=== PATIENT | female | born 1955 | race Caucasian/White ===

== ENCOUNTER 2017-03-12 11:54 | Outpatient (CLI) | payer BC ==
[2017-03-12 13:43] LABS: BASOPHILS # (AUTO) 0.1 10^3/uL (0.0-0.1); BASOPHILS % (AUTO) 1.1 %; EOSINOPHILS # (AUTO) 0.2 10^3/uL (0.0-0.7); EOSINOPHILS % (AUTO) 1.7 %; HCT - HEMATOCRIT 36.3 % (37.0-47.0); HGB - HEMOGLOBIN 12.2 g/dL (12.0-16.0); LYMPHOCYTES # (AUTO) 2.4 10^3/uL (1.5-3.5); LYMPHOCYTES % (AUTO) 26.7 %; MEAN CORPUSCULAR HEMOGLOBIN 31.6 pg (27.0-31.0); MEAN CORPUSCULAR HGB CONC 33.6 g/dL (32.0-36.0); MEAN CORPUSCULAR VOLUME 94.2 fL (81.0-99.0); MEAN PLATELET VOLUME 6.9 fL (7.9-10.8); MONOCYTES # (AUTO) 0.6 10^3/uL (0.0-1.0); MONOCYTES % (AUTO) 6.2 %; NEUTROPHILS # (AUTO) 5.9 10^3/uL (1.5-6.6); NEUTROPHILS % (AUTO) 64.3 %; RED BLOOD COUNT 3.85 10^6/uL (4.20-5.40); RED CELL DISTRIBUTION WIDTH 14.6 % (12.0-15.0); UNCORRECTED WHITE BLOOD COUNT 9.1 x10^3/uL; WHITE BLOOD COUNT 9.1 x10^3/uL (4.8-10.8)
[2017-03-12 14:01] LABS: ALBUMIN/GLOBULIN RATIO 1.7 (1.0-2.2); BILIRUBIN,TOTAL 0.3 mg/dL (0.2-1.0); BUN - BLOOD UREA NITROGEN 12 mg/dL (6-20); CALCIUM 9.4 mg/dL (8.5-10.3); CARBON DIOXIDE - CO2 29 mmol/L (21-32); CHLORIDE 102 mmol/L (101-111); CHOL/HDL RATIO 3.4 (<4.4); CHOLESTEROL 275 mg/dL; CREATININE 1.1 mg/dL (0.4-1.0); GFR - MDRD 50 (>89); GLUCOSE 96 mg/dL (70-100); HDL CHOLESTEROL 82 mg/dL; POTASSIUM 3.9 mmol/L (3.5-5.0); SODIUM 138 mmol/L (135-145); TOTAL PROTEIN 6.3 g/dL (6.7-8.2); TRIGLYCERIDES 127 mg/dL; VLDL CHOLESTEROL 25 mg/dL
== END 2017-03-12 11:55 | disposition home or self-care (01) ==
LOC: LAB.R 11:54
PROVIDERS: ATTEND Physician Assistant Medical
DX: Z79.899 Other long term (current) drug therapy (principal); E78.2 Mixed hyperlipidemia
CPT/HCPCS: 80053; 80061; 84443; 85025

== ENCOUNTER 2017-05-18 14:04 | Emergency (ER) | payer BC, OTHER ==
--- NOTE | 2017-05-18 15:09 | XRAY Preliminary Report ---
Exam: XR Ankle 3 View LT IMPRESSION: Mild soft tissue swelling. [facility] SITE ID: [id number]
--- NOTE | 2017-05-18 15:12 | XRAY Report ---
EXAM: LEFT ANKLE RADIOGRAPHY EXAM DATE: 05/18/2017 02:58 PM. CLINICAL HISTORY: Trauma, pain. COMPARISON: 10/06/2014. TECHNIQUE: 3 views. FINDINGS: Bones: Normal. No fractures or bone lesions. Joints: Normal. No effusion. No subluxations. The ankle mortise is normally aligned. Soft Tissues: Possible mild soft tissue swelling over malleoli. IMPRESSION: Mild soft tissue swelling. [facility] Referring Provider Line: [phone] SITE ID: [id number]
--- NOTE | 2017-05-18 15:39 | ED Physician Documentation ---
PD HPI LOWER EXT INJURY - Stated complaint Stated Complaint: L ANKLE INJ - Chief complaint Chief Complaint: Ext Problem - History obtained from History obtained from: Patient - History of Present Illness PD HPI LOW EXT INJURY LOCATION: Left, Ankle Type of injury: Twist Where injury occurred: Home Timing - onset: How many days ago (3) Worsened by: Other (Weightbearing.) Associated symptoms: Swelling. No: Weakness, Numbness - Additional information Additional information: The patient is a 62-year-old female who presents with left ankle pain. She caught her foot and twisted her ankle when a chair she was sitting on collapsed 3 days ago. She has been able to ambulate since that time, but with persistent pain in her left ankle with weightbearing. She denies any other injuries. Review of Systems Constitutional: denies: Fever Nose: denies: Congestion Skin: denies: Rash Musculoskeletal: reports: Joint pain (left ankle). denies: Back pain Neurologic: denies: Head injury PD PAST MEDICAL HISTORY - Past Medical History Past Medical History: Yes Cardiovascular: Hypertension, High cholesterol Psych: Depression, Anxiety - Past Surgical History Past Surgical History: Yes General: Cholecystectomy, Colonoscopy /OFFICE ADMINISTRATION: Hysterectomy - Present Medications Home Medications: Ambulatory Orders Medication Instructions Recorded Confirmed Lamotrigine [Lamictal] 100 mg PO DAILY 05/14/13 05/18/17 Alprazolam [Xanax] 1 mg PO TID 05/18/17 05/18/17 Gabapentin 100 mg PO BID 05/18/17 05/18/17 Losartan [Cozaar] 50 mg PO DAILY 05/18/17 05/18/17 - Allergies Allergies/Adverse Reactions: Allergies Allergy/AdvReac Type Severity Reaction Status Date / Time Sulfa (Sulfonamide Allergy Severe Edema Verified 05/18/17 14:21 Antibiotics) naproxen Allergy unknown Verified 05/18/17 14:21 Penicillins Allergy UNKNOWN Verified 05/18/17 14:21 - Social History Does the pt smoke?: No Smoking Status: Never smoker Does the pt drink ETOH?: No Does the pt have substance abuse?: No - Immunizations Immunizations are current?: No Immunizations: TDAP >10years/unknown - POLST Patient has POLST: No PD ED PE NORMAL - Vitals Vital signs reviewed: Yes (normal) - General General: Alert and oriented X 3, Other (obese) - HEENT HEENT: Atraumatic - Neck Neck: No bony TTP - Cardiac Cardiac: RRR - Respiratory Respiratory: No respiratory distress - Back Back: No spinal TTP - Derm Derm: No rash - Extremities Extremities: No calf tenderness / cord, Other (There is soft tissue swelling and tenderness to palpation at the lateral aspect of the left ankle, including the posterior aspect of the lateral malleolus. There is no tenderness to palpation at the medial malleolus, the fifth metatarsal base, or the proximal fibula. Distal neurovascular is intact.) - Neuro Neuro: Alert and oriented X 3, No motor deficit, No sensory deficit Results - Vitals Vitals: Oxygen O2 Source Room air - Rads (name of study) left ankle Radiology: Prelim report reviewed, EMP read contemporaneously, See rad report ( Mild soft tissue swelling.) PD MEDICAL DECISION MAKING - ED course Complexity details: reviewed results, re-evaluated patient, considered differential, d/w patient ED course: The patient's presentation is consistent with a left ankle sprain. There is no evidence of fracture or dislocation on imaging study. Treatment in the emergency department included application of an ankle air splint. I discussed with her and her female information scientist the expected course of illness, symptomatic treatment and outpatient follow-up, as well as potentially worrisome signs or symptoms that should prompt reevaluation in the emergency department. Departure - Departure Disposition: 01 Home, Self Care Clinical Impression: Left ankle sprain Qualifiers: Encounter type: initial encounter Involved ligament of ankle: unspecified ligament Qualified Code(s): S93.402A - Sprain of unspecified ligament of left ankle, initial encounter Condition: Stable Instructions: ED Sprain Ankle W X Ray Follow-Up: Allyson Tatum PA-C [Primary Care Provider] - Comments: Keep your left leg elevated as much of the time as possible. Apply ice pack intermittently for the next 3 days. Use the air splint if it provides comfort. You can use Tylenol or ibuprofen if needed for pain. Follow up with your primary physician within 2 weeks. Call to schedule an appointment. Return to the emergency department if you develop increasing pain or swelling, or otherwise worsening symptoms. Discharge Date/Time: 05/18/17 15:59
[2017-05-18 16:00] VITALS: BP 122/89
== END 2017-05-18 15:59 | disposition home or self-care (01) ==
LOC: ED 14:04
DX: S93.402A Sprain of unspecified ligament of left ankle, initial encounter (principal); W23.0XXA Caught, crushed, jammed, or pinched between moving objects, initial encounter; X50.9XXA Other and unspecified overexertion or strenuous movements or postures, initial encounter; I10 Essential (primary) hypertension; E78.00 Pure hypercholesterolemia, unspecified
CPT/HCPCS: 99283

== ENCOUNTER 2018-03-08 10:36 | Outpatient (CLI) | payer OTHER ==
--- NOTE | 2018-03-08 12:01 | XRAY Report ---
Procedure Date: 03/08/2018 Accession Number: [id number] / [id number] Procedure: XRS - Knee 3 View BILAT CPT Code: FULL RESULT: EXAM: Knee 3 View BILAT DATE: 03/08/2018 11:49 AM CLINICAL HISTORY: R L KNEE PAIN COMPARISON: 04/01/2015. TECHNIQUE: 3 views each. FINDINGS: RIGHT KNEE: Bones: Stable mild degenerative changes compared to 2015. Joints: Progression of joint space loss compared to 2015 greater in the lateral femoral tibial compartment. Interval development of a small knee joint effusion. Soft Tissues: Normal. No soft tissue swelling. LEFT KNEE: Evaluation of the left knee is limited by suboptimal AP view, rotated. Bones: Progression of advanced degenerative changes with evidence of prior trauma including likely osteochondral defect in the tibial eminence. Subchondral lucency has developed in the central tibial plateau region in the interval. Joints: While not diagnostic, the frontal view is suggestive of loose bodies within the femoral acetabular joint space. A small joint effusion has developed in the interim. Soft Tissues: Normal. No soft tissue swelling. IMPRESSION: Progression of severe posttraumatic left knee osteoarthrosis with likely osteochondral defect and question of loose bodies within the left joint, seen on one view only. Mild degenerative changes of the right knee. [facility]
== END 2018-03-08 10:37 | disposition home or self-care (01) ==
LOC: DI.S 10:36
PROVIDERS: ATTEND Naturopath
DX: M17.32 Unilateral post-traumatic osteoarthritis, left knee (principal); M17.11 Unilateral primary osteoarthritis, right knee

== ENCOUNTER 2018-04-23 13:04 | Outpatient (CLI) | payer OTHER | END 2018-04-23 13:05 | disposition home or self-care (01) | LOC: LAB.F 13:04 | PROVIDERS: ATTEND Naturopath | DX: Z53.9 Procedure and treatment not carried out, unspecified reason (principal) | CPT/HCPCS: 36415; 80053; 81001; 82088; 83090; 84244; 85025; 86141; 87086 ==

== ENCOUNTER 2018-04-24 10:22 | Outpatient (CLI) | payer MEDICARE, OTHER ==
[2018-04-24 20:36] LABS: BASOPHILS # (AUTO) 0.1 10^3/uL (0.0-0.1); BASOPHILS % (AUTO) 0.8 %; EOSINOPHILS # (AUTO) 0.2 10^3/uL (0.0-0.7); EOSINOPHILS % (AUTO) 2.4 %; LYMPHOCYTES # (AUTO) 1.8 10^3/uL (1.5-3.5); LYMPHOCYTES % (AUTO) 25.2 %; MEAN CORPUSCULAR HGB CONC 32.6 g/dL (32.0-36.0); MEAN CORPUSCULAR VOLUME 89.1 fL (81.0-99.0); MEAN PLATELET VOLUME 7.3 fL (7.9-10.8); MONOCYTES # (AUTO) 0.6 10^3/uL (0.0-1.0); MONOCYTES % (AUTO) 8.4 %; NEUTROPHILS # (AUTO) 4.4 10^3/uL (1.5-6.6); NEUTROPHILS % (AUTO) 63.2 %; PLT - PLATELET COUNT 369 10^3/uL (130-450); RED BLOOD COUNT 4.13 10^6/uL (4.20-5.40); RED CELL DISTRIBUTION WIDTH 18.2 % (12.0-15.0)
[2018-04-24 20:51] LABS: ALBUMIN 3.9 g/dL (3.2-5.5); ALBUMIN/GLOBULIN RATIO 1.7 (1.0-2.2); BILIRUBIN,TOTAL 0.6 mg/dL (0.2-1.0); CALCIUM 9.2 mg/dL (8.5-10.3); CREATININE 1.1 mg/dL (0.4-1.0); CRP HIGH SENSITIVITY 2.6 mg/L; TOTAL PROTEIN 6.2 g/dL (6.7-8.2)
[2018-04-24 21:20] LABS: T4 (THYROXINE) 10.93 ug/dL (6.09-12.23); THYROID STIMULATING HORMONE 1.85 uIU/mL (0.34-5.60)
[2018-04-24 21:27] LABS: TOTAL T3 1.49 ng/mL (0.87-1.78)
[2018-04-24 21:29] LABS: FERRITIN 11.9 ng/mL (11.0-306.8)
[2018-04-24 21:32] LABS: FOLATE 15.81 ng/mL (5.90 - >24.8)
[2018-04-26 09:13] LABS: HOMOCYSTEINE 10.4 umol/L (<10.4)
[2018-04-30 16:02] LABS: T3 REVERSE 30 ng/dL (8-25)
== END 2018-04-24 10:23 | disposition home or self-care (01) ==
LOC: LAB.F 10:22
PROVIDERS: ATTEND Naturopath
DX: R39.12 Poor urinary stream (principal); R27.0 Ataxia, unspecified; R41.82 Altered mental status, unspecified; F33.2 Major depressive disorder, recurrent severe without psychotic features
CPT/HCPCS: 36415; 80053; 81001; 82088; 82306; 82607; 82728; 82746; 83090; 83835; 84244; 84436; 84439; 84443; 84480; 84481; 84482; 85025; 86141; 87086

== ENCOUNTER 2018-05-07 17:31 | Emergency (ER) | payer MEDICARE, OTHER ==
--- NOTE | 2018-05-07 18:29 | ED Physician Documentation ---
PD HPI GI BLEED - Stated complaint Stated Complaint: ABNORMAL LABS/RUST COLOR DISCHARGE FROM MOUTH - Chief complaint Chief Complaint: Abd Pain - History obtained from History obtained from: Patient - History of Present Illness Timing - onset: How many months ago (several months of upper abd fullness and nausea in mornings, with then vomiting of rust colored material. Feels okay through the day then, and can eat regularly. No weight loss. Has had this persist and seem by PCP (Care Coordination Manager) with labs done 04/24. Returned visit today with still symptoms. Was not Rx any meds for stomach. Referred to ER from office.) Timing - details: Gradual onset, Still present Associated symptoms: Hematemesis (vomiting each morning of rust colored material, presumed some blood to it. No bright red nor coffee ground appearance.). No: Coffee ground emesis, Black/tarry stool, Diarrhea Contributing factors: No: Sick contact, Aspirin use, NSAID use Worsened by: No: Eating Similar symptoms before: Has not had sx before Recently seen: Clinic Review of Systems Constitutional: denies: Fever, Chills Cardiac: denies: Chest pain / pressure Respiratory: denies: Dyspnea GI: reports: Abdominal Pain (epigastric area, mostly in mornings.) Endocrine: denies: Weight loss, Easy bruising / bleeding, Swollen lymph nodes PD PAST MEDICAL HISTORY - Past Medical History Cardiovascular: Hypertension, High cholesterol Psych: Depression, Anxiety Musculoskeletal: Fibromyalgia - Past Surgical History Past Surgical History: Yes General: Cholecystectomy, 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 05/07/18 Ondansetron HCl [Zofran] 4 mg PO Q6H PRN #20 tablet 05/07/18 Sucralfate 1 gm PO QID #40 tablet 05/07/18 - Allergies Allergies/Adverse Reactions: Allergies Allergy/AdvReac Type Severity Reaction Status Date / Time Sulfa (Sulfonamide Allergy Severe Edema Verified 05/07/18 17:41 Antibiotics) naproxen Allergy unknown Verified 05/07/18 17:41 Penicillins Allergy UNKNOWN Verified 05/07/18 17:41 - Social History Does the pt smoke?: No Smoking Status: Never smoker Does the pt drink ETOH?: No Does the pt have substance abuse?: No - Immunizations Immunizations are current?: No Immunizations: TDAP >10years/unknown - POLST Patient has POLST: No PD ED PE NORMAL - Vitals Vital signs reviewed: Yes - General General: Alert and oriented X 3, No acute distress, Well developed/nourished - HEENT HEENT: Pharynx benign - Neck Neck: Supple, no meningeal sign, No adenopathy - Cardiac Cardiac: RRR, No murmur - Respiratory Respiratory: Clear bilaterally - Abdomen Abdomen: Normal bowel sounds, Soft, Non distended, No organomegaly, Other (mild tender epigastric area without guarding. ) - Female Female : Deferred - Rectal Rectal: Other (brown stool with just speckle guiac positive. ) - Derm Derm: Normal color, Warm and dry - Extremities Extremities: No tenderness to palpate, Normal ROM s pain, No edema, No calf tenderness / cord - Neuro Neuro: Alert and oriented X 3, No motor deficit, Normal speech Results - Vitals Vitals: Vital Signs - 24 hr 05/07/18 05/07/18 17:38 21:04 Temperature 36.8 C Heart Rate 87 81 Respiratory 18 16 Rate Blood Pressure 152/96 H 172/92 H O2 Saturation 97 99 Oxygen O2 Source Room air - Labs Labs: Laboratory Tests 05/07/18 05/07/18 19:15 19:15 WBC 9.7 RBC 3.66 L Hgb 11.2 L Hct 33.0 L MCV 90.1 MCH 30.6 MCHC 34.0 RDW 19.2 H Plt Count 318 MPV 7.0 L Neut # (Auto) 5.7 Lymph # (Auto) 2.8 [place] # (Auto) 0.8 Eos # (Auto) 0.2 Baso # (Auto) 0.1 Absolute Nucleated RBC 0.00 Nucleated RBC % 0.0 Sodium 138 Potassium 3.5 Chloride 101 Carbon Dioxide 28 Anion Gap 9.0 BUN 12 Creatinine 1.1 H Estimated GFR (MDRD) 50 L Glucose 104 H Calcium 8.7 Total Bilirubin 0.5 AST 16 ALT 13 Alkaline Phosphatase 83 Total Protein 5.5 L Albumin 3.5 Globulin 2.0 L Albumin/Globulin Ratio 1.8 Lipase 24 PD MEDICAL DECISION MAKING - ED course Complexity details: reviewed old records (she came with labs from 04/24 showing Hbg 12.2. Other labs okay. Had not had any labs today. ), reviewed results (blood count slightly low but only mildly down from 04/24 Hgb 12.2. So slow bleeding/stable at this time. Is not currently treated for ulcer/etc. PCP ordered stool study for h.pylori and patient has collection kit for home already. Will treat for ulcer. I don't think CT/etc would be useful. EGD would make sense given these symptoms for months. ) - Sepsis Event Vital Signs: Vital Signs - 24 hr 05/07/18 05/07/18 17:38 21:04 Temperature 36.8 C Heart Rate 87 81 Respiratory 18 16 Rate Blood Pressure 152/96 H 172/92 H O2 Saturation 97 99 Oxygen O2 Source Room air Departure - Departure Disposition: Home, Self Care Clinical Impression: Hematemesis Qualifiers: Nausea presence: without nausea Qualified Code(s): K92.0 - Hematemesis Gastritis Qualifiers: Gastritis type: unspecified gastritis Chronicity: acute Gastritis bleeding: with bleeding Qualified Code(s): K29.01 - Acute gastritis with bleeding Condition: Stable Record reviewed to determine appropriate education?: Yes Instructions: ED PUD Vs Gastritis Follow-Up: Maria Ines Marques ND [Primary Care Provider] - Rogelio Ba MD [Provider Admit Priv/Credential] - Prescriptions: Omeprazole 20 mg PO DAILY #30 capsule. Ondansetron HCl [Zofran] 4 mg PO Q6H PRN #20 tablet PRN Reason: Nausea / Vomiting Sucralfate 1 gm PO QID #40 tablet Comments: Frequent fluids. It sounds like you have either gastritis or ulcer of the stomach. The most accurate test for this would be an upper GI dye test or even better is a gastroscopy which is a camera on the tube. This is done by surgeon or GI specialist. Call Dr. Ba's office, surgery, to arrange follow-up and evaluate for gastroscopy. Call them tomorrow for an appointment presumably later this week. Meanwhile we will treat you for likely ulcer with omeprazole daily and sucralfate 3-4 times a day (particularly at night before bed). Ondansetron if needed for nausea. Follow-up with the stool test requested by your primary care which would evaluate for the presence of an infection and urine test did not or stomach lining that may be precipitating this as well. Return if obvious blood in the stool or worsening symptoms. Recheck with your primary care in about a week, call for an appointment. Discharge Date/Time: 05/07/18 21:04
[2018-05-07] MEDS ORDERED: MAG HYDROX/AL HYDROX/SIMETH 30 ML UDC PO STA (18:59)
[2018-05-07] MEDS ORDERED: FAMOTIDINE 20 MG TABLET PO STA (18:59)
[2018-05-07 19:23] LABS: BASOPHILS # (AUTO) 0.1 10^3/uL (0.0-0.1); BASOPHILS % (AUTO) 0.9 %; EOSINOPHILS # (AUTO) 0.2 10^3/uL (0.0-0.7); EOSINOPHILS % (AUTO) 2.3 %; HGB - HEMOGLOBIN 11.2 g/dL (12.0-16.0); LYMPHOCYTES # (AUTO) 2.8 10^3/uL (1.5-3.5); LYMPHOCYTES % (AUTO) 29.1 %; MEAN CORPUSCULAR HEMOGLOBIN 30.6 pg (27.0-31.0); MEAN CORPUSCULAR VOLUME 90.1 fL (81.0-99.0); MONOCYTES # (AUTO) 0.8 10^3/uL (0.0-1.0); MONOCYTES % (AUTO) 8.7 %; NEUTROPHILS # (AUTO) 5.7 10^3/uL (1.5-6.6); PLT - PLATELET COUNT 318 10^3/uL (130-450); RED BLOOD COUNT 3.66 10^6/uL (4.20-5.40); RED CELL DISTRIBUTION WIDTH 19.2 % (12.0-15.0); WHITE BLOOD COUNT 9.7 x10^3/uL (4.8-10.8)
[2018-05-07 19:39] LABS: ALBUMIN 3.5 g/dL (3.2-5.5); ALBUMIN/GLOBULIN RATIO 1.8 (1.0-2.2); BILIRUBIN,TOTAL 0.5 mg/dL (0.2-1.0); CALCIUM 8.7 mg/dL (8.5-10.3); CREATININE 1.1 mg/dL (0.4-1.0); TOTAL PROTEIN 5.5 g/dL (6.7-8.2)
[2018-05-07 21:05] VITALS: BP 172/92
== END 2018-05-07 21:04 | disposition home or self-care (01) ==
LOC: ED 17:31
DX: K29.01 Acute gastritis with bleeding (principal); I10 Essential (primary) hypertension
CPT/HCPCS: 36415; 80053; 83690; 85025; 99283; 99284; A9270; 87338

== ENCOUNTER 2018-07-02 15:18 | Outpatient (CLI) | payer MEDICARE, OTHER ==
[2018-07-02 17:54] LABS: BILIRUBIN,URINE NEGATIVE (NEGATIVE); GLUCOSE, URINE (UA) NEGATIVE (NEGATIVE); KETONES,URINE (UA) NEGATIVE (NEGATIVE); LEUKOCYTE ESTERASE, URINE SMALL (NEGATIVE); NITRITE,URINE NEGATIVE (NEGATIVE); OCCULT BLOOD,URINE NEGATIVE (NEGATIVE); PH,URINE 6.5 PH (5.0-7.5); PROTEIN,URINE NEGATIVE (NEGATIVE); UROBILINOGEN,URINE 0.2 (NORMAL) E.U./dL (NORMAL)
[2018-07-02 17:57] LABS: BASOPHILS # (AUTO) 0.1 10^3/uL (0.0-0.1); BASOPHILS % (AUTO) 0.8 %; EOSINOPHILS # (AUTO) 0.3 10^3/uL (0.0-0.7); EOSINOPHILS % (AUTO) 3.5 %; HGB - HEMOGLOBIN 11.7 g/dL (12.0-16.0); LYMPHOCYTES # (AUTO) 3.3 10^3/uL (1.5-3.5); LYMPHOCYTES % (AUTO) 38.5 %; MEAN CORPUSCULAR HGB CONC 32.3 g/dL (32.0-36.0); MEAN PLATELET VOLUME 7.1 fL (7.9-10.8); MONOCYTES # (AUTO) 0.7 10^3/uL (0.0-1.0); MONOCYTES % (AUTO) 8.6 %; NEUTROPHILS # (AUTO) 4.2 10^3/uL (1.5-6.6); NEUTROPHILS % (AUTO) 48.6 %; PLT - PLATELET COUNT 380 10^3/uL (130-450); RED BLOOD COUNT 3.89 10^6/uL (4.20-5.40); WHITE BLOOD COUNT 8.6 x10^3/uL (4.8-10.8)
[2018-07-02 17:58] LABS: CLARITY,URINE CLEAR (CLEAR)
[2018-07-02 18:05] LABS: ALBUMIN 3.9 g/dL (3.2-5.5); ALBUMIN/GLOBULIN RATIO 1.8 (1.0-2.2); BILIRUBIN,TOTAL 0.5 mg/dL (0.2-1.0); CALCIUM 8.9 mg/dL (8.5-10.3); TOTAL PROTEIN 6.1 g/dL (6.7-8.2)
[2018-07-02 18:14] LABS: BACTERIA,URINE None Seen /HPF (None Seen); RBC,URINE None Seen /HPF (0-5); SQUAMOUS EPITHELIAL CELL,UR MANY Squamous (<= Few)
== END 2018-07-02 15:19 | disposition home or self-care (01) ==
LOC: LAB.R 15:18
PROVIDERS: ATTEND Physician Assistant Medical
DX: R10.84 Generalized abdominal pain (principal); K92.0 Hematemesis; N18.9 Chronic kidney disease, unspecified
CPT/HCPCS: 80053; 81001; 81003; 85025; 87086

== ENCOUNTER 2018-09-02 10:31 | Outpatient (CLI) | payer MEDICARE, OTHER ==
[2018-09-02] MEDS ORDERED: IOVERSOL 320 100 ML VIAL IVP ONE ×2 (10:42→13:04)
[2018-09-02] MEDS ORDERED: IOVERSOL 320 50 ML VIAL ONE (10:42)
[2018-09-02 11:15] LABS: CREATININE 1.1 mg/dL (0.4-1.0)
[2018-09-02] MEDS ORDERED: IOVERSOL 320 50 ML VIAL PO ONE (13:07)
--- NOTE | 2018-09-02 13:21 | CT Report ---
Reason: ABDOMINAL PAIN,GENERALIZED,HEMATEMESIS,RENAL INSUF Procedure Date: 09/02/2018 Accession Number: [id number] / [id number] Procedure: CT - Abdomen/Pelvis W/ CPT Code: FULL RESULT: EXAM: CT ABDOMEN AND PELVIS EXAM DATE: 09/02/2018 11:47 AM. CLINICAL HISTORY: Abdominal pain,generalized,hematemesis,renal insufficiency. COMPARISONS: None. TECHNIQUE: Routine helical CT imaging was performed through the abdomen and pelvis. IV contrast: OPTI 320 90mL. Enteric contrast: Yes. Reconstructions: Coronal and sagittal. In accordance with CT protocol optimization, one or more of the following dose reduction techniques were utilized for this exam: automated exposure control, adjustment of mA and/or KV based on patient size, or use of iterative reconstructive technique. FINDINGS: Lung Bases: Small amount of scarring versus subsegmental atelectasis at the left lung base. Incompletely imaged hiatal hernia versus prior gastric pull-through procedure. There is an abnormal-appearing soft tissue mass along the gastric mesentery, which is herniated into the thorax. There is a likely gastroesophageal lymph node, up to 1.0 cm in short axis with no definite fatty hilum detected. Liver: Normal. No masses. Gallbladder/Bile Ducts: Status post cholecystectomy. Spleen: Normal. Pancreas: Normal. Adrenal Glands: Normal. Kidneys: Right renal cyst, simple. No suspicious masses or hydronephrosis. Peritoneal Cavity/Bowel: Normal. No free fluid, free air or adenopathy. No masses or acute inflammatory process. The appendix is well visualized and normal. Pelvic Organs: Status post hysterectomy. Vasculature: No aneurysms or other significant abnormality. Bones: No significant abnormality. Other: None. IMPRESSION: Likely at least moderate hiatal hernia with abnormal-appearing perigastric lymph node. This should be correlated to the patient's history for possible prior gastric pull-through procedure. [facility] The above findings suspected hiatal hernia with prominent lymph node were discussed with Allyson Tatum by Dr. Gal Yusuf at 13:20 hrs on 09/02/18.
== END 2018-09-02 10:32 | disposition home or self-care (01) ==
LOC: DI 10:31
PROVIDERS: ATTEND Physician Assistant Medical
DX: R10.84 Generalized abdominal pain (principal); K92.0 Hematemesis; N18.9 Chronic kidney disease, unspecified; K52.9 Noninfective gastroenteritis and colitis, unspecified; R41.82 Altered mental status, unspecified; R25.1 Tremor, unspecified; Z79.899 Other long term (current) drug therapy
CPT/HCPCS: 36415; 70450; 74177; 82565; Q9967

== ENCOUNTER 2018-09-02 12:48 | Outpatient (CLI) | payer MEDICARE, OTHER ==
--- NOTE | 2018-09-02 15:07 | CT Report ---
Reason: ALTERED MENTAL STATUS,UNSPECIFIED,TREMOR Procedure Date: 09/02/2018 Accession Number: [id number] / [id number] Procedure: CT - Head W/O CPT Code: FULL RESULT: EXAM: CT HEAD EXAM DATE: 09/02/2018 10:34 AM. CLINICAL HISTORY: ALTERED MENTAL STATUS,UNSPECIFIED,TREMOR. COMPARISON: Brain MRI 09/18/2013. TECHNIQUE: Multiaxial CT images were obtained from the foramen magnum to the vertex. Reformats: Sagittal and coronal. IV contrast: None. In accordance with CT protocol optimization, one or more of the following dose reduction techniques were utilized for this exam: automated exposure control, adjustment of mA and/or KV based on patient size, or use of iterative reconstructive technique. FINDINGS: Parenchyma: No intraparenchymal hemorrhage. No evidence of mass, midline shift, or CT findings of infarction. Merlos-white differentiation is distinct. Subtle areas of low attenuation in deep white matter of both cerebral hemispheres. No associated positive mass-effect. Mild chronic small vessel ischemic change could have this appearance. Minimal white matter signal abnormality was present on prior MRI. Extraaxial Spaces: Sulcal prominence over the cerebral convexities greatest bilaterally in the frontal lobes. Mild volume loss is seen in the anterior and medial temporal lobes as well. This appears slightly increased compared to prior MRI. No subdural or epidural collections identified. Ventricles: Normal in size and position. Sinuses and Orbits: Imaged paranasal sinuses, orbits, and mastoids show no significant abnormality. Bones: No evidence of fracture or calvarial defect. Other: None. IMPRESSION: 1. Mild sulcal prominence and interval mild increase in parenchymal volume loss in frontal and temporal lobes. No hydrocephalus. 2. Subtle low attenuation in deep white matter bilaterally without associated positive mass-effect or loss of merlos-white differentiation. Mild chronic small vessel ischemic change could have this appearance. 3. Exam otherwise as above. [facility]
== END 2018-09-02 12:49 | disposition home or self-care (01) ==
LOC: DI 12:48
PROVIDERS: ATTEND Naturopath
DX: R41.82 Altered mental status, unspecified (principal); R25.1 Tremor, unspecified
CPT/HCPCS: 70450

== ENCOUNTER 2018-09-19 10:26 | Day surgery (SDC) | payer MEDICARE, OTHER ==
[2018-09-19] MEDS ORDERED: PROPOFOL 200 MG/20 ML VIAL IVP ONE (10:27)
[2018-09-19] MEDS ORDERED: LACTATED RINGERS 1,000 ML IV ONE ×2 (11:05→13:50)
[2018-09-19] MEDS ORDERED: LIDO GARGLE 30 ML BOTTLE TOP ONE (12:54)
[2018-09-19 14:15] VITALS: BP 147/92
== END 2018-09-19 10:27 | disposition home or self-care (01) ==
LOC: SDS 10:26
PROVIDERS: ATTEND Internal Medicine Gastroenterology
PROC: 0DB58ZX Excision of Esophagus, Via Natural or Artificial Opening Endoscopic, Diagnostic (ICD-10-PCS; 2018-09-19)
PROC: 0DBG8ZX Excision of Left Large Intestine, Via Natural or Artificial Opening Endoscopic, Diagnostic (ICD-10-PCS; 2018-09-19)
PROC: 0DBF8ZX Excision of Right Large Intestine, Via Natural or Artificial Opening Endoscopic, Diagnostic (ICD-10-PCS; 2018-09-19)
PROC: 0DB98ZX Excision of Duodenum, Via Natural or Artificial Opening Endoscopic, Diagnostic (ICD-10-PCS; principal; 2018-09-19 12:00)
PROC: 0DB78ZX Excision of Stomach, Pylorus, Via Natural or Artificial Opening Endoscopic, Diagnostic (ICD-10-PCS; 2018-09-19 12:00)
DX: K22.70 Barrett's esophagus without dysplasia (principal); K44.9 Diaphragmatic hernia without obstruction or gangrene; K29.50 Unspecified chronic gastritis without bleeding; K52.9 Noninfective gastroenteritis and colitis, unspecified; I10 Essential (primary) hypertension; F32.9 Major depressive disorder, single episode, unspecified; F41.9 Anxiety disorder, unspecified; E66.9 Obesity, unspecified; Z68.35 Body mass index [BMI] 35.0-35.9, adult; M79.7 Fibromyalgia; M17.0 Bilateral primary osteoarthritis of knee
CPT/HCPCS: 43239; 45380; 87081; 93005; A9270; J7120

== ENCOUNTER 2019-02-27 15:00 | Outpatient (CLI) | payer MEDICARE, OTHER | END 2019-02-27 15:01 | disposition EMS.NT | LOC: EMS 15:00 | PROVIDERS: ATTEND Surgery | DX: M25.561 Pain in right knee (principal); M25.562 Pain in left knee; W01.0XXA Fall on same level from slipping, tripping and stumbling without subsequent striking against object, initial encounter; Y93.01 Activity, walking, marching and hiking; Y92.008 Other place in unspecified non-institutional (private) residence as the place of occurrence of the external cause ==

== ENCOUNTER 2019-03-02 | Inpatient (IN) | payer MEDICARE, OTHER | END 2019-03-04 19:05 | disposition home health service (06) | DRG 918 | PROVIDERS: ADMIT Internal Medicine | DX: T43.591A Poisoning by other antipsychotics and neuroleptics, accidental (unintentional), initial encounter (principal); N39.0 Urinary tract infection, site not specified; R51 Headache; N17.9 Acute kidney failure, unspecified; I45.81 Long QT syndrome; R79.1 Abnormal coagulation profile; B95.1 Streptococcus, group B, as the cause of diseases classified elsewhere; R29.6 Repeated falls; R26.89 Other abnormalities of gait and mobility; R11.2 Nausea with vomiting, unspecified; R42 Dizziness and giddiness; E86.0 Dehydration; F60.3 Borderline personality disorder; G25.2 Other specified forms of tremor; I10 Essential (primary) hypertension; F32.9 Major depressive disorder, single episode, unspecified; K21.9 Gastro-esophageal reflux disease without esophagitis; F41.9 Anxiety disorder, unspecified; M79.7 Fibromyalgia; Z66 Do not resuscitate; Z79.01 Long term (current) use of anticoagulants; Z79.899 Other long term (current) drug therapy; Z91.81 History of falling; Z88.0 Allergy status to penicillin; Z88.2 Allergy status to sulfonamides | CPT/HCPCS: 36415; 70450; 71045; 80048; 80053; 80178; 81001; 82306; 83690; 84443; 85025; 85610; 85730; 87077; 87086; 93005; 93306; 96360; 97110; 97116; 97161; 97166; 99284; 99285; A9270; 80306; 80307; 80320; 80329; 81003; 84484 ==

== ENCOUNTER 2020-08-20 08:00 | Outpatient (CLI) | payer MEDICARE, OTHER ==
--- OUTSIDE RECORDS SUMMARY | 2020-08-25 01:58 | EXTERNAL MEDICAL SUMMARY RPT | Continuity of Care Document ---
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 Katus Unavailable Unavailable Roof Unavailable Unavailable Demmler Unavailable Unavailable Problems date description facility 2016-08-21 14:20 ENCNTR SCREEN MAMMOGRAM FOR [facility] MALIGNANT NEOPLASM OF BREAST 2018-02-28 11:40 PAIN IN RIGHT KNEE [facility] Medic [facility] 2018-02-28 11:40 PAIN IN LEFT KNEE [facility] 2020-07-15 00:00:00 TSH WITH REFLEX TO FT4 [facility] 2020-07-15 00:00:00 Hep C AB with Reflex [facility] Pr [facility] 2020-07-15 00:00:00 Long-term (current) drug use [facility] 2020-07-15 00:00:00 Routine general medical [facility] Primary [facility] examination at a [facility] facility 2020-07-15 00:00:00 Other screening mammogram [facility] 2020-07-15 00:00:00 [facility] 00:00:00 [facility]15 00:00:00 MM SCR DIGITAL MAMMO BILAT [facility] 2020-07-15 00:00:00 DEXA BONE DENSITY COMPLETE [facility] 2020-07-15 00:00:00 COMPREHENSIVE METABOLIC PANEL [facility] 2020-07-15 00:00:00 LIPIDS SCREEN [facility] 2020-07-15 00:00:00 [place] [facility] 2020-07-15 00:00:00 CBC W/Diff[facility]Plt [facility] 2020-07-15 00:00:00 [facility] 2020-07-15 00:00:00 Encounter for general adult [facility] medical examination without [facility] abnormal findings 2020-07-15 00:00:00 [facility] for malignant neoplasm [facility] of breast 2020-07-15 00:00:00 [facility] other disorder [facility] 2020-07-15 00:00:00 Other [facility] 2020-07-15 00:00:00 Depression [facility] 2020-07-15 00:00:00 Alcohol consumption [facility] 2020-07-15 00:00:00 [facility] 2020-07-15 00:00:00 [facility] 2020-07-15 00:00:00 Adult health examination [facility] Primary Care [facility] 2020-07-15 00:00:00 [facility]id [facility] 00:00:00 Little interest or pleasure [facility] doing things? [facility] 2020-07-15 00:00:00 Feeling down, depressed, or [facility] hopeless? [facility] 2020-07-15 00:00:00 Patient Health Questionnaire 2 [facility] item (PHQ2) total score 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 2020-08-20 00:00:00 Other signs and symptoms [facility] involving cognition [facility] 2020-08-20 00:00:00 Urinalysis with Microscopic [facility] Exam, Culture in Indicated [facility] 2020-08-20 00:00:00 [facility] back pain 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 2020-08-20 00:00:00 Other symptoms and signs [facility] involving cognitive functions [place] [facility] and awareness 2020-08-20 00:00:00 Chills (without fever) 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 2020-08-20 00:00:[facility]:00 Tobacco use and exposure [facility] 2020-08-20 00:00:[facility]:00:00 [facility]oker [facility] 2020-08-20 00:00:00 [facility]:00:00 [facility] 2020[facility]20 00:00:00 [facility] 00:00:00 Tobacco smoking status NHIS [facility] 2020-08-20 00:00:00 Total score? 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, UNSPECIFIED 2020-08-20 08:00 HEMATURIA, UNSPECIFIED [facility] edical Center Allergies date description facility NO KNOWN ENVIRONMENTAL ALLERGIES [facility] NO KNOWN ALLERGIES [facility] Penicillins [facility] Sulfa (Sulfonamide Antibiotics) [facility] naproxen [facility] SULFA (SULFONAMIDE ANTIBIOTICS) [facility] Penicillins [facility] Sulfa (Sulfonamide Antibiotics) [facility] naproxen [facility] BEE VENOM [facility] DOXAZOSIN [facility] VENLAFAXINE [facility] Medications date description facility 2020-07-15 00:00:00 [facility] 2020-07-15 00:00:00 null [facility] 2020-07-15 00:00:00 [facility] 2020-07-15 00:00:00 [facility] 2020-07-15 00:00:00 DESVENLAFAXINE SUCCINATE [facility] [id number] [facility] 2020-07-15 00:00:00 LITHIUM CARBONATE CAPS [facility] 2020-07-15 00:00:00 null [facility] 00:00:00 LITHIUM CARBONATE CAPS [facility] 2020-07-15 00:00:00 DESVENLAFAXINE SUCCINATE [facility] [id number] Procedures date description facility 2020-07-15 00:00:00 First Vx - Ix admin for [facility] Medicare patients [place] [facility] date description facility 2020-07-15 00:00:00 Prevnar 13 [facility] Suspension [place] [facility] date description facility 2020-07-15 00:00:00 ANNUAL WELLNESS VISIT, [facility] SUBSEQUENT [place] [facility] date description facility 2020-07-15 00:00:[facility] [place] [facility] date description facility 2020-08-20 00:00:00 POC URINALYSIS DIP [facility] date description facility 2020-08-20 00:00:00 [facility] [place] [facility] Results Social History date description facility 2020-08-20 00:00:00 [facility]oker [facility] [place] [facility] Social History date description facility 2020-08-20 00:00:00 [facility] [place] [facility] date description facility [id number]
== END 2020-08-20 23:59 | disposition home or self-care (01) ==
LOC: LAB.R 08:00
PROVIDERS: ATTEND Physician Assistant
DX: M54.5 Low back pain (principal); R82.998 Other abnormal findings in urine
CPT/HCPCS: 87086

== ENCOUNTER 2020-08-23 10:06 | Emergency (ER) | payer MEDICARE, OTHER ==
[2020-08-23 10:43] LABS: BILIRUBIN,URINE NEGATIVE (NEGATIVE); GLUCOSE, URINE (UA) NEGATIVE (NEGATIVE); KETONES,URINE (UA) NEGATIVE (NEGATIVE); LEUKOCYTE ESTERASE, URINE LARGE (NEGATIVE); NITRITE,URINE NEGATIVE (NEGATIVE); OCCULT BLOOD,URINE SMALL (NEGATIVE); PROTEIN,URINE TRACE mg/dL (NEGATIVE); UROBILINOGEN,URINE 0.2 (NORMAL) E.U./dL (NORMAL)
[2020-08-23 10:47] LABS: CLARITY,URINE SL. CLOUDY (CLEAR)
[2020-08-23 10:51] LABS: BACTERIA,URINE Few /HPF (None Seen); RBC,URINE 0-5 /HPF (0-5); SQUAMOUS EPITHELIAL CELL,UR FEW Squamous (<= Few)
--- NOTE | 2020-08-23 11:29 | ED Physician Documentation ---
PD HPI NVD - Stated complaint Stated Complaint: MEMORY LOSS/HEAD PX - Chief complaint Chief Complaint: Neuro - History obtained from History obtained from: Patient - History of Present Illness Timing - onset: How many days ago (4) Timing - duration: Days (4) Timing - details: Gradual onset, Still present Associated symptoms: Abdominal pain, Near syncope / syncope, Loss of appetite, Other (vomiting) Contributing factors: Other (hx of schizophrenia and prior lithium toxicity) Improved by: Vomiting Similar symptoms before: Has not had sx before Recently seen: Clinic - Additonal information Additional information: 65-year-old female reports that she has developed some nausea and vomiting and abdominal pain and went to see the doctor last week and they thought that maybe she should come to the hospital for evaluation of stroke. The patient stated that she did not think she needed to do that when she left the doctor's office and today she has persistence of a headache has persistence of some vomiting and nausea and is come to the emergency department for evaluation. She denies any focal motor weakness or clumsiness she denies any recent falls she does have a headache and she is complaining of some blurring of her vision. She is no longer taking any warfarin she is still taking lithium. Review of Systems Constitutional: denies: Chills Eyes: reports: Decreased vision Ears: denies: Ear pain Nose: denies: Rhinorrhea / runny nose, Congestion Throat: denies: Sore throat Cardiac: denies: Chest pain / pressure, Palpitations Respiratory: denies: Dyspnea, Cough GI: reports: Abdominal Pain, Nausea, Vomiting : reports: Frequency. denies: Dysuria Skin: denies: Rash Musculoskeletal: denies: Neck pain, Back pain, Extremity pain Neurologic: reports: Altered mental status, Headache. 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 - Present Medications Home Medications: Ambulatory Orders Medication Instructions Recorded Confirmed Losartan [Cozaar] 50 mg PO DAILY 05/18/17 03/03/19 Duloxetine HCl 120 mg PO DAILY 03/02/19 03/03/19 Gabapentin 600 mg PO QPM 03/02/19 03/03/19 Omeprazole 40 cap PO BID 03/02/19 03/03/19 lamoTRIgine [LaMICtal] 100 tab PO DAILY 03/02/19 03/03/19 lamoTRIgine [LaMICtal] 150 mg PO QPM 03/02/19 03/03/19 ALPRAZolam [Alprazolam] 1 mg PO TID PRN 03/03/19 03/03/19 Nitrofurantoin [Macrobid] 100 mg PO BID #10 capsule 03/04/19 Cefdinir 300 mg PO BID #14 capsule 08/23/20 Ondansetron Odt [Zofran] 4 mg TL Q6H PRN #10 tablet 08/23/20 - Allergies Allergies/Adverse Reactions: Allergies Allergy/AdvReac Type Severity Reaction Status Date / Time Sulfa (Sulfonamide Allergy Severe Edema Verified 08/23/20 10:20 Antibiotics) naproxen Allergy unknown Verified 08/23/20 10:20 Penicillins Allergy UNKNOWN Verified 08/23/20 10:20 - Social History Does the pt smoke?: No Smoking Status: Never smoker Does the pt drink ETOH?: No Does the pt have substance abuse?: Yes Substance Use and Type: Marijuana - Immunizations Immunizations are current?: No Immunizations: TDAP >10years/unknown - POLST Patient has POLST: No POLST Status: DNR PD ED PE NORMAL - Vitals Vital signs reviewed: Yes (normal) - General General: Alert and oriented X 3, No acute distress, Well developed/nourished - HEENT HEENT: Atraumatic, PERRL, EOMI, Ears normal - Neck Neck: Supple, no meningeal sign, No bony TTP - Cardiac Cardiac: RRR, No murmur - Respiratory Respiratory: No respiratory distress, Clear bilaterally - Abdomen Abdomen: Normal bowel sounds, Soft, Non tender, Non distended, No organomegaly - Back Back: No CVA TTP, No spinal TTP - Derm Derm: Normal color, Warm and dry, No rash - Extremities Extremities: No deformity, Other (chronic stasis dermatitis and doughy edema) - Psych Psych: Normal mood, Normal affect Results - Vitals Vitals: Vital Signs - 24 hr 08/23/20 08/23/20 10:09 12:28 Temperature 36.8 C Heart Rate 92 79 Respiratory 16 18 Rate Blood Pressure 128/74 113/75 O2 Saturation 100 100 Oxygen O2 Source Room air - Labs Labs: Laboratory Tests 08/23/20 08/23/20 08/23/20 10:35 12:02 12:02 WBC 8.3 RBC 3.88 L Hgb 11.3 L Hct 35.6 L MCV 91.8 MCH 29.1 MCHC 31.7 L RDW 15.2 H Plt Count 334 MPV 8.5 Neut # (Auto) 4.4 Lymph # (Auto) 2.8 Keith # (Auto) 0.7 Eos # (Auto) 0.2 Baso # (Auto) 0.1 Absolute Nucleated RBC 0.00 Nucleated RBC % 0.0 PT INR Sodium 140 Potassium 3.7 Chloride 105 Carbon Dioxide 25 Anion Gap 10.0 BUN 14 Creatinine 1.3 H Estimated GFR (MDRD) 41 L Glucose 95 Calcium 9.0 Total Bilirubin 0.6 AST 20 ALT 18 Alkaline Phosphatase 92 Total Protein 6.0 L Albumin 3.9 Globulin 2.1 Albumin/Globulin Ratio 1.9 Lipase 26 Urine Color YELLOW Urine Clarity SL. CLOUDY Urine pH 6.0 Ur Specific [place] 1.010 Urine Protein TRACE Urine Glucose (UA) NEGATIVE Urine Ketones NEGATIVE Urine Occult Blood SMALL H Urine Nitrite NEGATIVE Urine Bilirubin NEGATIVE Urine Urobilinogen 0.2 (NORMAL) Ur Leukocyte Esterase LARGE H Urine RBC 0-5 Urine WBC >25 H Ur Squamous Epith Cells FEW Squamous Urine Bacteria Few Ur Microscopic Review INDICATED Urine Culture Comments INDICATED [place] 08/23/20 08/23/20 12:02 12:02 WBC RBC Hgb Hct MCV MCH MCHC RDW Plt Count MPV Neut # (Auto) Lymph # (Auto) Keith # (Auto) Eos # (Auto) Baso # (Auto) Absolute Nucleated RBC Nucleated RBC % PT 12.7 H INR 1.1 Sodium Potassium Chloride Carbon Dioxide Anion Gap BUN Creatinine Estimated GFR (MDRD) Glucose Calcium Total Bilirubin AST ALT Alkaline Phosphatase Total Protein Albumin Globulin Albumin/Globulin Ratio Lipase Urine Color Urine Clarity Urine pH Ur Specific [place] Urine Protein Urine Glucose (UA) Urine Ketones Urine Occult Blood Urine Nitrite Urine Bilirubin Urine Urobilinogen Ur Leukocyte Esterase Urine RBC Urine WBC Ur Squamous Epith Cells Urine Bacteria Ur Microscopic Review Urine Culture Comments [place] 0.30 - Rads (name of study) CT head Radiology: Prelim report reviewed (Impression: No source of headache is identified. No trauma or intracranial hemorrhage is seen, no mass or hydrocephalus is present.), EMP read indepedently, See rad report PD MEDICAL DECISION MAKING - ED course Complexity details: reviewed results, re-evaluated patient, considered differential, d/w patient ED course: 65-year-old female with nausea and vomiting has urinary tract infection on evaluation of the urine she does not have elevated white blood cell count she does not have flank pain she does have vomiting and dehydration. She is hydrated she is administered Rocephin intravenously and we will place her on some cefdinir outpatient as she is allergic to both penicillins and sulfa. Departure - Departure Disposition: 01 Home, Self Care Clinical Impression: Urinary tract infection Qualifiers: Urinary tract infection type: acute cystitis Hematuria presence: without hematuria Qualified Code(s): N30.00 - Acute cystitis without hematuria Instructions: ED UTI Cystitis Female Follow-Up: Nara Corbin ARNP [Primary Care Provider] - Prescriptions: Cefdinir 300 mg PO BID #14 capsule Ondansetron Odt [Zofran] 4 mg TL Q6H PRN #10 tablet PRN Reason: Nausea / Vomiting
[2020-08-23] MEDS ORDERED: SODIUM CHLORIDE 0.9% 1,000 ML IV STA (11:31)
[2020-08-23] MEDS ORDERED: KETOROLAC 30 MG/ML VIAL IVP STA (11:31)
[2020-08-23] MEDS ORDERED: ONDANSETRON 4 MG/2 ML VIAL IVP STA (11:31)
[2020-08-23] MEDS ORDERED: cefTRIAXone 1 GM in SODIUM CHLORIDE 0.9% MINIBAG 100 ML IV STA (11:36)
[2020-08-23 12:13] LABS: BASOPHILS # (AUTO) 0.1 10^3/uL (0.0-0.1); BASOPHILS % (AUTO) 0.6 %; EOSINOPHILS # (AUTO) 0.2 10^3/uL (0.0-0.7); EOSINOPHILS % (AUTO) 2.5 %; HGB - HEMOGLOBIN 11.3 g/dL (12.0-16.0); LYMPHOCYTES # (AUTO) 2.8 10^3/uL (1.5-3.5); LYMPHOCYTES % (AUTO) 34.2 %; MEAN CORPUSCULAR HEMOGLOBIN 29.1 pg (27.0-31.0); MEAN CORPUSCULAR HGB CONC 31.7 g/dL (32.0-36.0); MEAN CORPUSCULAR VOLUME 91.8 fL (81.0-99.0); MEAN PLATELET VOLUME 8.5 fL (7.9-10.8); MONOCYTES # (AUTO) 0.7 10^3/uL (0.0-1.0); NEUTROPHILS # (AUTO) 4.4 10^3/uL (1.5-6.6); NEUTROPHILS % (AUTO) 53.3 %; PLT - PLATELET COUNT 334 10^3/uL (130-450); RED BLOOD COUNT 3.88 10^6/uL (4.20-5.40); RED CELL DISTRIBUTION WIDTH 15.2 % (12.0-15.0); WHITE BLOOD COUNT 8.3 x10^3/uL (4.8-10.8)
[2020-08-23 12:19] LABS: INR 1.1 (0.8-1.2); PT - PROTHROMBIN TIME 12.7 secs (9.9-12.6)
[2020-08-23 12:22] LABS: ALBUMIN 3.9 g/dL (3.2-5.5); ALBUMIN/GLOBULIN RATIO 1.9 (1.0-2.2); BILIRUBIN,TOTAL 0.6 mg/dL (0.2-1.0); CREATININE 1.3 mg/dL (0.4-1.0)
--- NOTE | 2020-08-23 12:31 | CT Report ---
PROCEDURE: HEAD WO INDICATIONS: headache TECHNIQUE: Noncontrast 4.5 mm thick angled axial sections acquired from the foramen magnum to the vertex. For r adiation dose reduction, the following was used: automated exposure control, adjustment of mA and/or kV according to patient size. COMPARISON: None. FINDINGS: Image quality: Excellent. CSF spaces: Basal cisterns are patent. No extra-axial fluid collections. Ventricles are normal in size and shape. Brain: No midline shift. No intracranial masses or hemorrhage. Merlos-white matter interface is norm al. Skull and face: Calvarium and visualized facial bones are intact, without suspicious lesions. Sinuses: Visualized sinuses and mastoids are clear. Unilateral left lens implant. IMPRESSION: No source of headache is identified. No trauma or intracranial hemorrhage seen, no mass or hydrocephalus present. Reviewed by: Paramjit Cobb MD on 08/23/2020 12:30 PM [facility] Approved by: Paramjit Cobb MD on 08/23/2020 12:30 PM [facility] Station ID: [id number]
[2020-08-23] MEDS ORDERED: HYDROmorphone 1 MG/ML CARPUJECT IVP STA (12:39)
[2020-08-23 13:16] VITALS: BP 115/81
== END 2020-08-23 13:14 | disposition home or self-care (01) ==
LOC: ED 10:06
DX: N30.00 Acute cystitis without hematuria (principal); I10 Essential (primary) hypertension; E86.0 Dehydration
CPT/HCPCS: 36415; 70450; 80053; 80178; 81001; 83690; 85025; 85610; 87077; 87086; 87181; 96365; 96375; 99284; J1170; 81003

== ENCOUNTER 2020-09-03 09:27 | Emergency (ER) | payer MEDICARE, OTHER ==
--- NOTE | 2020-09-03 09:53 | ED Physician Documentation ---
PD HPI ABD PAIN - Stated complaint Stated Complaint: HALLUCINATIONS, MEMORY PROBLEM - Chief complaint Chief Complaint: Abd Pain - History obtained from History obtained from: Patient - History of Present Illness Timing - onset: How many weeks ago (1 week of feeling lightheaded and confused. Seen in ER 10 days ago and Dx with UTI, with normal labs and head CT. Rx with abx and UTI symptoms improved. But having feeling of forgetfulness, confused about events at times, and thought she saw a red-eyed monster under her bed and exhusband at door.) Timing - duration: Days Timing - details: Gradual onset, Intermittant Quality: Cramping Location: Other (flank area/ kidneys) Radiation: Left flank Improved by: Laying still Worsened by: Moving Associated symptoms: No: Fever, Nausea, Vomiting, Diarrhea, Dysuria Similar symptoms before: Diagnosis (kidney infection) Recently seen: Emergency Dept (10 days ago) Review of Systems Constitutional: denies: Fever, Chills Nose: denies: Rhinorrhea / runny nose, Congestion Throat: denies: Sore throat Respiratory: denies: Cough GI: denies: Nausea, Vomiting, Diarrhea : denies: Dysuria (not after taking abx.) Skin: denies: Rash, Lesions Musculoskeletal: reports: Back pain Neurologic: reports: Confused, Other (couple visual hallucinations last night, but no auditory.). denies: Focal weakness, Numbness, Headache Endocrine: reports: Weight loss (she states noticable weight loss (Pants fitting very loose) over the past month. 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 - Present Medications Home Medications: Ambulatory Orders Medication Instructions Recorded Confirmed Losartan [Cozaar] 50 mg PO DAILY 05/18/17 09/03/20 Duloxetine HCl 120 mg PO DAILY 03/02/19 09/03/20 Gabapentin 600 mg PO QPM 03/02/19 09/03/20 Omeprazole 40 cap PO BID 03/02/19 09/03/20 lamoTRIgine [LaMICtal] 100 tab PO DAILY 03/02/19 09/03/20 lamoTRIgine [LaMICtal] 150 mg PO QPM 03/02/19 09/03/20 ALPRAZolam [Alprazolam] 1 mg PO TID PRN 03/03/19 09/03/20 Ondansetron Odt [Zofran] 4 mg TL Q6H PRN #10 tablet 08/23/20 09/03/20 - Allergies Allergies/Adverse Reactions: Allergies Allergy/AdvReac Type Severity Reaction Status Date / Time Sulfa (Sulfonamide Allergy Severe Edema Verified 09/03/20 09:34 Antibiotics) naproxen Allergy unknown Verified 09/03/20 09:34 Penicillins Allergy UNKNOWN Verified 09/03/20 09:34 - Social History Does the pt smoke?: No Smoking Status: Never smoker Does the pt drink ETOH?: No Does the pt have substance abuse?: Yes - Immunizations Immunizations are current?: No Immunizations: TDAP >10years/unknown - POLST Patient has POLST: No POLST Status: DNR PD ED PE NORMAL - Vitals Vital signs reviewed: Yes - General General: Alert and oriented X 3, No acute distress, Well developed/nourished - HEENT HEENT: Pharynx benign - Neck Neck: Supple, no meningeal sign, No adenopathy - Cardiac Cardiac: RRR, No murmur - Respiratory Respiratory: Clear bilaterally - Abdomen Abdomen: Soft, Non tender - Back Back: No CVA TTP - Derm Derm: Normal color, Warm and dry - Extremities Extremities: No edema, No calf tenderness / cord - Neuro Neuro: Alert and oriented X 3, dynamo tender 2-12 intact, No motor deficit, No sensory deficit, Normal speech Eye Opening: Spontaneous Motor: Obeys Commands Verbal: Oriented GCS Score: 15 - Psych Psych: Normal mood, Normal affect Results - Vitals Vitals: Vital Signs - 24 hr 09/03/20 09/03/20 09/03/20 09:34 12:20 12:40 Temperature 36.7 C 36.5 C Heart Rate 84 73 61 Respiratory 22 18 18 Rate Blood Pressure 136/63 H 129/75 123/76 O2 Saturation 100 100 Oxygen O2 Source Room air - Labs Labs: Laboratory Tests 09/03/20 09/03/20 09/03/20 09:38 09:38 09:38 WBC RBC Hgb Hct MCV MCH MCHC RDW Plt Count MPV Neut # (Auto) Lymph # (Auto) [place] # (Auto) Eos # (Auto) Baso # (Auto) Absolute Nucleated RBC Nucleated RBC % Sodium Potassium Chloride Carbon Dioxide Anion Gap BUN Creatinine Estimated GFR (MDRD) Glucose Estimat Average Glucose 114 H Hemoglobin A1c % 5.6 Calcium Total Bilirubin AST ALT Alkaline Phosphatase C-Reactive Protein < 1.0 Total Protein Albumin Globulin Albumin/Globulin Ratio Lipase Vitamin B12 675 TSH 5.05 Urine Color Urine Clarity Urine pH Ur Specific [place] Urine Protein Urine Glucose (UA) Urine Ketones Urine Occult Blood Urine Nitrite Urine Bilirubin Urine Urobilinogen Ur Leukocyte Esterase Ur Microscopic Review Urine Culture Comments 09/03/20 09/03/20 09/03/20 09:50 09:55 09:55 WBC 7.3 RBC 4.07 L Hgb 12.0 Hct 37.6 MCV 92.4 MCH 29.5 MCHC 31.9 L RDW 15.3 H Plt Count 350 MPV 8.5 Neut # (Auto) 3.8 Lymph # (Auto) 2.5 [place] # (Auto) 0.6 Eos # (Auto) 0.3 Baso # (Auto) 0.1 Absolute Nucleated RBC 0.00 Nucleated RBC % 0.0 Sodium 136 Potassium 3.9 Chloride 101 Carbon Dioxide 26 Anion Gap 9.0 BUN 17 Creatinine 1.3 H Estimated GFR (MDRD) 41 L Glucose 104 H Estimat Average Glucose Hemoglobin A1c % Calcium 9.3 Total Bilirubin 0.4 AST 17 ALT 13 Alkaline Phosphatase 94 C-Reactive Protein Total Protein 6.5 L Albumin 4.2 Globulin 2.3 Albumin/Globulin Ratio 1.8 Lipase 29 Vitamin B12 TSH Urine Color YELLOW Urine Clarity CLEAR Urine pH 6.0 Ur Specific [place] 1.010 Urine Protein NEGATIVE Urine Glucose (UA) NEGATIVE Urine Ketones NEGATIVE Urine Occult Blood NEGATIVE Urine Nitrite NEGATIVE Urine Bilirubin NEGATIVE Urine Urobilinogen 0.2 (NORMAL) Ur Leukocyte Esterase NEGATIVE Ur Microscopic Review NOT INDICATED Urine Culture Comments NOT INDICATED PD MEDICAL DECISION MAKING - ED course Complexity details: considered differential (having flank/back pain and weight loss. Can get CT to ensure no abscess/tumor. Recent UTI. Had confusion and some visual hallucinations last day or so. More likely to think med related. No history of psychosis per se but does have depression. ), d/w patient ED course: COnsider possible med side effect even though doses are same, in lieu of her losing considerable weight recently, the same doses having same effect. Of her medications, the lamotrigine would seem most likely to cause confusion type symptoms (as per adverse effects on Epocrates), so can lower the dose some. Departure - Departure Disposition: 01 Home, Self Care Clinical Impression: Cognitive impairment, Visual hallucination Condition: Stable Record reviewed to determine appropriate education?: Yes Follow-Up: Nara Corbin ARNP [Primary Care Provider] - Comments: Your urine test is clear. Your blood test did not show any obvious metabolic disorder. The CT of your abdomen did not show any obvious cause for your back pain. You had had a CT of the head recently that was normal. At this point I am presuming your cognitive problems with forgetfulness and mild confusion as well as some of the visual disturbances may relate to your medications. Even though your doses have not changed, they may be having a higher affect since you had the recent weight loss. At this point I would suggest decreasing your lamotrigine to 100 mg twice daily. Currently its listed as 100 mg in the morning and 150 at night according to our med list. This would be just as small decrease in the dose for now. Otherwise normal hydration without trying to over hydrate. Follow-up with your primary care and your psychiatric provider as scheduled. If not improving with decreasing the medication, your providers might consider other imaging of the head such as MRI. Return if worsening symptoms or other problems develop. Discharge Date/Time: 09/03/20 12:49
[2020-09-03 09:58] LABS: BILIRUBIN,URINE NEGATIVE (NEGATIVE); GLUCOSE, URINE (UA) NEGATIVE (NEGATIVE); KETONES,URINE (UA) NEGATIVE (NEGATIVE); LEUKOCYTE ESTERASE, URINE NEGATIVE (NEGATIVE); NITRITE,URINE NEGATIVE (NEGATIVE); OCCULT BLOOD,URINE NEGATIVE (NEGATIVE); PROTEIN,URINE NEGATIVE (NEGATIVE); UROBILINOGEN,URINE 0.2 (NORMAL) E.U./dL (NORMAL)
[2020-09-03 10:00] LABS: CLARITY,URINE CLEAR (CLEAR)
[2020-09-03 10:04] LABS: BASOPHILS # (AUTO) 0.1 10^3/uL (0.0-0.1); BASOPHILS % (AUTO) 1.2 %; EOSINOPHILS # (AUTO) 0.3 10^3/uL (0.0-0.7); EOSINOPHILS % (AUTO) 3.6 %; LYMPHOCYTES # (AUTO) 2.5 10^3/uL (1.5-3.5); LYMPHOCYTES % (AUTO) 33.7 %; MEAN CORPUSCULAR HEMOGLOBIN 29.5 pg (27.0-31.0); MEAN CORPUSCULAR HGB CONC 31.9 g/dL (32.0-36.0); MEAN CORPUSCULAR VOLUME 92.4 fL (81.0-99.0); MEAN PLATELET VOLUME 8.5 fL (7.9-10.8); MONOCYTES # (AUTO) 0.6 10^3/uL (0.0-1.0); MONOCYTES % (AUTO) 8.8 %; NEUTROPHILS # (AUTO) 3.8 10^3/uL (1.5-6.6); NEUTROPHILS % (AUTO) 52.4 %; PLT - PLATELET COUNT 350 10^3/uL (130-450); RED BLOOD COUNT 4.07 10^6/uL (4.20-5.40); RED CELL DISTRIBUTION WIDTH 15.3 % (12.0-15.0); WHITE BLOOD COUNT 7.3 x10^3/uL (4.8-10.8)
[2020-09-03 10:19] LABS: ALBUMIN 4.2 g/dL (3.2-5.5); ALBUMIN/GLOBULIN RATIO 1.8 (1.0-2.2); BILIRUBIN,TOTAL 0.4 mg/dL (0.2-1.0); CALCIUM 9.3 mg/dL (8.5-10.3); CREATININE 1.3 mg/dL (0.4-1.0); TOTAL PROTEIN 6.5 g/dL (6.7-8.2)
[2020-09-03] MEDS ORDERED: SODIUM CHLORIDE 0.9% 1,000 ML IV STA (10:22)
[2020-09-03] MEDS ORDERED: IOVERSOL 320 100 ML VIAL IVP ONE ×2 (10:35→13:31)
[2020-09-03 11:12] LABS: THYROID STIMULATING HORMONE 5.05 uIU/mL (0.34-5.60)
--- NOTE | 2020-09-03 11:36 | CT Report ---
PROCEDURE: Abdomen/Pelvis W INDICATIONS: low back/abd pain; recent weight loss CONTRAST: IV CONTRAST: Optiray 320 ml: 100 PO CONTRAST: *NO PO CONTRAST TECHNIQUE: After the administration of intravenous contrast, 5 mm thick sections acquired from the diaphragms to the symphysis. 5 mm thick coronal and sagittal reformats were acquired. For radiation dose reducti on, the following was used: automated exposure control, adjustment of mA and/or kV according to robi ent size. COMPARISON: CT abdomen and pelvis 09/02/2018. FINDINGS: Image quality: Excellent. ABDOMEN: Lung bases: Mild bibasilar atelectasis. No pleural effusion. Heart size is normal. Moderate size hiat al hernia. Small perigastric node within the hernia sac measuring 0.8 cm, (3/), previously 1.3 cm. Solid organs: Liver and spleen are normal in size. No focal lesion. Gallbladder is surgically absent . No significant biliary ductal dilatation. Pancreas appears atrophic. No peripancreatic fluid colle ction. No adrenal nodules. Kidneys demonstrate normal size and enhancement, without hydronephrosis. Simple cyst at the superior pole of the right kidney measuring 4.3 cm. Peritoneum and bowel: Stomach is not distended. No small bowel obstruction. Prominent stool in the re ctum. The appendix is probably visualized and normal in caliber. No free fluid or air. Nodes and vessels: No retroperitoneal or mesenteric adenopathy by size criteria. Aorta and inferior vena cava are normal in size. Miscellaneous: No ventral hernias. PELVIS: Genitourinary: Bladder is unremarkable. Uterus is absent. Miscellaneous: No inguinal hernias or adenopathy. Bones: No suspicious bony lesions. Mild anterolisthesis of L3 on L4 and L4 on L5, unchanged. No domi tebral body compression fractures. IMPRESSION: 1. No acute inflammatory process is seen. No free fluid. 2. Small perigastric lymph node is decreased in size compared to 2019. 3. Moderate hiatal hernia. Reviewed by: Alfonso Westfall MD on 09/03/2020 11:34 AM [facility] [place] Approved by: Alfonso Westfall MD on 09/03/2020 11:34 AM PST Station ID: [id number]
[2020-09-03 11:58] LABS: HEMOGLOBIN A1c% 5.6 % (4.27-6.07)
[2020-09-03 12:41] VITALS: BP 123/76
== END 2020-09-03 12:49 | disposition home or self-care (01) ==
LOC: ED 09:27
DX: R44.1 Visual hallucinations (principal); R41.89 Other symptoms and signs involving cognitive functions and awareness; I10 Essential (primary) hypertension; R73.9 Hyperglycemia, unspecified
CPT/HCPCS: 36415; 74177; 80053; 81003; 82607; 83036; 83690; 84443; 85025; 86140; 96360; 96361; 99284; Q9967; 81001; 87086

== ENCOUNTER 2021-05-10 09:46 | Outpatient (CLI) | payer MEDICARE, OTHER ==
--- NOTE | 2021-05-10 15:45 | CT Report ---
PROCEDURE: LOWER EXTREMITY WO - RT INDICATIONS: BILATERAL KNEE PAIN, LOWER EXTREMITY EDEMA,CLAUDIC TECHNIQUE: Noncontrast 1 mm axial sections acquired of the right knee, with coronal and sagittal reformats. COMPARISON: None. FINDINGS: Image quality: Excellent. Bones: Moderate to severe tricompartmental osteoarthritis in right knee is seen with joint space rosalind rowing, extensive subchondral sclerosis, subchondral cyst formations, and prominent marginal osteophy te formation most prominent in lateral femoral tibial compartment. No acute fracture or dislocation. No significant patellar subluxation. No suspicious intraosseous lesion. Soft tissues: There is moderate joint effusion, 2 peripherally calcified structure seen in lateral a spect of the right knee joint dependent portion which may represent tiny loose bodies measures 3 and 4 mm in size. No abnormal soft tissue calcifications. No full-thickness rupture of the quadriceps ten don or patellar tendon. Cruciate ligaments are not well seen on this study. IMPRESSION: 1. Moderate to severe tricompartmental osteoarthritis in right knee most prominent in lateral femoral tibial compartment as above. No fracture or dislocation. No suspicious bony lesion. 2. Moderate joint effusion with suggestion of tiny loose bodies as above. No abnormal soft tissue diego cifications. No gross full-thickness quadriceps tendon or patellar tendon rupture. Reviewed by: Destin Moore MD on 05/10/2021 3:44 PM PDT Approved by: Destin Moore MD on 05/10/2021 3:44 PM PDT Station ID: [id number]
--- NOTE | 2021-05-10 15:53 | CT Report ---
PROCEDURE: LOWER EXTREMITY WO - LT INDICATIONS: BILATERAL KNEE PAIN, LOWER EXTREMITY EDEMA,CLAUDIC TECHNIQUE: Noncontrast 3 mm axial sections acquired of the left knee, with coronal and sagittal reformats. COMPARISON: None. FINDINGS: Image quality: Excellent. Bones: Moderate to severe tricompartmental osteoarthritis is seen with significant joint space narro wing, extensive subchondral sclerosis and cyst formation, and prominent marginal osteophyte formation most severe in lateral femoral tibial compartment. No acute fracture or dislocation. No significant patellar subluxation. No suspicious bony lesion. Soft tissues: There is moderate to large joint effusion, no gross calcified intra-articular loose bryan dy is identified. No abnormal soft tissue calcifications. There is suggestion of a popliteal cyst sarthak sures 2.8 x 2.8 x 4.5 cm in size. Distal quadriceps tendon and patellar tendon are grossly intact. Cr uciate ligaments are poorly visualized on this study. IMPRESSION: 1. Moderate to severe tricompartmental osteoarthritis most prominent in lateral femoral tibial compar tment as above. No fracture or dislocation. No suspicious intraosseous lesion. 2. Moderate to large joint effusion, no definite intra-articular loose body. Popliteal cyst as above. Reviewed by: Destin Moore MD on 05/10/2021 3:52 PM PDT Approved by: Destin Moore MD on 05/10/2021 3:52 PM PDT Station ID: [id number]
--- NOTE | 2021-05-10 16:25 | Ultrasound Report ---
PROCEDURE: Duplex Ext Veins Bilateral INDICATIONS: Bilateral lower extremity edema. TECHNIQUE: Real-time imaging, as well as color and pulse Doppler interrogation, were performed of the deep veins of both legs from the inguinal ligament to the popliteal fossa. COMPARISON: None FINDINGS: The deep veins are normally compressible, and free of intraluminal thrombus. Color and pu lse Doppler demonstrate normal phasic intravascular flow. There is normal augmentation response to d istal compression maneuver. 5.9 x 1.2 x 2.5 cm right popliteal cyst. Left knee joint effusion noted. IMPRESSION: No evidence of deep vein thrombosis involving either the right or left lower extremities. Reviewed by: Trish Hartmann MD, PhD on 05/10/2021 4:24 PM PDT Approved by: Trish Hartmann MD, PhD on 05/10/2021 4:24 PM PDT Station ID: [id number]
--- NOTE | 2021-05-10 17:16 | Ultrasound Report ---
PROCEDURE: Duplex Lwr Ext Arterial Bilat INDICATIONS: BILATERAL KNEE PAIN, LOWER EXTREMITY EDEMA,CLAUDIC TECHNIQUE: Color and pulse Doppler interrogation was performed of both lower extremity arterial systems, with im age documentation. COMPARISON: None FINDINGS: Right lower extremity: Common femoral artery: 149.5 cm/sec, with triphasic flow. Deep femoral artery: 107.4 cm/sec, with triphasic flow. Proximal superficial femoral artery: 85.4 cm/sec, with triphasic flow. Mid superficial femoral artery: 75.7 cm/sec, with triphasic flow. Distal superficial femoral artery: 93.5 cm/sec, with triphasic flow. Popliteal artery: 73.9 cm/sec, with triphasic flow. Posterior tibial artery: 70.6 cm/sec, with triphasic flow. Anterior tibial artery/dorsalis pedis: 61.5/63.1 cm/sec, with triphasic flow. [place]los-scale imaging description: Patent vessels with no significant stenosis. Left lower extremity: Common femoral artery: 183.4 cm/sec, with triphasic flow. Deep femoral artery: 93.3 cm/sec, with triphasic flow. Proximal superficial femoral artery: 88.3 cm/sec, with triphasic flow. Mid superficial femoral artery: 95.4 cm/sec, with triphasic flow. Distal superficial femoral artery: 91.5 cm/sec, with triphasic flow. Popliteal artery: 78.3 cm/sec, with triphasic flow. Posterior tibial artery: 68.6 cm/sec, with triphasic flow. Anterior tibial artery/dorsalis pedis: 72.5/57 cm/sec, with triphasic flow. [place]los-scale imaging description: Widely patent vessels with no significant stenosis IMPRESSION: 1. No evidence of significant inflow disease. 2. No hemodynamically significant stenosis from the common femorals through the popliteals bilaterall y. At least two-vessel runoff. Reviewed by: Ger Bustos MD on 05/10/2021 5:15 PM PDT Approved by: Ger Bustos MD on 05/10/2021 5:15 PM PDT Station ID: [id number]
== END 2021-05-10 09:47 | disposition home or self-care (01) ==
LOC: DI 09:46
PROVIDERS: ATTEND Nurse Practitioner Family
DX: M17.0 Bilateral primary osteoarthritis of knee (principal); I73.9 Peripheral vascular disease, unspecified
CPT/HCPCS: 93925; 93970

== ENCOUNTER 2021-05-26 19:08 | Outpatient (CLI) | payer MEDICARE, OTHER | END 2021-05-26 19:09 | disposition EMS.NT | LOC: EMS 19:08 | DX: Z03.89 Encounter for observation for other suspected diseases and conditions ruled out (principal) ==

== ENCOUNTER 2022-05-13 11:21 | Outpatient (CLI) | payer MEDICARE, OTHER | END 2022-05-13 11:22 | disposition home or self-care (01) | LOC: RT 11:21 | PROVIDERS: ATTEND Nurse Practitioner Family | DX: R00.0 Tachycardia, unspecified (principal) | CPT/HCPCS: 93005 ==

== ENCOUNTER 2023-05-09 14:57 | Inpatient (IN) | payer MEDICARE, OTHER ==
--- NOTE | 2023-05-09 15:10 | ED Physician Documentation ---
PD HPI FOCAL NEURO - Stated complaint Stated Complaint: WEAKNESS - Chief complaint Chief Complaint: General - History obtained from History obtained from: Patient, EMS - Additional information Additional information: 68 yof with aflutter on xarelto, bipolar on lithium, snaxiety depression by ems with 2 wk hx unsteady worsening. starting 2wk ago had to start using cane. Progressive dysequilibrium and weakness. Now can only go a few feet. Fall x4 without injury. Very weak with any exertion. Mild headaches EMS thought poss R faciAl droop, acuity unknown. 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: Hysterectomy - Present Medications Home Medications: Ambulatory Orders Medication Instructions Recorded Confirmed Losartan [Cozaar] 50 mg PO DAILY 05/18/17 05/09/23 lamoTRIgine [LaMICtal] 100 tab PO DAILY 03/02/19 05/09/23 lamoTRIgine [LaMICtal] 150 mg PO QPM 03/02/19 05/09/23 ALPRAZolam [Alprazolam] 1 mg PO TID PRN 03/03/19 05/09/23 [place] [[place] Carbonate] 150 mg PO DAILY 05/09/23 05/09/23 - Allergies Allergies/Adverse Reactions: Allergies Allergy/AdvReac Type Severity Reaction Status Date / Time Sulfa (Sulfonamide Allergy Severe Edema Verified 05/09/23 15:03 Antibiotics) naproxen Allergy unknown Verified 05/09/23 15:03 Penicillins Allergy UNKNOWN Verified 05/09/23 15:03 - Social History Does the pt smoke?: No Smoking Status: Never smoker Does the pt drink ETOH?: No Does the pt have substance abuse?: Yes - Immunizations Immunizations are current?: No Immunizations: TDAP >10years/unknown - POLST Patient has POLST: No POLST Status: DNR PD ED PE NORMAL - Vitals Vital signs reviewed: Yes - General General: Alert and oriented X 3, No acute distress - HEENT HEENT: Other (mild nystagmus both direction, both eyes.) - Neck Neck: Supple, no meningeal sign, No bony TTP - Cardiac Cardiac: RRR, No murmur - Respiratory Respiratory: No respiratory distress, Clear bilaterally - Abdomen Abdomen: Non tender - Back Back: No CVA TTP, No spinal TTP - Derm Derm: Normal color, Warm and dry - Neuro Neuro: Alert and oriented X 3, Other (has shakiness with finger-nose testing bilateral. Very weak both legs, symmetric.) Eye Opening: Spontaneous Motor: Obeys Commands Verbal: Oriented GCS Score: 15 NIHSS - Time Time: 15:10 - Level of Consciousness Level of consciousness: (0) Alert, Keenly responsive LOC Questions: (0) Answers both Q's correct LOC Commands: (0) Performs both correctly - Gaze Best Gaze: (0) Normal - Visual Visual: (0) No loss - Facial Palsy Facial Palsy: (0) Normal, symmetrical movement - Motor Arms (both separate) Motor Arm (right): (0) No drift Motor Arm (left): (0) No drift - Motor Legs (both separate) Motor Leg (right): (2) Some effort against gravity Motor Leg (left): (2) Some effort against gravity - Limb Ataxia Limb Ataxia: (2) Present in 2 limbs - Sensory Sensory: (0) Normal - Best Language Best Language: (0) No aphasia - Dysarthria Dysarthria: (0) Normal - Extinction and Inattention (formally neg Extinction and inattention: (0) No abnormality - Total Score/Results Total Score/Result: 6 Results - Vitals Vitals: Vital Signs - 24 hr 05/09/23 05/09/23 05/09/23 15:03 15:21 16:27 Temperature 36.6 C 36 C L Heart Rate 73 82 76 Respiratory 16 12 12 Rate Blood Pressure 103/67 110/66 136/103 H O2 Saturation 99 100 100 Oxygen O2 Source Room air - EKG (time done) 1531 EKG releavant findings:: EKG personally interpreted by author of this note. Relevant findings are: Rate: Rate (enter#) (77) Rhythm: NSR, LAE Intervals: Normal [place], Other (ivcd) Ischemia: Normal ST segments - Labs Labs: Laboratory Tests 05/09/23 05/09/23 05/09/23 15:15 15:15 15:15 WBC 13.8 H RBC 4.13 L Hgb 13.5 Hct 40.4 MCV 97.8 MCH 32.7 H MCHC 33.4 RDW 12.0 Plt Count 332 MPV 8.3 Neut # (Auto) 9.7 H Lymph # (Auto) 2.7 [place] # (Auto) 1.2 H Eos # (Auto) 0.0 Baso # (Auto) 0.1 Absolute Nucleated RBC 0.00 Nucleated RBC % 0.0 Sodium 136 Potassium 3.4 L Chloride 97 L Carbon Dioxide 35 H Anion Gap 4.0 L BUN 24 H Creatinine 2.0 H Estimated GFR (MDRD) 25 L Glucose 132 H Calcium 15.3 H* Total Bilirubin 0.5 AST 30 ALT 14 Alkaline Phosphatase 74 Total Protein 5.9 L Albumin 4.2 Globulin 1.7 L Albumin/Globulin Ratio 2.5 H Total Intact PTH Last Dose Date UNKNOWN Last Dose Time UNKNOWN [place] 0.31 05/09/23 15:15 WBC RBC Hgb Hct MCV MCH MCHC RDW Plt Count MPV Neut # (Auto) Lymph # (Auto) [place] # (Auto) Eos # (Auto) Baso # (Auto) Absolute Nucleated RBC Nucleated RBC % Sodium Potassium Chloride Carbon Dioxide Anion Gap BUN Creatinine Estimated GFR (MDRD) Glucose Calcium Total Bilirubin AST ALT Alkaline Phosphatase Total Protein Albumin Globulin Albumin/Globulin Ratio Total Intact PTH 15 Last Dose Date Last Dose Time [place] - Rads (name of study) CT of the head is unremarkable Relevant Findings:: Final report received, EMP independent interpretation of test PD Medical Decision Making - ED course ED course: 68-year-old woman presents with vague symptoms of weakness. Potentially strokelike symptoms but time course and symmetric nature of exam findings here argue against that. Work-up demonstrates modest leukocytosis on CBC, CMP showing acute renal failure with contraction alkalosis and profound hypercalcemia. PTH is normal. [place] level not severely elevated. She was hydrated with crystalloid. Given the height of her hypercalcemia she will need to be admitted. A brief online search that shows that there are numerous case reports of people developing hypercalcemia after long-term lithium use. We do not have injectable calcitonin in the hospital and it looks like zoledronic acid would be contraindicated with her current renal function. Spoke with our hospitalist, Dr. Desai for admission at 4:56 PM. Departure - Departure Disposition: 66 [facility] DC/Xfer Clinical Impression: Dizziness, Hypercalcemia Condition: Serious
[2023-05-09 15:20] LABS: BASOPHILS # (AUTO) 0.1 10^3/uL (0.0-0.1); BASOPHILS % (AUTO) 0.4 %; EOSINOPHILS % (AUTO) 0.3 %; HCT - HEMATOCRIT 40.4 % (37.0-47.0); HGB - HEMOGLOBIN 13.5 g/dL (12.0-16.0); LYMPHOCYTES # (AUTO) 2.7 10^3/uL (1.5-3.5); LYMPHOCYTES % (AUTO) 19.4 %; MEAN CORPUSCULAR HEMOGLOBIN 32.7 pg (27.0-31.0); MEAN CORPUSCULAR HGB CONC 33.4 g/dL (32.0-36.0); MEAN CORPUSCULAR VOLUME 97.8 fL (81.0-99.0); MEAN PLATELET VOLUME 8.3 fL (7.9-10.8); MONOCYTES # (AUTO) 1.2 10^3/uL (0.0-1.0); MONOCYTES % (AUTO) 8.5 %; NEUTROPHILS # (AUTO) 9.7 10^3/uL (1.5-6.6); NEUTROPHILS % (AUTO) 70.7 %; PLT - PLATELET COUNT 332 10^3/uL (130-450); RED BLOOD COUNT 4.13 10^6/uL (4.20-5.40); WHITE BLOOD COUNT 13.8 x10^3/uL (4.8-10.8)
[2023-05-09 15:34] LABS: ALBUMIN 4.2 g/dL (3.2-5.5)
[2023-05-09] MEDS ORDERED: SODIUM CHLORIDE 0.9% 1,000 ML IV STA ×2 (15:52→15:58)
[2023-05-09 15:53] LABS: ALBUMIN/GLOBULIN RATIO 2.5 (1.0-2.2); BILIRUBIN,TOTAL 0.5 mg/dL (0.2-1.0); CALCIUM 15.3 mg/dL (8.5-10.3); POTASSIUM 3.4 mmol/L (3.5-4.5); TOTAL PROTEIN 5.9 g/dL (6.4-8.9)
[2023-05-09 15:59] LABS: LITHIUM 0.31 mmol/L
[2023-05-09] MEDS ORDERED: LORazepam 2 MG/ML VIAL IVP STA (16:50)
--- NOTE | 2023-05-09 16:53 | CT Report ---
PROCEDURE: HEAD WO INDICATIONS: weakness, poss facial droop TECHNIQUE: Noncontrast 4.5 mm thick angled axial sections acquired from the foramen magnum to the vertex. For r adiation dose reduction, the following was used: automated exposure control, adjustment of mA and/or kV according to patient size. COMPARISON: None. FINDINGS: Image quality: Excellent. CSF spaces: Basal cisterns are patent. No extra-axial fluid collections. Ventricles are normal in size and shape. Brain: No midline shift. No intracranial masses or hemorrhage. [place]-white matter interface is norm al. Skull and face: Calvarium and visualized facial bones are intact, without suspicious lesions. Sinuses: Visualized sinuses and mastoids are clear. IMPRESSION: No acute intracranial pathology. Reviewed by: Favian Tavarez on 05/09/2023 4:51 PM PDT Approved by: Favian Tavarez on 05/09/2023 4:51 PM PDT Station ID: [id number]
[2023-05-09] MEDS ORDERED: ONDANSETRON ODT 4 MG TABLET TL PRN (17:16)
[2023-05-09] MEDS ORDERED: oxyCODONE 5 MG TABLET PO PRN (17:16)
--- NOTE | 2023-05-09 17:24 | HISTORY & PHYSICAL EXAMINATION ---
Chief Complaint - Chief Complaint Chief Complaint: Tremor for 2 weeks, fall at home History of Present Illness - Admitted From Admitted From:: ED - History Obtained From Records Reviewed: Yes History obtained from: Patient - History of Present Illness HPI Comment/Other: Patient is a 68 years old female with history of paroxysmal atrial fibrillation on Xarelto, hypertension, hyperlipidemia, febrile myalgia, bipolar on long-term of lamotrigine and lithium treatment Was brought in by EMS due to fall at home, unable to walk. Patient reports she started to have tremor, shaking and anxiety about 2 weeks ago. She did not seek medical treatment. And started using a cane. And a few days ago she had a fall after a short episode of loss of consciousness, she reports she recovered quickly. However today she had a fall in her bathroom with loss of Consciousness. Also with hitting of her head. She called EMS, per EMS report right facial droop is suspected. In the ER, patient vitals were within normal limits, labs significant with WBC 13.8, calcium 15. PTH normal limits, lithium therapeutic range. Patient was given IV fluid, given Ativan which did not help with the tremor. Patient is admitted under hospitalist service for further management. 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: reports: Hysterectomy - Family & Social History Family History: Father: [place] - Substance History Use: Uses substance without health or social issues: NONE - POLST Patient has POLST: No POLST Status: DNR Meds/Allgy - Home Medications Home Medications: Ambulatory Orders Medication Instructions Recorded Confirmed Losartan [Cozaar] 50 mg PO DAILY 05/18/17 05/09/23 lamoTRIgine [LaMICtal] 100 tab PO DAILY 03/02/19 05/09/23 lamoTRIgine [LaMICtal] 150 mg PO QPM 03/02/19 05/09/23 ALPRAZolam [Alprazolam] 1 mg PO TID PRN 03/03/19 05/09/23 [place] [[place] Carbonate] 150 mg PO DAILY 05/09/23 05/09/23 - Allergies Allergies/Adverse Reactions: Allergies Allergy/AdvReac Type Severity Reaction Status Date / Time Sulfa (Sulfonamide Allergy Severe Edema Verified 05/09/23 15:03 Antibiotics) naproxen Allergy unknown Verified 05/09/23 15:03 Penicillins Allergy UNKNOWN Verified 05/09/23 15:03 Review of Systems - Constitutional Constitutional: reports: Fatigue, Weakness. denies: Weight gain, Weight loss - Eyes Eyes: denies: Pain, Irritation, Blurred vision, Vision loss, Dipolpia - Ears, Nose & Throat Ears, Nose & Throat: denies: Hearing loss, Tinnitus, Vertigo, Sore throat - Cardiovascular Cariovascular: reports: Syncope. denies: Palpitations, Chest pain - Respiratory Respiratory: denies: Cough, Wheezing, Snoring - Gastrointestinal Gastrointestinal: denies: Constipation, Diarrhea, Black stools, Bloody stools - Genitourinary Genitourinary: denies: Dysuria, Frequency, Urgency - Musculoskeletal Musculoskeletal: denies: Stiffness - Integumentary Integumentary: denies: Rash - Neurological Neurological: reports: General weakness, Dizziness, Other (Tremor shaking) - Psychiatric Psychiatric: reports: Anxiety. denies: Suicidal - Endocrine Endocrine: denies: Intolerance to cold, Intolerance to heat - Hematologic/Lymphatic Hematologic/Lymphatic: denies: Anemia, Bruising, Petechiae Prior Level of Functionality: Independent ADLs Exam - Vital Signs Reviewed Vital Signs: Yes Vital Signs: Vital Signs x48h Temp Pulse Resp BP Pulse Ox 05/09/23 16:27 36 C L 76 12 136/103 H 100 05/09/23 15:21 82 12 110/66 100 05/09/23 15:03 36.6 C 73 16 103/67 99 - Physical Exam General Appearance: positive: Mild distress (Due to discomfort and shaking), Anxious Eyes Bilateral: positive: Normal inspection ENT: positive: ENT inspection nml Neck: positive: Nml inspection. negative: Stiff neck Respiratory: positive: Chest non-tender, No respiratory distress. negative: Wheezes, Rales Cardiovascular: positive: Regular rate & rhythm. negative: No murmur, No gallop, Tachycardia Peripheral Pulses: positive: 2+ Abdomen: positive: Non-tender. negative: Guarding, Rebound Skin: positive: Color nml. negative: Diaphoresis, Pallor, Skin rash Extremities: positive: Calf tenderness, Other (Chronic leg edema, venous stasis, varicose veins on both lower extremities) Neurologic/Psychiatric: positive: Weakness. negative: Sensory loss, Facial droop, Slurred/abnml speech Conclusion/Plan - Problem List (1) Extrapyramidal and movement disorder Conclusion/Plan: generalized tremor, shaking, unable to walk, recurrent falls at home On long-term lamotrigine and lithium use, Likely side effect of both antipsychiatric medication, [place] level within therapeutic dose Lamotrigine level is pending Hold both at current time, telemetry psych consult tomorrow Give Benadryl for symptom release (2) Hypercalcemia Conclusion/Plan: Severe, calcium 15 , EKG has sinus rhythm, no QT prolongation, no ST Short neck presentation Telemetry monitoring Continue with IV fluid Following BMP (3) Acute kidney injury Conclusion/Plan: Creatinine 2.0, with baseline of 1.2, likely prerenal from dehydration Continue IV fluid Follow-up with renal function, if not improved, will check ultrasound renal, and further urine test for GENESIS work-ups - Lab Results Lab results reviewed: Yes Fish Bones: 05/09/23 15:15 05/09/23 15:15 - Diagnostic Imaging Results Diagnostic Imaging Results: positive: Critical result (Calcium 15 GENESIS noted with creatinine 2.0 with baseline of 1.2) Diagnostic Imaging Results Comments: CT head negative for acute intracranial pathology - EKG Results EKG Interpreted Independently: Yes
[2023-05-09] MEDS: diphenhydrAMINE INJ 50 MG/ML VIAL IVP SCH (19:46)
[2023-05-09] MEDS: SODIUM CHLORIDE 0.9% 1,000 ML IV SCH (20:50)
[2023-05-10] MEDS: SODIUM CHLORIDE FLUSH 0.9% 10 ML SYRINGE IVP SCH ×3 (02:00→16:46)
[2023-05-10] MEDS: diphenhydrAMINE INJ 50 MG/ML VIAL IVP SCH ×4 (02:25→20:56)
[2023-05-10 05:29] LABS: BASOPHILS # (AUTO) 0.1 10^3/uL (0.0-0.1); BASOPHILS % (AUTO) 0.5 %; EOSINOPHILS # (AUTO) 0.2 10^3/uL (0.0-0.7); EOSINOPHILS % (AUTO) 1.8 %; HCT - HEMATOCRIT 34.5 % (37.0-47.0); HGB - HEMOGLOBIN 11.2 g/dL (12.0-16.0); LYMPHOCYTES # (AUTO) 3.5 10^3/uL (1.5-3.5); LYMPHOCYTES % (AUTO) 31.6 %; MEAN CORPUSCULAR HEMOGLOBIN 32.2 pg (27.0-31.0); MEAN CORPUSCULAR HGB CONC 32.5 g/dL (32.0-36.0); MEAN CORPUSCULAR VOLUME 99.1 fL (81.0-99.0); MEAN PLATELET VOLUME 8.5 fL (7.9-10.8); MONOCYTES # (AUTO) 1.1 10^3/uL (0.0-1.0); MONOCYTES % (AUTO) 9.8 %; NEUTROPHILS # (AUTO) 6.1 10^3/uL (1.5-6.6); NEUTROPHILS % (AUTO) 55.6 %; PLT - PLATELET COUNT 269 10^3/uL (130-450); RED BLOOD COUNT 3.48 10^6/uL (4.20-5.40); RED CELL DISTRIBUTION WIDTH 12.2 % (12.0-15.0)
[2023-05-10 05:47] LABS: CALCIUM 12.2 mg/dL (8.5-10.3); CREATININE 1.8 mg/dL (0.6-1.3); POTASSIUM 3.1 mmol/L (3.5-4.5)
[2023-05-10] MEDS ORDERED: POTASSIUM CHLORIDE 20 MEQ TABLET PO ONE (06:16)
[2023-05-10] MEDS: SODIUM CHLORIDE 0.9% 1,000 ML IV SCH ×2 (06:28→19:26)
[2023-05-10] MEDS: POTASSIUM CHLOR 10 MEQ/100 ML 10 MEQ/100 ML BAG IV SCH ×3 (08:04→14:03)
--- NOTE | 2023-05-10 11:55 | PHARMACY PROGRESS NOTE ---
- Best Possible Medication History Admit Date and Time: 05/09/23 1716 Processed by: Pharmacy Medication History completed: Yes Patient Interview: Completed Secondary Source(s): Prescription bottles, Pharmacy records, Insurance records As the person ultimately responsible for medication therapy, providers are able to order a medication from an existing home medication list in [facility] via the "Reconcile Routine" prior to Confirmation of that medication by support manager. Such practice is discouraged except when the physician, in their clinical judgment, deems that a medical need exists for a medication without regard to previous use.
--- NOTE | 2023-05-10 13:36 | PROVIDER PROGRESS NOTE ---
Assessment/Plan - Problem List (1) Extrapyramidal and movement disorder Assessment/Plan: Improving Patient reports was started on some supplemental's which contains grapefruit contents, it was 3 weeks ago. Her tremor symptoms started about 2 weeks ago, likely P4 50 enzyme has been disturbed by the grapefruit supplement. It appears that patient response to Benadryl treatment Continue holding lithium and lamotrigine at this point I attempted to contact with patient [facility] psychiatry provider Alyssa Emerson, was not able to reach Telepsych consult regarding antipsychotic medication adjustment Lamotrigine level is pending (2) Hypercalcemia Assessment/Plan: Improving, Calcium level improved 12 Continue IV fluid, recheck potassium tomorrow in the morning anticipate it will go down to grace Per nutrition recommendation, check vitamin D level With patient reports that she has been on calcium and vitamin D supplement, which may be the reason causing hypercalcemia at the first point (3) Acute kidney injury Assessment/Plan: Improving Creatinine 1.8 Continue IV fluid, continue monitoring renal function - Current Meds Current Meds: Current Medications Generic Name Dose Route Start Last Admin Trade Name Freq PRN Reason Stop Dose Admin Diphenhydramine HCl 25 mg 05/09/23 20:00 05/10/23 08:05 Diphenhydramine Inj 50 Mg/Ml Vial IVP 05/11/23 19:59 25 mg Q6H MANDY Administration Sodium Chloride 1,000 mls @ 100 mls/hr 05/09/23 18:00 05/10/23 06:28 Normal Saline 0.9% IV 100 mls/hr .Q10H MANDY Administration Sodium Chloride 10 ml 05/10/23 01:00 05/10/23 08:05 Sodium Chloride Flush 0.9% 10 Ml Syringe IVP Not Given 0100,0900,1700 MANDY Active Medications Generic Name Dose Route Start Last Admin Trade Name Freq PRN Reason Stop Dose Admin Acetaminophen 650 mg 05/09/23 17:16 Acetaminophen 325 Mg Tablet PO Q4HR PRN Pain 1 to 4, or Fever Diphenhydramine HCl 25 mg 05/09/23 20:00 05/10/23 08:05 Diphenhydramine Inj 50 Mg/Ml Vial IVP 05/11/23 19:59 25 mg Q6H MANDY Administration Sodium Chloride 1,000 mls @ 100 mls/hr 05/09/23 18:00 05/10/23 08:03 Normal Saline 0.9% IV 0 mls/hr .Q10H MANDY Infusion Ondansetron HCl 4 mg 05/09/23 17:16 Ondansetron Odt 4 Mg Tablet TL Q6HR PRN Nausea / Vomiting Ondansetron HCl 4 mg 05/09/23 17:16 Ondansetron 4 Mg/2 Ml Vial IVP Q6HR PRN Nausea / Vomiting Oxycodone HCl 5 mg 05/09/23 17:16 Oxycodone 5 Mg Tablet PO Q4HR PRN Pain 5 to 7 Sodium Chloride 10 ml 05/09/23 17:16 Sodium Chloride Flush 0.9% 10 Ml Syringe IVP PRN PRN NEEDED PER PROVIDER ORDERS Sodium Chloride 10 ml 05/10/23 01:00 05/10/23 08:05 Sodium Chloride Flush 0.9% 10 Ml Syringe IVP Not Given 0100,0900,1700 MANDY Losartan [Cozaar] 50 mg PO DAILY 05/18/17 lamoTRIgine [LaMICtal] 100 mg PO DAILY 03/02/19 lamoTRIgine [LaMICtal] 150 mg PO QPM 03/02/19 ALPRAZolam [Alprazolam] 1 mg PO TID PRN 03/03/19 [place] [[place] Carbonate] 150 mg PO DAILY 05/09/23 Losartan [Cozaar] 50 mg PO DAILY 05/10/23 Metoprolol Succinate [Toprol Xl] 100 mg PO QPM 05/10/23 Mirtazapine [Remeron] 7.5 mg PO QPM 05/10/23 Rivaroxaban [Xarelto] 20 mg PO QDDINNER 05/10/23 Rosuvastatin Calcium [Crestor] 10 mg PO QPM 05/10/23 hydrOXYzine HCL [Hydroxyzine HCl] 25 - 50 mg PO QPM 05/10/23 risperiDONE [Risperdal] 0.75 mg PO QPM 05/10/23 - Lab Result Fish Bone Diagrams: 05/10/23 05:10 05/10/23 05:10 - EKG Results EKG Interpreted Independently: Yes EKG Comparison: Unchanged from prior EKG - Diagnostic Imaging Results Diagnostic Imaging Results: See rad report - Other Other Results/Comments: Potassium 3.1 Received IV potassium chloride 10 mEq every hour for 4 doses - Additional Planning Condition/Complexity: Improved My Orders: My Active Orders 05/09/23 15:15 LAMOTRIGINE (LAMICTAL) [REFLAB] Routine 05/09/23 Dinner Regular Diet [DIET] 05/09/23 17:16 Activity Orders [RC] Q2HR IO [RC] IOSHIFT Incentive Spirometry - RT [RC] TID Initiate Bowel Care Protocol [RC] .protocol Initiate Line Care Protocol [RC] QSHIFT Initiate Personal Care Protoco [RC] .protocol Oxygen Therapy [RC] .PRN Telemetry (24 Hour) [RC] Q4HR Vital Signs [RC] Q4HR Acetaminophen [Tylenol] 650 mg PO Q4HR PRN Ondansetron Inj [Zofran Inj] 4 mg IVP Q6HR PRN Ondansetron Odt [Zofran Odt] 4 mg TL Q6HR PRN Sodium Chloride Flush 0.9% [Normal Saline Flush 0.9%] 10 ml IVP PRN PRN oxyCODONE [Roxicodone] 5 mg PO Q4HR PRN Code Status [OTHERS] Routine Condition of Patient [OTHERS] Routine DVT Prophylaxis [OTHERS] Routine 05/09/23 17:19 SCDs [RC] QSHIFT 05/09/23 18:00 Sodium Chloride 0.9% [Normal Saline 0.9%] 1,000 ml IV 100 mls/hr 05/09/23 20:00 diphenhydrAMINE INJ [Benadryl Inj] 25 mg IVP Q6H 05/10/23 01:00 Sodium Chloride Flush 0.9% [Normal Saline Flush 0.9%] 10 ml IVP 0100,0900,1700 05/10/23 05:00 VITAMIN D 25-HYDROXY [REFLAB] Routine 05/11/23 05:00 BMP - BASIC METABOLIC PANEL [CHEM] DAILYLAB CBC [CBC - COMP BLD CT W/AUTO DIFF] [HEME] DAILYLAB 05/12/23 05:00 BMP - BASIC METABOLIC PANEL [CHEM] DAILYLAB CBC [CBC - COMP BLD CT W/AUTO DIFF] [HEME] DAILYLAB 05/13/23 05:00 BMP - BASIC METABOLIC PANEL [CHEM] DAILYLAB CBC [CBC - COMP BLD CT W/AUTO DIFF] [HEME] DAILYLAB 05/14/23 05:00 BMP - BASIC METABOLIC PANEL [CHEM] DAILYLAB CBC [CBC - COMP BLD CT W/AUTO DIFF] [HEME] DAILYLAB Consult/Specialty: Psychiatry Plan Discussed with:: Patient (For medication management) Time Spent: 31-60 minutes Subjective - Subjective Patient Reports: Feeling Better, Other (She feels her anxiety and tremor has been improved with 1 dose of Benadryl) Objective Vital Signs: Vital Signs - 24 hr 05/09/23 05/09/23 05/09/23 15:03 15:21 16:27 Temperature 36.6 C 36 C L Heart Rate 73 82 76 Heart Rate [ Brachial] Heart Rate [ Monitoring electrodes] Respiratory 16 12 12 Rate Blood Pressure 103/67 110/66 136/103 H Blood Pressure [Right Brachial artery] O2 Saturation 99 100 100 05/09/23 05/09/23 05/09/23 18:41 20:44 23:44 Temperature 36.3 C L 36.3 C L 36.3 C L Heart Rate Heart Rate [ 80 75 Brachial] Heart Rate [ 93 Monitoring electrodes] Respiratory 18 16 16 Rate Blood Pressure Blood Pressure 118/59 L 115/62 121/65 [Right Brachial artery] O2 Saturation 99 100 100 05/10/23 05/10/23 05/10/23 04:48 07:38 12:35 Temperature 36.5 C 36.7 C 36.8 C Heart Rate Heart Rate [ 72 71 82 Brachial] Heart Rate [ Monitoring electrodes] Respiratory 18 18 16 Rate Blood Pressure Blood Pressure 116/62 113/87 H 116/62 [Right Brachial artery] O2 Saturation 100 100 99 Oxygen O2 Source Room air I&O (Last 24 Hrs): Intake and Output Totals x24h 05/08/23 05/09/23 05/10/23 23:59 23:59 23:59 Intake Total 1999 1503.333 Output Total 200 Balance 1999 1303.333 General: Alert, Oriented x3, Mild distress HEENT: Atraumatic, EOMI Neck: Supple, No JVD Neuro: Non Focal, Other (Generalized tremor) Cardiovascular: Regular rate, No murmurs Respiratory: Chest non-tender Abdomen: Normal bowel sounds Extremities: No clubbing, No cyanosis - Results Results: Laboratory Results WBC 11.0 x10^3/uL (4.8-10.8) H 05/10/23 05:10 RBC 3.48 10^6/uL (4.20-5.40) L 05/10/23 05:10 Hgb 11.2 g/dL (12.0-16.0) L 05/10/23 05:10 Hct 34.5 % (37.0-47.0) L 05/10/23 05:10 MCV 99.1 fL (81.0-99.0) H 05/10/23 05:10 MCH 32.2 pg (27.0-31.0) H 05/10/23 05:10 MCHC 32.5 g/dL (32.0-36.0) 05/10/23 05:10 RDW 12.2 % (12.0-15.0) 05/10/23 05:10 Plt Count 269 10^3/uL (130-450) 05/10/23 05:10 MPV 8.5 fL (7.9-10.8) 05/10/23 05:10 Neut # (Auto) 6.1 10^3/uL (1.5-6.6) 05/10/23 05:10 Lymph # (Auto) 3.5 10^3/uL (1.5-3.5) 05/10/23 05:10 [place] # (Auto) 1.1 10^3/uL (0.0-1.0) H 05/10/23 05:10 Eos # (Auto) 0.2 10^3/uL (0.0-0.7) 05/10/23 05:10 Baso # (Auto) 0.1 10^3/uL (0.0-0.1) 05/10/23 05:10 Absolute Nucleated RBC 0.00 x10^3/uL 05/10/23 05:10 Nucleated RBC % 0.0 /100WBC 05/10/23 05:10 Sodium 138 mmol/L (135-145) 05/10/23 05:10 Potassium 3.1 mmol/L (3.5-4.5) L 05/10/23 05:10 Chloride 104 mmol/L (101-111) 05/10/23 05:10 Carbon Dioxide 30 mmol/L (21-32) 05/10/23 05:10 Anion Gap 4.0 (6-13) L 05/10/23 05:10 BUN 24 mg/dL (6-20) H 05/10/23 05:10 Creatinine 1.8 mg/dL (0.6-1.3) H 05/10/23 05:10 Estimated GFR (MDRD) 28 (>89) L 05/10/23 05:10 Glucose 99 mg/dL (74-104) 05/10/23 05:10 Calcium 12.2 mg/dL (8.5-10.3) H* 05/10/23 05:10 Total Bilirubin 0.5 mg/dL (0.2-1.0) 05/09/23 15:15 AST 30 IU/L (10-42) 05/09/23 15:15 ALT 14 IU/L (10-60) 05/09/23 15:15 Alkaline Phosphatase 74 IU/L (42-121) 05/09/23 15:15 Total Protein 5.9 g/dL (6.4-8.9) L 05/09/23 15:15 Albumin 4.2 g/dL (3.2-5.5) 05/09/23 15:15 Globulin 1.7 g/dL (2.1-4.2) L 05/09/23 15:15 Albumin/Globulin Ratio 2.5 (1.0-2.2) H 05/09/23 15:15 Total Intact PTH 15 pg/mL (12-88) 05/09/23 15:15 Last Dose Date UNKNOWN 05/09/23 15:15 Last Dose Time UNKNOWN 05/09/23 15:15 [place] 0.31 mmol/L 05/09/23 15:15 - Procedures Procedures: Procedures CATARAC PHACOEMULS/ASPIR (05/14/13) EXCISION OF DUODENUM, ENDO, DIAGN (09/19/18) EXCISION OF ESOPHAGUS, ENDO, DIAGN (09/19/18) EXCISION OF LEFT LARGE INTESTINE, ENDO, DIAGN (09/19/18) EXCISION OF RIGHT LARGE INTESTINE, ENDO, DIAGN (09/19/18) EXCISION OF STOMACH, PYLORUS, ENDO, DIAGN (09/19/18) INSERT LENS AT CATAR EXT (05/14/13) ABX Reporting Has patient been on IV antibiotics over the past 48 hours?: No Current Medications - Current Medications Current Medications: Active Medications Generic Name Dose Route Start Last Admin Trade Name Freq PRN Reason Stop Dose Admin Acetaminophen 650 mg 05/09/23 17:16 Acetaminophen 325 Mg Tablet PO Q4HR PRN Pain 1 to 4, or Fever Diphenhydramine HCl 25 mg 05/09/23 20:00 05/10/23 08:05 Diphenhydramine Inj 50 Mg/Ml Vial IVP 05/11/23 19:59 25 mg Q6H MANDY Administration Sodium Chloride 1,000 mls @ 100 mls/hr 05/09/23 18:00 05/10/23 08:03 Normal Saline 0.9% IV 0 mls/hr .Q10H MANDY Infusion Ondansetron HCl 4 mg 05/09/23 17:16 Ondansetron Odt 4 Mg Tablet TL Q6HR PRN Nausea / Vomiting Ondansetron HCl 4 mg 05/09/23 17:16 Ondansetron 4 Mg/2 Ml Vial IVP Q6HR PRN Nausea / Vomiting Oxycodone HCl 5 mg 05/09/23 17:16 Oxycodone 5 Mg Tablet PO Q4HR PRN Pain 5 to 7 Sodium Chloride 10 ml 05/09/23 17:16 Sodium Chloride Flush 0.9% 10 Ml Syringe IVP PRN PRN NEEDED PER PROVIDER ORDERS Sodium Chloride 10 ml 05/10/23 01:00 05/10/23 08:05 Sodium Chloride Flush 0.9% 10 Ml Syringe IVP Not Given 0100,0900,1700 [facility] Losartan [Cozaar] 50 mg PO DAILY 05/18/17 lamoTRIgine [LaMICtal] 100 mg PO DAILY 03/02/19 lamoTRIgine [LaMICtal] 150 mg PO QPM 03/02/19 ALPRAZolam [Alprazolam] 1 mg PO TID PRN 03/03/19 [place] [[place] Carbonate] 150 mg PO DAILY 05/09/23 Losartan [Cozaar] 50 mg PO DAILY 05/10/23 Metoprolol Succinate [Toprol Xl] 100 mg PO QPM 05/10/23 Mirtazapine [Remeron] 7.5 mg PO QPM 05/10/23 Rivaroxaban [Xarelto] 20 mg PO QDDINNER 05/10/23 Rosuvastatin Calcium [Crestor] 10 mg PO QPM 05/10/23 hydrOXYzine HCL [Hydroxyzine HCl] 25 - 50 mg PO QPM 05/10/23 risperiDONE [Risperdal] 0.75 mg PO QPM 05/10/23
[2023-05-10] MEDS ORDERED: POTASSIUM CHLOR 10 MEQ/100 ML 10 MEQ/100 ML BAG IV ONE (15:00)
[2023-05-10] MEDS: ALPRAZolam 0.25 MG TABLET PO PRN (15:01)
--- NOTE | 2023-05-10 19:51 | TELEPSYCH PHYS NOTE ---
[facility] Telepsych Consult Consult Date: 05/10/23 Name of Referring Provider:: Laura Yannick Reason for Consult: Provider wants to know about re-starting her Risperdal and her Lamictal - Assessment Chief Complaint: Patient states, "I can't talk about this tonight. It is not hallucinations. - Medication & Allergies Home Medications: Ambulatory Orders Medication Instructions Recorded Confirmed Losartan [Cozaar] 50 mg PO DAILY 05/18/17 05/09/23 lamoTRIgine [LaMICtal] 100 mg PO DAILY 03/02/19 05/10/23 lamoTRIgine [LaMICtal] 150 mg PO QPM 03/02/19 05/09/23 ALPRAZolam [Alprazolam] 1 mg PO TID PRN 03/03/19 05/09/23 [place] [[place] Carbonate] 150 mg PO DAILY 05/09/23 05/09/23 Losartan [Cozaar] 50 mg PO DAILY 05/10/23 05/10/23 Metoprolol Succinate [Toprol Xl] 100 mg PO QPM 05/10/23 05/10/23 Mirtazapine [Remeron] 7.5 mg PO QPM 05/10/23 05/10/23 Rivaroxaban [Xarelto] 20 mg PO QDDINNER 05/10/23 05/10/23 Rosuvastatin Calcium [Crestor] 10 mg PO QPM 05/10/23 05/10/23 hydrOXYzine HCL [Hydroxyzine HCl] 25 - 50 mg PO QPM 05/10/23 05/10/23 risperiDONE [Risperdal] 0.75 mg PO QPM 05/10/23 05/10/23 Allergies/Adverse Reactions: Allergies Allergy/AdvReac Type Severity Reaction Status Date / Time Sulfa (Sulfonamide Allergy Severe Edema Verified 05/09/23 15:03 Antibiotics) naproxen Allergy unknown Verified 05/09/23 15:03 Penicillins Allergy UNKNOWN Verified 05/09/23 15:03 - Drug & Alcohol History Use: Uses substance without health or social issues: NONE - Medical History Psychiatric: reports: Depression, Anxiety Neurological: reports: None, Head injury (Had a fall, report head injury) Eyes, Ears, Nose, Throat: reports: None Cardiovascular: reports: Hypertension, High cholesterol Respiratory: reports: None Gastrointestinal: reports: GERD Urinary: reports: None CENTER MAKER HAND: reports: None Musculoskeletal: reports: Fibromyalgia Skin: reports: None - Surgical History General: reports: Cholecystectomy, Colonoscopy /CENTER MAKER HAND: reports: Hysterectomy - Family & Social History Family History: Father: [place]
--- NOTE | 2023-05-10 20:12 | PROVIDER PROGRESS NOTE ---
Progress Note Patient started to have audio hallucination, reports that her neighbors can hear what ever she is talking about. per psych consult, Zyprexa 2.5 mg is started, with a low dose and better profile of EPS side effect. Patient local psychiatrist cannot be reached, house mover helper will try to find a way to communicate with patient local psychiatrist
[2023-05-10] MEDS: APIXABAN 5 MG TABLET PO SCH (20:56)
[2023-05-10] MEDS: METOPROLOL TARTRATE 25 MG TABLET PO SCH (21:05)
[2023-05-10] MEDS: ACETAMINOPHEN 325 MG TABLET PO PRN (21:10)
[2023-05-10] MEDS: OLANZapine ODT 5 MG TABLET TL SCH (21:11)
[2023-05-11] MEDS: diphenhydrAMINE INJ 50 MG/ML VIAL IVP SCH ×3 (02:12→14:37)
[2023-05-11] MEDS: SODIUM CHLORIDE FLUSH 0.9% 10 ML SYRINGE IVP SCH ×3 (02:12→16:58)
[2023-05-11 05:32] LABS: BASOPHILS # (AUTO) 0.1 10^3/uL (0.0-0.1); BASOPHILS % (AUTO) 0.6 %; EOSINOPHILS # (AUTO) 0.1 10^3/uL (0.0-0.7); EOSINOPHILS % (AUTO) 0.8 %; HCT - HEMATOCRIT 33.5 % (37.0-47.0); HGB - HEMOGLOBIN 11.2 g/dL (12.0-16.0); LYMPHOCYTES # (AUTO) 2.6 10^3/uL (1.5-3.5); LYMPHOCYTES % (AUTO) 26.5 %; MEAN CORPUSCULAR HEMOGLOBIN 32.7 pg (27.0-31.0); MEAN CORPUSCULAR HGB CONC 33.4 g/dL (32.0-36.0); MEAN CORPUSCULAR VOLUME 97.7 fL (81.0-99.0); MEAN PLATELET VOLUME 8.6 fL (7.9-10.8); MONOCYTES # (AUTO) 0.9 10^3/uL (0.0-1.0); MONOCYTES % (AUTO) 9.4 %; NEUTROPHILS # (AUTO) 5.9 10^3/uL (1.5-6.6); NEUTROPHILS % (AUTO) 61.1 %; PLT - PLATELET COUNT 281 10^3/uL (130-450); RED BLOOD COUNT 3.43 10^6/uL (4.20-5.40); RED CELL DISTRIBUTION WIDTH 12.2 % (12.0-15.0); WHITE BLOOD COUNT 9.7 x10^3/uL (4.8-10.8)
[2023-05-11] MEDS: SODIUM CHLORIDE 0.9% 1,000 ML IV SCH ×3 (05:41→15:43)
[2023-05-11 05:42] LABS: CALCIUM 10.8 mg/dL (8.5-10.3); CREATININE 1.7 mg/dL (0.6-1.3); POTASSIUM 3.5 mmol/L (3.5-4.5)
[2023-05-11] MEDS: POTASSIUM CHLOR 10 MEQ/100 ML 10 MEQ/100 ML BAG IV SCH (07:14)
[2023-05-11] MEDS: ACETAMINOPHEN 325 MG TABLET PO PRN (08:32)
[2023-05-11] MEDS: LITHIUM 150 MG CAPSULE PO SCH (08:32)
[2023-05-11] MEDS: OLANZapine ODT 5 MG TABLET TL SCH (08:33)
[2023-05-11] MEDS: APIXABAN 5 MG TABLET PO SCH ×2 (08:34→21:50)
[2023-05-11] MEDS: METOPROLOL TARTRATE 25 MG TABLET PO SCH ×2 (08:35→21:50)
--- NOTE | 2023-05-11 09:10 | PROVIDER PROGRESS NOTE ---
Assessment/Plan - Problem List (1) Akinetic mutism Assessment/Plan: acutely, absence of speech, emotional lability,since 05/10/2023 night unknown etiology or maybe part of her Bipolar, schizophrenia? --if not improved in 24 hours, will do MRI of brain to rule out anatomic problem (2) Extrapyramidal and movement disorder Assessment/Plan: Improved, no visible tremor at rest. Has some tremor when she has intentional movement (3) Hypercalcemia Assessment/Plan: Improving, calcium 10.2 today (4) Acute kidney injury Assessment/Plan: Improving, creatinine 1.7 today, continue give IV and fluid (5) Bipolar 1 disorder Assessment/Plan: hx of Bipolar treated with lamotrigine, Risperdal, lithium Per patient's outpatient therapist Ms Jay Palmer ([phone], patient recently lost her dog 3 months ago. He has some concerns if patient is suicidal, intentional taking extra psy meds. Try to reach patient outpatient psychiatry provider [phone], unsuccessful - Current Meds Current Meds: Current Medications Generic Name Dose Route Start Last Admin Trade Name Freq PRN Reason Stop Dose Admin Acetaminophen 650 mg 05/09/23 17:16 05/11/23 08:32 Acetaminophen 325 Mg Tablet PO 650 mg Q4HR PRN Administration Pain 1 to 4, or Fever Alprazolam 0.5 mg 05/10/23 14:45 05/10/23 15:01 Alprazolam 0.25 Mg Tablet PO 0.5 mg BID PRN Administration Anxiety Apixaban 5 mg 05/10/23 21:00 05/11/23 08:34 Apixaban 5 Mg Tablet PO 5 mg BID MANDY Administration Diphenhydramine HCl 25 mg 05/09/23 20:00 05/11/23 08:41 Diphenhydramine Inj 50 Mg/Ml Vial IVP 05/11/23 19:59 25 mg Q6H MANDY Administration Sodium Chloride 1,000 mls @ 100 mls/hr 05/09/23 18:00 05/11/23 05:41 Normal Saline 0.9% IV 100 mls/hr .Q10H MANDY Administration [place] Carbonate 150 mg 05/11/23 09:00 05/11/23 08:32 [place] 150 Mg Capsule PO 150 mg DAILY MANDY Administration Metoprolol Tartrate 25 mg 05/10/23 21:00 05/11/23 08:35 Metoprolol Tartrate 25 Mg Tablet PO 25 mg BID MANDY Administration Olanzapine 2.5 mg 05/10/23 20:08 05/11/23 08:33 Olanzapine Odt 5 Mg Tablet TL 2.5 mg DAILY MANDY Administration Sodium Chloride 10 ml 05/10/23 01:00 05/11/23 08:42 Sodium Chloride Flush 0.9% 10 Ml Syringe IVP 10 ml 0100,0900,1700 MANDY Administration - Lab Result Fish Bone Diagrams: 05/11/23 05:14 05/11/23 05:14 - Additional Planning My Orders: My Active Orders 05/10/23 14:45 ALPRAZolam [Xanax] 0.5 mg PO BID PRN 05/10/23 20:08 OLANZapine ODT [ZyPREXA ODT] 2.5 mg TL DAILY 05/10/23 21:00 Apixaban [Eliquis] 5 mg PO BID Metoprolol Tartrate [Lopressor] 25 mg PO BID 05/11/23 09:00 [place] [[place] Carbonate] 150 mg PO DAILY 05/12/23 05:00 BMP - BASIC METABOLIC PANEL [CHEM] DAILYLAB CBC [CBC - COMP BLD CT W/AUTO DIFF] [HEME] DAILYLAB 05/13/23 05:00 BMP - BASIC METABOLIC PANEL [CHEM] DAILYLAB CBC [CBC - COMP BLD CT W/AUTO DIFF] [HEME] DAILYLAB 05/14/23 05:00 BMP - BASIC METABOLIC PANEL [CHEM] DAILYLAB CBC [CBC - COMP BLD CT W/AUTO DIFF] [HEME] DAILYLAB Subjective - Subjective Patient Reports: Other (alert, aphasia) Nursing Reports: Other (significant change of mental status) Objective Vital Signs: Vital Signs - 24 hr 05/10/23 05/10/23 05/10/23 12:35 16:20 21:01 Temperature 36.8 C 37.1 C 37.1 C Heart Rate [ 82 88 85 Brachial] Heart Rate [ Monitoring electrodes] Respiratory 16 16 18 Rate Blood Pressure Blood Pressure 116/62 120/68 120/65 [Right Brachial artery] O2 Saturation 99 99 100 05/10/23 05/11/23 05/11/23 21:05 00:12 08:15 Temperature 36.8 C 37.2 C Heart Rate [ 78 92 Brachial] Heart Rate [ Monitoring electrodes] Respiratory 18 18 Rate Blood Pressure 120/65 Blood Pressure 129/73 140/86 H [Right Brachial artery] O2 Saturation 100 05/11/23 05/11/23 08:35 08:42 Temperature Heart Rate [ Brachial] Heart Rate [ 86 Monitoring electrodes] Respiratory Rate Blood Pressure 124/88 H Blood Pressure 124/88 H [Right Brachial artery] O2 Saturation Oxygen O2 Source Room air I&O (Last 24 Hrs): Intake and Output Totals x24h 05/09/23 05/10/23 05/11/23 23:59 23:59 23:59 Intake Total 1999 2648.333 1000 Output Total 350 300 Balance 1999 2298.333 700 General: Alert, No acute distress, Other (aphasia) HEENT: Atraumatic, PERRLA, EOMI Neck: Supple, No JVD Neuro: Alert Cardiovascular: Regular rate Respiratory: No respiratory distress - Results Results: Laboratory Results WBC 9.7 x10^3/uL (4.8-10.8) 05/11/23 05:14 RBC 3.43 10^6/uL (4.20-5.40) L 05/11/23 05:14 Hgb 11.2 g/dL (12.0-16.0) L 05/11/23 05:14 Hct 33.5 % (37.0-47.0) L 05/11/23 05:14 MCV 97.7 fL (81.0-99.0) 05/11/23 05:14 MCH 32.7 pg (27.0-31.0) H 05/11/23 05:14 MCHC 33.4 g/dL (32.0-36.0) 05/11/23 05:14 RDW 12.2 % (12.0-15.0) 05/11/23 05:14 Plt Count 281 10^3/uL (130-450) 05/11/23 05:14 MPV 8.6 fL (7.9-10.8) 05/11/23 05:14 Neut # (Auto) 5.9 10^3/uL (1.5-6.6) 05/11/23 05:14 Lymph # (Auto) 2.6 10^3/uL (1.5-3.5) 05/11/23 05:14 [place] # (Auto) 0.9 10^3/uL (0.0-1.0) 05/11/23 05:14 Eos # (Auto) 0.1 10^3/uL (0.0-0.7) 05/11/23 05:14 Baso # (Auto) 0.1 10^3/uL (0.0-0.1) 05/11/23 05:14 Absolute Nucleated RBC 0.00 x10^3/uL 05/11/23 05:14 Nucleated RBC % 0.0 /100WBC 05/11/23 05:14 Sodium 139 mmol/L (135-145) 05/11/23 05:14 Potassium 3.5 mmol/L (3.5-4.5) 05/11/23 05:14 Chloride 109 mmol/L (101-111) 05/11/23 05:14 Carbon Dioxide 25 mmol/L (21-32) 05/11/23 05:14 Anion Gap 5.0 (6-13) L 05/11/23 05:14 BUN 24 mg/dL (6-20) H 05/11/23 05:14 Creatinine 1.7 mg/dL (0.6-1.3) H 05/11/23 05:14 Estimated GFR (MDRD) 30 (>89) L 05/11/23 05:14 Glucose 120 mg/dL (74-104) H 05/11/23 05:14 Calcium 10.8 mg/dL (8.5-10.3) H 05/11/23 05:14 Total Bilirubin 0.5 mg/dL (0.2-1.0) 05/09/23 15:15 AST 30 IU/L (10-42) 05/09/23 15:15 ALT 14 IU/L (10-60) 05/09/23 15:15 Alkaline Phosphatase 74 IU/L (42-121) 05/09/23 15:15 Total Protein 5.9 g/dL (6.4-8.9) L 05/09/23 15:15 Albumin 4.2 g/dL (3.2-5.5) 05/09/23 15:15 Globulin 1.7 g/dL (2.1-4.2) L 05/09/23 15:15 Albumin/Globulin Ratio 2.5 (1.0-2.2) H 05/09/23 15:15 Total Intact PTH 15 pg/mL (12-88) 05/09/23 15:15 Last Dose Date UNKNOWN 05/09/23 15:15 Last Dose Time UNKNOWN 05/09/23 15:15 [place] 0.31 mmol/L 05/09/23 15:15 - Procedures Procedures: Procedures CATARAC PHACOEMULS/ASPIR (05/14/13) EXCISION OF DUODENUM, ENDO, DIAGN (09/19/18) EXCISION OF ESOPHAGUS, ENDO, DIAGN (09/19/18) EXCISION OF LEFT LARGE INTESTINE, ENDO, DIAGN (09/19/18) EXCISION OF RIGHT LARGE INTESTINE, ENDO, DIAGN (09/19/18) EXCISION OF STOMACH, PYLORUS, ENDO, DIAGN (09/19/18) INSERT LENS AT CATAR EXT (05/14/13) ABX Reporting Has patient been on IV antibiotics over the past 48 hours?: No Current Medications - Current Medications Current Medications: Active Medications Acetaminophen (Acetaminophen 325 Mg Tablet) 650 mg PO Q4HR PRN PRN Reason: Pain 1 to 4, or Fever Last Admin: 05/11/23 08:32 Dose: 650 mg Alprazolam (Alprazolam 0.25 Mg Tablet) 0.5 mg PO BID PRN PRN Reason: Anxiety Last Admin: 05/10/23 15:01 Dose: 0.5 mg Apixaban (Apixaban 5 Mg Tablet) 5 mg PO BID [facility] Last Admin: 05/11/23 08:34 Dose: 5 mg Sodium Chloride (Normal Saline 0.9%) 1,000 mls @ 100 mls/hr IV .Q10H MANDY Last Infusion: 05/11/23 20:48 Dose: 100 mls/hr [place] Carbonate ([place] 150 Mg Capsule) 150 mg PO DAILY MANDY Last Admin: 05/11/23 08:32 Dose: 150 mg Metoprolol Tartrate (Metoprolol Tartrate 25 Mg Tablet) 25 mg PO BID MANDY Last Admin: 05/11/23 08:35 Dose: 25 mg Mirtazapine (Mirtazapine 15 Mg Tablet) 15 mg PO QPM MANDY Olanzapine (Olanzapine Odt 5 Mg Tablet) 2.5 mg TL DAILY [facility] Last Admin: 05/11/23 08:33 Dose: 2.5 mg Ondansetron HCl (Ondansetron Odt 4 Mg Tablet) 4 mg TL Q6HR PRN PRN Reason: Nausea / Vomiting Ondansetron HCl (Ondansetron 4 Mg/2 Ml Vial) 4 mg IVP Q6HR PRN PRN Reason: Nausea / Vomiting Oxycodone HCl (Oxycodone 5 Mg Tablet) 5 mg PO Q4HR PRN PRN Reason: Pain 5 to 7 Sodium Chloride (Sodium Chloride Flush 0.9% 10 Ml Syringe) 10 ml IVP PRN PRN PRN Reason: NEEDED PER PROVIDER ORDERS Sodium Chloride (Sodium Chloride Flush 0.9% 10 Ml Syringe) 10 ml IVP 0100,0900,1700 MANDY Last Admin: 05/11/23 16:58 Dose: Not Given Losartan [Cozaar] 50 mg PO DAILY 05/18/17 lamoTRIgine [LaMICtal] 100 mg PO DAILY 03/02/19 lamoTRIgine [LaMICtal] 150 mg PO QPM 03/02/19 ALPRAZolam [Alprazolam] 1 mg PO TID PRN 03/03/19 [place] [[place] Carbonate] 150 mg PO DAILY 05/09/23 Losartan [Cozaar] 50 mg PO DAILY 05/10/23 Metoprolol Succinate [Toprol Xl] 100 mg PO QPM 05/10/23 Mirtazapine [Remeron] 7.5 mg PO QPM 05/10/23 Rivaroxaban [Xarelto] 20 mg PO QDDINNER 05/10/23 Rosuvastatin Calcium [Crestor] 10 mg PO QPM 05/10/23 hydrOXYzine HCL [Hydroxyzine HCl] 25 - 50 mg PO QPM 05/10/23 risperiDONE [Risperdal] 0.75 mg PO QPM 05/10/23
[2023-05-11] MEDS: MIRTAZAPINE 15 MG TABLET PO SCH (21:50)
[2023-05-12] MEDS: SODIUM CHLORIDE 0.9% 1,000 ML IV SCH ×3 (02:52→18:58)
[2023-05-12] MEDS: SODIUM CHLORIDE FLUSH 0.9% 10 ML SYRINGE IVP SCH ×3 (02:53→16:14)
[2023-05-12 07:30] LABS: BASOPHILS # (AUTO) 0.1 10^3/uL (0.0-0.1); BASOPHILS % (AUTO) 0.4 %; EOSINOPHILS # (AUTO) 0.1 10^3/uL (0.0-0.7); EOSINOPHILS % (AUTO) 0.8 %; HCT - HEMATOCRIT 32.8 % (37.0-47.0); LYMPHOCYTES # (AUTO) 2.4 10^3/uL (1.5-3.5); LYMPHOCYTES % (AUTO) 17.1 %; MEAN CORPUSCULAR HEMOGLOBIN 32.4 pg (27.0-31.0); MEAN CORPUSCULAR HGB CONC 33.5 g/dL (32.0-36.0); MEAN CORPUSCULAR VOLUME 96.8 fL (81.0-99.0); MEAN PLATELET VOLUME 8.7 fL (7.9-10.8); MONOCYTES # (AUTO) 1.3 10^3/uL (0.0-1.0); MONOCYTES % (AUTO) 9.1 %; NEUTROPHILS # (AUTO) 10.1 10^3/uL (1.5-6.6); NEUTROPHILS % (AUTO) 70.8 %; PLT - PLATELET COUNT 280 10^3/uL (130-450); RED BLOOD COUNT 3.39 10^6/uL (4.20-5.40); RED CELL DISTRIBUTION WIDTH 12.6 % (12.0-15.0); WHITE BLOOD COUNT 14.2 x10^3/uL (4.8-10.8)
[2023-05-12 07:41] LABS: CALCIUM 9.4 mg/dL (8.5-10.3); CREATININE 1.4 mg/dL (0.6-1.3); POTASSIUM 3.1 mmol/L (3.5-4.5)
--- NOTE | 2023-05-12 08:29 | PROVIDER PROGRESS NOTE ---
Assessment/Plan - Problem List (1) Akinetic mutism Assessment/Plan: Improved, viral did not open her mouth to take her medication last night per RN report, today in the morning, she started to talk. However, poor insight, she says she has been "in the hospital for 14 days", she wants to "catch up her sle ep" Ordered MRI brain, to rule out any intracranial pathology. Even though the CT hed at admission was negative, however with acute change of mental status, it warranted MRI scan. Patient declined "not today" Had long conversation with patient therapist Jay Palmer, also patient's brother Malik Laguerre ([phone]) regarding the care plan -Telepsy consult to see if a inpatient psy unit placment is proper and feasible (2) Extrapyramidal and movement disorder Assessment/Plan: Improved, no visible tremor unless patient started to have certain movement. Await for lamotrigine level which has been a signout at time of admission. Hope to receive the report in the short. Time. (3) Hypercalcemia Assessment/Plan: Resolved. Calcium 9.4 today Monitoring tomorrow (5) Bipolar 1 disorder Assessment/Plan: Telepsych consult for today, patient has been resumed with her lithium and started on 2.5 mg olanzapine (6) Hypokalemia Assessment/Plan: May related to poor oral intake Potassium 3.1. Give replenishment and monitoring tomorrow - Current Meds Current Meds: Current Medications Generic Name Dose Route Start Last Admin Trade Name Freq PRN Reason Stop Dose Admin Acetaminophen 650 mg 05/09/23 17:16 05/11/23 08:32 Acetaminophen 325 Mg Tablet PO 650 mg Q4HR PRN Administration Pain 1 to 4, or Fever Alprazolam 0.5 mg 05/10/23 14:45 05/10/23 15:01 Alprazolam 0.25 Mg Tablet PO 0.5 mg BID PRN Administration Anxiety Apixaban 5 mg 05/10/23 21:00 05/11/23 21:50 Apixaban 5 Mg Tablet PO Not Given BID MANDY Sodium Chloride 1,000 mls @ 100 mls/hr 05/09/23 18:00 05/12/23 02:52 Normal Saline 0.9% IV 100 mls/hr .Q10H MANDY Administration [place] Carbonate 150 mg 05/11/23 09:00 05/11/23 08:32 [place] 150 Mg Capsule PO 150 mg DAILY MANDY Administration Metoprolol Tartrate 25 mg 05/10/23 21:00 05/11/23 21:50 Metoprolol Tartrate 25 Mg Tablet PO Not Given BID MANDY Mirtazapine 15 mg 05/11/23 21:00 05/11/23 21:50 Mirtazapine 15 Mg Tablet PO Not Given QPM MANDY Olanzapine 2.5 mg 05/10/23 20:08 05/11/23 08:33 Olanzapine Odt 5 Mg Tablet TL 2.5 mg DAILY MANDY Administration Sodium Chloride 10 ml 05/10/23 01:00 05/12/23 02:53 Sodium Chloride Flush 0.9% 10 Ml Syringe IVP 10 ml 0100,0900,1700 MANDY Administration - Lab Result Fish Bone Diagrams: 05/12/23 07:09 05/12/23 07:09 - Additional Planning My Orders: My Active Orders 05/11/23 09:00 [place] [[place] Carbonate] 150 mg PO DAILY 05/11/23 21:00 Mirtazapine [Remeron] 15 mg PO QPM 05/12/23 08:27 BRAIN WO [MRI] Routine 05/12/23 08:29 RN MRI Screening [RC] .ONCE 05/12/23 09:00 Potassium Chloride/Water 10 mEq/100 mL q1h (Enter # of bags) Potassium Chlor 10 Meq/100 ml [Potassium Chloride] 10 meq in 100 ml IV Q1H 05/13/23 05:00 BMP - BASIC METABOLIC PANEL [CHEM] DAILYLAB CBC [CBC - COMP BLD CT W/AUTO DIFF] [HEME] DAILYLAB 05/14/23 05:00 BMP - BASIC METABOLIC PANEL [CHEM] DAILYLAB CBC [CBC - COMP BLD CT W/AUTO DIFF] [HEME] DAILYLAB Subjective - Subjective Patient Reports: Feeling Better (Patient feels she was eating at [place] for the past 2 weeks. Patient is not coherent) Objective Vital Signs: Vital Signs - 24 hr 05/11/23 05/11/23 05/11/23 08:35 08:42 16:48 Temperature 36.2 C L Heart Rate [ 87 Brachial] Heart Rate [ 86 Monitoring electrodes] Respiratory 18 Rate Blood Pressure 124/88 H Blood Pressure [Left Brachial artery] Blood Pressure 124/88 H 133/93 H [Right Brachial artery] O2 Saturation 96 09/29/23 09/29/23 09/30/23 21:50 21:57 06:50 Temperature 37.1 C Heart Rate [ Brachial] Heart Rate [ 81 Monitoring electrodes] Respiratory 19 Rate Blood Pressure 150/95 H Blood Pressure 119/94 H 119/62 [Left Brachial artery] Blood Pressure [Right Brachial artery] O2 Saturation 100 05/12/23 08:11 Temperature 37.1 C Heart Rate [ Brachial] Heart Rate [ 79 Monitoring electrodes] Respiratory 18 Rate Blood Pressure Blood Pressure 117/75 [Left Brachial artery] Blood Pressure [Right Brachial artery] O2 Saturation 100 Oxygen O2 Source Room air I&O (Last 24 Hrs): Intake and Output Totals x24h 05/10/23 05/11/23 05/12/23 23:59 23:59 23:59 Intake Total 2648.333 2495.000 505 Output Total 350 1000 825 Balance 2298.333 1495.000 -320 General: Alert, No acute distress, Other (Disorientated) HEENT: Atraumatic, PERRLA Neck: Supple, No JVD Neuro: Alert, Disoriented, Non Focal Cardiovascular: Regular rate Respiratory: No respiratory distress Abdomen: Soft, No tenderness Extremities: No cyanosis, No edema Skin: No rashes - Results Results: Laboratory Results WBC 14.2 x10^3/uL (4.8-10.8) H 05/12/23 07:09 RBC 3.39 10^6/uL (4.20-5.40) L 05/12/23 07:09 Hgb 11.0 g/dL (12.0-16.0) L 05/12/23 07:09 Hct 32.8 % (37.0-47.0) L 05/12/23 07:09 MCV 96.8 fL (81.0-99.0) 05/12/23 07:09 MCH 32.4 pg (27.0-31.0) H 05/12/23 07:09 MCHC 33.5 g/dL (32.0-36.0) 05/12/23 07:09 RDW 12.6 % (12.0-15.0) 05/12/23 07:09 Plt Count 280 10^3/uL (130-450) 05/12/23 07:09 MPV 8.7 fL (7.9-10.8) 05/12/23 07:09 Neut # (Auto) 10.1 10^3/uL (1.5-6.6) H 05/12/23 07:09 Lymph # (Auto) 2.4 10^3/uL (1.5-3.5) 05/12/23 07:09 [place] # (Auto) 1.3 10^3/uL (0.0-1.0) H 05/12/23 07:09 Eos # (Auto) 0.1 10^3/uL (0.0-0.7) 05/12/23 07:09 Baso # (Auto) 0.1 10^3/uL (0.0-0.1) 05/12/23 07:09 Absolute Nucleated RBC 0.00 x10^3/uL 05/12/23 07:09 Nucleated RBC % 0.0 /100WBC 05/12/23 07:09 Sodium 141 mmol/L (135-145) 05/12/23 07:09 Potassium 3.1 mmol/L (3.5-4.5) L 05/12/23 07:09 Chloride 112 mmol/L (101-111) H 05/12/23 07:09 Carbon Dioxide 22 mmol/L (21-32) 05/12/23 07:09 Anion Gap 7.0 (6-13) 05/12/23 07:09 BUN 18 mg/dL (6-20) 05/12/23 07:09 Creatinine 1.4 mg/dL (0.6-1.3) H 05/12/23 07:09 Estimated GFR (MDRD) 37 (>89) L 05/12/23 07:09 Glucose 85 mg/dL (74-104) 05/12/23 07:09 Calcium 9.4 mg/dL (8.5-10.3) 05/12/23 07:09 Total Bilirubin 0.5 mg/dL (0.2-1.0) 05/09/23 15:15 AST 30 IU/L (10-42) 05/09/23 15:15 ALT 14 IU/L (10-60) 05/09/23 15:15 Alkaline Phosphatase 74 IU/L (42-121) 05/09/23 15:15 Total Protein 5.9 g/dL (6.4-8.9) L 05/09/23 15:15 Albumin 4.2 g/dL (3.2-5.5) 05/09/23 15:15 Globulin 1.7 g/dL (2.1-4.2) L 05/09/23 15:15 Albumin/Globulin Ratio 2.5 (1.0-2.2) H 05/09/23 15:15 Total Intact PTH 15 pg/mL (12-88) 05/09/23 15:15 Last Dose Date UNKNOWN 05/09/23 15:15 Last Dose Time UNKNOWN 05/09/23 15:15 [place] 0.31 mmol/L 05/09/23 15:15 - Procedures Procedures: Procedures CATARAC PHACOEMULS/ASPIR (05/14/13) EXCISION OF DUODENUM, ENDO, DIAGN (09/19/18) EXCISION OF ESOPHAGUS, ENDO, DIAGN (09/19/18) EXCISION OF LEFT LARGE INTESTINE, ENDO, DIAGN (09/19/18) EXCISION OF RIGHT LARGE INTESTINE, ENDO, DIAGN (09/19/18) EXCISION OF STOMACH, PYLORUS, ENDO, DIAGN (09/19/18) INSERT LENS AT CATAR EXT (05/14/13) Current Medications - Current Medications Current Medications: Active Medications Acetaminophen (Acetaminophen 325 Mg Tablet) 650 mg PO Q4HR PRN PRN Reason: Pain 1 to 4, or Fever Last Admin: 05/11/23 08:32 Dose: 650 mg Alprazolam (Alprazolam 0.25 Mg Tablet) 0.5 mg PO BID PRN PRN Reason: Anxiety Last Admin: 05/10/23 15:01 Dose: 0.5 mg Apixaban (Apixaban 5 Mg Tablet) 5 mg PO BID [facility] Last Admin: 05/12/23 09:21 Dose: 5 mg Sodium Chloride (Normal Saline 0.9%) 1,000 mls @ 100 mls/hr IV .Q10H [facility] Last Admin: 05/12/23 02:52 Dose: 100 mls/hr [place] Carbonate ([place] 150 Mg Capsule) 150 mg PO DAILY [facility] Last Admin: 05/12/23 09:21 Dose: 150 mg Metoprolol Tartrate (Metoprolol Tartrate 25 Mg Tablet) 25 mg PO BID [facility] Last Admin: 05/12/23 09:21 Dose: 25 mg Mirtazapine (Mirtazapine 15 Mg Tablet) 15 mg PO QPM [facility] Last Admin: 05/11/23 21:50 Dose: Not Given Multi-Ingredient Ointment (Zinc Oxide 20% Oint 30 Gm Tube) 1 applic TOP PRN PRN PRN Reason: Skin Care Olanzapine (Olanzapine Odt 5 Mg Tablet) 2.5 mg TL DAILY [facility] Last Admin: 05/12/23 09:22 Dose: 2.5 mg Ondansetron HCl (Ondansetron Odt 4 Mg Tablet) 4 mg TL Q6HR PRN PRN Reason: Nausea / Vomiting Ondansetron HCl (Ondansetron 4 Mg/2 Ml Vial) 4 mg IVP Q6HR PRN PRN Reason: Nausea / Vomiting Oxycodone HCl (Oxycodone 5 Mg Tablet) 5 mg PO Q4HR PRN PRN Reason: Pain 5 to 7 Sodium Chloride (Sodium Chloride Flush 0.9% 10 Ml Syringe) 10 ml IVP PRN PRN PRN Reason: NEEDED PER PROVIDER ORDERS Sodium Chloride (Sodium Chloride Flush 0.9% 10 Ml Syringe) 10 ml IVP 0100,0900,1700 [facility] Last Admin: 05/12/23 09:22 Dose: 10 ml Losartan [Cozaar] 50 mg PO DAILY 05/18/17 lamoTRIgine [LaMICtal] 100 mg PO DAILY 03/02/19 lamoTRIgine [LaMICtal] 150 mg PO QPM 03/02/19 ALPRAZolam [Alprazolam] 1 mg PO TID PRN 03/03/19 [place] [[place] Carbonate] 150 mg PO DAILY 05/09/23 Losartan [Cozaar] 50 mg PO DAILY 05/10/23 Metoprolol Succinate [Toprol Xl] 100 mg PO QPM 05/10/23 Mirtazapine [Remeron] 7.5 mg PO QPM 05/10/23 Rivaroxaban [Xarelto] 20 mg PO QDDINNER 05/10/23 Rosuvastatin Calcium [Crestor] 10 mg PO QPM 05/10/23 hydrOXYzine HCL [Hydroxyzine HCl] 25 - 50 mg PO QPM 05/10/23 risperiDONE [Risperdal] 0.75 mg PO QPM 05/10/23
[2023-05-12] MEDS: APIXABAN 5 MG TABLET PO SCH ×2 (09:21→20:36)
[2023-05-12] MEDS: METOPROLOL TARTRATE 25 MG TABLET PO SCH ×2 (09:21→20:36)
[2023-05-12] MEDS: LITHIUM 150 MG CAPSULE PO SCH (09:21)
[2023-05-12] MEDS: OLANZapine ODT 5 MG TABLET TL SCH (09:22)
[2023-05-12] MEDS: POTASSIUM CHLOR 10 MEQ/100 ML 10 MEQ/100 ML BAG IV SCH ×4 (09:28→15:07)
[2023-05-12] MEDS: ZINC OXIDE 20% OINT 30 GM TUBE TOP PRN (14:04)
[2023-05-12] MEDS: ALPRAZolam 0.25 MG TABLET PO PRN ×2 (14:10→23:33)
[2023-05-12] MEDS: ACETAMINOPHEN 325 MG TABLET PO PRN (16:04)
[2023-05-12] MEDS: MIRTAZAPINE 15 MG TABLET PO SCH (20:36)
[2023-05-13] MEDS: SODIUM CHLORIDE 0.9% 1,000 ML IV SCH ×3 (05:50→21:35)
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
[2023-05-13] MEDS: LITHIUM 150 MG CAPSULE PO SCH (08:55)
[2023-05-13] MEDS: METOPROLOL TARTRATE 25 MG TABLET PO SCH ×2 (08:56→21:33)
[2023-05-13] MEDS: SODIUM CHLORIDE FLUSH 0.9% 10 ML SYRINGE IVP SCH ×3 (08:57→15:41)
[2023-05-13] MEDS: APIXABAN 5 MG TABLET PO SCH ×2 (08:57→21:34)
[2023-05-13] MEDS: OLANZapine ODT 5 MG TABLET TL SCH (08:57)
[2023-05-13 11:06] LABS: BASOPHILS # (AUTO) 0.1 10^3/uL (0.0-0.1); BASOPHILS % (AUTO) 0.6 %; EOSINOPHILS # (AUTO) 0.2 10^3/uL (0.0-0.7); EOSINOPHILS % (AUTO) 1.2 %; HCT - HEMATOCRIT 33.7 % (37.0-47.0); HGB - HEMOGLOBIN 11.3 g/dL (12.0-16.0); LYMPHOCYTES # (AUTO) 2.5 10^3/uL (1.5-3.5); LYMPHOCYTES % (AUTO) 19.5 %; MEAN CORPUSCULAR HGB CONC 33.5 g/dL (32.0-36.0); MEAN CORPUSCULAR VOLUME 98.5 fL (81.0-99.0); MEAN PLATELET VOLUME 8.7 fL (7.9-10.8); MONOCYTES % (AUTO) 8.1 %; NEUTROPHILS # (AUTO) 8.8 10^3/uL (1.5-6.6); NEUTROPHILS % (AUTO) 69.3 %; PLT - PLATELET COUNT 287 10^3/uL (130-450); RED BLOOD COUNT 3.42 10^6/uL (4.20-5.40); WHITE BLOOD COUNT 12.7 x10^3/uL (4.8-10.8)
[2023-05-13 11:18] LABS: CALCIUM 8.9 mg/dL (8.5-10.3); CREATININE 1.4 mg/dL (0.6-1.3); POTASSIUM 3.3 mmol/L (3.5-4.5)
[2023-05-13] MEDS: ZINC OXIDE 20% OINT 30 GM TUBE TOP PRN (11:41)
[2023-05-13] MEDS: POTASSIUM CHLOR 10 MEQ/100 ML 10 MEQ/100 ML BAG IV SCH ×4 (12:20→15:41)
[2023-05-13] MEDS ORDERED: OLANZapine ODT 5 MG TABLET TL SCH (21:00)
[2023-05-13] MEDS: MIRTAZAPINE 15 MG TABLET PO SCH (21:34)
[2023-05-14] MEDS: SODIUM CHLORIDE FLUSH 0.9% 10 ML SYRINGE IVP SCH ×3 (05:31→16:29)
[2023-05-14 05:35] LABS: BASOPHILS # (AUTO) 0.1 10^3/uL (0.0-0.1); BASOPHILS % (AUTO) 0.7 %; EOSINOPHILS # (AUTO) 0.2 10^3/uL (0.0-0.7); EOSINOPHILS % (AUTO) 1.6 %; HCT - HEMATOCRIT 34.6 % (37.0-47.0); HGB - HEMOGLOBIN 11.2 g/dL (12.0-16.0); LYMPHOCYTES % (AUTO) 29.6 %; MEAN CORPUSCULAR HEMOGLOBIN 32.9 pg (27.0-31.0); MEAN CORPUSCULAR HGB CONC 32.4 g/dL (32.0-36.0); MEAN CORPUSCULAR VOLUME 101.8 fL (81.0-99.0); MEAN PLATELET VOLUME 8.8 fL (7.9-10.8); MONOCYTES # (AUTO) 1.1 10^3/uL (0.0-1.0); MONOCYTES % (AUTO) 8.1 %; NEUTROPHILS # (AUTO) 7.9 10^3/uL (1.5-6.6); PLT - PLATELET COUNT 277 10^3/uL (130-450); RED CELL DISTRIBUTION WIDTH 13.3 % (12.0-15.0); WHITE BLOOD COUNT 13.5 x10^3/uL (4.8-10.8)
[2023-05-14 05:50] LABS: CALCIUM 8.4 mg/dL (8.5-10.3); CREATININE 1.3 mg/dL (0.6-1.3); POTASSIUM 3.4 mmol/L (3.5-4.5)
[2023-05-14] MEDS: SODIUM CHLORIDE 0.9% 1,000 ML IV SCH ×2 (06:45→16:45)
[2023-05-14] MEDS: LITHIUM 150 MG CAPSULE PO SCH (07:59)
[2023-05-14] MEDS: APIXABAN 5 MG TABLET PO SCH ×2 (08:00→21:04)
[2023-05-14] MEDS: METOPROLOL TARTRATE 25 MG TABLET PO SCH ×2 (08:00→21:04)
[2023-05-14] MEDS: OLANZapine ODT 5 MG TABLET TL SCH (08:00)
--- NOTE | 2023-05-14 08:18 | PROVIDER PROGRESS NOTE ---
Assessment/Plan - Problem List (1) Akinetic mutism Assessment/Plan: improved. however, still paranoid, with audio hallucination (2) Extrapyramidal and movement disorder Assessment/Plan: visible tremor -Benadryl prn -watch for side effect, for example urinary retention (3) Hypercalcemia Assessment/Plan: resolved Ca 8.4 today (4) Acute kidney injury Assessment/Plan: improving Cr 1.3 today Encourage oral intake, monitoring renal function (5) Bipolar 1 disorder Assessment/Plan: appears worsening has psychosis feature, audio hallucination, paranoid thinking, "I need to be arround with [employer] [place], you know, we all need privacy" -continue lithium -increase olanzapin dose to 5mg qd -telepsy consult (6) Hypokalemia Assessment/Plan: resolved (7) Urinary tract infection Qualifiers: Urinary tract infection type: acute cystitis Hematuria presence: without hematuria Qualified Code(s): N30.00 - Acute cystitis without hematuria Assessment/Plan: patient had episode of urinary retention on 05/12 night, had straight cath oncee Leukocytosis UA has LE pos, nitrate pos. -give nitrofurnatoin - Current Meds Current Meds: Current Medications Generic Name Dose Route Start Last Admin Trade Name Freq PRN Reason Stop Dose Admin Acetaminophen 650 mg 05/09/23 17:16 05/12/23 16:04 Acetaminophen 325 Mg Tablet PO 650 mg Q4HR PRN Administration Pain 1 to 4, or Fever Alprazolam 0.5 mg 05/10/23 14:45 05/12/23 23:33 Alprazolam 0.25 Mg Tablet PO 0.5 mg BID PRN Administration Anxiety Apixaban 5 mg 05/10/23 21:00 05/14/23 08:00 Apixaban 5 Mg Tablet PO 5 mg BID MANDY Administration Sodium Chloride 1,000 mls @ 100 mls/hr 05/09/23 18:00 05/14/23 06:45 Normal Saline 0.9% IV 100 mls/hr .Q10H MANDY Administration Paul Carbonate 150 mg 05/11/23 09:00 05/14/23 07:59 Paul 150 Mg Capsule PO 150 mg DAILY MANDY Administration Metoprolol Tartrate 25 mg 05/10/23 21:00 05/14/23 08:00 Metoprolol Tartrate 25 Mg Tablet PO 25 mg BID MANDY Administration Mirtazapine 15 mg 05/11/23 21:00 05/13/23 21:34 Mirtazapine 15 Mg Tablet PO 15 mg QPM MANDY Administration Multi-Ingredient Ointment 1 applic 05/12/23 10:56 05/13/23 11:41 Zinc Oxide 20% Oint 30 Gm Tube TOP 1 applic PRN PRN Administration Skin Care Olanzapine 5 mg 05/14/23 09:00 05/14/23 08:00 Olanzapine Odt 5 Mg Tablet TL 5 mg DAILY MANDY Administration Sodium Chloride 10 ml 05/10/23 01:00 05/14/23 07:59 Sodium Chloride Flush 0.9% 10 Ml Syringe IVP 10 ml 0100,0900,1700 MANDY Administration - Lab Result Fish Bone Diagrams: 05/14/23 05:21 05/14/23 05:21 - Additional Planning My Orders: My Active Orders 05/13/23 08:06 Inpatient - Telepsych Set-up [RC] ONCE 05/14/23 UA w/ MICROSCOPIC, CULT IF [URIN] Routine 05/14/23 07:00 BRAIN WO [MRI] Routine 05/14/23 09:00 OLANZapine ODT [ZyPREXA ODT] 5 mg TL DAILY Subjective - Subjective Patient Reports: Other (very scary looking, states she needs to be in secure pl lm.) Nursing Reports: Other (refuse MRI, has episode of restless) Objective Vital Signs: Vital Signs - 24 hr 05/13/23 05/13/23 05/13/23 08:56 15:54 21:31 Temperature 36.9 C 36.9 C Heart Rate [ Monitoring electrodes] Heart Rate [ 73 78 Radial] Respiratory 18 17 Rate Blood Pressure 117/77 Blood Pressure 127/70 [Left Brachial artery] Blood Pressure 108/65 [Right Brachial artery] O2 Saturation 100 100 05/13/23 05/14/23 05/14/23 21:33 06:20 07:26 Temperature 36.5 C 36.8 C Heart Rate [ 76 Monitoring electrodes] Heart Rate [ 75 Radial] Respiratory 17 19 Rate Blood Pressure 108/65 Blood Pressure 122/76 [Left Brachial artery] Blood Pressure 128/88 H [Right Brachial artery] O2 Saturation 99 98 05/14/23 08:00 Temperature Heart Rate [ Monitoring electrodes] Heart Rate [ Radial] Respiratory Rate Blood Pressure 129/98 H Blood Pressure [Left Brachial artery] Blood Pressure [Right Brachial artery] O2 Saturation Oxygen O2 Source Room air I&O (Last 24 Hrs): Intake and Output Totals x24h 05/12/23 05/13/23 05/14/23 23:59 23:59 23:59 Intake Total 2755.000 3236.667 916.667 Output Total 9411 825 3846 Balance 6831.308 0044.667 -483.333 General: Alert, Other (paranoid thinking) HEENT: Atraumatic Neck: No JVD Neuro: Alert, Non Focal, Other (tremor, shacking) Respiratory: No respiratory distress Abdomen: Soft Extremities: No edema - Results Results: Laboratory Results WBC 13.5 x10^3/uL (4.8-10.8) H 05/14/23 05:21 RBC 3.40 10^6/uL (4.20-5.40) L 05/14/23 05:21 Hgb 11.2 g/dL (12.0-16.0) L 05/14/23 05:21 Hct 34.6 % (37.0-47.0) L 05/14/23 05:21 MCV 101.8 fL (81.0-99.0) H 05/14/23 05:21 MCH 32.9 pg (27.0-31.0) H 05/14/23 05:21 MCHC 32.4 g/dL (32.0-36.0) 05/14/23 05:21 RDW 13.3 % (12.0-15.0) 05/14/23 05:21 Plt Count 277 10^3/uL (130-450) 05/14/23 05:21 MPV 8.8 fL (7.9-10.8) 05/14/23 05:21 Neut # (Auto) 7.9 10^3/uL (1.5-6.6) H 05/14/23 05:21 Lymph # (Auto) 4.0 10^3/uL (1.5-3.5) H 05/14/23 05:21 [place] # (Auto) 1.1 10^3/uL (0.0-1.0) H 05/14/23 05:21 Eos # (Auto) 0.2 10^3/uL (0.0-0.7) 05/14/23 05:21 Baso # (Auto) 0.1 10^3/uL (0.0-0.1) 05/14/23 05:21 Absolute Nucleated RBC 0.00 x10^3/uL 05/14/23 05:21 Nucleated RBC % 0.0 /100WBC 05/14/23 05:21 Sodium 143 mmol/L (135-145) 05/14/23 05:21 Potassium 3.4 mmol/L (3.5-4.5) L 05/14/23 05:21 Chloride 115 mmol/L (101-111) H 05/14/23 05:21 Carbon Dioxide 16 mmol/L (21-32) L 05/14/23 05:21 Anion Gap 12.0 (6-13) 05/14/23 05:21 BUN 13 mg/dL (6-20) 05/14/23 05:21 Creatinine 1.3 mg/dL (0.6-1.3) 05/14/23 05:21 Estimated GFR (MDRD) 40 (>89) L 05/14/23 05:21 Glucose 72 mg/dL (74-104) L 05/14/23 05:21 Calcium 8.4 mg/dL (8.5-10.3) L 05/14/23 05:21 Total Bilirubin 0.5 mg/dL (0.2-1.0) 05/09/23 15:15 AST 30 IU/L (10-42) 05/09/23 15:15 ALT 14 IU/L (10-60) 05/09/23 15:15 Alkaline Phosphatase 74 IU/L (42-121) 05/09/23 15:15 Total Protein 5.9 g/dL (6.4-8.9) L 05/09/23 15:15 Albumin 4.2 g/dL (3.2-5.5) 05/09/23 15:15 Globulin 1.7 g/dL (2.1-4.2) L 05/09/23 15:15 Albumin/Globulin Ratio 2.5 (1.0-2.2) H 05/09/23 15:15 Vitamin D 25-Hydroxy 24.3 ng/mL (30.0-100.0) L 05/09/23 15:15 Total Intact PTH 15 pg/mL (12-88) 05/09/23 15:15 Last Dose Date UNKNOWN 05/09/23 15:15 Last Dose Time UNKNOWN 05/09/23 15:15 Paul 0.31 mmol/L 05/09/23 15:15 - Procedures Procedures: Procedures CATARAC PHACOEMULS/ASPIR (05/14/13) EXCISION OF DUODENUM, ENDO, DIAGN (09/19/18) EXCISION OF ESOPHAGUS, ENDO, DIAGN (09/19/18) EXCISION OF LEFT LARGE INTESTINE, ENDO, DIAGN (09/19/18) EXCISION OF RIGHT LARGE INTESTINE, ENDO, DIAGN (09/19/18) EXCISION OF STOMACH, PYLORUS, ENDO, DIAGN (09/19/18) INSERT LENS AT CATAR EXT (05/14/13) Sepsis Event Note (H) - Evaluation Current Stage of Sepsis: Ruled out ABX Reporting Has patient been on IV antibiotics over the past 48 hours?: No Current Medications - Current Medications Current Medications: Active Medications Generic Name Dose Route Start Last Admin Trade Name Freq PRN Reason Stop Dose Admin Acetaminophen 650 mg 05/09/23 17:16 05/14/23 21:06 Acetaminophen 325 Mg Tablet PO 650 mg Q4HR PRN Administration Pain 1 to 4, or Fever Alprazolam 0.5 mg 05/10/23 14:45 05/12/23 23:33 Alprazolam 0.25 Mg Tablet PO 0.5 mg BID PRN Administration Anxiety Apixaban 5 mg 05/10/23 21:00 05/14/23 21:04 Apixaban 5 Mg Tablet PO 5 mg BID MANDY Administration Diphenhydramine HCl 25 mg 05/14/23 21:20 Diphenhydramine 25 Mg Capsule PO Q4HR PRN tremor, anxiety Sodium Chloride 1,000 mls @ 100 mls/hr 05/09/23 18:00 05/14/23 16:45 Normal Saline 0.9% IV 100 mls/hr .Q10H MANDY Administration Paul Carbonate 150 mg 05/11/23 09:00 05/14/23 07:59 Paul 150 Mg Capsule PO 150 mg DAILY MANDY Administration Metoprolol Tartrate 25 mg 05/10/23 21:00 05/14/23 21:04 Metoprolol Tartrate 25 Mg Tablet PO 25 mg BID MANDY Administration Mirtazapine 15 mg 05/11/23 21:00 05/14/23 21:04 Mirtazapine 15 Mg Tablet PO 15 mg QPM MANDY Administration Multi-Ingredient Ointment 1 applic 05/12/23 10:56 05/14/23 21:09 Zinc Oxide 20% Oint 30 Gm Tube TOP 1 applic PRN PRN Administration Skin Care Nitrofurantoin 100 mg 05/14/23 22:00 Nitrofurantoin Macro 100 Mg Capsule PO BID MANDY Olanzapine 5 mg 05/14/23 09:00 05/14/23 08:00 Olanzapine Odt 5 Mg Tablet TL 5 mg DAILY MANDY Administration Ondansetron HCl 4 mg 05/09/23 17:16 Ondansetron Odt 4 Mg Tablet TL Q6HR PRN Nausea / Vomiting Ondansetron HCl 4 mg 05/09/23 17:16 Ondansetron 4 Mg/2 Ml Vial IVP Q6HR PRN Nausea / Vomiting Oxycodone HCl 5 mg 05/09/23 17:16 Oxycodone 5 Mg Tablet PO Q4HR PRN Pain 5 to 7 Sodium Chloride 10 ml 05/09/23 17:16 Sodium Chloride Flush 0.9% 10 Ml Syringe IVP PRN PRN NEEDED PER PROVIDER ORDERS Sodium Chloride 10 ml 05/10/23 01:00 05/14/23 16:29 Sodium Chloride Flush 0.9% 10 Ml Syringe IVP Not Given 0100,0900,1700 [facility] lamoTRIgine [LaMICtal] 100 mg PO DAILY 03/02/19 lamoTRIgine [LaMICtal] 150 mg PO QPM 03/02/19 ALPRAZolam [Alprazolam] 1 mg PO TID PRN 03/03/19 Paul [Paul Carbonate] 150 mg PO DAILY 05/09/23 Losartan [Cozaar] 50 mg PO DAILY 05/10/23 Metoprolol Succinate [Toprol Xl] 100 mg PO QPM 05/10/23 Mirtazapine [Remeron] 7.5 mg PO QPM 05/10/23 Rivaroxaban [Xarelto] 20 mg PO QDDINNER 05/10/23 Rosuvastatin Calcium [Crestor] 10 mg PO QPM 05/10/23 hydrOXYzine HCL [Hydroxyzine HCl] 25 - 50 mg PO QPM 05/10/23 risperiDONE [Risperdal] 0.75 mg PO QPM 05/10/23
[2023-05-14 13:21] LABS: BILIRUBIN,URINE NEGATIVE (NEGATIVE); GLUCOSE, URINE (UA) NEGATIVE (NEGATIVE); KETONES,URINE (UA) 40 mg/dL (NEGATIVE); LEUKOCYTE ESTERASE, URINE LARGE (NEGATIVE); NITRITE,URINE POSITIVE (NEGATIVE); OCCULT BLOOD,URINE SMALL (NEGATIVE); PROTEIN,URINE NEGATIVE (NEGATIVE); UROBILINOGEN,URINE 0.2 (NORMAL) E.U./dL (NORMAL)
[2023-05-14 13:24] LABS: CLARITY,URINE CLOUDY (CLEAR)
[2023-05-14 13:37] LABS: BACTERIA,URINE Moderate /HPF (None Seen); RBC,URINE 0-5 /HPF (0-5); SQUAMOUS EPITHELIAL CELL,UR RARE Squamous (<= Few); WBC,URINE >25 /HPF (0-5)
[2023-05-14] MEDS: MIRTAZAPINE 15 MG TABLET PO SCH (21:04)
[2023-05-14] MEDS: ACETAMINOPHEN 325 MG TABLET PO PRN (21:06)
[2023-05-14] MEDS: ZINC OXIDE 20% OINT 30 GM TUBE TOP PRN (21:09)
[2023-05-15] MEDS: NITROFURANTOIN MACRO 100 MG CAPSULE PO SCH ×3 (00:34→10:04)
[2023-05-15] MEDS: diphenhydrAMINE 25 MG CAPSULE PO PRN ×2 (00:34→21:30)
[2023-05-15] MEDS: SODIUM CHLORIDE FLUSH 0.9% 10 ML SYRINGE IVP SCH ×3 (00:35→16:11)
[2023-05-15] MEDS: SODIUM CHLORIDE 0.9% 1,000 ML IV SCH ×2 (03:35→15:25)
--- NOTE | 2023-05-15 08:08 | TELEPSYCH PHYS NOTE ---
[facility] Telepsych Consult Consult Date: 05/15/23 Name of Referring Provider:: Konrad Reason for Consult: Bipolar Disorder, psychosis - Suicide Risk Sreening (ASQ Tool) In the past few weeks, have you felt that you or your family would be better off if you were ?: No In the past week, have you been having thoughts about killing yourself?: No Have you ever tried to kill yourself?: Yes - Assessment Language: French Coremaker Bench Required: No Cultural, Roman Catholic or Spiritual Preferences: no Notes: "it is like you take a roll and you throw it and it takes off , like a ball...." Chief Complaint: "Is it proper what you believe....an explorer for what is happening, for my History of Present Illness: Patient is a 68 year old female who is currently admitted to the med floor at [facility]. Patient with a history of depression, anxiety, Bipolar Disorder, was reportedly living independently with home health coming in to assist with ADLs. Patient brought to the ED for evaluation of progressive weakness, falls, altered mental status. Upon admission patient was hypoverbal, paranoid. Her Canyon was held as it was suspected to be contributing to her presentation, but no drug screen was done, no Canyon level done, no UA done. Patient's Lihium resumed on Sunday and started on Zyprexa 5 mg. Today patient is seen for telepsych. She is hypervebal with pressured speech, flight of ideas, disorganized thought process. She is unable to provide a logical and clear history. Patient states "you are the fluid of life...the millions of Jews, you are one single woman who is hanging in and I am sharing blood- billions, trillions, there is no limit, thank you so much....there is not list to and I think that is sad and I am not trying to beat the drummer...I will feel this thump...thump thump thump that is what you hear, that is literally how I live and I love you people because I am alive....What I am saying is the truth of love and what our humans are...." She denies SI or HI. She does mention that she tried to end her life many times in the past. She does admit to AH. Unable to gather any further reliable information from the patient. Patient apparently with new onset tremor. She refused MRI this weekend, but CT was normal. Suicide Ideation - Homicide Ideation - Self Harm: "I have tried 25 times in the past to end my life because I can't do it again..."Patient denies any suicidal thoughts "last week I prayed to - not with using something, but praying for it to end....I will do this every day once a day...." Psychiatric History - Treatment History: unknown- previous diagnoses of Anxiety, Bipolar, Depression; sees a therapist regularly who came to see patient in the hospital last night per nursing staff Community Resources Accessed: unknown Family Psych History/ History of suicide: unknown Nutritional Status: No nutritional concerns - Medication & Allergies Home Medications: Ambulatory Orders Medication Instructions Recorded Confirmed lamoTRIgine [LaMICtal] 100 mg PO DAILY 03/02/19 05/10/23 lamoTRIgine [LaMICtal] 150 mg PO QPM 03/02/19 05/09/23 ALPRAZolam [Alprazolam] 1 mg PO TID PRN 03/03/19 05/09/23 Canyon [Canyon Carbonate] 150 mg PO DAILY 05/09/23 05/09/23 Losartan [Cozaar] 50 mg PO DAILY 05/10/23 05/10/23 Metoprolol Succinate [Toprol Xl] 100 mg PO QPM 05/10/23 05/10/23 Mirtazapine [Remeron] 7.5 mg PO QPM 05/10/23 05/10/23 Rivaroxaban [Xarelto] 20 mg PO QDDINNER 05/10/23 05/10/23 Rosuvastatin Calcium [Crestor] 10 mg PO QPM 05/10/23 05/10/23 hydrOXYzine HCL [Hydroxyzine HCl] 25 - 50 mg PO QPM 05/10/23 05/10/23 risperiDONE [Risperdal] 0.75 mg PO QPM 05/10/23 05/10/23 Allergies/Adverse Reactions: Allergies Allergy/AdvReac Type Severity Reaction Status Date / Time Sulfa (Sulfonamide Allergy Severe Edema Verified 05/09/23 15:03 Antibiotics) naproxen Allergy unknown Verified 05/09/23 15:03 Penicillins Allergy UNKNOWN Verified 05/09/23 15:03 - Drug & Alcohol History Does patient have Drug/ETOH history or addictive behavior?: No Use: Uses substance without health or social issues: NONE - Trauma Does the patient have a history of trauma, abuse, neglect or explotation?: No - Personal Information Does the patient have a history or present tendencies for violence?: None Environment & Living Situation - Social, Peer-Group (Note): At home Marital Status - Family Circumstances: unknown Stressors - Financial Concerns: unknown Occupation: retired Collateral - Interdisciplinary Input: none available - Medical History Psychiatric: reports: Depression, Anxiety Neurological: reports: None, Head injury (Had a fall, report head injury) Eyes, Ears, Nose, Throat: reports: None Cardiovascular: reports: Hypertension, High cholesterol Respiratory: reports: None Gastrointestinal: reports: GERD Urinary: reports: None DIE MAINTENANCE TECHNICIAN: reports: None Musculoskeletal: reports: Fibromyalgia Skin: reports: None - Surgical History General: reports: Cholecystectomy, Colonoscopy /DIE MAINTENANCE TECHNICIAN: reports: Hysterectomy - Family & Social History Family History: Father: [place] - Mental Status Exam Appearance and Attire: disheveled, in hospital gown, hair disheveled sticking up Attitude and Behavior: agitated, animated Speech: pressured, hard to interrupt, elevated volume Affect and Mood: "very very tired and my throat is sore...." elevated Association and Thought Process: loose, flight of ideas, disorganized Perception: "I will hear these chimes, these tinkles..." +AH grandiosity, paranoia Sensorium, memory and orientation: awake, oriented to person but not to place, situation, date Intellectual - Cognitive functioning: unable to assess- patient not able to participate appropriately Insight and Judgement: impaired Emotional and Behavioral Functioning: impaired Ability to Self-Care: impaired - Personal Goals Short-term Goals: unknown Long-term Goals: unknown - Risk/Protective Factors Risk Factors: Inadequate social supports, Social Isolation Protective Factors / Internal: N/A Protective Factors / External: N/A - Plan Impression/Risk Assessment: Patient is a 68 year old female who presented ot the ED with progressive weakness, frequent falls. Canyon was held for patient as it was thought to possibly be the culprit of AMS, but UA was not done, now shows possible UTI. At this time patient is grandiose, psychotic, hyperverbal, has pressured speech. She denies SI or HI currently. Would suggest getting a Canyon level as it appears none was ever ordered just to see where Canyon is. At 150 mg daily it is unlikely to be the culprit. Also would suggest getting a neuro consult given preogressive symptoms and some report of a facial droop. Patient was on Risperdal previously. DC Zyprexa. Start Risperdal 1 mg PO qhs. (She was previously taking 0.75). Can also give Risperdal 0.25 mg PO BID prn agitation. Also please confirm her previous Benzo dose to ensure she is getting similar and this is not part of any withdrawal symptom. Patient does not appear medically stable for psych hospitalization at this time. Once she is deemed to be medically stable would advise psych admission to stabilize meds- pt now appears acutely manic. Treatment - Therapy Recommendations: med admission until medically stable; once medically clear inpatient psych ad mission; Pharmacological Recommendations: DC Zyprexa Continue Canyon Risperdal 1 mg PO qhs and 0.25 mg PO BID prn agitation or psychosis - Time Spent & Provider Location Telepsych consultation conducted via videoconferencing: Yes List names and roles of persons who participated in consult: Preston Chow MD, Patient, Nursing staff Telepsych Provider Location: [place], [place] Time Spent (Minutes): 60
[2023-05-15] MEDS: ALPRAZolam 0.25 MG TABLET PO PRN ×2 (09:11→16:11)
[2023-05-15] MEDS: LITHIUM 150 MG CAPSULE PO SCH ×2 (09:11→10:03)
[2023-05-15] MEDS: METOPROLOL TARTRATE 25 MG TABLET PO SCH ×3 (09:11→21:30)
[2023-05-15] MEDS: OLANZapine ODT 5 MG TABLET TL SCH ×2 (09:12→10:04)
[2023-05-15] MEDS: APIXABAN 5 MG TABLET PO SCH ×3 (09:12→21:30)
[2023-05-15] MEDS: ZINC OXIDE 20% OINT 30 GM TUBE TOP PRN (09:12)
[2023-05-15] MEDS ORDERED: METOPROLOL 5 MG/5 ML VIAL IVP PRN (10:17)
[2023-05-15] MEDS: cefTRIAXone 1 GM in SODIUM CHLORIDE 0.9% MINIBAG 100 ML IV SCH (10:39)
--- NOTE | 2023-05-15 13:44 | PROVIDER PROGRESS NOTE ---
Assessment/Plan - Problem List (1) Urinary tract infection Qualifiers: Urinary tract infection type: acute cystitis Hematuria presence: without hematuria Qualified Code(s): N30.00 - Acute cystitis without hematuria Assessment/Plan: Patient had episode of urinary retention on 05/12 night, needed straight cath once She has ongoing Leukocytosis (labs all reviewed). UA has LE pos, nitrate pos. and is growing a GNR This UTI is very likely adding to her confusion Plan: Pt was started on po nitrofurnatoin. Today she spit out all her meds and also taking no po diet We will change to empiric IV ceftriaxone 1 g daily, await urine culture results to tailor antibx We will follow CBC with differential daily (2) [place] Assessment/Plan: Yesterday a telepsych eval was attempted but the tools were not working. Today she had an official telepsych eval and it is documented as a psych consult. The psychiatrist believes she has alberta. Plan: Will try to adjust meds by stopping Zyprexa and adding meds as recommended, however she cannot swallow, will try liquid formulation of Risperdal We will need updated recommendations as to what medications to give that can be IV. (3) Extrapyramidal and movement disorder Assessment/Plan: She has a visible resting tremor Plan: Cont Benadryl prn Cont to watch for side effect, for example urinary retention (4) Bipolar 1 disorder Assessment/Plan: This appears to be worsening. She has psychosis feature, audio hallucination, paranoid thinking Plan: Will treat as per Tele-psychiatrist recommendations, however she will not take po meds, she spits them out We will request from the Psychiatrist, different appropriate meds to be recommended that can be given IV Once medically stabilized, the psychiatrist agrees that the patient needs inpatient psych treatment at a different facility (5) Acute kidney injury Assessment/Plan: Improving, Cr 1.3 yesterday. No labs were ordered to be done this a.m. Plan: Encourage oral intake, monitoring renal function, avoiding nephrotoxins We will follow BMP daily (6) Paroxysmal Afib Assessment/Plan: As per Hx. The patient is supposed to be on a DOAC. She has not taken her pills Plan: Continue to promote oral intake The alternative would be to use therapeutic Lovenox as her stroke prophylaxis (7) Hypokalemia Assessment/Plan: Resolved (8) Hypercalcemia Assessment/Plan: Resolved Ca 8.4 now Plan; She has a low vitamin D level so plan was originally to start oral vitamin D but today she is spitting out her pills, may start that tomorrow (9) Akinetic mutism Assessment/Plan: Resolved - Current Meds Current Meds: Current Medications Generic Name Dose Route Start Last Admin Trade Name Louieq PRN Reason Stop Dose Admin Acetaminophen 650 mg 05/09/23 17:16 05/14/23 21:06 Acetaminophen 325 Mg Tablet PO 650 mg Q4HR PRN Administration Pain 1 to 4, or Fever Alprazolam 0.5 mg 05/10/23 14:45 05/12/23 23:33 Alprazolam 0.25 Mg Tablet PO 0.5 mg BID PRN Administration Anxiety Apixaban 5 mg 05/10/23 21:00 05/15/23 10:03 Apixaban 5 Mg Tablet PO Not Given BID MANDY Diphenhydramine HCl 25 mg 05/14/23 21:20 05/15/23 00:34 Diphenhydramine 25 Mg Capsule PO 25 mg Q4HR PRN Administration tremor, anxiety Sodium Chloride 1,000 mls @ 100 mls/hr 05/09/23 18:00 05/15/23 03:35 Normal Saline 0.9% IV 100 mls/hr .Q10H MANDY Administration Ceftriaxone Sodium 1 gm/ 100 mls @ 200 mls/hr 05/15/23 11:00 05/15/23 12:03 Sodium Chloride IV Infused DAILY MANDY Infusion [place] Carbonate 150 mg 05/11/23 09:00 05/15/23 10:03 [place] 150 Mg Capsule PO Not Given DAILY MANDY Metoprolol Tartrate 25 mg 05/10/23 21:00 05/15/23 10:04 Metoprolol Tartrate 25 Mg Tablet PO Not Given BID MANDY Mirtazapine 15 mg 05/11/23 21:00 05/14/23 21:04 Mirtazapine 15 Mg Tablet PO 15 mg QPM MANDY Administration Multi-Ingredient Ointment 1 applic 05/12/23 10:56 05/15/23 09:12 Zinc Oxide 20% Oint 30 Gm Tube TOP 1 applic PRN PRN Administration Skin Care Olanzapine 5 mg 05/14/23 09:00 05/15/23 10:04 Olanzapine Odt 5 Mg Tablet TL Not Given DAILY MANDY Sodium Chloride 10 ml 05/10/23 01:00 05/15/23 09:12 Sodium Chloride Flush 0.9% 10 Ml Syringe IVP 10 ml 0100,0900,1700 [facility] Administration - Lab Result Fish Bone Diagrams: 05/18/23 04:26 05/18/23 04:26 - Additional Planning My Orders: My Active Orders 05/15/23 10:15 Acetaminophen 1,000 mg/100 ml [Acetaminophen] 1,000 mg in 100 ml IV Q6HR 05/15/23 10:17 Metoprolol Inj [Lopressor Inj] 2.5 mg IVP Q6H PRN 05/15/23 11:00 cefTRIAXone [Rocephin] 1 gm Sodium Chloride 0.9% Minibag [Normal Saline 0.9% Minibag] 100 ml IV DAILY Subjective - Subjective Nursing Reports: Other (Tremors, hyperloquacious) Objective Vital Signs: Vital Signs - 24 hr 05/14/23 05/14/23 05/14/23 18:28 21:04 22:00 Temperature 37 C 34.6 C L Heart Rate [ 99 Brachial] Heart Rate [ 81 Monitoring electrodes] Respiratory 20 20 Rate Blood Pressure 146/84 H Blood Pressure 146/84 H 140/81 H [Left Brachial artery] O2 Saturation 98 93 05/15/23 05/15/23 00:32 07:54 Temperature 37.1 C 37.5 C Heart Rate [ 71 81 Brachial] Heart Rate [ Monitoring electrodes] Respiratory 22 20 Rate Blood Pressure Blood Pressure 126/96 H 150/98 H [Left Brachial artery] O2 Saturation 96 100 Oxygen O2 Source Room air I&O (Last 24 Hrs): Intake and Output Totals x24h 05/13/23 05/14/23 05/15/23 23:59 23:59 23:59 Intake Total 3236.667 2616.667 1340 Output Total 350 2000 200 Balance 2886.667 022.543 5599 General: Alert, No acute distress, Other (disoriented) HEENT: Other (disheveled) Neck: Supple Neuro: Alert, Non Focal Cardiovascular: Regular rate Respiratory: No respiratory distress Abdomen: Soft Extremities: No clubbing, No edema - Results Results: Laboratory Results WBC 13.5 x10^3/uL (4.8-10.8) H 05/14/23 05:21 RBC 3.40 10^6/uL (4.20-5.40) L 05/14/23 05:21 Hgb 11.2 g/dL (12.0-16.0) L 05/14/23 05:21 Hct 34.6 % (37.0-47.0) L 05/14/23 05:21 MCV 101.8 fL (81.0-99.0) H 05/14/23 05:21 MCH 32.9 pg (27.0-31.0) H 05/14/23 05:21 MCHC 32.4 g/dL (32.0-36.0) 05/14/23 05:21 RDW 13.3 % (12.0-15.0) 05/14/23 05:21 Plt Count 277 10^3/uL (130-450) 05/14/23 05:21 MPV 8.8 fL (7.9-10.8) 05/14/23 05:21 Neut # (Auto) 7.9 10^3/uL (1.5-6.6) H 05/14/23 05:21 Lymph # (Auto) 4.0 10^3/uL (1.5-3.5) H 05/14/23 05:21 [place] # (Auto) 1.1 10^3/uL (0.0-1.0) H 05/14/23 05:21 Eos # (Auto) 0.2 10^3/uL (0.0-0.7) 05/14/23 05:21 Baso # (Auto) 0.1 10^3/uL (0.0-0.1) 05/14/23 05:21 Absolute Nucleated RBC 0.00 x10^3/uL 05/14/23 05:21 Nucleated RBC % 0.0 /100WBC 05/14/23 05:21 Sodium 143 mmol/L (135-145) 05/14/23 05:21 Potassium 3.4 mmol/L (3.5-4.5) L 05/14/23 05:21 Chloride 115 mmol/L (101-111) H 05/14/23 05:21 Carbon Dioxide 16 mmol/L (21-32) L 05/14/23 05:21 Anion Gap 12.0 (6-13) 05/14/23 05:21 BUN 13 mg/dL (6-20) 05/14/23 05:21 Creatinine 1.3 mg/dL (0.6-1.3) 05/14/23 05:21 Estimated GFR (MDRD) 40 (>89) L 05/14/23 05:21 Glucose 72 mg/dL (74-104) L 05/14/23 05:21 Calcium 8.4 mg/dL (8.5-10.3) L 05/14/23 05:21 Total Bilirubin 0.5 mg/dL (0.2-1.0) 05/09/23 15:15 AST 30 IU/L (10-42) 05/09/23 15:15 ALT 14 IU/L (10-60) 05/09/23 15:15 Alkaline Phosphatase 74 IU/L (42-121) 05/09/23 15:15 Total Protein 5.9 g/dL (6.4-8.9) L 05/09/23 15:15 Albumin 4.2 g/dL (3.2-5.5) 05/09/23 15:15 Globulin 1.7 g/dL (2.1-4.2) L 05/09/23 15:15 Albumin/Globulin Ratio 2.5 (1.0-2.2) H 05/09/23 15:15 Vitamin D 25-Hydroxy 24.3 ng/mL (30.0-100.0) L 05/09/23 15:15 Total Intact PTH 15 pg/mL (12-88) 05/09/23 15:15 Urine Color YELLOW 05/14/23 12:31 Urine Clarity CLOUDY (CLEAR) 05/14/23 12:31 Urine pH 6.0 PH (5.0-7.5) 05/14/23 12:31 Ur Specific [place] 1.015 (1.002-1.030) 05/14/23 12:31 Urine Protein NEGATIVE mg/dL (NEGATIVE) 05/14/23 12:31 Urine Glucose (UA) NEGATIVE mg/dL (NEGATIVE) 05/14/23 12:31 Urine Ketones 40 mg/dL (NEGATIVE) H 05/14/23 12:31 Urine Occult Blood SMALL (NEGATIVE) H 05/14/23 12:31 Urine Nitrite POSITIVE (NEGATIVE) H 05/14/23 12:31 Urine Bilirubin NEGATIVE (NEGATIVE) 05/14/23 12:31 Urine Urobilinogen 0.2 (NORMAL) E.U./dL (NORMAL) 05/14/23 12:31 Ur Leukocyte Esterase LARGE (NEGATIVE) H 05/14/23 12:31 Urine RBC 0-5 /HPF (0-5) 05/14/23 12:31 Urine WBC >25 /HPF (0-5) H 05/14/23 12:31 Ur Epithelial Cells RARE Transitional /HPF (<= Few) RARE Renal Tubular /HPF (<= Few) 05/14/23 12:31 Ur Epithelial Cells RARE Transitional /HPF (<= Few) RARE Renal Tubular /HPF (<= Few) 05/14/23 12:31 Ur Squamous Epith Cells RARE Squamous (<= Few) 05/14/23 12:31 Urine Bacteria Moderate /HPF (None Seen) H 05/14/23 12:31 Urine Culture Comments INDICATED 05/14/23 12:31 Last Dose Date UNKNOWN 05/09/23 15:15 Last Dose Time UNKNOWN 05/09/23 15:15 Lamotrigine 7.3 ug/mL (2.0-20.0) 05/09/23 15:15 [place] 0.31 mmol/L 05/09/23 15:15 - Procedures Procedures: Procedures CATARAC PHACOEMULS/ASPIR (05/14/13) EXCISION OF DUODENUM, ENDO, DIAGN (09/19/18) EXCISION OF ESOPHAGUS, ENDO, DIAGN (09/19/18) EXCISION OF LEFT LARGE INTESTINE, ENDO, DIAGN (09/19/18) EXCISION OF RIGHT LARGE INTESTINE, ENDO, DIAGN (09/19/18) EXCISION OF STOMACH, PYLORUS, ENDO, DIAGN (09/19/18) INSERT LENS AT CATAR EXT (05/14/13) Sepsis Event Note (H) - Evaluation Current Stage of Sepsis: Ruled out
[2023-05-15] MEDS ORDERED: risperiDONE 1 MG/ML SOLUTION PO PRN (14:09)
[2023-05-15] MEDS: MIRTAZAPINE 15 MG TABLET PO SCH (21:30)
[2023-05-16] MEDS: SODIUM CHLORIDE FLUSH 0.9% 10 ML SYRINGE IVP SCH ×3 (01:10→22:07)
[2023-05-16] MEDS: SODIUM CHLORIDE 0.9% 1,000 ML IV SCH ×3 (01:10→17:24)
[2023-05-16 06:49] LABS: BASOPHILS # (AUTO) 0.1 10^3/uL (0.0-0.1); BASOPHILS % (AUTO) 0.7 %; EOSINOPHILS # (AUTO) 0.2 10^3/uL (0.0-0.7); EOSINOPHILS % (AUTO) 1.9 %; HCT - HEMATOCRIT 30.3 % (37.0-47.0); HGB - HEMOGLOBIN 9.9 g/dL (12.0-16.0); LYMPHOCYTES # (AUTO) 2.3 10^3/uL (1.5-3.5); LYMPHOCYTES % (AUTO) 23.5 %; MEAN CORPUSCULAR HEMOGLOBIN 32.5 pg (27.0-31.0); MEAN CORPUSCULAR HGB CONC 32.7 g/dL (32.0-36.0); MEAN CORPUSCULAR VOLUME 99.3 fL (81.0-99.0); MEAN PLATELET VOLUME 8.8 fL (7.9-10.8); MONOCYTES # (AUTO) 0.9 10^3/uL (0.0-1.0); MONOCYTES % (AUTO) 9.5 %; NEUTROPHILS # (AUTO) 6.2 10^3/uL (1.5-6.6); NEUTROPHILS % (AUTO) 62.9 %; PLT - PLATELET COUNT 271 10^3/uL (130-450); RED BLOOD COUNT 3.05 10^6/uL (4.20-5.40); RED CELL DISTRIBUTION WIDTH 13.9 % (12.0-15.0); WHITE BLOOD COUNT 9.8 x10^3/uL (4.8-10.8)
[2023-05-16 07:05] LABS: CALCIUM 7.5 mg/dL (8.5-10.3); CREATININE 1.2 mg/dL (0.6-1.3)
[2023-05-16] MEDS: cefTRIAXone 1 GM in SODIUM CHLORIDE 0.9% MINIBAG 100 ML IV SCH (09:04)
[2023-05-16] MEDS: METOPROLOL TARTRATE 25 MG TABLET PO SCH ×2 (09:05→22:16)
[2023-05-16] MEDS: APIXABAN 5 MG TABLET PO SCH ×2 (09:06→22:16)
[2023-05-16] MEDS: LITHIUM 150 MG CAPSULE PO SCH (09:06)
[2023-05-16] MEDS: ZINC OXIDE 20% OINT 30 GM TUBE TOP PRN (09:10)
[2023-05-16] MEDS: risperiDONE 1 MG/ML SOLUTION PO SCH (09:10)
[2023-05-16] MEDS: POTASSIUM CHLOR 10 MEQ/100 ML 10 MEQ/100 ML BAG IV SCH ×4 (10:12→14:46)
[2023-05-16] MEDS: ACETAMINOPHEN 1,000 MG/100 ML 1,000 MG/100 ML BAG IV PRN (12:49)
--- NOTE | 2023-05-16 18:11 | PROVIDER PROGRESS NOTE ---
Assessment/Plan - Problem List (1) Fever Assessment/Plan: She spiked a fever to 38.3 C this afternoon and with this was obtunded. Since the urine is growing a gram-negative eloise I am concerned she may have Ps eudomonas. Plan: Repeat blood cultures during the fever spike Give antipyretics I will stop the ceftriaxone and start empiric cefepime Await urine culture identification and sensitivities to further tailor her antibiotics (2) Urinary tract infection Qualifiers: Urinary tract infection type: acute cystitis Hematuria presence: without hematuria Qualified Code(s): N30.00 - Acute cystitis without hematuria Assessment/Plan: Patient had episode of urinary retention on 05/12 night, needed straight cath once She has ongoing Leukocytosis (labs all reviewed). UA has LE pos, nitrate pos. and is growing a GNR This UTI is very likely adding to her confusion Plan: Pt was started on po nitrofurnatointhen she started to spit out all her meds and also taking no po diet, so I changed her to empiric IV ceftriaxone 1 g daily, Await urine culture results to tailor antibx We will follow CBC with differential daily (3) Extrapyramidal and movement disorder Assessment/Plan: She has a visible resting tremor. According to a visiting friend, the remor is new. The patient is excessively somnolent today and was too manic yesterday to discuss whether she realizes the tremor is old or new Plan: Cont Benadryl prn Cont to watch for side effect, for example urinary retention (4) Bipolar 1 disorder Assessment/Plan: This appears to be worsening. She has psychosis feature, audio hallucination, paranoid thinking Plan: Will treat as per Tele-psychiatrist recommendations, however she will not take po meds, she spits them out. We may need to request from the Psychiatrist, different appropriate meds to be recommended that can be given IV Once medically stabilized, the psychiatrist agrees that the patient needs inpatient psych treatment at a different facility (5) Acute kidney injury Assessment/Plan: Improving, Cr 1.2 today (all labs were reviewed) Plan: Encourage oral intake, monitoring renal function, avoiding nephrotoxins We will follow BMP daily (6) Paroxysmal A-fib Assessment/Plan: Patient is to be on a DOAC. She has been spitting out her meds intermittently Plan: Will encourage compliance with oral meds, discussed with her nurse Nick macdonald be to start Lovenox therapeutic BID (7) Hypokalemia Assessment/Plan: Low at 3.0 today Plan: Replace w/ iv K Deandre Follow BMP daily (8) Hypercalcemia Assessment/Plan: Resolved Ca 7.5 now Plan: She has a low vitamin D level so plan was originally to start oral vitamin D but today she is spitting out her pills,will resume when taking orals (9) Akinetic mutism Assessment/Plan: Resolved (10) Nadir Assessment/Plan: Resolved, she is now lethargic Telepsych eval done and the psychiatrist believes she had nadir. I adjusted meds as was recommended, stopping Zyprexa and ordering liquid Risperdal because she was spitting out oral tablets Plan: Continue liquid Risperdal The psychiatrist recommended a follow-up phone call to them when she is medically cleared. There is indication for her to be transferred to an inpatient psych location, as per the psychiatry consult - Current Meds Current Meds: Current Medications Generic Name Dose Route Start Last Admin Trade Name Danita PRN Reason Stop Dose Admin Acetaminophen 650 mg 05/09/23 17:16 05/14/23 21:06 Acetaminophen 325 Mg Tablet PO 650 mg Q4HR PRN Administration Pain 1 to 4, or Fever Alprazolam 0.5 mg 05/10/23 14:45 05/15/23 16:11 Alprazolam 0.25 Mg Tablet PO 0.5 mg BID PRN Administration Anxiety Apixaban 5 mg 05/10/23 21:00 05/16/23 09:06 Apixaban 5 Mg Tablet PO 5 mg BID MANDY Administration Diphenhydramine HCl 25 mg 05/14/23 21:20 05/15/23 21:30 Diphenhydramine 25 Mg Capsule PO 25 mg Q4HR PRN Administration tremor, anxiety Acetaminophen 1,000 mg in 100 mls @ 400 mls/hr 05/15/23 10:15 05/16/23 13:05 Acetaminophen IV Infused Q6HR PRN Infusion Mild Pain or Fever>38C(100.4F) Ceftriaxone Sodium 1 gm/ 100 mls @ 200 mls/hr 05/15/23 11:00 05/16/23 10:12 Sodium Chloride IV Infused DAILY MANDY Infusion Sodium Chloride 1,000 mls @ 50 mls/hr 05/16/23 16:48 05/16/23 17:24 Normal Saline 0.9% IV 50 mls/hr .Q20H MANDY Administration [place] Carbonate 150 mg 05/11/23 09:00 05/16/23 09:06 [place] 150 Mg Capsule PO 150 mg DAILY MANDY Administration Metoprolol Tartrate 25 mg 05/10/23 21:00 05/16/23 09:05 Metoprolol Tartrate 25 Mg Tablet PO 25 mg BID MANDY Administration Mirtazapine 15 mg 05/11/23 21:00 05/15/23 21:30 Mirtazapine 15 Mg Tablet PO 15 mg QPM MANDY Administration Multi-Ingredient Ointment 1 applic 05/12/23 10:56 05/16/23 09:10 Zinc Oxide 20% Oint 30 Gm Tube TOP 1 applic PRN PRN Administration Skin Care Risperidone 1 mg 05/16/23 09:00 05/16/23 09:10 Risperidone 1 Mg/Ml Solution PO 1 mg DAILY MANDY Administration Sodium Chloride 10 ml 05/10/23 01:00 05/16/23 09:06 Sodium Chloride Flush 0.9% 10 Ml Syringe IVP 10 ml 0100,0900,1700 MANDY Administration - Lab Result Fish Bone Diagrams: 05/18/23 04:26 05/18/23 04:26 - Additional Planning My Orders: My Active Orders 05/16/23 09:00 risperiDONE [RisperDAL] 1 mg PO DAILY 05/16/23 16:48 Sodium Chloride 0.9% [Normal Saline 0.9%] 1,000 ml IV 50 mls/hr 05/16/23 16:57 CULTURE, BLOOD #1 [RM] Stat 05/16/23 17:01 CULTURE, BLOOD #2 [RM] Stat Subjective - Subjective Patient Reports: Other (Lethargic, follows with eyes when hears voice, moves all extrem) Nursing Reports: Other (Has been spitting out po meds, is only taking sips of liquids) Objective Vital Signs: Vital Signs - 24 hr 05/15/23 05/16/23 05/16/23 21:30 06:07 09:05 Temperature 37.3 C Heart Rate [ 69 64 Brachial] Respiratory 20 Rate Blood Pressure 125/75 Blood Pressure [Left Brachial artery] Blood Pressure 128/94 H 125/74 [Left Radial artery] O2 Saturation 96 05/16/23 05/16/23 12:22 16:11 Temperature 38.3 C H 37.0 C Heart Rate [ 69 71 Brachial] Respiratory 18 24 Rate Blood Pressure Blood Pressure 108/78 133/82 H [Left Brachial artery] Blood Pressure [Left Radial artery] O2 Saturation 99 96 Oxygen O2 Source Room air I&O (Last 24 Hrs): Intake and Output Totals x24h 05/14/23 05/15/23 05/16/23 23:59 23:59 23:59 Intake Total 2616.667 2790 2816 Output Total 1999 400 800 Balance 255.981 1932 2015 General: Other (Lethargic, has a resting tremor of R hand constantly and body jerks occaisioanlly) HEENT: Mucous membr. moist/pink Neck: Supple Neuro: Other (Lethargic, has a resting tremor of R hand constantly and body jerks occaisioanlly, able to swallow, moves all extrem spontaneously) Cardiovascular: No murmurs Respiratory: No respiratory distress, Breath sounds nml Abdomen: Soft, Other (Obese) Extremities: No clubbing, Other (3+ edema to thighs and 3+ edema of hands up to above elbows) - Results Results: Laboratory Results WBC 9.8 x10^3/uL (4.8-10.8) 05/16/23 06:31 RBC 3.05 10^6/uL (4.20-5.40) L 05/16/23 06:31 Hgb 9.9 g/dL (12.0-16.0) L 05/16/23 06:31 Hct 30.3 % (37.0-47.0) L 05/16/23 06:31 MCV 99.3 fL (81.0-99.0) H 05/16/23 06:31 MCH 32.5 pg (27.0-31.0) H 05/16/23 06:31 MCHC 32.7 g/dL (32.0-36.0) 05/16/23 06:31 RDW 13.9 % (12.0-15.0) 05/16/23 06:31 Plt Count 271 10^3/uL (130-450) 05/16/23 06:31 MPV 8.8 fL (7.9-10.8) 05/16/23 06:31 Neut # (Auto) 6.2 10^3/uL (1.5-6.6) 05/16/23 06:31 Lymph # (Auto) 2.3 10^3/uL (1.5-3.5) 05/16/23 06:31 [place] # (Auto) 0.9 10^3/uL (0.0-1.0) 05/16/23 06:31 Eos # (Auto) 0.2 10^3/uL (0.0-0.7) 05/16/23 06:31 Baso # (Auto) 0.1 10^3/uL (0.0-0.1) 05/16/23 06:31 Absolute Nucleated RBC 0.00 x10^3/uL 05/16/23 06:31 Nucleated RBC % 0.0 /100WBC 05/16/23 06:31 Sodium 144 mmol/L (135-145) 05/16/23 06:31 Potassium 3.0 mmol/L (3.5-4.5) L 05/16/23 06:31 Chloride 116 mmol/L (101-111) H 05/16/23 06:31 Carbon Dioxide 18 mmol/L (21-32) L 05/16/23 06:31 Anion Gap 10.0 (6-13) 05/16/23 06:31 BUN 9 mg/dL (6-20) 05/16/23 06:31 Creatinine 1.2 mg/dL (0.6-1.3) 05/16/23 06:31 Estimated GFR (MDRD) 44 (>89) L 05/16/23 06:31 Glucose 82 mg/dL (74-104) 05/16/23 06:31 Calcium 7.5 mg/dL (8.5-10.3) L 05/16/23 06:31 Total Bilirubin 0.5 mg/dL (0.2-1.0) 05/09/23 15:15 AST 30 IU/L (10-42) 05/09/23 15:15 ALT 14 IU/L (10-60) 05/09/23 15:15 Alkaline Phosphatase 74 IU/L (42-121) 05/09/23 15:15 Total Protein 5.9 g/dL (6.4-8.9) L 05/09/23 15:15 Albumin 4.2 g/dL (3.2-5.5) 05/09/23 15:15 Globulin 1.7 g/dL (2.1-4.2) L 05/09/23 15:15 Albumin/Globulin Ratio 2.5 (1.0-2.2) H 05/09/23 15:15 Vitamin D 25-Hydroxy 24.3 ng/mL (30.0-100.0) L 05/09/23 15:15 Total Intact PTH 15 pg/mL (12-88) 05/09/23 15:15 Urine Color YELLOW 05/14/23 12:31 Urine Clarity CLOUDY (CLEAR) 05/14/23 12:31 Urine pH 6.0 PH (5.0-7.5) 05/14/23 12:31 Ur Specific [place] 1.015 (1.002-1.030) 05/14/23 12:31 Urine Protein NEGATIVE mg/dL (NEGATIVE) 05/14/23 12:31 Urine Glucose (UA) NEGATIVE mg/dL (NEGATIVE) 05/14/23 12:31 Urine Ketones 40 mg/dL (NEGATIVE) H 05/14/23 12:31 Urine Occult Blood SMALL (NEGATIVE) H 05/14/23 12:31 Urine Nitrite POSITIVE (NEGATIVE) H 05/14/23 12:31 Urine Bilirubin NEGATIVE (NEGATIVE) 05/14/23 12:31 Urine Urobilinogen 0.2 (NORMAL) E.U./dL (NORMAL) 05/14/23 12:31 Ur Leukocyte Esterase LARGE (NEGATIVE) H 05/14/23 12:31 Urine RBC 0-5 /HPF (0-5) 05/14/23 12:31 Urine WBC >25 /HPF (0-5) H 05/14/23 12:31 Ur Epithelial Cells RARE Transitional /HPF (<= Few) RARE Renal Tubular /HPF (<= Few) 05/14/23 12:31 Ur Epithelial Cells RARE Transitional /HPF (<= Few) RARE Renal Tubular /HPF (<= Few) 05/14/23 12:31 Ur Squamous Epith Cells RARE Squamous (<= Few) 05/14/23 12:31 Urine Bacteria Moderate /HPF (None Seen) H 05/14/23 12:31 Urine Culture Comments INDICATED 05/14/23 12:31 Last Dose Date UNKNOWN 05/09/23 15:15 Last Dose Time UNKNOWN 05/09/23 15:15 Lamotrigine 7.3 ug/mL (2.0-20.0) 05/09/23 15:15 [place] 0.31 mmol/L 05/09/23 15:15 - Procedures Procedures: Procedures CATARAC PHACOEMULS/ASPIR (05/14/13) EXCISION OF DUODENUM, ENDO, DIAGN (09/19/18) EXCISION OF ESOPHAGUS, ENDO, DIAGN (09/19/18) EXCISION OF LEFT LARGE INTESTINE, ENDO, DIAGN (09/19/18) EXCISION OF RIGHT LARGE INTESTINE, ENDO, DIAGN (09/19/18) EXCISION OF STOMACH, PYLORUS, ENDO, DIAGN (09/19/18) INSERT LENS AT CATAR EXT (05/14/13) Sepsis Event Note (H) - Evaluation Current Stage of Sepsis: Ruled out
[2023-05-16] MEDS: CEFEPIME 1 GM in SODIUM CHLORIDE 0.9% MINIBAG 100 ML IV SCH (22:07)
[2023-05-16] MEDS: MIRTAZAPINE 15 MG TABLET PO SCH (22:17)
[2023-05-17] MEDS: SODIUM CHLORIDE FLUSH 0.9% 10 ML SYRINGE IVP SCH ×3 (01:15→16:24)
[2023-05-17] MEDS: ACETAMINOPHEN 1,000 MG/100 ML 1,000 MG/100 ML BAG IV PRN (01:15)
[2023-05-17] MEDS ORDERED: diphenhydrAMINE INJ 50 MG/ML VIAL IVP PRN (03:13)
[2023-05-17] MEDS ORDERED: ATROPINE 1% OPHTH DROPS 2 ML SL PRN (03:14)
[2023-05-17] MEDS: ZINC OXIDE 20% OINT 30 GM TUBE TOP PRN ×2 (03:30→16:26)
[2023-05-17] MEDS: CEFEPIME 1 GM in SODIUM CHLORIDE 0.9% MINIBAG 100 ML IV SCH ×3 (06:23→22:52)
[2023-05-17 06:59] LABS: CALCIUM 7.6 mg/dL (8.5-10.3); CREATININE 1.1 mg/dL (0.6-1.3); MAGNESIUM 1.2 mg/dL (1.7-2.3); POTASSIUM 3.6 mmol/L (3.5-4.5)
[2023-05-17 07:00] LABS: BASOPHILS % (AUTO) 0.6 %; EOSINOPHILS % (AUTO) 0.1 %; HGB - HEMOGLOBIN 11.4 g/dL (12.0-16.0); LYMPHOCYTES % (AUTO) 10.1 %; MEAN CORPUSCULAR HEMOGLOBIN 33.4 pg (27.0-31.0); MEAN CORPUSCULAR HGB CONC 32.6 g/dL (32.0-36.0); MEAN CORPUSCULAR VOLUME 102.6 fL (81.0-99.0); MEAN PLATELET VOLUME 8.7 fL (7.9-10.8); MONOCYTES % (AUTO) 6.6 %; NEUTROPHILS % (AUTO) 78.6 %; PLT - PLATELET COUNT 364 10^3/uL (130-450); RED BLOOD COUNT 3.41 10^6/uL (4.20-5.40); RED CELL DISTRIBUTION WIDTH 14.5 % (12.0-15.0); WHITE BLOOD COUNT 27.7 x10^3/uL (4.8-10.8)
[2023-05-17] MEDS ORDERED: LORazepam 2 MG/ML VIAL IVP STA ×3 (07:11→07:26)
[2023-05-17] MEDS ORDERED: LORazepam 2 MG/ML VIAL ONE ×2 (07:12→07:31)
[2023-05-17] MEDS ORDERED: levETIRAcetam INJ 2,000 MG in SODIUM CHLORIDE 0.9% 100ML 100 ML IV STA (07:26)
[2023-05-17] MEDS ORDERED: MAGNESIUM SULFATE 2 GRAM 2 GM/50 ML BAG IV ONE (07:53)
--- NOTE | 2023-05-17 08:02 | MISCELLANEOUS PROVIDER NOTE ---
Miscellaneous Provider Note - - Note: 7:10 AM: I was called to assist with this patient on MedSurg during a Rapid Resp onse. The staff was unable to reach the tele hospitalist prior to 7am or daytime hospitalist at shift change. Found the patient to be actively seizing. Reportedly admitted with a psychiatric history and treatment of a urinary tract infection. Appears that she is supposed to be on lithium and Lamictal but per night nurse has not been taking any oral medications. Patient has had 3-4 seizure episodes witnessed by staff. Ordered for 2 mg of IV Ativan and [address] Hughes resumed care of patient at 730.
--- NOTE | 2023-05-17 08:09 | PROVIDER PROGRESS NOTE ---
Subjective - Subjective Pt reports feeling: Worse (Pt had wet raspy respirations overnight. This a.m. had witnessed seizure. Was attened to by ER provider until I arrived at bedside) Objective - Vital Signs/Intake & Output Reviewed Vital Signs: Yes Vital Signs: Vital Signs Temp Pulse Pulse Resp BP Pulse Ox O2 Flow Rate 05/17/23 07:14 37.6 C 140 H 14 94 15 05/17/23 06:49 37.6 C 137 H 12 155/82 H 93 15 05/17/23 06:25 37.9 C 127 H 170/76 H 97 16 Intake & Output: Intake & Output 05/14/23 05/15/23 05/16/23 05/17/23 23:59 23:59 23:59 23:59 Intake Total 2616.667 2790 3194.333 100 Output Total 2000 400 800 Balance 763.993 0444 2394.333 100 - Objective General Appearance: positive: Lethargic, Other Eyes Bilateral: positive: No lid inflammation ENT: positive: No signs of dehydration Neck: positive: Nml inspection Respiratory: positive: Rales, Rhonchi Cardiovascular: positive: Tachycardia (distant heart sounds due to rhonchi) Abdomen: positive: Non-tender, No distention Skin: positive: Warm, Diaphoresis Extremities: positive: Non-tender, Other (3+ edema to thighs, 3+ edema of hands up to above elbows) - Lab Results Fish Bones: 05/20/23 08:00 05/20/23 08:00 Other Labs: Lab Results x24hrs 05/17/23 05/17/23 Range/Units 06:36 06:36 Sodium 146 H (135-145) mmol/L Potassium 3.6 (3.5-4.5) mmol/L Chloride 116 H (101-111) mmol/L Carbon Dioxide 18 L (21-32) mmol/L Anion Gap 12.0 (6-13) BUN 10 (6-20) mg/dL Creatinine 1.1 (0.6-1.3) mg/dL Estimated GFR (MDRD) 49 L (>89) Glucose 131 H (74-104) mg/dL Lactic Acid 0.6 (0.5-2.2) mmol/L Calcium 7.6 L (8.5-10.3) mg/dL Magnesium 1.2 L (1.7-2.3) mg/dL - Diagnostic Imaging Diagnostic Imaging Results: positive: Final report reviewed - Other Results/Comments Other Results/Comments: EKG done today which I interpreted personally. EKG shows sinus tachycardia, rate 126. Since EKG from 05/09/2023, the tachycardia is new, other findings are similar. Sepsis Event Note (H) - Evaluation Current Stage of Sepsis: Ruled out Assessment/Plan - Problem List (1) Seizure Impression: Pt had several grand mal seizures this a.m. She was given iv ativan several times than Keppra 2gm iv Pt had a fever last night, and low-grade fever this a.m. so this could be a febrile seizure She has not been swallowing her Counce or Lamictal, spitting it out, so possibly withdrawal seizure This a.m. her Mg is very low at 1.2, which may have added to the seizure Underlying this have been the new tremors, that are as yet unexplained Plan: Transfer pt to ICU, critical condition, insert Kelly Obtain head CT Correct low Mg, recheck Mg in several hours, start ICU electrolyte protocol Will try to get a phone Neurology consult (CRITICAL CARE TIME SPENT: 60 min Evaluating patient, transfer orders, follow-up labs, adjusting meds, reaching out to neurology, reevaluating patient) (2) Acute respiratory failure with hypoxia Impression: RN at the bedside reports the patient had respiratory distress, was gurgling and needed deep suctioning, during the seizure episodes She is now requiring an O2 supplementation by rebreather mask A STAT CXR was done today and showed bilateral aspiration pneumonia changes Plan: Transfer to the ICU Obtain ABG and BNP Obtain Echo I will add IV antibiotics for anaerobic coverage, using Flagyl, however if this is aspiration pneumonitis,it usuallu improves in 48-hour according to guidelines I spoke to her brother Malik Laguerre on the phone today and updated him (3) Tachycardia Impression: Patient had tachycardia up to 140 during her seizure. An EKG was done after her seizures were treated. This shows sinus tachycardia at a rate of 128 and no other acute findings She probably has tachycardia related to the fever and the seizure. She has been getting IV fluids for several days (has peripheral edema), therefore is likely not to be intravascularly depleted as the cause of the tachycardia. Plan: Check troponins x2, BNP and obtain Echo Place on telemetry in the ICU (4) Fever Impression: She spiked a fever to 38.3 C this afternoon and with this was obtunded. Since the urine is growing a gram-negative eloise I am concerned she may have Ps eudomonas. Plan: Repeat blood cultures during the fever spike Give antipyretics I will stop the ceftriaxone and start empiric cefepime Await urine culture identification and sensitivities to further tailor her antibiotics (5) Urinary tract infection Qualifiers: Urinary tract infection type: acute cystitis Hematuria presence: without hematuria Qualified Code(s): N30.00 - Acute cystitis without hematuria Assessment/Plan: Patient had episode of urinary retention on 05/12 night, needed straight cath once She has ongoing Leukocytosis (labs all reviewed). UA has LE pos, nitrate pos. and is growing a GNR This UTI is very likely adding to her confusion Plan: Pt was started on po nitrofurnatointhen she started to spit out all her meds and also taking no po diet, so I changed her to empiric IV ceftriaxone 1 g daily, Await urine culture results to tailor antibx We will follow CBC with differential daily (6) [place] Assessment/Plan: Telepsych eval done and the psychiatrist believes she had [place]. I adjusted meds as was recommended, stopping Zyprexa and ordering liquid Risperdal because she was spitting out oral tablets Plan: Continue liquid Risperdal The psychiatrist recommended a follow-up phone call to them when she is medical ly cleared. There is indication for her to be transferred to an inpatient psych location, as per the psychiatry consult (7) Extrapyramidal and movement disorder Assessment/Plan: She has a visible resting tremor. According to a visiting friend, the remor is new. The patient is excessively somnolent today and was too manic yesterday to discuss whether she realizes the tremor is old or new Plan: Cont Benadryl prn Cont to watch for side effect, for example urinary retention (8) Bipolar 1 disorder Assessment/Plan: This appears to be worsening. She has psychosis feature, audio hallucination, paranoid thinking Plan: Will treat as per Tele-psychiatrist recommendations, however she will not take po meds, she spits them out We will request from the Psychiatrist, different appropriate meds to be recommended that can be given IV Once medically stabilized, the psychiatrist agrees that the patient needs inpatient psych treatment at a different facility (9) Acute kidney injury Assessment/Plan: Improving, Cr 1.3 yesterday. No labs were ordered to be done this a.m. Plan: Encourage oral intake, monitoring renal function, avoiding nephrotoxins We will follow BMP daily (10) Paroxysmal A-fib Assessment/Plan: Patient is to be on a DOAC. She has been spitting out her meds intermittently Plan: Will encourage compliance with oral meds, discussed with her nurse (11) Hypokalemia Assessment/Plan: Resolved (12) Hypercalcemia Assessment/Plan: Resolved Ca 8.4 now Plan; She has a low vitamin D level so plan was originally to start oral vitamin D but today she is spitting out her pills, may start that tomorrow (13) Akinetic mutism Assessment/Plan: Resolved
[2023-05-17 08:13] LABS: ABNORMAL LYMPHS % (MANUAL) 0 %
--- NOTE | 2023-05-17 08:15 | ED Physician Documentation ---
ED Addendum - Addendum Addendum: 05/17/23 08:12 I responded to a rapid response overhead at approximately 06:50 AM. Nursing staff at bedside called rapid response due to witnessed GTC seizure. By the time I arrived the patient was no longer seizing. She is not verbally responding, not following commands. Her respirations are sonorous but protecting her airway. She has leftward gaze with nystagmus although nursing staff tells me this is not new. BP 150s/80s, pulse ox 93-94% on 15 L/min NRB, pulse is regular and 130s BPM. I gave verbal orders for EKG, CXR. I continued to remain in the room to observe patient's clinical status and vital signs until after 7 AM, anticipating arrival of the hospitalist. Unfortunately, the patient then had another generalized tonic/clonic seizure and thus I gave verbal order for 1 mg IV lorazepam. Although the patient's seizure stopped prior to this medication being given, I confirmed that she should still get the 1mg IV lorazepam (given two seizures within approximately 15-20 minute span without recovery to baseline between). Given that patient had stopped seizing and anticipation of imminent arrival of the hospitalist, I returned to the ED to reevaluate my patients.
[2023-05-17 08:22] LABS: ABG BASE EXCESS -13.4 mmol/L (-2.0-3.0); ABG HCO3 15.8 mmol/L (22.0-26.0); ABG OXYGEN SATURATION 98 % (94-98); ABG PCO2 51 mmHg (34-45); ABG PO2 138 mmHg (80-100); ABG TCO2 17.4 MMOL/L (21.0-29.0); ALLEN TEST POSITIVE
[2023-05-17 08:24] LABS: ABG PH 7.11 (7.35-7.45)
[2023-05-17 08:43] LABS: BAND NEUTROPHILS % (MANUAL) 7 %; LYMPHOCYTES # (MANUAL) 3.3 10^3/uL (1.5-3.5); LYMPHOCYTES % (MANUAL) 12 %; METAMYELOCYTES % (MANUAL) 4 %; MONOCYTES # (MANUAL) 0.3 10^3/uL (0.0-1.0); MYELOCYTES % (MANUAL) 2 %; NEUTROPHILS # (MANUAL) 22.4 10^3/uL (1.5-6.6); NUCLEATED RBC (MANUAL) 1 %
[2023-05-17 08:44] LABS: DIFFERENTIAL COMMENT MANUAL DIFFERENTIAL
[2023-05-17] MEDS: SODIUM BICARBONATE 150 MEQ in DEXTROSE 5% 1,000 ML IV SCH ×2 (08:56→21:00)
[2023-05-17 09:05] LABS: INR 1.3 (0.8-1.2); PT - PROTHROMBIN TIME 14.2 secs (9.9-12.6)
[2023-05-17 09:09] LABS: ALBUMIN 3.5 g/dL (3.2-5.5); ALBUMIN/GLOBULIN RATIO 1.8 (1.0-2.2); BILIRUBIN,TOTAL 0.3 mg/dL (0.2-1.0); CALCIUM 7.6 mg/dL (8.5-10.3); CREATININE 1.2 mg/dL (0.6-1.3); POTASSIUM 3.5 mmol/L (3.5-4.5); TOTAL PROTEIN 5.4 g/dL (6.4-8.9)
--- NOTE | 2023-05-17 09:30 | XRAY Report ---
PROCEDURE: Chest 1 View X-Ray INDICATIONS: rapid response, vomiting, aspiration TECHNIQUE: One view of the chest was acquired. COMPARISON: Chest x-ray 03/02/2019 FINDINGS: Surgical changes and devices: None. Lungs and pleura: Bibasilar opacities and blunting of the costophrenic angles. Mediastinum: Mediastinal contours appear normal. Heart size is enlarged. Bones and chest wall: No suspicious bony lesions. Overlying soft tissues appear unremarkable. IMPRESSION: Mild bilateral effusions. Underlying areas of pneumonia and/or atelectasis cannot be excluded. The above findings are concordant with preliminary report. Reviewed by: Agustina Mohamud MD on 05/17/2023 9:28 AM PDT Approved by: Agustina Mohamud MD on 05/17/2023 9:28 AM PDT Station ID: [id number]
[2023-05-17 09:37] LABS: LITHIUM < 0.10 mmol/L
[2023-05-17] MEDS: APIXABAN 5 MG TABLET PO SCH (10:29)
[2023-05-17] MEDS: LITHIUM 150 MG CAPSULE PO SCH (10:29)
[2023-05-17] MEDS: risperiDONE 1 MG/ML SOLUTION PO SCH (10:30)
[2023-05-17] MEDS: METOPROLOL TARTRATE 25 MG TABLET PO SCH (10:30)
[2023-05-17] MEDS: FAMOTIDINE 20 MG/2 ML VIAL IVP SCH ×2 (10:33→21:01)
--- NOTE | 2023-05-17 11:58 | CT Report ---
PROCEDURE: CT brain without contrast INDICATIONS: New onset seizures TECHNIQUE: Helical axial CT of the brain was obtained without contrast and reformatted in multiple p lanes. Radiation dose reduction was achieved using automated exposure control or adjustment of mA and /or kV according to patient size. COMPARISON: None FINDINGS: CSF spaces: Ventricles are appropriate in size and position. No hydrocephalus. Basal cisterns unre markable. Brain: No midline shift. No intracranial masses or hemorrhage. Merlos-white matter interface is norm al. Mild atrophy and white matter chronic ischemic change Skull and face: Calvarium and skull base are unremarkable without suspicious lesion. Unilateral lef t intraocular lens replacement Sinuses: Visualized sinuses and mastoids are clear. IMPRESSION: Mild atrophy and chronic ischemic change without intracranial hemorrhage or mass effect. Reviewed by: Carter Chaves MD on 05/17/2023 10:56 AM PATRIC Approved by: Carter Chaves MD on 05/17/2023 10:56 AM PATRIC Station ID: [id number]
[2023-05-17 13:07] LABS: ABG HCO3 19.2 mmol/L (22.0-26.0); ABG PCO2 35 mmHg (34-45); ABG PH 7.36 (7.35-7.45); ABG PO2 118 mmHg (80-100)
[2023-05-17 13:08] LABS: ABG BASE EXCESS -5.5 mmol/L (-2.0-3.0); ABG OXYGEN SATURATION 98 % (94-98); ABG TCO2 20.3 MMOL/L (21.0-29.0); ALLEN TEST POSITIVE
[2023-05-17] MEDS: metroNIDAZOLE 500 MG/100 ML 500 MG/100 ML BAG IV SCH ×2 (13:48→21:12)
[2023-05-17] MEDS: SODIUM CHLORIDE 0.9% 1,000 ML IV SCH (13:53)
[2023-05-17] MEDS ORDERED: ENOXAPARIN 80 MG/0.8 ML SYRINGE SUBQ SCH (21:00)
[2023-05-17] MEDS ORDERED: DEXTROSE 5% 1,000 ML IV ONE (21:01)
[2023-05-17] MEDS: MIRTAZAPINE 15 MG TABLET PO SCH (21:20)
[2023-05-17] MEDS: levETIRAcetam INJ 500 MG in SODIUM CHLORIDE 0.9% 100ML 100 ML IV SCH (22:56)
[2023-05-18] MEDS: SODIUM CHLORIDE FLUSH 0.9% 10 ML SYRINGE IVP SCH ×3 (00:53→20:15)
[2023-05-18] MEDS ORDERED: FUROSEMIDE 40 MG/4 ML VIAL IVP ONE (02:00)
[2023-05-18 04:49] LABS: BASOPHILS # (AUTO) 0.1 10^3/uL (0.0-0.1); BASOPHILS % (AUTO) 0.3 %; EOSINOPHILS % (AUTO) 0.2 %; HCT - HEMATOCRIT 30.6 % (37.0-47.0); HGB - HEMOGLOBIN 10.4 g/dL (12.0-16.0); LYMPHOCYTES # (AUTO) 1.9 10^3/uL (1.5-3.5); MEAN CORPUSCULAR HEMOGLOBIN 32.9 pg (27.0-31.0); MEAN CORPUSCULAR VOLUME 96.8 fL (81.0-99.0); MEAN PLATELET VOLUME 8.8 fL (7.9-10.8); MONOCYTES # (AUTO) 1.2 10^3/uL (0.0-1.0); MONOCYTES % (AUTO) 6.2 %; NEUTROPHILS # (AUTO) 15.6 10^3/uL (1.5-6.6); NEUTROPHILS % (AUTO) 82.3 %; PLT - PLATELET COUNT 304 10^3/uL (130-450); RED BLOOD COUNT 3.16 10^6/uL (4.20-5.40); RED CELL DISTRIBUTION WIDTH 14.1 % (12.0-15.0)
[2023-05-18 05:01] LABS: CALCIUM 7.6 mg/dL (8.5-10.3); CREATININE 0.9 mg/dL (0.6-1.3); POTASSIUM 2.7 mmol/L (3.5-4.5)
[2023-05-18] MEDS: metroNIDAZOLE 500 MG/100 ML 500 MG/100 ML BAG IV SCH ×3 (05:06→20:15)
[2023-05-18] MEDS: CEFEPIME 1 GM in SODIUM CHLORIDE 0.9% MINIBAG 100 ML IV SCH (06:37)
[2023-05-18] MEDS: POTASSIUM CHLOR 10 MEQ/100 ML 10 MEQ/100 ML BAG IV SCH ×3 (07:53→10:21)
[2023-05-18 08:01] LABS: CALCIUM, IONIZED 0.92 mmol/L (1.15-1.33); VBG PH 7.485 (7.31-7.41)
[2023-05-18] MEDS ORDERED: CALCIUM GLUCONATE IN NS 0.9% 2,000 MG/100 ML BAG IV ONE ×2 (08:09→22:32)
[2023-05-18] MEDS ORDERED: MAGNESIUM SULFATE 2 GRAM 2 GM/50 ML BAG IV ONE ×2 (08:09→22:40)
--- NOTE | 2023-05-18 08:09 | PROVIDER PROGRESS NOTE ---
Subjective - Subjective Pt reports feeling: Worse (She is having facial twitching incessantly, eyes rolled back w/ L gaze preference) Objective - Vital Signs/Intake & Output Reviewed Vital Signs: Yes Vital Signs: Vital Signs Temp Pulse Resp BP Pulse Ox O2 Flow Rate 05/18/23 07:00 37.4 C 106 H 23 141/71 H 92 2 05/18/23 06:00 37.4 C 103 H 28 H 124/96 H 94 05/18/23 05:00 37.3 C 104 H 26 H 146/96 H 92 Intake & Output: Intake & Output 05/15/23 05/16/23 05/17/23 05/18/23 23:59 23:59 23:59 23:59 Intake Total 2790 3194.333 2772.500 100 Output Total 818 215 2907 2956 Balance 2390 2394.333 4358.844 -7456 - Objective General Appearance: positive: Other (In status epilepticus: twitching of L face, eyes rolled back and to L) Eyes Bilateral: positive: No lid inflammation, Other (L gaze preference) ENT: positive: No signs of dehydration Neck: positive: Nml inspection, No JVD (in upright position) Respiratory: positive: Rales, Rhonchi, Other (Upper airway rhonchi and appears tachypneic) Cardiovascular: positive: Regular rate & rhythm, No murmur Abdomen: positive: No distention Skin: positive: Dry, Diaphoresis Extremities: positive: Non-tender, No pedal edema Neurologic/Psychiatric: positive: Other (In status epilepticus while I am seeeing her: face twitching, head is up and back, eyes rolled back and to L, not responding to name or to touch or painful stimuli) - Lab Results Fish Bones: 05/20/23 08:00 05/20/23 08:00 Other Labs: Lab Results x24hrs 05/18/23 05/18/23 05/18/23 Range/Units 07:53 04:26 04:26 WBC (4.8-10.8) x10^3/uL RBC (4.20-5.40) 10^6/uL Hgb (12.0-16.0) g/dL Hct (37.0-47.0) % MCV (81.0-99.0) fL MCH (27.0-31.0) pg MCHC (32.0-36.0) g/dL RDW (12.0-15.0) % Plt Count (130-450) 10^3/uL MPV (7.9-10.8) fL Neut # (Auto) Lymph # (Auto) Tate # (Auto) Eos # (Auto) Baso # (Auto) Absolute Nucleated RBC Total Counted Band Neuts % (Manual) (0 - 10) % Abnorm Lymph % (Manual) % Metamyelocytes % ( - 0) % Myelocytes % ( - 0) % Nucleated RBC % Neutrophils # (Manual) (1.5-6.6) 10^3/uL Lymphocytes # (Manual) (1.5-3.5) 10^3/uL Monocytes # (Manual) (0.0-1.0) 10^3/uL Eosinophils # (Manual) (0-0.7) 10^3/uL Basophils # (Manual) (0-0.1) 10^3/uL Nucleated RBCs % Differential Comment RBC Morph Micro Appear (NORMAL) PT (9.9-12.6) secs INR (0.8-1.2) Bld Gas Analysis Time Sample Site ABG pH (7.35-7.45) ABG pCO2 (34-45) mmHg ABG pO2 (80-100) mmHg ABG HCO3 (22.0-26.0) mmol/L ABG Total CO2 (21.0-29.0) MMOL/L ABG O2 Saturation (94-98) % ABG Base Excess (-2.0-3.0) mmol/L Twan Test VBG pH 7.485 H (7.31-7.41) Ionized Calcium 0.92 L (1.15-1.33) mmol/L O2 Delivery Device O2 Liters/Min LPM FiO2 Sodium 147 H (135-145) mmol/L Potassium 2.7 L (3.5-4.5) mmol/L Chloride 111 (101-111) mmol/L Carbon Dioxide 25 (21-32) mmol/L Anion Gap 11.0 (6-13) BUN 9 (6-20) mg/dL Creatinine 0.9 (0.6-1.3) mg/dL Estimated GFR (MDRD) 62 L (>89) Glucose 166 H (74-104) mg/dL Calcium 7.6 L (8.5-10.3) mg/dL Phosphorus (2.5-5.0) mg/dL Magnesium 1.5 L (1.7-2.3) mg/dL Total Bilirubin (0.2-1.0) mg/dL AST (10-42) IU/L ALT (10-60) IU/L Alkaline Phosphatase (42-121) IU/L B-Natriuretic Peptide (5-100) pg/mL Total Protein (6.4-8.9) g/dL Albumin (3.2-5.5) g/dL Globulin (2.1-4.2) g/dL Albumin/Globulin Ratio (1.0-2.2) Nasal Screen MRSA (PCR) (NEGATIVE) Last Dose Date Last Dose Time [place] mmol/L 05/18/23 05/17/23 05/17/23 Range/Units 04:26 13:26 12:35 WBC 19.0 H (4.8-10.8) x10^3/uL RBC 3.16 L (4.20-5.40) 10^6/uL Hgb 10.4 L (12.0-16.0) g/dL Hct 30.6 L (37.0-47.0) % MCV 96.8 (81.0-99.0) fL MCH 32.9 H (27.0-31.0) pg MCHC 34.0 (32.0-36.0) g/dL RDW 14.1 (12.0-15.0) % Plt Count 304 (130-450) 10^3/uL MPV 8.8 (7.9-10.8) fL Neut # (Auto) 15.6 H Lymph # (Auto) 1.9 Tate # (Auto) 1.2 H Eos # (Auto) 0.0 Baso # (Auto) 0.1 Absolute Nucleated RBC 0.00 Total Counted Band Neuts % (Manual) (0 - 10) % Abnorm Lymph % (Manual) % Metamyelocytes % ( - 0) % Myelocytes % ( - 0) % Nucleated RBC % 0.0 Neutrophils # (Manual) (1.5-6.6) 10^3/uL Lymphocytes # (Manual) (1.5-3.5) 10^3/uL Monocytes # (Manual) (0.0-1.0) 10^3/uL Eosinophils # (Manual) (0-0.7) 10^3/uL Basophils # (Manual) (0-0.1) 10^3/uL Nucleated RBCs % Differential Comment RBC Morph Micro Appear (NORMAL) PT (9.9-12.6) secs INR (0.8-1.2) Bld Gas Analysis Time 1250 Sample Site RIGHT RADIAL ABG pH 7.36 (7.35-7.45) ABG pCO2 35 (34-45) mmHg ABG pO2 118 H (80-100) mmHg ABG HCO3 19.2 L (22.0-26.0) mmol/L ABG Total CO2 20.3 L (21.0-29.0) MMOL/L ABG O2 Saturation 98 (94-98) % ABG Base Excess -5.5 L (-2.0-3.0) mmol/L Twan Test POSITIVE VBG pH (7.31-7.41) Ionized Calcium (1.15-1.33) mmol/L O2 Delivery Device NASAL CANNULA O2 Liters/Min 4.00 LPM FiO2 Sodium (135-145) mmol/L Potassium (3.5-4.5) mmol/L Chloride (101-111) mmol/L Carbon Dioxide (21-32) mmol/L Anion Gap (6-13) BUN (6-20) mg/dL Creatinine (0.6-1.3) mg/dL Estimated GFR (MDRD) (>89) Glucose (74-104) mg/dL Calcium (8.5-10.3) mg/dL Phosphorus (2.5-5.0) mg/dL Magnesium 1.9 (1.7-2.3) mg/dL Total Bilirubin (0.2-1.0) mg/dL AST (10-42) IU/L ALT (10-60) IU/L Alkaline Phosphatase (42-121) IU/L B-Natriuretic Peptide (5-100) pg/mL Total Protein (6.4-8.9) g/dL Albumin (3.2-5.5) g/dL Globulin (2.1-4.2) g/dL Albumin/Globulin Ratio (1.0-2.2) Nasal Screen MRSA (PCR) (NEGATIVE) Last Dose Date Last Dose Time [place] mmol/L 10/05/23 10/05/23 10/05/23 Range/Units 08:20 08:10 07:35 WBC (4.8-10.8) x10^3/uL RBC (4.20-5.40) 10^6/uL Hgb (12.0-16.0) g/dL Hct (37.0-47.0) % MCV (81.0-99.0) fL MCH (27.0-31.0) pg MCHC (32.0-36.0) g/dL RDW (12.0-15.0) % Plt Count (130-450) 10^3/uL MPV (7.9-10.8) fL Neut # (Auto) Lymph # (Auto) Tate # (Auto) Eos # (Auto) Baso # (Auto) Absolute Nucleated RBC Total Counted Band Neuts % (Manual) (0 - 10) % Abnorm Lymph % (Manual) % Metamyelocytes % ( - 0) % Myelocytes % ( - 0) % Nucleated RBC % Neutrophils # (Manual) (1.5-6.6) 10^3/uL Lymphocytes # (Manual) (1.5-3.5) 10^3/uL Monocytes # (Manual) (0.0-1.0) 10^3/uL Eosinophils # (Manual) (0-0.7) 10^3/uL Basophils # (Manual) (0-0.1) 10^3/uL Nucleated RBCs % Differential Comment RBC Morph Micro Appear (NORMAL) PT (9.9-12.6) secs INR (0.8-1.2) Bld Gas Analysis Time 0810 Sample Site RIGHT RADIAL ABG pH 7.11 L* (7.35-7.45) ABG pCO2 51 H (34-45) mmHg ABG pO2 138 H (80-100) mmHg ABG HCO3 15.8 L (22.0-26.0) mmol/L ABG Total CO2 17.4 L (21.0-29.0) MMOL/L ABG O2 Saturation 98 (94-98) % ABG Base Excess -13.4 L (-2.0-3.0) mmol/L Twan Test POSITIVE VBG pH (7.31-7.41) Ionized Calcium (1.15-1.33) mmol/L O2 Delivery Device NON REBREATHER MASK O2 Liters/Min LPM FiO2 1.00 Sodium (135-145) mmol/L Potassium (3.5-4.5) mmol/L Chloride (101-111) mmol/L Carbon Dioxide (21-32) mmol/L Anion Gap (6-13) BUN (6-20) mg/dL Creatinine (0.6-1.3) mg/dL Estimated GFR (MDRD) (>89) Glucose (74-104) mg/dL Calcium (8.5-10.3) mg/dL Phosphorus (2.5-5.0) mg/dL Magnesium (1.7-2.3) mg/dL Total Bilirubin (0.2-1.0) mg/dL AST (10-42) IU/L ALT (10-60) IU/L Alkaline Phosphatase (42-121) IU/L B-Natriuretic Peptide (5-100) pg/mL Total Protein (6.4-8.9) g/dL Albumin (3.2-5.5) g/dL Globulin (2.1-4.2) g/dL Albumin/Globulin Ratio (1.0-2.2) Nasal Screen MRSA (PCR) NEGATIVE (NEGATIVE) Last Dose Date UNK Last Dose Time UNK [place] < 0.10 mmol/L 05/17/23 05/17/23 05/17/23 Range/Units 07:35 07:35 07:35 WBC (4.8-10.8) x10^3/uL RBC (4.20-5.40) 10^6/uL Hgb (12.0-16.0) g/dL Hct (37.0-47.0) % MCV (81.0-99.0) fL MCH (27.0-31.0) pg MCHC (32.0-36.0) g/dL RDW (12.0-15.0) % Plt Count (130-450) 10^3/uL MPV (7.9-10.8) fL Neut # (Auto) Lymph # (Auto) Tate # (Auto) Eos # (Auto) Baso # (Auto) Absolute Nucleated RBC Total Counted Band Neuts % (Manual) (0 - 10) % Abnorm Lymph % (Manual) % Metamyelocytes % ( - 0) % Myelocytes % ( - 0) % Nucleated RBC % Neutrophils # (Manual) (1.5-6.6) 10^3/uL Lymphocytes # (Manual) (1.5-3.5) 10^3/uL Monocytes # (Manual) (0.0-1.0) 10^3/uL Eosinophils # (Manual) (0-0.7) 10^3/uL Basophils # (Manual) (0-0.1) 10^3/uL Nucleated RBCs % Differential Comment RBC Morph Micro Appear (NORMAL) PT 14.2 H (9.9-12.6) secs INR 1.3 H (0.8-1.2) Bld Gas Analysis Time Sample Site ABG pH (7.35-7.45) ABG pCO2 (34-45) mmHg ABG pO2 (80-100) mmHg ABG HCO3 (22.0-26.0) mmol/L ABG Total CO2 (21.0-29.0) MMOL/L ABG O2 Saturation (94-98) % ABG Base Excess (-2.0-3.0) mmol/L Twan Test VBG pH (7.31-7.41) Ionized Calcium (1.15-1.33) mmol/L O2 Delivery Device O2 Liters/Min LPM FiO2 Sodium 145 (135-145) mmol/L Potassium 3.5 (3.5-4.5) mmol/L Chloride 116 H (101-111) mmol/L Carbon Dioxide 16 L (21-32) mmol/L Anion Gap 13.0 (6-13) BUN 11 (6-20) mg/dL Creatinine 1.2 (0.6-1.3) mg/dL Estimated GFR (MDRD) 44 L (>89) Glucose 155 H (74-104) mg/dL Calcium 7.6 L (8.5-10.3) mg/dL Phosphorus (2.5-5.0) mg/dL Magnesium (1.7-2.3) mg/dL Total Bilirubin 0.3 (0.2-1.0) mg/dL AST 21 (10-42) IU/L ALT 20 (10-60) IU/L Alkaline Phosphatase 67 (42-121) IU/L B-Natriuretic Peptide 635 H (5-100) pg/mL Total Protein 5.4 L (6.4-8.9) g/dL Albumin 3.5 (3.2-5.5) g/dL Globulin 1.9 L (2.1-4.2) g/dL Albumin/Globulin Ratio 1.8 (1.0-2.2) Nasal Screen MRSA (PCR) (NEGATIVE) Last Dose Date Last Dose Time [place] mmol/L 05/17/23 05/17/23 Range/Units 06:36 06:36 WBC 27.7 H (4.8-10.8) x10^3/uL RBC 3.41 L (4.20-5.40) 10^6/uL Hgb 11.4 L (12.0-16.0) g/dL Hct 35.0 L (37.0-47.0) % MCV 102.6 H (81.0-99.0) fL MCH 33.4 H (27.0-31.0) pg MCHC 32.6 (32.0-36.0) g/dL RDW 14.5 (12.0-15.0) % Plt Count 364 (130-450) 10^3/uL MPV 8.7 (7.9-10.8) fL Neut # (Auto) Not Reportable Lymph # (Auto) Not Reportable Tate # (Auto) Not Reportable Eos # (Auto) Not Reportable Baso # (Auto) Not Reportable Absolute Nucleated RBC Not Reportable Total Counted 100 Band Neuts % (Manual) 7 (0 - 10) % Abnorm Lymph % (Manual) 0 % Metamyelocytes % 4 H ( - 0) % Myelocytes % 2 H ( - 0) % Nucleated RBC % Not Reportable Neutrophils # (Manual) 22.4 H (1.5-6.6) 10^3/uL Lymphocytes # (Manual) 3.3 (1.5-3.5) 10^3/uL Monocytes # (Manual) 0.3 (0.0-1.0) 10^3/uL Eosinophils # (Manual) 0.0 (0-0.7) 10^3/uL Basophils # (Manual) 0.0 (0-0.1) 10^3/uL Nucleated RBCs 1 % Differential Comment MANUAL DIFFERENTIAL RBC Morph Micro Appear 3+ POLYCHROMASIA (NORMAL) PT (9.9-12.6) secs INR (0.8-1.2) Bld Gas Analysis Time Sample Site ABG pH (7.35-7.45) ABG pCO2 (34-45) mmHg ABG pO2 (80-100) mmHg ABG HCO3 (22.0-26.0) mmol/L ABG Total CO2 (21.0-29.0) MMOL/L ABG O2 Saturation (94-98) % ABG Base Excess (-2.0-3.0) mmol/L Twan Test VBG pH (7.31-7.41) Ionized Calcium (1.15-1.33) mmol/L O2 Delivery Device O2 Liters/Min LPM FiO2 Sodium (135-145) mmol/L Potassium (3.5-4.5) mmol/L Chloride (101-111) mmol/L Carbon Dioxide (21-32) mmol/L Anion Gap (6-13) BUN (6-20) mg/dL Creatinine (0.6-1.3) mg/dL Estimated GFR (MDRD) (>89) Glucose (74-104) mg/dL Calcium (8.5-10.3) mg/dL Phosphorus 2.7 (2.5-5.0) mg/dL Magnesium (1.7-2.3) mg/dL Total Bilirubin (0.2-1.0) mg/dL AST (10-42) IU/L ALT (10-60) IU/L Alkaline Phosphatase (42-121) IU/L B-Natriuretic Peptide (5-100) pg/mL Total Protein (6.4-8.9) g/dL Albumin (3.2-5.5) g/dL Globulin (2.1-4.2) g/dL Albumin/Globulin Ratio (1.0-2.2) Nasal Screen MRSA (PCR) (NEGATIVE) Last Dose Date Last Dose Time [place] mmol/L Sepsis Event Note (H) - Evaluation Current Stage of Sepsis: Ruled out Assessment/Plan - Problem List (1) Status epilepticus Impression: This morning the patient is again having incessant twitching of her muscles of her face, mostly on the left, has left gaze preference, and during that she is not following commands. My impression is that she is in status epilepticus. Today I spoke to Neurologist Dr. Sidney Bautista, who advised management and his recommendations were followed: give Ativan IV prn for ongoing seizures, stop Keppra, start Dilantin, give a 15 mg/kg (1500 mg) IV loading dose now, then start 300 mg IV daily starting tomorrow. And the Neurologist advised obtaining an MRI brain to evaluate for a focus for having these seizures. The seizure yesterday could have been a febrile seizure but because seizures continue today, there is likely a focus in the brain, he said. Plan: Ativan IV ordered at 1 mg, and would repeat and increase dose to 2 mg if the status epilepticus seizures do not stop Give Dilantin loading dose now Start Dilantin IV daily tomorrow Follow Dilantin levels intermittently Obtain STAT MRI brain (the pt is going for her brain MRI as I am coming off the day shift, Telemedicine will be covering when resukts are available) (CRITICAL CARE TIME SPENT: 100 min (Evaluating patient, speaking with Neurol product development consultant by phone, re-evaluating pt, follow-up labs, ordering and adjusting meds, reevaluating patient, discussing with RN) (2) Seizure Impression: Pt had several seizures yesterday. She was given iv ativan and Keppra and moved to ICU. Head CT yesterday showed no acute findings This morning she is in status. I spoke to the Neurol at who advised IV Ativan for break thru seizures and Dilantin loading then Dilantin 300 mg daily, follow Dilantin levels. Those were all done. He also advised looking for a source of seizures by getting a brain MRI Plan: Remain in ICU, critical condition, cont Kelly, monitor I's and O's I will order repeat Ativan pushes prn for break thru seizures. She got Dilantin loadded yesterday, but has not started Dilantin 300 mg daily, which will be given now. Obtain brain MRI Will insert ng and start ng feeds (3) Acute respiratory failure with hypoxia Impression: RN at the bedside reports the patient had respiratory distress, was gurgling and needed deep suctioning, during the seizure episodes She is now requiring an O2 supplementation by rebreather mask A STAT CXR was done yesterday and showed bilateral aspiration pneumonia changes Plan: Remain in ICU Obtain Echo Cont IV antibiotics for anaerobic coverage, using Flagyl, however if this is aspiration pneumonitis,it usually improves in 48-hour according to guidelines (4) Anasarca Impression: She has been on IV fluids since admission for hydration, because she was first catatonic, then manic, then refusing food and pills despite being awake. This has caused anasarca Plan: I will start Lasix IV and close monitoring of I's and O's in the ICU (5) Hypernatremia She has been on IV saline since admission and her Na has been climbing, is today Plan: We will change to free water by using D5W Also will try to diurese off free water by using Lasix iv starting today Follow BMP daily (6) Urinary tract infection Qualifiers: Urinary tract infection type: acute cystitis Hematuria presence: without hematuria Qualified Code(s): N30.00 - Acute cystitis without hematuria Assessment/Plan: Patient had episode of urinary retention on 05/12 night, needed straight cath once She has ongoing Leukocytosis (labs all reviewed). UA has LE pos, nitrate pos. and is growing a GNR This UTI was very likely adding to her confusion Plan: Pt was started on po nitrofurnatointhen she started to spit out all her meds and also taking no po diet, so I changed her to empiric IV ceftriaxone 1 g daily, Await urine culture results to tailor antibx We will follow CBC with differential daily (7) Extrapyramidal and movement disorder Assessment/Plan: She has a visible resting tremor. According to a visiting friend, the remor is new. The patient is excessively somnolent today and was too manic yesterday to discuss whether she realizes the tremor is old or new Her facial twitching is not simultaneous with hand tremor (8) Bipolar 1 disorder Assessment/Plan: This appeared to be worsening. She was havibg psychosis feature, audio hallucination, paranoid thinking befiore the seizure Plan: Will treat as per Tele-psychiatrist recommendations, however she will not take po meds, she spits them out. Will insert ng Once medically stabilized, the psychiatrist agreed that the patient needs inpatient psych treatment at a different facility (9) Acute kidney injury Assessment/Plan: Improving, Cr 1.3. Plan: Encourage oral intake, monitoring renal function, avoiding nephrotoxins We will follow BMP daily (10) Paroxysmal A-fib Assessment/Plan: Patient is to be on a DOAC. She has been spitting out her meds intermittently. I started her on Lovenox at therapeutic dosing Plan: Cont Lovenox at therapeutic dosing (11) Hypokalemia Assessment/Plan: Resolved Follow BMP daily (12) Hypercalcemia Assessment/Plan: Resolved Ca 8.4 Plan: She has a low vitamin D level so plan was originally to start oral vitamin D but today she is spitting out her pills (13) Akinetic mutism Assessment/Plan: Resolved (14) Nadir Assessment/Plan: Telepsych eval done and the psychiatrist believes she had nadir. I adjusted meds as was recommended, stopping Zyprexa and ordering liquid Risperdal because she was spitting out oral tablets Plan: Continue liquid Risperdal The psychiatrist recommended a follow-up phone call to them when she is medically cleared. There is indication for her to be transferred to an inpatient psych location, as per the psychiatry consult (15) Tachycardia Impression: Patient had tachycardia up to 140 during her seizure. An EKG was done after her seizures were treated. This shows sinus tachycardia at a rate of 128 and no other acute findings She probably has tachycardia related to the fever and the seizure. She has been getting IV fluids for several days (has peripheral edema), therefore is likely not to be intravascularly depleted as the cause of the tachycardia. Plan: Check troponins x2, BNP and obtain Echo Remain on telemetry in the ICU (16) Fever Impression: She spiked a fever to 38.3 C tge evening before her seizure yesterday Since the urine is growing a gram-negative eloise I am concerned she may have Pseudomonas. Repeat blood cultures obtained during the fever spike Plan: Give antipyretics I will stop the ceftriaxone and start empiric cefepime Await urine culture identification and sensitivities to further tailor her antibiotics
[2023-05-18] MEDS: SODIUM BICARBONATE 150 MEQ in DEXTROSE 5% 1,000 ML IV SCH (08:42)
--- NOTE | 2023-05-18 09:10 | XRAY Report ---
PROCEDURE: Chest 1 View X-Ray INDICATIONS: shortness of breath TECHNIQUE: One view of the chest was acquired. COMPARISON: None. FINDINGS: Surgical changes and devices: None. Lungs and pleura: New near complete atelectasis of the left upper lobe. Similar moderate pleural eff usions and bibasilar atelectasis. Mediastinum: Mediastinal contours appear normal. Heart size is normal. Bones and chest wall: No suspicious bony lesions. Overlying soft tissues appear unremarkable. IMPRESSION: New, near complete atelectasis of the left upper lobe. Mucous plug not excluded. Similar moderate pleural effusions with bibasilar atelectasis. Reviewed by: Favian Tavarez on 05/18/2023 9:09 AM PDT Approved by: Favian Taavrez on 05/18/2023 9:09 AM PDT Station ID: [id number]
[2023-05-18] MEDS ORDERED: ENOXAPARIN 100 MG/ML SYRINGE SUBQ SCH (09:30)
[2023-05-18 09:48] LABS: MAGNESIUM 1.5 mg/dL (1.7-2.3)
[2023-05-18 09:50] LABS: PHOSPHORUS < 1.0 mg/dL (2.5-5.0)
[2023-05-18] MEDS: levETIRAcetam INJ 500 MG in SODIUM CHLORIDE 0.9% 100ML 100 ML IV SCH (09:56)
[2023-05-18] MEDS: SODIUM CHLORIDE FLUSH 0.9% 10 ML SYRINGE IVP PRN ×3 (10:03→20:14)
[2023-05-18] MEDS: FAMOTIDINE 20 MG/2 ML VIAL IVP SCH ×2 (10:23→20:15)
[2023-05-18] MEDS: POTASSIUM PHOSPHATE 15 MMOL in SODIUM CHLORIDE 0.9% 250 ML IV SCH ×2 (11:15→15:28)
[2023-05-18] MEDS: FUROSEMIDE 20 MG/2 ML VIAL IVP SCH (14:42)
[2023-05-18] MEDS ORDERED: LORazepam 2 MG/ML VIAL IVP STA (16:05)
[2023-05-18] MEDS ORDERED: GADOTERATE MEGLUMINE 10 MMOL/20 ML VIAL ONE (16:48)
[2023-05-18] MEDS ORDERED: SODIUM CHLORIDE 0.9% IV ONE (17:00)
[2023-05-18] MEDS ORDERED: PHENYTOIN IV ONE (17:00)
--- NOTE | 2023-05-18 17:31 | XRAY Report ---
PROCEDURE: Chest for Line Placement INDICATIONS: ng tube place TECHNIQUE: One view of the chest was acquired. COMPARISON: None. FINDINGS: Surgical changes and devices: NG tube tip is below the left hemidiaphragm and is in the expected loc ation of stomach lumen.. Lungs and pleura: Small to moderate bilateral pleural effusion are seen with blunting of bilateral c ostophrenic angles. Underlying bibasilar infiltrate/atelectasis are likely present. No gross pneumoth orax. Pulmonary vascular congestion is seen. Mediastinum: Mediastinal contours appear normal. Heart size is enlarged. Bones and chest wall: No suspicious bony lesions. Overlying soft tissues appear unremarkable. IMPRESSION: NG tube is in the expected location of stomach lumen. Small to moderate bilateral pleural effusion and bibasilar infiltrate/atelectasis. No gross pneumothorax. Pulmonary vascular congestion. Reviewed by: Destin Moore MD on 05/18/2023 5:30 PM PDT Approved by: Destin Moore MD on 05/18/2023 5:30 PM PDT Station ID: [id number]
[2023-05-18] MEDS: risperiDONE 1 MG/ML SOLUTION PO SCH (18:36)
[2023-05-18] MEDS: LITHIUM 150 MG CAPSULE PO SCH (18:36)
[2023-05-18] MEDS ORDERED: GADOTERATE MEGLUMINE 10 MMOL/20 ML VIAL IVP ONE (19:04)
--- NOTE | 2023-05-18 19:44 | MRI Report ---
PROCEDURE: Brain W/Contrast INDICATIONS: Status epilepticus, L gaze deviation TECHNIQUE: Multiplanar and multisequence MR images of brain were obtained after IV gadolinium contras t infusion. COMPARISON: CT head dated 05/17/2023. FINDINGS: Study is limited due to significant patient motion throughout the study. There is suggestion of restricted diffusion in right thalamus concerning for acute thalamic infarctio n. There is no evidence of acute intracranial bleed, midline shift or mass effect. Age-related volume lo ss is seen. No area of abnormal contrast enhancement is noted. Ventricle sizes are within normal limi ts. No gross hemodynamically significant stenosis or aneurysm is noted in visualized intracranial circula tion. Visualized intracranial venous circulation shows no gross filling defect to suggest venous thro mbosis. Bilateral paranasal sinuses are fairly well aerated. No gross marrow signal abnormality is seen in ca lvarium. No acute abnormal calvarial enhancement. IMPRESSION: 1. Limited study due to patient motion. Finding is concerning for acute to subacute infarction involv ing right thalamus. 2. No acute intracranial bleed, midline shift or mass effect. No area of abnormal intracranial enhanc ement. 3. No gross intracranial venous thrombosis. No gross hemodynamically significant stenosis or aneurysm is seen in visualized intracranial circulation. Reviewed by: Destin Moore MD on 05/18/2023 7:43 PM PDT Approved by: Destin Moore MD on 05/18/2023 7:43 PM PDT Station ID: [id number]
[2023-05-18] MEDS: NYSTATIN POWDER 15 GM TOP SCH ×2 (20:14→20:47)
[2023-05-18] MEDS: CEFEPIME 2 GM in SODIUM CHLORIDE 0.9% MINIBAG 100 ML IV SCH (21:57)
[2023-05-18 22:22] LABS: CALCIUM, IONIZED 0.88 mmol/L (1.15-1.33); VBG PH 7.548 (7.31-7.41)
[2023-05-18 22:32] LABS: MAGNESIUM 1.7 mg/dL (1.7-2.3)
[2023-05-18] MEDS ORDERED: POTASSIUM PHOSPHATE 15 MMOL in SODIUM CHLORIDE 0.9% 250 ML IV ONE (23:04)
[2023-05-19] MEDS: SODIUM CHLORIDE FLUSH 0.9% 10 ML SYRINGE IVP SCH ×3 (00:01→16:04)
[2023-05-19] MEDS: metroNIDAZOLE 500 MG/100 ML 500 MG/100 ML BAG IV SCH ×3 (04:09→21:43)
[2023-05-19] MEDS: diphenhydrAMINE INJ 50 MG/ML VIAL IVP PRN (04:38)
[2023-05-19] MEDS: FUROSEMIDE 20 MG/2 ML VIAL IVP SCH ×2 (05:01→14:49)
[2023-05-19 05:02] LABS: BASOPHILS % (AUTO) 0.3 %; EOSINOPHILS # (AUTO) 0.1 10^3/uL (0.0-0.7); EOSINOPHILS % (AUTO) 0.6 %; HCT - HEMATOCRIT 30.2 % (37.0-47.0); HGB - HEMOGLOBIN 10.1 g/dL (12.0-16.0); LYMPHOCYTES % (AUTO) 20.9 %; MEAN CORPUSCULAR HEMOGLOBIN 32.4 pg (27.0-31.0); MEAN CORPUSCULAR HGB CONC 33.4 g/dL (32.0-36.0); MEAN CORPUSCULAR VOLUME 96.8 fL (81.0-99.0); MEAN PLATELET VOLUME 9.1 fL (7.9-10.8); MONOCYTES # (AUTO) 1.2 10^3/uL (0.0-1.0); MONOCYTES % (AUTO) 8.2 %; NEUTROPHILS # (AUTO) 9.9 10^3/uL (1.5-6.6); NEUTROPHILS % (AUTO) 69.2 %; NRBC ABSOLUTE COUNT (AUTO) 0.02 x10^3/uL; NUCLEATED RED BLOOD CELLS AUTO 0.1 /100WBC; PLT - PLATELET COUNT 298 10^3/uL (130-450); RED BLOOD COUNT 3.12 10^6/uL (4.20-5.40); RED CELL DISTRIBUTION WIDTH 14.6 % (12.0-15.0); WHITE BLOOD COUNT 14.2 x10^3/uL (4.8-10.8)
[2023-05-19 05:04] LABS: CALCIUM, IONIZED 0.96 mmol/L (1.15-1.33); VBG PH 7.56 (7.31-7.41)
[2023-05-19 05:23] LABS: ALBUMIN 3.2 g/dL (3.2-5.5); ALBUMIN/GLOBULIN RATIO 1.8 (1.0-2.2); BILIRUBIN,TOTAL 0.4 mg/dL (0.2-1.0); CREATININE 0.9 mg/dL (0.6-1.3); PHOSPHORUS 2.8 mg/dL (2.5-5.0); POTASSIUM 3.2 mmol/L (3.5-4.5)
[2023-05-19] MEDS: POTASSIUM CHLOR 10 MEQ/100 ML 10 MEQ/100 ML BAG IV SCH ×2 (06:14→07:30)
[2023-05-19] MEDS ORDERED: CALCIUM GLUCONATE IN NS 0.9% 2,000 MG/100 ML BAG IV ONE (08:00)
--- NOTE | 2023-05-19 08:25 | PROVIDER PROGRESS NOTE ---
Subjective - Subjective Pt reports feeling: Improved (No facial twitching seizures), Worse (L arm had no mvm and no response to pain overnight, per her night RN. This a.m. she is moving the arm) Objective - Vital Signs/Intake & Output Reviewed Vital Signs: Yes Vital Signs: Vital Signs Temp Pulse Resp BP Pulse Ox O2 Flow Rate 05/19/23 07:00 37.6 C 94 23 106/68 97 2 05/19/23 06:00 37.6 C 89 20 142/75 H 99 2 05/19/23 05:00 37.5 C 98 21 105/67 98 2 Intake & Output: Intake & Output 05/16/23 05/17/23 05/18/23 05/19/23 23:59 23:59 23:59 23:59 Intake Total 3194.333 2772.500 3656.167 605 Output Total 800 1137 5051 1369 Balance 2394.333 1635.500 -1394.833 -764 - Objective General Appearance: positive: Lethargic Eyes Bilateral: positive: No lid inflammation ENT: positive: No signs of dehydration, Other (has ng tube in place) Neck: positive: Nml inspection, No JVD Respiratory: positive: Rales, Rhonchi Cardiovascular: positive: Regular rate & rhythm, No murmur Abdomen: positive: Non-tender, No distention Skin: positive: Warm, Dry, Other (3+ edema of legs and hands to elbows) - Lab Results Fish Bones: 05/20/23 08:00 05/20/23 08:00 Other Labs: Lab Results x24hrs 05/19/23 05/19/23 05/19/23 Range/Units 04:27 04:27 04:27 WBC 14.2 H (4.8-10.8) x10^3/uL RBC 3.12 L (4.20-5.40) 10^6/uL Hgb 10.1 L (12.0-16.0) g/dL Hct 30.2 L (37.0-47.0) % MCV 96.8 (81.0-99.0) fL MCH 32.4 H (27.0-31.0) pg MCHC 33.4 (32.0-36.0) g/dL RDW 14.6 (12.0-15.0) % Plt Count 298 (130-450) 10^3/uL MPV 9.1 (7.9-10.8) fL Neut # (Auto) 9.9 H (1.5-6.6) 10^3/uL Lymph # (Auto) 3.0 (1.5-3.5) 10^3/uL [place] # (Auto) 1.2 H (0.0-1.0) 10^3/uL Eos # (Auto) 0.1 (0.0-0.7) 10^3/uL Baso # (Auto) 0.0 (0.0-0.1) 10^3/uL Absolute Nucleated RBC 0.02 x10^3/uL Nucleated RBC % 0.1 /100WBC VBG pH 7.560 H (7.31-7.41) Ionized Calcium 0.96 L (1.15-1.33) mmol/L Sodium 148 H (135-145) mmol/L Potassium 3.2 L (3.5-4.5) mmol/L Chloride 109 (101-111) mmol/L Carbon Dioxide 31 (21-32) mmol/L Anion Gap 8.0 (6-13) BUN 8 (6-20) mg/dL Creatinine 0.9 (0.6-1.3) mg/dL Estimated GFR (MDRD) 62 L (>89) Glucose 123 H (74-104) mg/dL Calcium 8.0 L (8.5-10.3) mg/dL Phosphorus 2.8 Magnesium 2.0 Total Bilirubin 0.4 (0.2-1.0) mg/dL AST 13 (10-42) IU/L ALT 15 (10-60) IU/L Alkaline Phosphatase 54 (42-121) IU/L Total Protein 5.0 L (6.4-8.9) g/dL Albumin 3.2 (3.2-5.5) g/dL Globulin 1.8 L (2.1-4.2) g/dL Albumin/Globulin Ratio 1.8 (1.0-2.2) Prealbumin 10 L (17-34) mg/dL SARS-CoV-2 (PCR) 05/18/23 05/18/23 05/18/23 Range/Units 21:53 21:53 16:02 WBC (4.8-10.8) x10^3/uL RBC (4.20-5.40) 10^6/uL Hgb (12.0-16.0) g/dL Hct (37.0-47.0) % MCV (81.0-99.0) fL MCH (27.0-31.0) pg MCHC (32.0-36.0) g/dL RDW (12.0-15.0) % Plt Count (130-450) 10^3/uL MPV (7.9-10.8) fL Neut # (Auto) (1.5-6.6) 10^3/uL Lymph # (Auto) (1.5-3.5) 10^3/uL [place] # (Auto) (0.0-1.0) 10^3/uL Eos # (Auto) (0.0-0.7) 10^3/uL Baso # (Auto) (0.0-0.1) 10^3/uL Absolute Nucleated RBC x10^3/uL Nucleated RBC % /100WBC VBG pH 7.548 H (7.31-7.41) Ionized Calcium 0.88 L (1.15-1.33) mmol/L Sodium (135-145) mmol/L Potassium 3.0 L (3.5-4.5) mmol/L Chloride (101-111) mmol/L Carbon Dioxide (21-32) mmol/L Anion Gap (6-13) BUN (6-20) mg/dL Creatinine (0.6-1.3) mg/dL Estimated GFR (MDRD) (>89) Glucose (74-104) mg/dL Calcium (8.5-10.3) mg/dL Phosphorus 2.0 L Magnesium 1.7 Total Bilirubin (0.2-1.0) mg/dL AST (10-42) IU/L ALT (10-60) IU/L Alkaline Phosphatase (42-121) IU/L Total Protein (6.4-8.9) g/dL Albumin (3.2-5.5) g/dL Globulin (2.1-4.2) g/dL Albumin/Globulin Ratio (1.0-2.2) Prealbumin (17-34) mg/dL SARS-CoV-2 (PCR) NOT DETECTED 05/18/23 05/18/23 Range/Units 09:07 04:26 WBC (4.8-10.8) x10^3/uL RBC (4.20-5.40) 10^6/uL Hgb (12.0-16.0) g/dL Hct (37.0-47.0) % MCV (81.0-99.0) fL MCH (27.0-31.0) pg MCHC (32.0-36.0) g/dL RDW (12.0-15.0) % Plt Count (130-450) 10^3/uL MPV (7.9-10.8) fL Neut # (Auto) (1.5-6.6) 10^3/uL Lymph # (Auto) (1.5-3.5) 10^3/uL [place] # (Auto) (0.0-1.0) 10^3/uL Eos # (Auto) (0.0-0.7) 10^3/uL Baso # (Auto) (0.0-0.1) 10^3/uL Absolute Nucleated RBC x10^3/uL Nucleated RBC % /100WBC VBG pH (7.31-7.41) Ionized Calcium (1.15-1.33) mmol/L Sodium (135-145) mmol/L Potassium (3.5-4.5) mmol/L Chloride (101-111) mmol/L Carbon Dioxide (21-32) mmol/L Anion Gap (6-13) BUN (6-20) mg/dL Creatinine (0.6-1.3) mg/dL Estimated GFR (MDRD) (>89) Glucose (74-104) mg/dL Calcium (8.5-10.3) mg/dL Phosphorus < 1.0 L* Cancelled Magnesium 1.5 L Cancelled Total Bilirubin (0.2-1.0) mg/dL AST (10-42) IU/L ALT (10-60) IU/L Alkaline Phosphatase (42-121) IU/L Total Protein (6.4-8.9) g/dL Albumin (3.2-5.5) g/dL Globulin (2.1-4.2) g/dL Albumin/Globulin Ratio (1.0-2.2) Prealbumin (17-34) mg/dL SARS-CoV-2 (PCR) Sepsis Event Note (H) - Evaluation Current Stage of Sepsis: Ruled out Assessment/Plan - Problem List (1) Seizure Impression: Yesterday I spoke to neurologist Dr. Sidney Bautista, who advised management and the orders were done: Ativan IV for ongoing seizures, stop Keppra, start Dilantin, 1500 mg IV loading dose given yesterday, 300 mg IV daily starting today and he advised obtaining an MRI brain to evaluate for a focus for having seizures. Today she had seizures in the afternoon. When she is stable, she was able to follow some commands, especially when the brother and ellgze-mf-vlp arrived at bedside, they came from [facility]. Plan: Remain in the ICU Continue with the as needed Ativan for seizure breakthrough Continue with the daily Dilantin as recommended by neurology Check Dilantin level, probbaly this dose needs to increase I updated the brother and thnejl-un-xix at bedside. They were able to communicate with the patient slightly today and think she revealed has a POLST form at her home that states DNR, and they will go there to find it (2) Right thalamic stroke Impression: Yesterday the MRI head was done as my shift was ending, telemedicine provider at night was not informed of the results. I reviewed the MRI results today, it does show a right thalamic stroke, no hemorrhage, no edema or midline shift seen. L arm had no mvm and no response to pain overnight, per her night RN. This a.m. she is moving the L arm Plan: I will stop the therapeutic Lovenox for 24 to 48 hours to prevent hemorrhagic transformation of the stroke I will obtain an Echo and carotid Dopplers to look for a cardiac source of embolus. (Today is Sunday and we have no agriculture laboratory technician here until Sunday) Start Neurochecks every 4 hours Today I updated the brother and lsvznw-ls-yyw at bedside about this result. We spoke at length about possibly changing her CODE status from Full Code to DNR. They think she has a POLST at her home and they will go search for it. CRITICAL CARE TIME SPENT: 90 min (Examining patient, reviewing labs and MRI results, adjusting meds, reevaluating patient, discussing case with family members at bedside, placing orders) (3) Acute respiratory failure with hypoxia Impression: RN at the bedside reported the patient had respiratory distress, was gurgling and needed deep suctioning, during the seizure episodes 2 days ago She required an O2 supplementation by rebreather mask. A STAT CXR was done and it showed bilateral aspiration pneumonia changes She is now down to O2 per n.c. Plan: Remain in ICU Obtain Echo Cont antibiotics for anaerobic coverage, using Flagyl, however if this is aspiration pneumonitis,it usuallu improves in 48-hour according to guidelines (4) Anasarca Impression: She has been on IV fluids since admission for hydration, because she was first catatonic, then manic, then refusing food and pills despite being awake. This has caused anasarca Plan: Cont Lasix IV and close monitoring of I's and O's in the ICU (5) Hypernatremia She has been on IV saline since admission and her Na has been climbing, is 148 today Plan: Cont iv free water hydration by using D5W Also will try to diurese off free water by using Lasix iv starting today Follow BMP daily (6) Urinary tract infection Qualifiers: Urinary tract infection type: acute cystitis Hematuria presence: without hematuria Qualified Code(s): N30.00 - Acute cystitis without hematuria Assessment/Plan: Patient had episode of urinary retention on 05/12 night, needed straight cath once She has ongoing Leukocytosis (labs all reviewed). UA has LE pos, nitrate pos. and is growing a GNR This UTI is very likely adding to her confusion Plan: Pt was started on po nitrofurnatointhen she started to spit out all her meds and also taking no po diet, so I changed her to empiric IV ceftriaxone 1 g daily, Await urine culture results to tailor antibx We will follow CBC with differential daily (7) Extrapyramidal and movement disorder Assessment/Plan: She has a visible resting tremor. According to a visiting friend, the remor is new. The patient is excessively somnolent today and was too manic yesterday to discuss whether she realizes the tremor is old or new Plan: Cont Benadryl prn, however, her tremor stopped as the Ativan and Dilantin were started (8) Bipolar 1 disorder Assessment/Plan: This appears to be worsening. She has psychosis feature, audio hallucination, paranoid thinking Plan: Cont treatment as per Tele-psychiatrist recommendations, using liquid preparations via ng tube Once medically stabilized, the psychiatrist agrees that the patient needs inpatient psych treatment at a different facility (9) Acute kidney injury Assessment/Plan: Improving, all labs were reviewed Plan: Encourage oral intake, monitoring renal function, avoiding nephrotoxins We will follow BMP daily (10) Paroxysmal A-fib Assessment/Plan: Patient was to be on a DOAC. She was spitting out her meds so I put her on scheduled BID Lovenox for stroke prophylaxis, when she was admitted to the ICU after the seizure Plan: I will stop the Lovenox therapeutic dose, to prevent hemorrhagic transformation of the stroke (11) Hypokalemia Assessment/Plan: Resolved w/ rplacement Plan: Follow BMP daily (12) Hypercalcemia Assessment/Plan: Resolved Ca 8.4 Plan; She has a low vitamin D level so plan was originally to start oral vitamin D but today she is spitting out her pills (13) Akinetic mutism Assessment/Plan: Resolved (14) [place] Assessment/Plan: Telepsych eval done and the psychiatrist believes she had [place]ber[place]. I adjusted meds as was recommended, stopping Zyprexa and ordering liquid Risperdal because she was spitting out oral tablets Plan: Continue liquid Risperdal The psychiatrist recommended a follow-up phone call to them when she is medically cleared. There is indication for her to be transferred to an inpatient psych location, as per the psychiatry consult (15) Status epilepticus Impression: Resolved
[2023-05-19] MEDS: PHENYTOIN 100 MG/2 ML VIAL IVP SCH (10:41)
[2023-05-19] MEDS: SODIUM CHLORIDE FLUSH 0.9% 10 ML SYRINGE IVP PRN ×4 (10:51→14:50)
[2023-05-19] MEDS: NYSTATIN POWDER 15 GM TOP SCH ×2 (12:10→20:16)
--- NOTE | 2023-05-19 13:11 | ANESTHESIA PROCEDURE NOTE ---
Anesth Central Line Template - Central Line Central Line Preparation: Consent Obtained (spoke w brother Saman on the phone, discussed risks/benefits), Time out completed, Ultrasound used, Sterile prep and drape Central line location: Right IJ Central line type: Triple lumen Central line catheter tip site resides: Superior vena cava (SVC) Central line aftercare: Chlorhexidine disc placed, Secured, Placement confirmed, No pneumothorax, No complications, Bundle checklist complete, Pt tolerated well Other Info/Details: sterile procedure, ultrasound confirmation of wire placement in IJ prior t cannulation, no complications noted
--- NOTE | 2023-05-19 13:30 | XRAY Report ---
PROCEDURE: Chest for Line Placement INDICATIONS: Right IJ central line placement confirmation TECHNIQUE: One view of the chest was acquired. COMPARISON: 05/18/2023, 05/17/2023 FINDINGS: Surgical changes and devices: A right-sided central line has been placed, with the tip overlying the mid aspect of the superior vena cava, 4 to 5 cm above the cavoatrial junction. A gastric tube is seen, with the tip not visible within the wrgyy-mf-irnu of this image, although lalo ibis below the diaphragm. Lungs and pleura: No pleural effusions or pneumothorax. There is mild atelectasis at the left lung b ase. Mediastinum: Mediastinal contours appear normal. Heart size is normal. Calcification is seen of the aortic arch. Bones and chest wall: No suspicious bony lesions. Age-appropriate degenerative changes are seen. Overlying soft tissues appear unremarkable. IMPRESSION: The tip of the right-sided central line can be seen overlying the mid superior vena cava. Improving atelectasis at the left lung base. Reviewed by: Franklyn Barillas MD on 05/19/2023 12:28 PM PATRIC Approved by: Franklyn Barillas MD on 05/19/2023 12:28 PM PATRIC Station ID: [id number]
[2023-05-19] MEDS: CEFEPIME 2 GM in SODIUM CHLORIDE 0.9% MINIBAG 100 ML IV SCH ×2 (13:46→21:43)
[2023-05-19 14:24] LABS: CALCIUM, IONIZED 1.1 mmol/L (1.15-1.33); VBG PH 7.439 (7.31-7.41)
[2023-05-19] MEDS ORDERED: CALCIUM CHLORIDE 1,000 MG in SODIUM CHLORIDE 0.9% 50 ML IV ONE (14:46)
[2023-05-19] MEDS: FAMOTIDINE 20 MG/2 ML VIAL IVP SCH ×2 (14:49→20:16)
[2023-05-19] MEDS: LITHIUM 150 MG CAPSULE PO SCH (15:05)
[2023-05-19] MEDS: risperiDONE 1 MG/ML SOLUTION PO SCH (15:06)
[2023-05-19] MEDS: POTASSIUM CHLOR 20 MEQ/100 ML 20 MEQ/100 ML BAG IV SCH ×2 (16:04→18:11)
[2023-05-19 20:43] LABS: CALCIUM, IONIZED 1.16 mmol/L (1.15-1.33); VBG PH 7.488 (7.31-7.41)
[2023-05-19 20:55] LABS: MAGNESIUM 1.6 mg/dL (1.7-2.3); PHOSPHORUS 1.5 mg/dL (2.5-5.0)
[2023-05-19] MEDS ORDERED: MAGNESIUM SULFATE 2 GRAM 2 GM/50 ML BAG IV ONE (21:28)
[2023-05-19] MEDS: NEUTRA-PHOS 250 MG TABLET PO SCH ×2 (21:43→23:00)
[2023-05-19] MEDS: POTASSIUM CHLORIDE 20 MEQ/15 ML UDC PO SCH ×2 (21:43→23:00)
[2023-05-19] MEDS: LORazepam 2 MG/ML VIAL IVP PRN (21:44)
[2023-05-20] MEDS: SODIUM CHLORIDE FLUSH 0.9% 10 ML SYRINGE IVP SCH ×3 (00:51→19:01)
[2023-05-20] MEDS: metroNIDAZOLE 500 MG/100 ML 500 MG/100 ML BAG IV SCH (04:11)
[2023-05-20 04:19] LABS: CALCIUM, IONIZED 1.12 mmol/L (1.15-1.33); VBG PH 7.449 (7.31-7.41)
[2023-05-20 04:35] LABS: MAGNESIUM 1.9 mg/dL (1.7-2.3); PHOSPHORUS 1.5 mg/dL (2.5-5.0); POTASSIUM 3.8 mmol/L (3.5-4.5)
[2023-05-20] MEDS: FUROSEMIDE 20 MG/2 ML VIAL IVP SCH ×2 (05:12→14:34)
[2023-05-20] MEDS ORDERED: POTASSIUM PHOSPHATE 21 MMOL in SODIUM CHLORIDE 0.9% 250 ML IV ONE (08:00)
[2023-05-20 08:08] LABS: BASOPHILS % (AUTO) 0.4 %; EOSINOPHILS # (AUTO) 0.1 10^3/uL (0.0-0.7); EOSINOPHILS % (AUTO) 1.2 %; HCT - HEMATOCRIT 28.6 % (37.0-47.0); HGB - HEMOGLOBIN 9.4 g/dL (12.0-16.0); LYMPHOCYTES % (AUTO) 20.3 %; MEAN CORPUSCULAR HEMOGLOBIN 32.6 pg (27.0-31.0); MEAN CORPUSCULAR HGB CONC 32.9 g/dL (32.0-36.0); MEAN CORPUSCULAR VOLUME 99.3 fL (81.0-99.0); MEAN PLATELET VOLUME 8.9 fL (7.9-10.8); MONOCYTES # (AUTO) 0.6 10^3/uL (0.0-1.0); MONOCYTES % (AUTO) 6.4 %; NEUTROPHILS # (AUTO) 7.1 10^3/uL (1.5-6.6); NEUTROPHILS % (AUTO) 70.8 %; PLT - PLATELET COUNT 242 10^3/uL (130-450); RED BLOOD COUNT 2.88 10^6/uL (4.20-5.40); RED CELL DISTRIBUTION WIDTH 14.4 % (12.0-15.0)
[2023-05-20 08:25] LABS: CALCIUM 8.2 mg/dL (8.5-10.3); CREATININE 0.8 mg/dL (0.6-1.3); POTASSIUM 3.4 mmol/L (3.5-4.5)
[2023-05-20] MEDS: LITHIUM 150 MG CAPSULE PO SCH (09:37)
[2023-05-20] MEDS: FAMOTIDINE 20 MG/2 ML VIAL IVP SCH ×2 (09:37→21:48)
[2023-05-20] MEDS: PHENYTOIN 100 MG/2 ML VIAL IVP SCH ×2 (09:39→21:48)
[2023-05-20] MEDS: risperiDONE 1 MG/ML SOLUTION PO SCH (10:11)
[2023-05-20] MEDS: NYSTATIN POWDER 15 GM TOP SCH (10:31)
--- NOTE | 2023-05-20 12:13 | PROVIDER PROGRESS NOTE ---
Subjective - Subjective Pt reports feeling: Improved (She is awakening to voice of brother and sister in law, has a cough, appears more comfortable. No seizures since yesterday) Objective - Vital Signs/Intake & Output Vital Signs: Vital Signs Temp Pulse Resp BP Pulse Ox O2 Flow Rate 05/20/23 11:00 37.5 C 93 21 124/75 97 05/20/23 09:00 37.5 C 88 16 113/62 100 2 Intake & Output: Intake & Output 05/17/23 05/18/23 05/19/23 05/20/23 23:59 23:59 23:59 23:59 Intake Total 2772.500 3656.167 2067 894 Output Total 1137 5051 3079 2351 Balance 1635.500 -1394.833 -1012 -1457 - Objective General Appearance: positive: No acute distress, Lethargic (Awakens and can do facial gestures and can respind with hand squeezes) Eyes Bilateral: positive: No lid inflammation ENT: positive: No signs of dehydration, Other (has ng tube in place, and on O2 per n.c.) Neck: positive: Nml inspection, No JVD Respiratory: positive: No respiratory distress, Rhonchi Cardiovascular: positive: Regular rate & rhythm, No murmur Abdomen: positive: Non-tender, No distention Skin: positive: Warm, Dry Extremities: positive: Non-tender, Other (2+ hand and leg edema) - Lab Results Fish Bones: 05/20/23 08:00 05/20/23 08:00 Other Labs: Lab Results x24hrs 05/20/23 05/20/23 05/20/23 Range/Units 08:00 08:00 04:15 WBC 10.0 (4.8-10.8) x10^3/uL RBC 2.88 L (4.20-5.40) 10^6/uL Hgb 9.4 L (12.0-16.0) g/dL Hct 28.6 L (37.0-47.0) % MCV 99.3 H (81.0-99.0) fL MCH 32.6 H (27.0-31.0) pg MCHC 32.9 (32.0-36.0) g/dL RDW 14.4 (12.0-15.0) % Plt Count 242 (130-450) 10^3/uL MPV 8.9 (7.9-10.8) fL Neut # (Auto) 7.1 H (1.5-6.6) 10^3/uL Lymph # (Auto) 2.0 (1.5-3.5) 10^3/uL [place] # (Auto) 0.6 (0.0-1.0) 10^3/uL Eos # (Auto) 0.1 (0.0-0.7) 10^3/uL Baso # (Auto) 0.0 (0.0-0.1) 10^3/uL Absolute Nucleated RBC 0.00 x10^3/uL Nucleated RBC % 0.0 /100WBC VBG pH 7.449 H (7.31-7.41) Ionized Calcium 1.12 L (1.15-1.33) mmol/L Sodium 143 (135-145) mmol/L Potassium 3.4 L (3.5-4.5) mmol/L Chloride 103 (101-111) mmol/L Carbon Dioxide 37 H (21-32) mmol/L Anion Gap 3.0 L (6-13) BUN 12 (6-20) mg/dL Creatinine 0.8 (0.6-1.3) mg/dL Estimated GFR (MDRD) 71 L (>89) Glucose 158 H (74-104) mg/dL Calcium 8.2 L (8.5-10.3) mg/dL Phosphorus (2.5-5.0) mg/dL Magnesium (1.7-2.3) mg/dL Phenytoin ug/mL 05/20/23 05/20/23 05/19/23 Range/Units 04:15 04:05 20:30 WBC (4.8-10.8) x10^3/uL RBC (4.20-5.40) 10^6/uL Hgb (12.0-16.0) g/dL Hct (37.0-47.0) % MCV (81.0-99.0) fL MCH (27.0-31.0) pg MCHC (32.0-36.0) g/dL RDW (12.0-15.0) % Plt Count (130-450) 10^3/uL MPV (7.9-10.8) fL Neut # (Auto) (1.5-6.6) 10^3/uL Lymph # (Auto) (1.5-3.5) 10^3/uL [place] # (Auto) (0.0-1.0) 10^3/uL Eos # (Auto) (0.0-0.7) 10^3/uL Baso # (Auto) (0.0-0.1) 10^3/uL Absolute Nucleated RBC x10^3/uL Nucleated RBC % /100WBC VBG pH 7.488 H (7.31-7.41) Ionized Calcium 1.16 (1.15-1.33) mmol/L Sodium (135-145) mmol/L Potassium 3.8 (3.5-4.5) mmol/L Chloride (101-111) mmol/L Carbon Dioxide (21-32) mmol/L Anion Gap (6-13) BUN (6-20) mg/dL Creatinine (0.6-1.3) mg/dL Estimated GFR (MDRD) (>89) Glucose (74-104) mg/dL Calcium (8.5-10.3) mg/dL Phosphorus 1.5 L (2.5-5.0) mg/dL Magnesium 1.9 (1.7-2.3) mg/dL Phenytoin 9.2 ug/mL 05/19/23 05/19/23 05/19/23 Range/Units 20:30 20:30 14:00 WBC (4.8-10.8) x10^3/uL RBC (4.20-5.40) 10^6/uL Hgb (12.0-16.0) g/dL Hct (37.0-47.0) % MCV (81.0-99.0) fL MCH (27.0-31.0) pg MCHC (32.0-36.0) g/dL RDW (12.0-15.0) % Plt Count (130-450) 10^3/uL MPV (7.9-10.8) fL Neut # (Auto) (1.5-6.6) 10^3/uL Lymph # (Auto) (1.5-3.5) 10^3/uL [place] # (Auto) (0.0-1.0) 10^3/uL Eos # (Auto) (0.0-0.7) 10^3/uL Baso # (Auto) (0.0-0.1) 10^3/uL Absolute Nucleated RBC x10^3/uL Nucleated RBC % /100WBC VBG pH 7.439 H (7.31-7.41) Ionized Calcium 1.10 L (1.15-1.33) mmol/L Sodium (135-145) mmol/L Potassium 3.4 L (3.5-4.5) mmol/L Chloride (101-111) mmol/L Carbon Dioxide (21-32) mmol/L Anion Gap (6-13) BUN (6-20) mg/dL Creatinine (0.6-1.3) mg/dL Estimated GFR (MDRD) (>89) Glucose (74-104) mg/dL Calcium (8.5-10.3) mg/dL Phosphorus 1.5 L (2.5-5.0) mg/dL Magnesium 1.6 L (1.7-2.3) mg/dL Phenytoin ug/mL 05/19/23 Range/Units 14:00 WBC (4.8-10.8) x10^3/uL RBC (4.20-5.40) 10^6/uL Hgb (12.0-16.0) g/dL Hct (37.0-47.0) % MCV (81.0-99.0) fL MCH (27.0-31.0) pg MCHC (32.0-36.0) g/dL RDW (12.0-15.0) % Plt Count (130-450) 10^3/uL MPV (7.9-10.8) fL Neut # (Auto) (1.5-6.6) 10^3/uL Lymph # (Auto) (1.5-3.5) 10^3/uL [place] # (Auto) (0.0-1.0) 10^3/uL Eos # (Auto) (0.0-0.7) 10^3/uL Baso # (Auto) (0.0-0.1) 10^3/uL Absolute Nucleated RBC x10^3/uL Nucleated RBC % /100WBC VBG pH (7.31-7.41) Ionized Calcium (1.15-1.33) mmol/L Sodium (135-145) mmol/L Potassium 3.1 L (3.5-4.5) mmol/L Chloride (101-111) mmol/L Carbon Dioxide (21-32) mmol/L Anion Gap (6-13) BUN (6-20) mg/dL Creatinine (0.6-1.3) mg/dL Estimated GFR (MDRD) (>89) Glucose (74-104) mg/dL Calcium (8.5-10.3) mg/dL Phosphorus (2.5-5.0) mg/dL Magnesium (1.7-2.3) mg/dL Phenytoin ug/mL Sepsis Event Note (H) - Evaluation Current Stage of Sepsis: Ruled out Assessment/Plan - Problem List (1) Seizure Impression: When I spoke to neurologist Dr. Sidney Bautista,he advised management and the orders were done: Ativan IV for ongoing seizures, stop Keppra, start Dilantin, 1500 mg IV loading dose given yesterday, 300 mg IV daily starting today and he a dvised obtaining an MRI brain to evaluate for a focus for having seizures. No seizures since yesterday afternoon. When she awakens, she is able to follow some commands, especially when the brother and drujyo-ga-ilx arrived at bedside, they came from [facility]. Her Dilantin level today is 9.2 Plan: Continue with the as needed Ativan for seizure breakthrough Will increase the daily iv Dilantin 300 mg to BID I updated the brother and qlqguc-ac-zsb at bedside. They were able to communicate with the patient slightly today and I witnessed that. She revealed yesterday that she has a POLST form at her home that states DNR, but they were unable to find it (2) Right thalamic stroke Impression: The MRI head showed a right thalamic stroke, no hemorrhage, no edema or midline shift seen. Yesterday she had no L arm mvm and no response to pain, which improved slightly since yesterday afternoon Plan: Remain off the therapeutic Lovenox to prevent hemorrhagic transformation of the stroke. Today I updated the brother and gvuuvy-xr-htk at bedside about her status. We spoke at length about changing her CODE status from Full Code to DNR and they also request Comfort measures. I planned to obtain an Echo and carotid Dopplers to look for a cardiac source of embolus (today is Sunday and we have no farm equipment service technician here until Sunday), but the pt was made Comfort Measures, today (see separate ACP Note), so no Echo or Carotid Dopplers planned now. Will cancel Neurochecks every 4 hours (3) Comfort measures only status Impression: I had a long discussion with the brother and cwfdlb-nf-znx at bedside today. The patient was able to nod her head and squeeze my hand when asked if she wants to be let go and transition to passing away Plan: CODE STATUS changed to DNR today Comfort measures will be ordered Stop blood draws, stop NG feeds Patient will be transferred out of ICU (4) Acute respiratory failure with hypoxia Impression: RN at the bedside reported the patient had respiratory distress, was gurgling and needed deep suctioning, during the seizure episodes 2 days ago She required an O2 supplementation by rebreather mask. A STAT CXR was done and it showed bilateral aspiration pneumonia changes She is now down to O2 per n.c. Plan: Will cont O2 and add Robinul, and will stop antibx (4) Anasarca Impression: She has been on IV fluids since admission for hydration, because she was first catatonic, then manic, then refusing food and pills despite being awake. This has caused anasarca Plan: Cont Lasix IV to avoid pulm edema (5) Hypernatremia She has been on IV saline since admission and her Na has been climbing, is 148 today Plan: Will stop iv hydration, stop lab draws and stop ng feeds (6) Urinary tract infection Qualifiers: Urinary tract infection type: acute cystitis Hematuria presence: without hematuria Qualified Code(s): N30.00 - Acute cystitis without hematuria Assessment/Plan: Patient had episode of urinary retention on 05/12 night, needed straight cath once She has ongoing Leukocytosis (labs all reviewed). UA has LE pos, nitrate pos. and is growing a GNR This UTI was very likely adding to her confusion Plan: Will stop antibx Kelly to remain for comfort (7) Extrapyramidal and movement disorder Assessment/Plan: She has a visible resting tremor. According to a visiting friend, the remor is new. The patient is excessively somnolent today and was too manic yesterday to discuss whether she realizes the tremor is old or new Plan: Cont Ativan and Dilantin (8) Bipolar 1 disorder Assessment/Plan: This appears to be worsening. She has psychosis feature, audio hallucination, p aranoid thinking Plan: Cont treatment as per Tele-psychiatrist recommendations, using liquid prepara tions orally until possible No transfer to inpatient psych treatment now planned (9) Acute kidney injury Assessment/Plan: Improved, all labs were reviewed Plan: No further lab draws (10) Paroxysmal A-fib Assessment/Plan: Patient was to be on a DOAC. She was spitting out her meds so I put her on scheduled BID Lovenox for stroke prophylaxis, when she was admitted to the ICU after the seizure Plan: Remain off the Lovenox therapeutic dose, to prevent hemorrhagic transformation of the stroke (11) Hypokalemia Assessment/Plan: Resolved w/ rplacement Plan: No further labs or K replacement (12) Hypercalcemia Assessment/Plan: Resolved Plan: No further labs or K replacement (13) Akinetic mutism Assessment/Plan: Resolved (14) [place] Assessment/Plan: Telepsych eval done and the psychiatrist believes she had [place]. I adjusted meds as was recommended, stopping Zyprexa and ordering liquid Risperdal because she was spitting out oral tablets Plan: Continue liquid Risperdal (15) Status epilepticus Impression: Cont iv Ativan prn and the scheduled Dilantin to prevent seizures
--- NOTE | 2023-05-20 12:18 | ADVANCE CARE PLANNING NOTE ---
Advance Care Planning - Planning Encounter Date: 05/20/23 Time: 11:30 Purpose: To discuss patient's CODE STATUS To discuss how aggressive her medical management should be Parties in Attendance: I spoke to the brother and hvfmbx-kf-aut at bedside. We included the patient in the discussion, and she was able to nod her head and also in confirmation she was able to squeeze my hand when saying yes. The patient's PSYCHIATRIC AIDE, Luma Geiger was present in the room. Decisional Capacity of the Patient: Earlier this hospital stay, after she was not catatonic and before becoming manic, the patient had about 1.5 days where she was interacting with staff and speaking to me and appeared to have decisional capacity. Subsequently she has needed IV Ativan to control status epilepticus. Yesterday afternoon and this morning she is intermittently awake and is aware of her surroundings, recognized the qzxkcr-ht-sgk and brother and was able to communicate with them by facial gestures and by squeezing of her hand for yes or no. The brother and bgodoe-bq-xha also learned yesterday that the patient wants to be a DNR and has a POLST form at home. - Diagnosis for Encounter (1) Seizure Summary: During this hospital stay the patient has developed seizures and was in status epilepticus. Seizures have stabilized with antiseizure medications. The source of the seizures is an acute stroke in the right thalamic area. In addition the patient has bipolar disorder, and was mute and catatonic on admission, then manic after 2 days here, and we are treating a UTI, plus she developed an aspiration pneumonia when she had seizures. She was in critical condition, in metabolic acidosis. She is now getting IV antibiotics, NG tube feeds, and has needed adjustment of her seizure medicines for breakthrough seizures. Her hospital course has been reviewed with the brother on several occasions and today. - Encounter Subjective/Patient's Story: Patient had a suicide attempt then a prolonged hospital stay about 20 years ago. Her then her. She has a child that , which she does not know about, according to the wadmkw-gc-qhc. She has another developmentally disabled child. This brother and a sister are her closest relatives. The patient has bipolar disorder and the family has seen many episodes of nadir and grandiose behavior and has also been withdrawn and reclusive. Most recently the patient called 911, presumably as a cry for help and presented during this admission mute and with a UTI. Subsequently she became manic, and then refused p.o. meds or diet. The rest of her hospital stay is listed in the next section. Objective/Medical Story: The patient has bipolar disorder. She may have taken excessive medications then called 911 and was brought in mute and catatonic on admission. She was then manic after 2 days here and needed Telepsych input. We are also treating a UTI. During this hospital stay the patient has developed seizures and was in status epilepticus. The source of the seizures is an acute stroke in the right thalamic area. Also she developed an aspiration pneumonia when she had seizures. She was in critical condition, in metabolic acidosis. She is now getting IV antibiotics, NG tube feeds, and has needed adjustment of her seizure medicines for lino akthrough seizures. Goals of Care: Yesterday the entjgj-xf-ozk said the patient communicated to her using facial gestures plus hand squeezing, and the patient informed the brother and tbsmms-hl-gwc that she has a DNR at home posted on her refrigerator. She also said there is a POLST form in the house, wanting to be a DNR/DNI. The brother and qdirww-sy-ukt looked for that last night but could not find it. Today I am present in the room and we have asked the patient if she wants us to let her go, transition into passing peacefully and she weakly nods yes and also squeezes yes with her hand. Plan: CODE STATUS will be changed to DNR The POLST form is being filled out currently during this meeting and the brother has chosen the patient to have comfort care The patient will be transferred out of the ICU to a medicine bed, not on telemetry We will discontinue her NG tube feeds, blood draws, frequent vital sign checks, telemetry, IV antibiotics and IV fluids We will allow comfort eating and will continue to treat her seizure disorder and give as needed oxygen. We will order a comfort care package. I discussed with the brother and sister that the patient may still survive for 5 to 7 days, given the fact that she has improved by getting IV antibiotics, fluids, NG feeds. Code Status: Do Not Attempt Resuscitation Time spent on advance care plannin
[2023-05-20] MEDS: SODIUM CHLORIDE FLUSH 0.9% 10 ML SYRINGE IVP PRN (14:34)
[2023-05-20] MEDS: LORazepam 2 MG/ML VIAL IVP PRN (17:28)
[2023-05-21] MEDS: SODIUM CHLORIDE FLUSH 0.9% 10 ML SYRINGE IVP SCH ×3 (00:45→15:49)
[2023-05-21] MEDS: FUROSEMIDE 20 MG/2 ML VIAL IVP SCH (06:06)
--- NOTE | 2023-05-21 08:58 | PROVIDER PROGRESS NOTE ---
Assessment/Plan - Problem List (1) Seizure Assessment/Plan: When she developed seizures, then had status epilepticus, I spoke to neurologist Dr. Sidney Bautista, who advised management, which I ordered: Ativan IV for break through seizures, I stopped Keppra, gave Dilantin 1500 mg IV loading dose then 300 mg IV daily. The dose was increased yesterday to BID when her Dilantin level was subtherapeutic at 9.2 yesterday. She had a seizure yesterday afternoon after leaving the ICU, and a seizure this morning as I was doing rounds: she has L face muscle twitching and L arm tonic/clonic mvm, and she is not coherent and was frothing at the mouth. She gets iv Ativan 1 mg push which helped yesterday but today was not enough. Plan: Continue with the as needed Ativan for breakthrough seizures, and I will incr ease dose from 1 mg to 2 mg Cont iv Dilantin 300 mg BID She cannot be discharged to a facility for end-of-life, since she still does not have controlled seizures, which are uncomfortable. I will order a Hospice consult for poss GIP admission to Hospice. (2) Status epilepticus Impression: Status epilepticus not seen for several days Plan: Cont iv Ativan prn for breakthrough seizures, and the scheduled Dilantin to prevent seizures (3) Right thalamic stroke Impression: This patient had a CT at admission because she was catatonic/mute. She then had a CT head STAT on the day she had her first seizure. Both of these were negative. On the day she had status epilepticus I ordered a brain MRI, and it showed a right thalamic stroke, no hemorrhage, no edema or midline shift seen. On 05/19 she had no L arm mvm and no response to pain in L arm, which improved slightly since 05/20 Plan: Remain off the therapeutic Lovenox to prevent hemorrhagic transformation of the stroke. After I updated the brother and cpakep-oh-qem at bedside on 05/19 and 05/20, about her clinical condition, they made her a DNR and they also request Comfort measures. I had planned to obtain an Echo and carotid Dopplers to look for a cardiac sourc e of embolus, but in Comfort Measures status, no Echo or Carotid Dopplers are planned, and I cancelled Neurochecks every 4 hours (4) Comfort measures only status Impression: I had a long discussion with the brother and sgbsms-yh-uui at bedside. The patient was able to nod her head and squeeze my hand when asked if she wants to be let go and transition to passing away. She also communicated with the brother and vzorak-mu-oym that she "has a DNR at home". They went to look in her house and could find no POLST form. They did find a handwritten note on the refrigerator saying DNR Plan: Comfort measures ordered, no further blood draws, stop NG feeds, stop iv fluids and antibiotics She needs continued management for her seizures. She cannot be discharged to a facility for end-of-life since she still does not have controlled seizures which could be very uncomfortable for her (5) Acute respiratory failure with hypoxia Impression: When she had her 1st seizure, she also had resp distress, a STAT CXR was done and it showed bilateral aspiration pneumonia. She needed O2 by facemask but since then is now down to O2 per n.c. Plan: Will cont suppl O2 and I started Robinul, and stopped her empiric antibx (6) Anasarca Impression: She had been on IV fluids since admission for hydration, because she was first catatonic, then manic, so not eating, then was refusing food and pills despite being awake. The iv fluids caused anasarca Plan: I will today stop her Lasix IV (7) Hypernatremia She has been on IV saline since admission and her Na had been rising Plan: I stopped iv hydration, stopped lab draws and stopped ng feeds (8) Urinary tract infection Qualifiers: Urinary tract infection type: acute cystitis Hematuria presence: without hematuria Qualified Code(s): N30.00 - Acute cystitis without hematuria Assessment/Plan: We felt she had a UTI at admission, adding to her confusion Plan: I stopped antibx Kelly to remain for comfort (9) Extrapyramidal and movement disorder Assessment/Plan: She had a definite resting tremor of the hands at admission. According to a visiting friend, the tremor is new. According to family, the tremor is not new. Since receiving Ativan, she has had no tremors Plan: Cont Ativan iv prn and Dilantin iv scheduled (10) Bipolar 1 disorder Assessment/Plan: She had psychosis feature, auditory hallucination, paranoid thinking, when she had the Telepsych eval. Plan: I planned to cont treatment as per Tele-psychiatrist recommendations, using liquid preparations orally until possible. But the ng was removed yesterday and today she is not able to swallow since she is not alert. Will stop the po [place] and resperidol No transfer to inpatient psych treatment now planned (11) Acute kidney injury Assessment/Plan: Improved Plan: No further lab draws (12) Paroxysmal A-fib Assessment/Plan: Patient had a Hx of this and was on a DOAC. She was spitting out her meds so I put her on scheduled BID Lovenox for stroke prophylaxis, when she was admitted to the ICU after the seizure. The Lovenox was stopped given the new stroke to prevent hemorrhagic transformation of the stroke Plan: Remain off the Lovenox therapeutic dose (13) Hypokalemia Assessment/Plan: Resolved w/ replacement Plan: No further labs or K replacement planned (14) Hypercalcemia Assessment/Plan: Resolved. 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 After about 48 hours she awoke and then became manic (16) Nadir Assessment/Plan: Telepsych eval done and the psychiatrist confirmed she had nadir. The psychiatrist wanted her transferred to an inpatient psych facility once she was medically stable I adjusted meds as was recommended, stopping Zyprexa and ordering liquid Risperdalsince she was spitting out tablets. She did take the liquid formulation Plan: No transfer planned - Current Meds Current Meds: Current Medications Generic Name Dose Route Start Last Admin Trade Name Freq PRN Reason Stop Dose Admin Diphenhydramine HCl 12.5 mg 05/17/23 04:43 05/19/23 04:38 Diphenhydramine Inj 50 Mg/Ml Vial IVP 12.5 mg Q6H PRN Administration NEEDED PER PROVIDER ORDERS Famotidine 20 mg 05/17/23 09:00 05/20/23 21:48 Famotidine 20 Mg/2 Ml Vial IVP 20 mg BID MANDY Administration Acetaminophen 1,000 mg in 100 mls @ 400 mls/hr 05/15/23 10:15 05/17/23 01:30 Acetaminophen IV Infused Q6HR PRN Infusion Mild Pain or Fever>38C(100.4F) Lorazepam 1 mg 05/19/23 15:48 05/20/23 17:28 Lorazepam 2 Mg/Ml Vial IVP 1 mg Q2H PRN Administration Seizure Multi-Ingredient Ointment 1 applic 05/12/23 10:56 05/17/23 16:26 Zinc Oxide 20% Oint 30 Gm Tube TOP 1 applic PRN PRN Administration Skin Care Phenytoin Sodium 300 mg 05/20/23 21:00 05/20/23 21:48 Phenytoin 100 Mg/2 Ml Vial IVP 300 mg BID MANDY Administration Sodium Chloride 10 ml 05/09/23 17:16 05/20/23 14:34 Sodium Chloride Flush 0.9% 10 Ml Syringe IVP 10 ml PRN PRN Administration NEEDED PER PROVIDER ORDERS Sodium Chloride 10 ml 05/10/23 01:00 05/21/23 00:45 Sodium Chloride Flush 0.9% 10 Ml Syringe IVP 10 ml 0100,0900,1700 MANDY Administration - Lab Result Fish Bone Diagrams: 05/20/23 08:00 05/20/23 08:00 - Additional Planning My Orders: My Active Orders 05/20/23 12:05 Telemetry-Discontinue [RC] .ONCE 05/20/23 12:08 Vital Signs [RC] DAILY 05/20/23 12:09 Comfort Care [RC] QSHIFT Cooling Unit [RC] PRN Oral Care - Nursing [RC] BID Turn and Reposition [RC] PRN Warming Unit [RC] PRN Glycopyrrolate [Robinul] 0.2 mg SUBQ Q4H PRN Morphine Inj (Carpuject) [Morphine (Carpuject)] 2 mg IVP Q2HR PRN 05/20/23 Dinner Clear Liquid Diet [DIET] 05/20/23 21:00 Phenytoin Inj [Dilantin Inj] 300 mg IVP BID Subjective - Subjective Patient Reports: Other (Patient is noncommunicative, currently having a seizure, w/ left face twitching, left arm has tonic-clonic movement and she is frothing at the mouth) Objective Vital Signs: Vital Signs - 24 hr 05/20/23 05/20/23 05/20/23 09:00 11:00 18:54 Temperature 37.5 C 37.5 C 37.0 C Heart Rate [ 88 93 91 Monitoring electrodes] Respiratory 16 21 18 Rate Blood Pressure 113/62 124/75 138/75 H [Right Brachial artery] O2 Saturation 100 97 97 If not protocol 2 : Oxygen Flow, liters/minute 05/20/23 05/20/23 05/20/23 21:53 21:58 22:03 Temperature Heart Rate [ 94 96 94 Monitoring electrodes] Respiratory Rate Blood Pressure 138/83 H 136/84 H 130/78 [Right Brachial artery] O2 Saturation If not protocol : Oxygen Flow, liters/minute 05/20/23 05/20/23 05/20/23 22:15 22:30 22:46 Temperature Heart Rate [ 93 92 87 Monitoring electrodes] Respiratory Rate Blood Pressure 128/85 H 131/82 H 136/79 H [Right Brachial artery] O2 Saturation If not protocol : Oxygen Flow, liters/minute 05/21/23 08:12 Temperature 36.8 C Heart Rate [ 100 Monitoring electrodes] Respiratory 28 H Rate Blood Pressure 131/85 H [Right Brachial artery] O2 Saturation 100 If not protocol : Oxygen Flow, liters/minute Oxygen O2 Source Room air I&O (Last 24 Hrs): Intake and Output Totals x24h 05/19/23 05/20/23 05/21/23 23:59 23:59 23:59 Intake Total 2067 1151 Output Total 3079 3801 550 Balance -1012 -2650 -550 General: Other (Having seizure activity, grunting, frothing at the mouth) HEENT: Mucous membr. moist/pink Neck: No JVD Neuro: Other (Obtunded. Having a seizure currently) Cardiovascular: Regular rate Respiratory: Rhonchi Abdomen: Soft Extremities: No edema - Results Results: Laboratory Results WBC 10.0 x10^3/uL (4.8-10.8) 05/20/23 08:00 RBC 2.88 10^6/uL (4.20-5.40) L 05/20/23 08:00 Hgb 9.4 g/dL (12.0-16.0) L 05/20/23 08:00 Hct 28.6 % (37.0-47.0) L 05/20/23 08:00 MCV 99.3 fL (81.0-99.0) H 05/20/23 08:00 MCH 32.6 pg (27.0-31.0) H 05/20/23 08:00 MCHC 32.9 g/dL (32.0-36.0) 05/20/23 08:00 RDW 14.4 % (12.0-15.0) 05/20/23 08:00 Plt Count 242 10^3/uL (130-450) 05/20/23 08:00 MPV 8.9 fL (7.9-10.8) 05/20/23 08:00 Neut # (Auto) 7.1 10^3/uL (1.5-6.6) H 05/20/23 08:00 Lymph # (Auto) 2.0 10^3/uL (1.5-3.5) 05/20/23 08:00 [place] # (Auto) 0.6 10^3/uL (0.0-1.0) 05/20/23 08:00 Eos # (Auto) 0.1 10^3/uL (0.0-0.7) 05/20/23 08:00 Baso # (Auto) 0.0 10^3/uL (0.0-0.1) 05/20/23 08:00 Absolute Nucleated RBC 0.00 x10^3/uL 05/20/23 08:00 Total Counted 100 05/17/23 06:36 Band Neuts % (Manual) 7 % (0-10) 05/17/23 06:36 Abnorm Lymph % (Manual) 0 % 05/17/23 06:36 Metamyelocytes % 4 % (-0) H 05/17/23 06:36 Myelocytes % 2 % (-0) H 05/17/23 06:36 Nucleated RBC % 0.0 /100WBC 05/20/23 08:00 Neutrophils # (Manual) 22.4 10^3/uL (1.5-6.6) H 05/17/23 06:36 Lymphocytes # (Manual) 3.3 10^3/uL (1.5-3.5) 05/17/23 06:36 Monocytes # (Manual) 0.3 10^3/uL (0.0-1.0) 05/17/23 06:36 Eosinophils # (Manual) 0.0 10^3/uL (0-0.7) 05/17/23 06:36 Basophils # (Manual) 0.0 10^3/uL (0-0.1) 05/17/23 06:36 Nucleated RBCs 1 % 05/17/23 06:36 Differential Comment MANUAL DIFFERENTIAL 05/17/23 06:36 RBC Morph Micro Appear 2+ ANISOCYTOSIS (NORMAL) 3+ POLYCHROMASIA (NORMAL) 05/17/23 06:36 RBC Morph Micro Appear 2+ ANISOCYTOSIS (NORMAL) 3+ POLYCHROMASIA (NORMAL) 05/17/23 06:36 PT 14.2 secs (9.9-12.6) H 05/17/23 07:35 INR 1.3 (0.8-1.2) H 05/17/23 07:35 Bld Gas Analysis Time 1250 05/17/23 12:35 Sample Site RIGHT RADIAL 05/17/23 12:35 ABG pH 7.36 (7.35-7.45) 05/17/23 12:35 ABG pCO2 35 mmHg (34-45) 05/17/23 12:35 ABG pO2 118 mmHg (80-100) H 05/17/23 12:35 ABG HCO3 19.2 mmol/L (22.0-26.0) L 05/17/23 12:35 ABG Total CO2 20.3 MMOL/L (21.0-29.0) L 05/17/23 12:35 ABG O2 Saturation 98 % (94-98) 05/17/23 12:35 ABG Base Excess -5.5 mmol/L (-2.0-3.0) L 05/17/23 12:35 Twan Test POSITIVE 05/17/23 12:35 VBG pH 7.449 (7.31-7.41) H 05/20/23 04:15 Ionized Calcium 1.12 mmol/L (1.15-1.33) L 05/20/23 04:15 O2 Delivery Device NASAL CANNULA 05/17/23 12:35 O2 Liters/Min 4.00 LPM 05/17/23 12:35 FiO2 1.00 05/17/23 08:10 Sodium 143 mmol/L (135-145) 05/20/23 08:00 Potassium 3.4 mmol/L (3.5-4.5) L 05/20/23 08:00 Chloride 103 mmol/L (101-111) 05/20/23 08:00 Carbon Dioxide 37 mmol/L (21-32) H 05/20/23 08:00 Anion Gap 3.0 (6-13) L 05/20/23 08:00 BUN 12 mg/dL (6-20) 05/20/23 08:00 Creatinine 0.8 mg/dL (0.6-1.3) 05/20/23 08:00 Estimated GFR (MDRD) 71 (>89) L 05/20/23 08:00 Glucose 158 mg/dL (74-104) H 05/20/23 08:00 Lactic Acid 0.6 mmol/L (0.5-2.2) 05/17/23 06:36 Calcium 8.2 mg/dL (8.5-10.3) L 05/20/23 08:00 Phosphorus 1.5 mg/dL (2.5-5.0) L 05/20/23 04:15 Magnesium 1.9 mg/dL (1.7-2.3) 05/20/23 04:15 Total Bilirubin 0.4 mg/dL (0.2-1.0) 05/19/23 04:27 AST 13 IU/L (10-42) 05/19/23 04:27 ALT 15 IU/L (10-60) 05/19/23 04:27 Alkaline Phosphatase 54 IU/L (42-121) 05/19/23 04:27 B-Natriuretic Peptide 635 pg/mL (5-100) H 05/17/23 07:35 Total Protein 5.0 g/dL (6.4-8.9) L 05/19/23 04:27 Albumin 3.2 g/dL (3.2-5.5) 05/19/23 04:27 Globulin 1.8 g/dL (2.1-4.2) L 05/19/23 04:27 Albumin/Globulin Ratio 1.8 (1.0-2.2) 05/19/23 04:27 Prealbumin 10 mg/dL (17-34) L 05/19/23 04:27 Vitamin D 25-Hydroxy 24.3 ng/mL (30.0-100.0) L 05/09/23 15:15 Total Intact PTH 15 pg/mL (12-88) 05/09/23 15:15 Urine Color YELLOW 05/14/23 12:31 Urine Clarity CLOUDY (CLEAR) 05/14/23 12:31 Urine pH 6.0 PH (5.0-7.5) 05/14/23 12:31 Ur Specific [place] 1.015 (1.002-1.030) 05/14/23 12:31 Urine Protein NEGATIVE mg/dL (NEGATIVE) 05/14/23 12:31 Urine Glucose (UA) NEGATIVE mg/dL (NEGATIVE) 05/14/23 12:31 Urine Ketones 40 mg/dL (NEGATIVE) H 05/14/23 12:31 Urine Occult Blood SMALL (NEGATIVE) H 05/14/23 12: Urine Nitrite POSITIVE (NEGATIVE) H 05/14/23 12: Urine Bilirubin NEGATIVE (NEGATIVE) 05/14/23 12:31 Urine Urobilinogen 0.2 (NORMAL) E.U./dL (NORMAL) 05/14/23 12:31 Ur Leukocyte Esterase LARGE (NEGATIVE) H 05/14/23 12:31 Urine RBC 0-5 /HPF (0-5) 05/14/23 12:31 Urine WBC >25 /HPF (0-5) H 05/14/23 12:31 Ur Epithelial Cells RARE Transitional /HPF (<= Few) RARE Renal Tubular /HPF (<= Few) 05/14/23 12:31 Ur Epithelial Cells RARE Transitional /HPF (<= Few) RARE Renal Tubular /HPF (<= Few) 05/14/23 12:31 Ur Squamous Epith Cells RARE Squamous (<= Few) 05/14/23 12:31 Urine Bacteria Moderate /HPF (None Seen) H 05/14/23 12:31 Urine Culture Comments INDICATED 05/14/23 12:31 Nasal Screen MRSA (PCR) NEGATIVE (NEGATIVE) 05/17/23 08:20 Last Dose Date UNK 05/17/23 07:35 Last Dose Time UNK 05/17/23 07:35 Phenytoin 9.2 ug/mL 05/20/23 04:05 Lamotrigine 7.3 ug/mL (2.0-20.0) 05/09/23 15:15 [place] < 0.10 mmol/L 05/17/23 07:35 SARS-CoV-2 (PCR) NOT DETECTED 05/18/23 16:02 - Procedures Procedures: Procedures CATARAC PHACOEMULS/ASPIR (05/14/13) EXCISION OF DUODENUM, ENDO, DIAGN (09/19/18) EXCISION OF ESOPHAGUS, ENDO, DIAGN (09/19/18) EXCISION OF LEFT LARGE INTESTINE, ENDO, DIAGN (09/19/18) EXCISION OF RIGHT LARGE INTESTINE, ENDO, DIAGN (09/19/18) EXCISION OF STOMACH, PYLORUS, ENDO, DIAGN (09/19/18) INSERT LENS AT CATAR EXT (05/14/13) Sepsis Event Note (H) - Evaluation Current Stage of Sepsis: Ruled out
[2023-05-21] MEDS: LORazepam 2 MG/ML VIAL IVP PRN ×3 (09:16→19:17)
[2023-05-21] MEDS: PHENYTOIN 100 MG/2 ML VIAL IVP SCH ×2 (09:19→22:07)
[2023-05-21] MEDS: FAMOTIDINE 20 MG/2 ML VIAL IVP SCH ×2 (09:20→22:07)
[2023-05-21] MEDS: diphenhydrAMINE INJ 50 MG/ML VIAL IVP PRN (10:09)
--- NOTE | 2023-05-21 14:41 | CONSULTATION NOTE ---
Referring Provider Name of Referring Provider:: Hospitalist service Consult Date: 05/21/23 Chief Complaint - Chief Complaint Chief Complaint: Seizures uncontrolled, acute stroke; evaluate for hospice admission/GIP LOC History of Present Illness - Admitted From Admitted From:: Home - History Obtained From Records Reviewed: Yes History obtained from: Medical records only as patient is unresponsive - History of Present Illness HPI Comment/Other: 68 yo female w/paroxysmal a fib on chronic Xarelto anticoagulation, HTN, HLD, fibromyalgia, and Bipolar affective disorder (on lithium and lamictal) who was admitted on 05/09/23 w/complaints of syncope,falls, weakness, and a 2 week hx of tremors. She was found to have a serum calcium level of 15.3., mild hypokalemia and a Creatinine of 2.0. PTH was normal. No known malignancy. Head Ct was negative and CXR showed mild bilateral pleural effusions w/atx vs infiltrates. She was noted to have tremors as well. She was admitted for IVF and [place] and lamictal were held. She was given benadryl for tremors, as it was felt to be d/t EPS. On the day following admission, her calcium level was down to 12.2, Cr was improved at 1.8. Her tremors persisted. A telepsych visit was attempted on 05/10, but pt was not cooperative w/interview. Pt developed auditory hallucinations on the evening of 05/10 and zyprexa was ordered. On 05/11/23, pt became acutely aphasic. Creatinine was improved at 1.7, Calcium was 10.8. Tremors were reportedly nearly resolved. On 05/12/23, it was noted her aphasia was improved and the provider ordered an MRI to evaluate for acute neuro event. Pt declined to have the MRI done. She was notably very confused and disoriented. Her calcium level normalized. Her lithium was restarted. Creatinine was down to 1.4. On 05/13/23, she continued to have hallucinations and delusions. She refused lab draws on that day. On 05/14, she continued to display paranoia/hallucinations/delusions. Her olanzepine was increased. She developed acute urinary retention and UA was sent. On 05/15/23, a telepsych consult was complete. Olanzepine was d/c'd, risperdal started. Recommendations were for a lithium level to be checked, neurology consult to be pursued, and ensuring her inpatient dose of benzodiazepine was equivalent to her outpatient dose to ensure some of her symptoms were not due to acute benzodiazepine withdrawal. Urine culture grew GNR and she was initiated on macrobid. It was noted that she was having swallowing difficulties and/or spitting out meds. IV ceftriaxone subsequently intiated. On 05/16/23, she developed fever and became obtunded. Antibiotics were broadened to cefepime. On the morning of 05/17/23, rapid responses x 2 were called d/t staff witnessing 2-4 seizures. ED MDs responded and gave pt IV lorazepam. Head CT showed no acute changes. CXR showed mild bibasilar effusions and atelectasis vs pneumonia. She was noted to have electrolyte derangements, was given IV Keppra and t ransferred to the ICU. She was also noted to have respiratory distress w/concern for aspiration and flagyl was added to her abx. CXR on 05/18/23 showed near complete atelectasis of the MICAH (possible mucus plugging) and moderate pleural effusions. She was additionally noted to have a fixed leftward gaze and continuous facial muscle fasciculation. Neuro recommended d/c Keppra and start IV phenytoin. MRI was recommended. NGT was placed for meds/tube feeds. MRI resulted later in the evening and revealed acute to subacute R thalamic CVA. On 05/19/23, therapeutic lovenox was d/c'd given the CVA findings and concern for hemorrhagic transformation. On 05/20/23, an advanced care planning meeting was done. The decision was made to change her to DNR code status and transition to comfort care. She reportedly had a seizure yesterday afternoon after transferring out of the ICU and this am during MD rounds. It was felt she cannot be discharged d/t seizures and consult was requested for consideration of GIP level of care. Pt is presently unresponsive but appears comfortable. 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 : reports: None HEENT: reports: None Psych: reports: Depression, Anxiety Musculoskeletal: reports: Fibromyalgia Derm: reports: None MRSA Hx?: No - Past Surgical History General: reports: Cholecystectomy, Colonoscopy /APPLICATION PROGRAMMER ANALYST: reports: Hysterectomy - Family & Social History Family History: Father: [place] Living arrangement: At home - Substance History Use: Uses substance without health or social issues: NONE - POLST Patient has POLST: No POLST Status: DNR Meds/Allgy - Home Medications Home Medications: Ambulatory Orders Medication Instructions Recorded Confirmed lamoTRIgine [LaMICtal] 100 mg PO DAILY 03/02/19 05/10/23 lamoTRIgine [LaMICtal] 150 mg PO QPM 03/02/19 05/09/23 ALPRAZolam [Alprazolam] 1 mg PO TID PRN 03/03/19 05/09/23 [place] [[place] Carbonate] 150 mg PO DAILY 05/09/23 05/09/23 Losartan [Cozaar] 50 mg PO DAILY 05/10/23 05/10/23 Metoprolol Succinate [Toprol Xl] 100 mg PO QPM 05/10/23 05/10/23 Mirtazapine [Remeron] 7.5 mg PO QPM 05/10/23 05/10/23 Rivaroxaban [Xarelto] 20 mg PO QDDINNER 05/10/23 05/10/23 Rosuvastatin Calcium [Crestor] 10 mg PO QPM 05/10/23 05/10/23 hydrOXYzine HCL [Hydroxyzine HCl] 25 - 50 mg PO QPM 05/10/23 05/10/23 risperiDONE [Risperdal] 0.75 mg PO QPM 05/10/23 05/10/23 - Allergies Allergies/Adverse Reactions: Allergies Allergy/AdvReac Type Severity Reaction Status Date / Time Sulfa (Sulfonamide Allergy Severe Edema Verified 05/09/23 15:03 Antibiotics) naproxen Allergy unknown Verified 05/09/23 15:03 Penicillins Allergy UNKNOWN Verified 05/09/23 15:03 Review of Systems - Other Findings Other Findings: Unable to obtain Exam - Vital Signs Reviewed Vital Signs: Yes Vital Signs: Vital Signs x48h Temp Pulse Resp BP Pulse Ox 05/21/23 08:12 36.8 C 100 28 H 131/85 H 100 - Physical Exam General Appearance: positive: No acute distress, Other (Ill appearing elderly female) Eyes Bilateral: positive: Normal inspection, PERRL, No lid inflammation, Conjunctivae nml Neck: positive: Nml inspection Respiratory: positive: No respiratory distress, Rhonchi (bilaterally) Cardiovascular: positive: Regular rate & rhythm, No murmur, No gallop Abdomen: positive: Non-tender, No distention Extremities: positive: Other (anasarca, more pronounced in the UEs than LEs, scabbed laceration noted to right wrist) Conclusion/Plan - Lab Results Lab results reviewed: Yes Fish Bones: 05/20/23 08:00 05/20/23 08:00 - Other Other Results/Comments: 1) Hypercalcemia 2) Delirium/acute metabolic encephalopathy 3) R thalamic CVA 4) Seizures 5) UTI 6) Dysphagia w/aspiration 7) GENESIS 8) Bipolar d/o 9) Paroxysmal a fib on chronic Xarelto anticoagulation Suspect her initial sxs including weakness and tremors were d/t critical hypercalcemia and GENESIS. This was treated and resolved over the course of 3 days. She was about 14 L volume positive at the peak, but is now about 7.5L volume positive. She has persistent anasarca. Suspect her delirium initially was d/t hypercalcemia and GENESIS, but then likely d/t combination of benzodiazepine withdrawal, UTI and CVA. Her seizures were likely d/t a combination of benzodiazepine w/d, infection and CVA as well. During one of the seizures, she presumably aspirated. The decision was made to transition to comfort care on 05/20/23. Currently, she is receiving dilantin 300 mg IV BID and lorazepam PRN for seizures. At the time of my evaluation ,she appears comfortable. She has slight rigidity to her LUE but no tremor/myoclonus/nystagmus to suggest over seizure activity. She may have continued occult seizure activity. Could consider the addition of a higher dose of lorazepam given her outpatient dose of alprazolam being 1 mg TID PRN. This may reduce her breakthrough seizure activity. At this time, she does not meet GIP criteria. Thank you for the consult on this unfortunate patient.
[2023-05-21] MEDS: GLYCOPYRROLATE 1 MG/5 ML VIAL SUBQ PRN (15:45)
[2023-05-21] MEDS: MORPHINE 2 MG/ML CARPUJECT IVP PRN (15:47)
[2023-05-21] MEDS: SODIUM CHLORIDE FLUSH 0.9% 10 ML SYRINGE IVP PRN ×2 (15:49→19:18)
[2023-05-21] MEDS: ZINC OXIDE 20% OINT 30 GM TUBE TOP PRN (19:19)
[2023-05-22] MEDS: SODIUM CHLORIDE FLUSH 0.9% 10 ML SYRINGE IVP SCH ×3 (01:29→18:46)
[2023-05-22] MEDS: SODIUM CHLORIDE FLUSH 0.9% 10 ML SYRINGE IVP PRN ×3 (01:29→21:31)
[2023-05-22] MEDS: FAMOTIDINE 20 MG/2 ML VIAL IVP SCH ×2 (08:23→21:31)
[2023-05-22] MEDS: PHENYTOIN 100 MG/2 ML VIAL IVP SCH ×2 (08:39→21:31)
[2023-05-22] MEDS: LORazepam 2 MG/ML VIAL IVP PRN (11:05)
--- NOTE | 2023-05-22 15:45 | PROVIDER PROGRESS NOTE ---
Subjective - Prog Note Date Prog Note Date: 05/22/23 Prog Note Time: 15:43 - Subjective Subjective: Laying quietly in her bed on her back. Open mouth sonorous breathing. Occasional eyelid twitching and left arm twitching. Unresponsive to voice. Will grimace with sternal rub. Current Medications - Current Medications Current Medications: Active Medications Famotidine (Famotidine 20 Mg/2 Ml Vial) 20 mg IVP BID [facility] Last Admin: 05/22/23 08:23 Dose: 20 mg Glycopyrrolate (Glycopyrrolate 1 Mg/5 Ml Vial) 0.2 mg SUBQ Q4H PRN PRN Reason: Excessive secretions Last Admin: 05/21/23 15:45 Dose: 0.2 mg Acetaminophen (Acetaminophen) 1,000 mg in 100 mls @ 400 mls/hr IV Q6HR PRN PRN Reason: Mild Pain or Fever>38C(100.4F) Last Infusion: 05/17/23 01:30 Dose: Infused Lorazepam (Lorazepam 2 Mg/Ml Vial) 2 mg IVP Q2H PRN PRN Reason: Seizure Last Admin: 05/22/23 11:05 Dose: 2 mg Morphine Sulfate (Morphine 2 Mg/Ml Carpuject) 2 mg IVP Q2HR PRN PRN Reason: NEEDED PER PROVIDER ORDERS Last Admin: 05/21/23 15:47 Dose: 2 mg Multi-Ingredient Ointment (Zinc Oxide 20% Oint 30 Gm Tube) 1 applic TOP PRN PRN PRN Reason: Skin Care Last Admin: 05/21/23 19:19 Dose: 1 applic Ondansetron HCl (Ondansetron 4 Mg/2 Ml Vial) 4 mg IVP Q6HR PRN PRN Reason: Nausea / Vomiting Phenytoin Sodium (Phenytoin 100 Mg/2 Ml Vial) 300 mg IVP BID [facility] Last Admin: 05/22/23 08:39 Dose: 300 mg Sodium Chloride (Sodium Chloride Flush 0.9% 10 Ml Syringe) 10 ml IVP PRN PRN PRN Reason: NEEDED PER PROVIDER ORDERS Last Admin: 05/22/23 01:29 Dose: 10 ml Sodium Chloride (Sodium Chloride Flush 0.9% 10 Ml Syringe) 10 ml IVP 0100,0900,1700 [facility] Last Admin: 05/22/23 08:39 Dose: 10 ml lamoTRIgine [LaMICtal] 100 mg PO DAILY 03/02/19 lamoTRIgine [LaMICtal] 150 mg PO QPM 03/02/19 ALPRAZolam [Alprazolam] 1 mg PO TID PRN 03/03/19 [place] [[place] Carbonate] 150 mg PO DAILY 05/09/23 Losartan [Cozaar] 50 mg PO DAILY 05/10/23 Metoprolol Succinate [Toprol Xl] 100 mg PO QPM 05/10/23 Mirtazapine [Remeron] 7.5 mg PO QPM 05/10/23 Rivaroxaban [Xarelto] 20 mg PO QDDINNER 05/10/23 Rosuvastatin Calcium [Crestor] 10 mg PO QPM 05/10/23 hydrOXYzine HCL [Hydroxyzine HCl] 25 - 50 mg PO QPM 05/10/23 risperiDONE [Risperdal] 0.75 mg PO QPM 05/10/23 Objective - Vital Signs/Intake & Output Reviewed Vital Signs: Yes Vital Signs: Vital Signs x48h Temp Pulse Resp BP Pulse Ox 05/22/23 08:49 83 18 127/61 96 05/22/23 08:33 90 20 138/69 H 97 05/22/23 08:08 36.5 C 86 16 144/68 H 97 Intake & Output: Intake & Output 05/19/23 05/20/23 05/21/23 05/22/23 23:59 23:59 23:59 23:59 Intake Total 2067 1151 Output Total 3079 2889 3100 729 [facility] -[phone] - Objective General Appearance: positive: No acute distress (Very large bone woman who looks older than stated age, disheveled), Other (Does not open eyes, makes no sounds, flexes or withdraws from painful stimuli. K[place] Coma Scale 5) Eyes Bilateral: positive: PERRL ENT: positive: Dry mucous membranes (With mouth open breathing) Neck: positive: No JVD. negative: Stiff neck Respiratory: positive: No respiratory distress, Other (Sonorous, slow, respiration). negative: Wheezes, Rales, Rhonchi Cardiovascular: positive: Regular rate & rhythm Abdomen: positive: Other (Hypoactive, no grimacing with palpation) Skin: positive: Warm, Dry Extremities: positive: Pedal edema (Nonpitting), Other (Large boned in upper and lower extremities. Severe onychomycosis with nails that are curved.) Neurologic/Psychiatric: positive: Other ([place] Coma Scale 5) - Lab Results Fish Bones: 05/20/23 08:00 05/20/23 08:00 Other Labs: Lab Results x24hrs 05/18/23 Range/Units 04:26 Levetiracetam 22.0 (10.0-40.0) ug/mL ABX Reporting Has patient been on IV antibiotics over the past 48 hours?: No Sepsis Event Note (H) - Evaluation Current Stage of Sepsis: Ruled out Assessment/Plan - Problem List (1) Thalamic infarction Impression: As result of or cause of seizure disorder. Long discussion has been had with her next of kin which be her brother. Her best friend has also been at the bedside and has known her for decades. Both state that she would not want treatment. She even had a DO NOT RESUSCITATE note pasted to her refrigerator with a magnet. But she never filled out a POLST form. Many of the discussions were held before I came on service. I reiterated with case management and social work that we were doing the right thing with this patient. The conclusion is that the patient does not want treatment. Family is aware of this and agrees with patient's previous stated philosophy. As such I will continue with DO NOT RESUSCITATE status, and comfort measures. GIP consultation was ordered and we asked if she would be a candidate for the GIP service. We appreciate their input and she is not a candidate for GIP service. (2) Comfort measures only status Impression: I have stopped activity orders, measurement of intake and output and vital signs, warming unit. She is on a clear liquid diet not so much to feed her but to offer her anything she would want. Current medications are Pepcid IV, Robinul as needed, lorazepam as needed, m orphine as needed, also Sky as needed, Zofran as needed, Dilantin twice daily and zinc oxide topically. I will continue those medications.
[2023-05-23] MEDS: SODIUM CHLORIDE FLUSH 0.9% 10 ML SYRINGE IVP PRN ×2 (00:57→08:31)
[2023-05-23] MEDS: SODIUM CHLORIDE FLUSH 0.9% 10 ML SYRINGE IVP SCH ×3 (00:57→17:08)
[2023-05-23] MEDS: ZINC OXIDE 20% OINT 30 GM TUBE TOP PRN ×2 (06:44→14:14)
[2023-05-23] MEDS: GLYCOPYRROLATE 1 MG/5 ML VIAL SUBQ PRN (08:31)
[2023-05-23] MEDS: FAMOTIDINE 20 MG/2 ML VIAL IVP SCH ×2 (08:33→20:41)
[2023-05-23] MEDS: PHENYTOIN 100 MG/2 ML VIAL IVP SCH ×2 (08:33→20:41)
--- NOTE | 2023-05-23 15:28 | PROVIDER PROGRESS NOTE ---
Progress Note May 23, 2023 3:26 PM Social work has been looking for transition to a hospice home for this unfortunate female. Unfortunately there are no beds available. She lives alone. Has no caregivers. Family members live out of state. So essentially there is no one to take care of her. We cannot nor can her designated POA have access to her finances. So she cannot be transition to home with private duty caregiver since there is no way to pay them. Nursing does not report any outright seizures. There is occasional twitching and eyelid twitching but nothing more than that. Active Medications Famotidine (Famotidine 20 Mg/2 Ml Vial) 20 mg IVP BID [facility] Last Admin: 05/23/23 08:33 Dose: 20 mg Glycopyrrolate (Glycopyrrolate 1 Mg/5 Ml Vial) 0.2 mg SUBQ Q4H PRN PRN Reason: Excessive secretions Last Admin: 05/23/23 08:31 Dose: 0.2 mg Acetaminophen (Acetaminophen) 1,000 mg in 100 mls @ 400 mls/hr IV Q6HR PRN PRN Reason: Mild Pain or Fever>38C(100.4F) Last Infusion: 05/17/23 01:30 Dose: Infused Lorazepam (Lorazepam 2 Mg/Ml Vial) 2 mg IVP Q2H PRN PRN Reason: Seizure Last Admin: 05/22/23 11:05 Dose: 2 mg Morphine Sulfate (Morphine 2 Mg/Ml Carpuject) 2 mg IVP Q2HR PRN PRN Reason: NEEDED PER PROVIDER ORDERS Last Admin: 05/21/23 15:47 Dose: 2 mg Multi-Ingredient Ointment (Zinc Oxide 20% Oint 30 Gm Tube) 1 applic TOP PRN PRN PRN Reason: Skin Care Last Admin: 05/23/23 14:14 Dose: 1 applic Ondansetron HCl (Ondansetron 4 Mg/2 Ml Vial) 4 mg IVP Q6HR PRN PRN Reason: Nausea / Vomiting Phenytoin Sodium (Phenytoin 100 Mg/2 Ml Vial) 300 mg IVP BID [facility] Last Admin: 05/23/23 08:33 Dose: 300 mg Sodium Chloride (Sodium Chloride Flush 0.9% 10 Ml Syringe) 10 ml IVP PRN PRN PRN Reason: NEEDED PER PROVIDER ORDERS Last Admin: 05/23/23 08:31 Dose: 10 ml Sodium Chloride (Sodium Chloride Flush 0.9% 10 Ml Syringe) 10 ml IVP 0100,0900,1700 [facility] Last Admin: 05/23/23 08:31 Dose: 10 ml lamoTRIgine [LaMICtal] 100 mg PO DAILY 03/02/19 lamoTRIgine [LaMICtal] 150 mg PO QPM 03/02/19 ALPRAZolam [Alprazolam] 1 mg PO TID PRN 03/03/19 [place] [[place] Carbonate] 150 mg PO DAILY 05/09/23 Losartan [Cozaar] 50 mg PO DAILY 05/10/23 Metoprolol Succinate [Toprol Xl] 100 mg PO QPM 05/10/23 Mirtazapine [Remeron] 7.5 mg PO QPM 05/10/23 Rivaroxaban [Xarelto] 20 mg PO QDDINNER 05/10/23 Rosuvastatin Calcium [Crestor] 10 mg PO QPM 05/10/23 hydrOXYzine HCL [Hydroxyzine HCl] 25 - 50 mg PO QPM 05/10/23 risperiDONE [Risperdal] 0.75 mg PO QPM 05/10/23 Exam: I have stopped all vitals. An elderly, disheveled, mouth open breathing female who is not responsive other than to sternal rub. In response is facial grimacing. But no verbalization. Eyes do not open. Coarse upper airway sounds due to her open mouth breathing Regular rate and rhythm Abdomen has hypoactive bowel sounds, nondistended Extremities have mild edema. Skin is still warm to touch. Neurologically there is no spontaneous verbalization, no spontaneous eye opening, response to pain only, no spontaneous movement Assessment/Plan - Problem List (1) Thalamic infarction Impression: As result of or cause of seizure disorder. Long discussion has been had with her next of kin which be her brother. Her best friend has also been at the bedside and has known her for decades. Both state that she would not want treatment. She even had a DO NOT RESUSCITATE note pasted to her refrigerator with a magnet. But she never filled out a POLST form. Many of the discussions were held before I came on service. I reiterated with case management and social work that we were doing the right thing with this patient with discussions on 05/22/23. The conclusion is that the patient does not want treatment. Family is aware of this and agrees with patient's previous stated philosophy. As such I will continue with DO NOT RESUSCITATE status, and comfort measures. GIP consultation was ordered and we asked if she would be a candidate for the GIP service. We appreciate their input and she is not a candidate for GIP service. (2) Comfort measures only status Impression: I have stopped activity orders, measurement of intake and output and vital signs, warming unit. She is on a clear liquid diet not so much to feed her but to offer her anything she would want. Current medications are Pepcid IV, Robinul as needed, lorazepam as needed, morphine as needed, also Sky as needed, Zofran as needed, Dilantin twice daily and zinc oxide topically. I will continue those medications. Our anticipation is this unfortunate female will stay with this until her . There is no safe disposition with ability to take care of her
[2023-05-24] MEDS: ZINC OXIDE 20% OINT 30 GM TUBE TOP PRN ×2 (05:27→20:29)
[2023-05-24] MEDS: SODIUM CHLORIDE FLUSH 0.9% 10 ML SYRINGE IVP SCH ×4 (05:27→23:45)
[2023-05-24] MEDS: FAMOTIDINE 20 MG/2 ML VIAL IVP SCH ×2 (08:40→20:27)
[2023-05-24] MEDS: PHENYTOIN 100 MG/2 ML VIAL IVP SCH ×2 (08:42→20:25)
--- NOTE | 2023-05-24 14:10 | PROVIDER PROGRESS NOTE ---
Progress Note May 24, 2023 2:05 PM Patient is much more awake today. When I call her name, wake her up, she opens her eyes. She focuses immediately upon my face and is able to answer my questions in very slow, 2-3 word sentences. On her own she offers statements : "They are so good". She is referring to the nurses. "I want this" when I ask how she is doing with pain or discomfort. When I asked her to explain a little more she says that she is describing comfort measures. "I have not changed my mind". "I just want to stay here because they take care of me". Tears come slowly out of the corner of her eyes when she thinks that she needs to be transferred. I have tried to reassure her as much as possible. I explained that we would hope to keep her here but sometimes the insurance company will take matters out of her hand. She is taking a little bit p.o. Yesterday she took an 75 cc. Since this morning she is drank 270 cc. On May 21 and she had no input at all. Active Medications Famotidine (Famotidine 20 Mg/2 Ml Vial) 20 mg IVP BID [facility] Last Admin: 05/24/23 08:40 Dose: 20 mg Glycopyrrolate (Glycopyrrolate 1 Mg/5 Ml Vial) 0.2 mg SUBQ Q4H PRN PRN Reason: Excessive secretions Last Admin: 05/23/23 08:31 Dose: 0.2 mg Acetaminophen (Acetaminophen) 1,000 mg in 100 mls @ 400 mls/hr IV Q6HR PRN PRN Reason: Mild Pain or Fever>38C(100.4F) Last Infusion: 05/17/23 01:30 Dose: Infused Lorazepam (Lorazepam 2 Mg/Ml Vial) 2 mg IVP Q2H PRN PRN Reason: Seizure Last Admin: 05/22/23 11:05 Dose: 2 mg Morphine Sulfate (Morphine 2 Mg/Ml Carpuject) 2 mg IVP Q2HR PRN PRN Reason: NEEDED PER PROVIDER ORDERS Last Admin: 05/21/23 15:47 Dose: 2 mg Multi-Ingredient Ointment (Zinc Oxide 20% Oint 30 Gm Tube) 1 applic TOP PRN PRN PRN Reason: Skin Care Last Admin: 05/24/23 05:27 Dose: 1 applic Ondansetron HCl (Ondansetron 4 Mg/2 Ml Vial) 4 mg IVP Q6HR PRN PRN Reason: Nausea / Vomiting Phenytoin Sodium (Phenytoin 100 Mg/2 Ml Vial) 300 mg IVP BID [facility] Last Admin: 05/24/23 08:42 Dose: 300 mg Sodium Chloride (Sodium Chloride Flush 0.9% 10 Ml Syringe) 10 ml IVP PRN PRN PRN Reason: NEEDED PER PROVIDER ORDERS Last Admin: 05/23/23 08:31 Dose: 10 ml Sodium Chloride (Sodium Chloride Flush 0.9% 10 Ml Syringe) 10 ml IVP 0100,0900,1700 [facility] Last Admin: 05/24/23 08:42 Dose: 10 ml Home Meds: lamoTRIgine [LaMICtal] 100 mg PO DAILY 03/02/19 lamoTRIgine [LaMICtal] 150 mg PO QPM 03/02/19 ALPRAZolam [Alprazolam] 1 mg PO TID PRN 03/03/19 [place] [[place] Carbonate] 150 mg PO DAILY 05/09/23 Losartan [Cozaar] 50 mg PO DAILY 05/10/23 Metoprolol Succinate [Toprol Xl] 100 mg PO QPM 05/10/23 Mirtazapine [Remeron] 7.5 mg PO QPM 05/10/23 Rivaroxaban [Xarelto] 20 mg PO QDDINNER 05/10/23 Rosuvastatin Calcium [Crestor] 10 mg PO QPM 05/10/23 hydrOXYzine HCL [Hydroxyzine HCl] 25 - 50 mg PO QPM 05/10/23 risperiDONE [Risperdal] 0.75 mg PO QPM 05/10/23 Exam: Sedated female who struggles to keep her eyes open but her pupils are reactive. Voice is slow, barely audible, but sentence structure is intact and s he communicates effectively. No tachypnea, tachycardia, agitation. There is no twitching of eyes, or arms that she has been doing. Lungs have coarse upper airway breath sounds. Tachycardic regular rate and rhythm. Abdomen is soft, hypoactive bowel sounds, nontender. Extremities are warm. Skin color is good. Cheeks are pink.No truncal stability. In sitting her up, she immediately slumped over to the left and cannot hold herself up. Same with her neck. When I gently pushed her head in the upright position and then let go, or her head immediately slumped over onto her shoulders because she does not have the strength to hold it up. No real facial droop. More generalized weakness than focalized weakness. Assessment/Plan - Problem List (1) Thalamic infarction Impression: As result of or cause of seizure disorder. Long discussion has been had with her next of kin which is her brother. Her best friend,Mary, has also been at the bedside and has known her for decades. Both of these individuals state that she would not want treatment. She even had a DO NOT RESUSCITATE note pasted to her refrigerator with a magnet. But she never filled out a POLST form. Many of the discussions were held before I came on service. I discused the case with case management and social work and verified that we were doing the right thing with this patient with discussions on 05/22/23. The conclusion is that the patient does not want treatment. Family is aware of this and agrees with kenneth onofre's previous stated philosophy. As such I will continue with DO NOT RESUSCITATE status, and comfort measures. GIP consultation was ordered and we asked if she would be a candidate for the GIP service. We appreciate their input and she is not a candidate for GIP service. (2) Comfort measures only status Impression: I have stopped activity orders, measurement of intake and output and vital signs, warming unit. She is on a clear liquid diet not so much to feed her but to offer her anything she would want. She is asking for water and fluids at [facility]. And those are being given to her. Current medications are Pepcid IV, Robinul as needed, lorazepam as needed, morphine as needed, also Sky as needed, Zofran as needed, Dilantin twice daily and zinc oxide topically. I will continue those medications. Our anticipation is this unfortunate female will stay with this until her . There is no safe disposition with ability to take care of her
[2023-05-24] MEDS: MORPHINE 2 MG/ML CARPUJECT IVP PRN (23:45)
[2023-05-25] MEDS ORDERED: LORazepam 2 MG/ML VIAL IVP PRN (00:31)
[2023-05-25] MEDS: LITHIUM 150 MG CAPSULE PO SCH (09:17)
[2023-05-25] MEDS: SODIUM CHLORIDE FLUSH 0.9% 10 ML SYRINGE IVP SCH ×2 (09:17→20:16)
[2023-05-25] MEDS: PHENYTOIN 100 MG/2 ML VIAL IVP SCH ×2 (09:17→20:28)
[2023-05-25] MEDS: FAMOTIDINE 20 MG/2 ML VIAL IVP SCH ×2 (09:17→20:16)
--- NOTE | 2023-05-25 12:55 | PROVIDER PROGRESS NOTE ---
Progress Note May 25, 2023 12:52 PM Patient is intermittently alert and speaking. But they are short interactions less than 2 or 3 minutes and then she goes back to sleep. Sometimes she can take a pill. Sometimes she cannot. Last night she was crying out, and we recognize that she is not able to take her usual home medications to stabilize her mood. She usually takes alprazolam, hydroxyzine, Lamictal, lithium, Remeron, Risperdal. But again, sometimes she can take these pills, sometimes she cannot. Oral intake is anywhere between 500 to 600 cc a day as she has become more awake over the last 2 days. The twitching indicating seizures has not been present for 2 days. Active Medications Famotidine (Famotidine 20 Mg/2 Ml Vial) 20 mg IVP BID [facility] Last Admin: 05/25/23 09:17 Dose: 20 mg Glycopyrrolate (Glycopyrrolate 1 Mg/5 Ml Vial) 0.2 mg SUBQ Q4H PRN PRN Reason: Excessive secretions Last Admin: 05/23/23 08:31 Dose: 0.2 mg Acetaminophen (Acetaminophen) 1,000 mg in 100 mls @ 400 mls/hr IV Q6HR PRN PRN Reason: Mild Pain or Fever>38C(100.4F) Last Infusion: 05/17/23 01:30 Dose: Infused [place] Carbonate ([place] 150 Mg Capsule) 150 mg PO DAILY [facility] Last Admin: 05/25/23 09:17 Dose: 150 mg Lorazepam (Lorazepam 2 Mg/Ml Vial) 2 mg IVP Q2H PRN PRN Reason: Seizure Last Admin: 05/22/23 11:05 Dose: 2 mg Lorazepam (Lorazepam 2 Mg/Ml Vial) 2 mg IVP Q2H PRN PRN Reason: Anxiety Morphine Sulfate (Morphine 2 Mg/Ml Carpuject) 2 mg IVP Q2HR PRN PRN Reason: NEEDED PER PROVIDER ORDERS Last Admin: 05/24/23 23:45 Dose: 2 mg Multi-Ingredient Ointment (Zinc Oxide 20% Oint 30 Gm Tube) 1 applic TOP PRN PRN PRN Reason: Skin Care Last Admin: 05/24/23 20:29 Dose: 1 applic Olanzapine (Olanzapine Odt 5 Mg Tablet) 5 mg TL QPM [facility] Ondansetron HCl (Ondansetron 4 Mg/2 Ml Vial) 4 mg IVP Q6HR PRN PRN Reason: Nausea / Vomiting Phenytoin Sodium (Phenytoin 100 Mg/2 Ml Vial) 300 mg IVP BID [facility] Last Admin: 05/25/23 09:17 Dose: 300 mg Sodium Chloride (Sodium Chloride Flush 0.9% 10 Ml Syringe) 10 ml IVP PRN PRN PRN Reason: NEEDED PER PROVIDER ORDERS Last Admin: 05/23/23 08:31 Dose: 10 ml Sodium Chloride (Sodium Chloride Flush 0.9% 10 Ml Syringe) 10 ml IVP 0100,0900,1700 [facility] Last Admin: 05/25/23 09:17 Dose: 10 ml lamoTRIgine [LaMICtal] 100 mg PO DAILY 03/02/19 lamoTRIgine [LaMICtal] 150 mg PO QPM 03/02/19 ALPRAZolam [Alprazolam] 1 mg PO TID PRN 03/03/19 [place] [[place] Carbonate] 150 mg PO DAILY 05/09/23 Losartan [Cozaar] 50 mg PO DAILY 05/10/23 Metoprolol Succinate [Toprol Xl] 100 mg PO QPM 05/10/23 Mirtazapine [Remeron] 7.5 mg PO QPM 05/10/23 Rivaroxaban [Xarelto] 20 mg PO QDDINNER 05/10/23 Rosuvastatin Calcium [Crestor] 10 mg PO QPM 05/10/23 hydrOXYzine HCL [Hydroxyzine HCl] 25 - 50 mg PO QPM 05/10/23 risperiDONE [Risperdal] 0.75 mg PO QPM 05/10/23 Exam: Temperature 37.1, heart rate 106, blood pressure 150/86, respirations 20, 94% on room air. Slow unlabored respiration. She is currently asleep but does wake to my voice and opens her eyes but goes back to sleep. No distress evident. Skin is warm, dry. Tachycardic regular rate and rhythm Abdomen with hypoactive bowel sounds. Last bowel movement was May 24. She is incontinent of urine and has a pure wick catheter. Extremities with mild diffuse edema. Neurologically opens her eyes to voice, will occasionally have meaningful interaction. For instance she told me yesterday that she still wanted to be DNR, still wants comfort measures and that "I have not changed my mind". Nursing is reporting tremors but I am not seeing any during my exam. Assessment/Plan - Problem List (1) Bipolar disorder. Due to her sedated status and seizures, the patient was unable to take her bipolar medications. Last night there was an episode of alertness, emotional lability. We will continue to try and give her her usual medications. They are ordered. But unfortunately they are p.o. I will stop her Risperdal and change her to ODT Zyprexa. (2) Thalamic infarction Impression: As result of or cause of seizure disorder. Long discussion has been had with her next of kin which is her brother. Her best friend,Mary, has also been at the bedside and has known her for decades. Both of these individuals state that she would not want treatment. She even had a DO NOT RESUSCITATE note pasted to her refrigerator with a magnet. But she never filled out a POLST form. Many of the discussions were held before I came on service. I discused the case with case management and social work and verified that we were doing the right thing with this patient with discussions on 05/22/23. The conclusion is that the patient does not want treatment. Family is aware of this and agrees with patient's previous stated philosophy. As such I will continue with DO NOT RESUSCITATE status, and comfort measures. GIP consultation was ordered and we asked if she would be a candidate for the GIP service. We appreciate their input and she is not a candidate for GIP service. When the patient was briefly alert yesterday, unprompted, she stated that the nurses were taking very good care of her. That she has not changed her mind. She wanted us to continue comfort measures. (3) Comfort measures only status Impression: I have stopped activity orders, measurement of intake and output and vital signs, warming unit. She is on a clear liquid diet not so much to feed her but to offer her anything she would want. She is asking for water and fluids at time. And those are being given to her. Current medications are Pepcid IV, Robinul as needed, lorazepam as needed, morphine as needed, Ofimerv as needed, Zofran as needed, Dilantin twice daily and zinc oxide topically. I will continue those medications.She is on lithium.Try and resume her Remeron. And again, as noted above, Zyprexa ODT. I will ask pharmacist if these meds can be crushed and put in the juice she likes. Our anticipation is this unfortunate female will stay with this until her . There is no safe disposition with ability to take care of her. She has become more alert over the last 2 days and her only request is that of liquids. Those are given to her at her request and that include water and orange juice. So far she has not wanted to eat anything. At times actively refuses pills when they are put in her mouth.
[2023-05-25] MEDS: OLANZapine ODT 5 MG TABLET TL SCH (20:15)
[2023-05-25] MEDS ORDERED: risperiDONE 0.25 MG TABLET PO SCH (21:00)
[2023-05-26] MEDS: MORPHINE 2 MG/ML CARPUJECT IVP PRN (00:50)
[2023-05-26] MEDS: SODIUM CHLORIDE FLUSH 0.9% 10 ML SYRINGE IVP SCH ×3 (01:01→15:42)
[2023-05-26] MEDS: PHENYTOIN 100 MG/2 ML VIAL IVP SCH ×2 (09:28→21:31)
[2023-05-26] MEDS: FAMOTIDINE 20 MG/2 ML VIAL IVP SCH ×2 (09:29→21:31)
[2023-05-26] MEDS: LITHIUM 150 MG CAPSULE PO SCH (09:29)
--- NOTE | 2023-05-26 10:21 | PROVIDER PROGRESS NOTE ---
Progress Note May 26, 2023 10:18 AM She is sitting upright. Comfortable. Slow, unlabored respirations. Skin is warm and dry. She does open her eyes to my voice. Nursing says that she does take some p.o. She is requesting apple juice and really likes it. Patient tells me she is comfortable right now. Nursing reports that there is an emotional up-and-down. Morbidly obese elderly female that is sleeping. Blood pressure 133/67, respirations 16, 96% on room air. Temperature is 37. Awakens to my voice with minimal answers. Sentence structure incomplete. Neck is supple. Lungs have diminished breath sounds at the bases. Slow sonorous respiration. Heart rate is in the 90s. Irregularly irregular. Abdomen is soft, nontender. Assessment/Plan - Problem List (1) Bipolar disorder. Due to her sedated status and seizures, the patient was unable to take her bipolar medications. 05/24 overnight into 05/25 am, there was an episode of alertness, emotional lability. We will continue to try and give her her usual medications. They are ordered. But unfortunately they are p.o. I stopped her Risperdal and change it to ODT Zyprexa. Nursing reports that she seems to be calmer. This morning no acute distress (2) Thalamic infarction Impression: As result of or cause of seizure disorder. Long discussion has been had with her next of kin which is her brother. Her best friend,Mary, has also been at the bedside and has known her for decades. Both of these individuals state that she would not want treatment. She even had a DO NOT RESUSCITATE note pasted to her refrigerator with a magnet. But she never filled out a POLST form. Many of the discussions were held before I came on service. I discused the case with case management and social work and verified that we were doing the right thing with this patient with discussions on 05/22/23. The conclusion is that the patient does not want treatment. Family is aware of this and agrees with patient's previous stated philosophy. As such I will continue with DO NOT RESUSCITATE status, and comfort measures. GIP consultation was ordered and we asked if she would be a candidate for the GIP service. We appreciate their input and she is not a candidate for GIP service. When the patient was briefly alert 05/24, unprompted, she stated that the nurses were taking very good care of her. That she has not changed her mind. She wanted us to continue comfort measures. (3) Comfort measures only status Impression: I have stopped activity orders, measurement of intake and output and vital signs, warming unit. She is on a clear liquid diet not so much to feed her but to offer her anything she would want. She is asking for water and fluids at time. And those are being given to her. Current medications are Pepcid IV, Robinul as needed, lorazepam as needed, morphine as needed, Ofimerv as needed, Zofran as needed, Dilantin twice daily and zinc oxide topically. I will continue those medications.She is on lithium.Try and resume her Remeron. And again, as noted above, Zyprexa ODT. I will ask pharmacist if these meds can be crushed and put in the juice she likes. Our anticipation is this unfortunate female will stay with this until her . There is no safe disposition with ability to take care of her. She has become more alert over the last 2 days and her only request is that of liquids. Those are given to her at her request and that include water and orange juice. So far she has not wanted to eat anything. At times actively refuses pills when they are put in her mouth.
[2023-05-26] MEDS: ACETAMINOPHEN 1,000 MG/100 ML 1,000 MG/100 ML BAG IV PRN (15:41)
[2023-05-26] MEDS: OLANZapine ODT 5 MG TABLET TL SCH (21:31)
[2023-05-26] MEDS: SODIUM CHLORIDE FLUSH 0.9% 10 ML SYRINGE IVP PRN (21:32)
[2023-05-27] MEDS: SODIUM CHLORIDE FLUSH 0.9% 10 ML SYRINGE IVP SCH ×3 (00:36→22:27)
[2023-05-27] MEDS: PHENYTOIN 100 MG/2 ML VIAL IVP SCH ×2 (07:56→22:27)
[2023-05-27] MEDS: FAMOTIDINE 20 MG/2 ML VIAL IVP SCH ×2 (07:57→22:27)
[2023-05-27] MEDS: LITHIUM 150 MG CAPSULE PO SCH (07:57)
--- NOTE | 2023-05-27 10:29 | PROVIDER PROGRESS NOTE ---
Progress Note May 27, 2023 10:30 AM I met with her sister, [id number] yesterday at ~6:30 pm. On speaker phone, they had the patient's brother. They are all amazed at how much more awake she is. Patient is consistently taking in p.o. fluids. But not eating solid food. She is not asking for food. She just ask for the apple juice. Family is asking when they can start making plans for taking her to the next transitional space. I said anytime they can. They are going to be working on getting power of prosecuting attorney since she is now more awake. Once to get power of prosecuting attorney they will be able to pay bills for her, and control her bank account to then pay for her to go to a long-term care facility until she dies. They are still wanting to focus on comfort. Patient is currently stabilized in the dying process. She has become more awake. Seizures are not present. Still difficult to swallow pills. Active Medications Famotidine (Famotidine 20 Mg/2 Ml Vial) 20 mg IVP BID [facility] Last Admin: 05/27/23 07:57 Dose: 20 mg Glycopyrrolate (Glycopyrrolate 1 Mg/5 Ml Vial) 0.2 mg SUBQ Q4H PRN PRN Reason: Excessive secretions Last Admin: 05/23/23 08:31 Dose: 0.2 mg Acetaminophen (Acetaminophen) 1,000 mg in 100 mls @ 400 mls/hr IV Q6HR PRN PRN Reason: Mild Pain or Fever>38C(100.4F) Last Infusion: 05/26/23 16:24 Dose: Infused [place] Carbonate ([place] 150 Mg Capsule) 150 mg PO DAILY [facility] Last Admin: 05/27/23 07:57 Dose: 150 mg Lorazepam (Lorazepam 2 Mg/Ml Vial) 2 mg IVP Q2H PRN PRN Reason: Seizure Last Admin: 05/22/23 11:05 Dose: 2 mg Lorazepam (Lorazepam 2 Mg/Ml Vial) 2 mg IVP Q2H PRN PRN Reason: Anxiety Morphine Sulfate (Morphine 2 Mg/Ml Carpuject) 2 mg IVP Q2HR PRN PRN Reason: NEEDED PER PROVIDER ORDERS Last Admin: 05/26/23 00:50 Dose: 2 mg Multi-Ingredient Ointment (Zinc Oxide 20% Oint 30 Gm Tube) 1 applic TOP PRN PRN PRN Reason: Skin Care Last Admin: 05/24/23 20:29 Dose: 1 applic Olanzapine (Olanzapine Odt 5 Mg Tablet) 5 mg TL QPM [facility] Last Admin: 05/26/23 21:31 Dose: 5 mg Ondansetron HCl (Ondansetron 4 Mg/2 Ml Vial) 4 mg IVP Q6HR PRN PRN Reason: Nausea / Vomiting Phenytoin Sodium (Phenytoin 100 Mg/2 Ml Vial) 300 mg IVP BID [facility] Last Admin: 05/27/23 07:56 Dose: 300 mg Sodium Chloride (Sodium Chloride Flush 0.9% 10 Ml Syringe) 10 ml IVP PRN PRN PRN Reason: NEEDED PER PROVIDER ORDERS Last Admin: 05/26/23 21:32 Dose: 10 ml Sodium Chloride (Sodium Chloride Flush 0.9% 10 Ml Syringe) 10 ml IVP 0100,0900,1700 [facility] Last Admin: 05/27/23 07:57 Dose: 10 ml Home Meds: lamoTRIgine [LaMICtal] 100 mg PO DAILY 03/02/19 lamoTRIgine [LaMICtal] 150 mg PO QPM 03/02/19 ALPRAZolam [Alprazolam] 1 mg PO TID PRN 03/03/19 [place] [[place] Carbonate] 150 mg PO DAILY 05/09/23 Losartan [Cozaar] 50 mg PO DAILY 05/10/23 Metoprolol Succinate [Toprol Xl] 100 mg PO QPM 05/10/23 Mirtazapine [Remeron] 7.5 mg PO QPM 05/10/23 Rivaroxaban [Xarelto] 20 mg PO QDDINNER 05/10/23 Rosuvastatin Calcium [Crestor] 10 mg PO QPM 05/10/23 hydrOXYzine HCL [Hydroxyzine HCl] 25 - 50 mg PO QPM 05/10/23 risperiDONE [Risperdal] 0.75 mg PO QPM 05/10/23 Exam: No vital signs today. Yesterday temperature was 37. Heart rate 92. Blood pressure 133/67. Respirations 16 and 96% on room air. Morbidly obese elderly female who appears comfortable. There is no labored breathing, there is no grimacing, frowning. There is no twitching. She has not had any eyelid twitching or left arm twitching for 48 hours. She awakens to my voice. Answers yes no. Sentence structure is fragmented when I ask her simple questions. But she is able to answer my questions albeit very slowly. Neck is supple. Lungs have diminished breath sounds at the bases but no crackles, rhonchi, wheezing. When asleep she starts having snoring. She has a irregular rate and rhythm. Abdomen is soft, nontender, hypoactive bowel sounds. Assessment/Plan - Problem List (1) Bipolar disorder. Due to her sedated status and seizures, the patient was unable to take her bipolar medications. 05/24 overnight into 05/25 am, there was an episode of alertness, emotional lability. We will continue to try and give her her usual medications. They are ordered and she is taking them off and on. Able to get lithium today. I stopped her Risperdal and change it to ODT Zyprexa 05/25. Nursing reports that she seems to be calmer. (2) Thalamic infarction Impression: As result of, or cause of, seizure disorder. Long discussion has been had with her next of kin which is her brother. Her best friend,Mary, has also been at the bedside and has known her for decades. Both of these individuals state that she would not want treatment. She even had a DO NOT RESUSCITATE note pasted to her refrigerator with a magnet. But she never filled out a POLST form that we knew of. Last night, sister, [id number] and brother all confirm that this patient has had firm ideas about end-of-life for decades. They endorse her wish to be DO NOT RESUSCITATE and comfort measures. They were also able to find a POLST form from Kamla Arguelles who is the patient's primary care provider. The patient is a DNR on the POLST form. A copy was made and I gave to the [facility] for scanning into the EMR GIP consultation was ordered and we asked if she would be a candidate for the GIP service. We appreciate their input and she is not a candidate for GIP service. When the patient was briefly alert 05/24, unprompted, she stated to me that the nurses were taking very good care of her. That she has not changed her mind. She wanted us to continue comfort measures. (3) Comfort measures only status Impression: I have stopped activity orders, measurement of intake and output and vital signs, warming unit. She is on a clear liquid diet not so much to feed her but to offer her anything she would want. She is asking for water and fluids at time. And those are being given to her. Current medications are noted above. She is tolerating the zyprexa and is calmer. Our anticipation is this unfortunate female will stay with us until her . There is no safe disposition with ability to take care of her. However, has become more alert since 05/24 and her only request is that of liquids. Those are given to her at her request and that include water and orange juice. So far she has not wanted to eat anything. At times actively refuses pills when they are put in her mouth. Family will try and speak to her in her lucid moments. They are going to try and get paperwork for power of prosecuting attorney so they can start paying her bills and paying for long-term care
[2023-05-27] MEDS: ZINC OXIDE 20% OINT 30 GM TUBE TOP PRN (13:24)
[2023-05-27] MEDS ORDERED: CARBOXYMETHYLCELLULOSE OPHTH DROPS EACHEYE PRN (13:53)
[2023-05-27] MEDS: PHENAZOPYRIDINE 100 MG TABLET PO SCH ×2 (14:42→22:28)
[2023-05-27] MEDS: OLANZapine ODT 5 MG TABLET TL SCH (22:28)
[2023-05-28] MEDS: SODIUM CHLORIDE FLUSH 0.9% 10 ML SYRINGE IVP SCH ×3 (01:51→17:05)
[2023-05-28] MEDS: PHENAZOPYRIDINE 100 MG TABLET PO SCH ×3 (06:30→21:53)
[2023-05-28] MEDS: LITHIUM 150 MG CAPSULE PO SCH (08:56)
[2023-05-28] MEDS: FAMOTIDINE 20 MG/2 ML VIAL IVP SCH ×2 (09:01→21:52)
[2023-05-28] MEDS: PHENYTOIN 100 MG/2 ML VIAL IVP SCH ×2 (09:04→21:52)
[2023-05-28] MEDS: ZINC OXIDE 20% OINT 30 GM TUBE TOP PRN ×2 (13:43→21:54)
--- NOTE | 2023-05-28 14:06 | PROVIDER PROGRESS NOTE ---
Progress Note May 28, 2023 2 PM She is really waking up more more. Her therapist called her today and she was able to have a long conversation with him. She is eating 1 or 2 bites of yogurt at her request. Still drinking lots of apple juice. But debilitated. Can even lift her head off the bed. She is alert and oriented to person, place, time situation. She is still reiterating that she does not want any treatment. She just wants to be comfort measures. Active Medications Carboxymethylcellulose (Carboxymethylcellulose Ophth Drops) 1 drops EACHEYE PRN PRN PRN Reason: Dry Eye Last Admin: 05/27/23 13:59 Dose: 1 drops Famotidine (Famotidine 20 Mg/2 Ml Vial) 20 mg IVP BID [facility] Last Admin: 05/28/23 09:01 Dose: 20 mg Glycopyrrolate (Glycopyrrolate 1 Mg/5 Ml Vial) 0.2 mg SUBQ Q4H PRN PRN Reason: Excessive secretions Last Admin: 05/23/23 08:31 Dose: 0.2 mg Acetaminophen (Acetaminophen) 1,000 mg in 100 mls @ 400 mls/hr IV Q6HR PRN PRN Reason: Mild Pain or Fever>38C(100.4F) Last Infusion: 05/26/23 16:24 Dose: Infused [place] Carbonate ([place] 150 Mg Capsule) 150 mg PO DAILY [facility] Last Admin: 05/28/23 08:56 Dose: 150 mg Lorazepam (Lorazepam 2 Mg/Ml Vial) 2 mg IVP Q2H PRN PRN Reason: Seizure Last Admin: 05/22/23 11:05 Dose: 2 mg Lorazepam (Lorazepam 2 Mg/Ml Vial) 2 mg IVP Q2H PRN PRN Reason: Anxiety Morphine Sulfate (Morphine 2 Mg/Ml Carpuject) 2 mg IVP Q2HR PRN PRN Reason: NEEDED PER PROVIDER ORDERS Last Admin: 05/26/23 00:50 Dose: 2 mg Multi-Ingredient Ointment (Zinc Oxide 20% Oint 30 Gm Tube) 1 applic TOP PRN PRN PRN Reason: Skin Care Last Admin: 05/28/23 13:43 Dose: 1 applic Olanzapine (Olanzapine Odt 5 Mg Tablet) 5 mg TL QPM [facility] Last Admin: 05/27/23 22:28 Dose: 5 mg Ondansetron HCl (Ondansetron 4 Mg/2 Ml Vial) 4 mg IVP Q6HR PRN PRN Reason: Nausea / Vomiting Phenazopyridine HCl (Phenazopyridine 100 Mg Tablet) 100 mg PO TID [facility] Last Admin: 05/28/23 13:17 Dose: 100 mg Phenytoin Sodium (Phenytoin 100 Mg/2 Ml Vial) 300 mg IVP BID [facility] Last Admin: 05/28/23 09:04 Dose: 300 mg Sodium Chloride (Sodium Chloride Flush 0.9% 10 Ml Syringe) 10 ml IVP PRN PRN PRN Reason: NEEDED PER PROVIDER ORDERS Last Admin: 05/26/23 21:32 Dose: 10 ml Sodium Chloride (Sodium Chloride Flush 0.9% 10 Ml Syringe) 10 ml IVP 0100,0900,1700 [facility] Last Admin: 05/28/23 09:01 Dose: 10 ml Home Meds: lamoTRIgine [LaMICtal] 100 mg PO DAILY 03/02/19 lamoTRIgine [LaMICtal] 150 mg PO QPM 03/02/19 ALPRAZolam [Alprazolam] 1 mg PO TID PRN 03/03/19 [place] [[place] Carbonate] 150 mg PO DAILY 05/09/23 Losartan [Cozaar] 50 mg PO DAILY 05/10/23 Metoprolol Succinate [Toprol Xl] 100 mg PO QPM 05/10/23 Mirtazapine [Remeron] 7.5 mg PO QPM 05/10/23 Rivaroxaban [Xarelto] 20 mg PO QDDINNER 05/10/23 Rosuvastatin Calcium [Crestor] 10 mg PO QPM 05/10/23 hydrOXYzine HCL [Hydroxyzine HCl] 25 - 50 mg PO QPM 05/10/23 risperiDONE [Risperdal] 0.75 mg PO QPM 05/10/23 Exam: Temperatures 38 degrees last night. This morning she is 37.1. Heart rate 99. Blood pressure 140/83. Respirations 18. 96% on room air. She is a frail, very debilitated weak woman at 5 foot 4 inches tall, and previous weight was 94.5 kg. So weak that she cannot lift her head off the bed. Voice is very low and almost an audible. But no respiratory distress. No pain at all. Neck is supple without adenopathy Lungs have slow, unlabored, very shallow respiration. Diminished at bases. Regular rate and rhythm Abdomen with hypoactive bowel sounds, nontender Extremities with mild edema of hands and feet. Neurologically this is the most oriented to have seen her. Most alert I seen her. Speech is almost inaudible and had to lean and very carefully to hear her but she is lucid and repeating her desire for comfort measures only. No focal deficits. Assessment/Plan - Problem List (1) Bipolar disorder. Due to her sedated status and seizures, the patient was unable to take her bipolar medications. She was sedated and unresponsive for quite some time. 05/24 overnight into 05/25 am, there was an episode of alertness, emotional lability. In the last 72 hours she has become more a more interactive. Today she is having complete sentence structure. Able to have a complete conversation with me. Was on the phone with her therapist Kaiden. Nursing reports she is able to take most of her medicines today. (2) Thalamic infarction Impression: As result of, or cause of, seizure disorder. Long discussion has been had with her next of kin which is her brother. Her best friend,Mary, has also been at the bedside and has known her for decades. Both of these individuals state that she would not want treatment. She even had a DO NOT RESUSCITATE note pasted to her refrigerator with a magnet. But she never filled out a POLST form that we knew of. Last night, sister, [id number] and brother all confirm that this patient has had firm ideas about end-of-life for decades. They endorse her wish to be DO NOT RESUSCITATE and comfort measures. They were also able to find a POLST form from Kamla Arguelles who is the patient's primary care provider. The patient is a DNR on the POLST form. A copy was made and I gave to the [facility] for scanning into the EMR GIP consultation was ordered and we asked if she would be a candidate for the GIP service. We appreciate their input and she is not a candidate for GIP service. When the patient was briefly alert 05/24, unprompted, she stated to me that the nurses were taking very good care of her. That she has not changed her mind. She wanted us to continue comfort measures. Today she reiterates the same wishes. She is not consistent with taking her meds for #1. There are days that she will actively spit her pills out. Today she took her meds (3) Comfort measures only status Impression: I have stopped activity orders, measurement of intake and output and vital signs, warming unit. She is on a clear liquid diet not so much to feed her but to offer her anything she would want. She is asking for water and fluids at time. And those are being given to her. Current medications are noted above. She is tolerating the zyprexa and is calmer. Our anticipation is this unfortunate female will stay with us until her . There is no safe disposition with ability to take care of her. However, has become more alert since 05/24 and her only request is that of liquids. Those are given to her at her request and that include water and orange juice. So far she has not wanted to eat anything. At times actively refuses pills when they are put in her mouth. Family is aware of her waking up. They are in the process of trying to find a long-term care facility.
[2023-05-28] MEDS: OLANZapine ODT 5 MG TABLET TL SCH (21:53)
[2023-05-29] MEDS: SODIUM CHLORIDE FLUSH 0.9% 10 ML SYRINGE IVP SCH ×3 (01:30→21:16)
[2023-05-29] MEDS: PHENAZOPYRIDINE 100 MG TABLET PO SCH ×3 (06:29→21:20)
[2023-05-29] MEDS: PHENYTOIN 100 MG/2 ML VIAL IVP SCH ×2 (08:26→21:25)
[2023-05-29] MEDS: FAMOTIDINE 20 MG/2 ML VIAL IVP SCH ×2 (08:26→21:15)
[2023-05-29] MEDS: LITHIUM 150 MG CAPSULE PO SCH (08:27)
--- NOTE | 2023-05-29 15:46 | PROVIDER PROGRESS NOTE ---
Assessment/Plan - Problem List (1) Seizure Assessment/Plan: The cause of her seizures appeared to be a new stroke. She was initially dosed with Keppra. But then after she developed status epilepticus the next day, and I reached out to a neurology specialist, she has been changed over to IV phenytoin. The seizure gave her an aspiration pneumonia which she has now recovered from. Plan: Continue with IV antiseizure meds since she still is not reliably taking p.o. pills. Family is aware of her comfort measures status and are now looking for long-term care for this patient, per . (2) Thalamic infarction Impression: Earlier in her stay she had left arm weakness and left gaze preference. The MRI did confirm a thalamic infarct. The infarct was felt to be the cause of her seizures and her status epilepticus GIP consultation was ordered and we asked if she would be a candidate for the GIP service. We appreciate their input and she is not a candidate for GIP service. She is not consistent with taking her meds for her seizures. There are days that she will actively spit her pills out. Plan: As per request, will have a repeat PT and OT evaluation done to see where appropriate placement for this patient would be 3) Bipolar disorder. Due to her sedated status and seizures, the patient was unable to take her bipolar medications. She was sedated and unresponsive for quite some time. 12 overnight into 05/25 am, there was an episode of alertness, emotional lability. Since about 05/26,she has become more interactive. She is having complete sentence structure and complete a conversation with me. (4) Comfort measures only status Impression: We have stopped measurement of intake and output, checking vital signs, and getting any labs. She is ordered to get a clear liquid diet, to offer her anything she would want. She is asking for water, apple juice, Ensure and Pepsi. And those are being given to her. Current medications are noted above. She is tolerating the zyprexa and is calmer. Our anticipation is this unfortunate female may stay with us until her . There is no safe disposition with ability to take care of her, since she needs iv anti-seizure meds. However, she has become more alert since 05/26 and her only request is that of getting po liquids. Those are given to her at her request. So far she has not wanted to eat anything for over a week. At times she actively refuses pills when they are put in her mouth. Family is aware of her being more awake. They are in the process of trying to find a long-term care facility. - Current Meds Current Meds: Current Medications Generic Name Dose Route Start Last Admin Trade Name Freq PRN Reason Stop Dose Admin Carboxymethylcellulose 1 drops 05/27/23 13:53 05/27/23 13:59 Carboxymethylcellulose Ophth Drops EACHEYE 1 drops PRN PRN Administration Dry Eye Famotidine 20 mg 05/17/23 09:00 05/29/23 08:26 Famotidine 20 Mg/2 Ml Vial IVP 20 mg BID MANDY Administration Glycopyrrolate 0.2 mg 05/20/23 12:09 05/23/23 08:31 Glycopyrrolate 1 Mg/5 Ml Vial SUBQ 0.2 mg Q4H PRN Administration Excessive secretions Acetaminophen 1,000 mg in 100 mls @ 400 mls/hr 05/15/23 10:15 05/26/23 16:24 Acetaminophen IV Infused Q6HR PRN Infusion Mild Pain or Fever>38C(100.4F) [place] Carbonate 150 mg 05/25/23 09:00 05/29/23 08:27 [place] 150 Mg Capsule PO 150 mg DAILY MANDY Administration Lorazepam 2 mg 05/21/23 10:14 05/22/23 11:05 Lorazepam 2 Mg/Ml Vial IVP 2 mg Q2H PRN Administration Seizure Morphine Sulfate 2 mg 05/20/23 12:09 05/26/23 00:50 Morphine 2 Mg/Ml Carpuject IVP 2 mg Q2HR PRN Administration NEEDED PER PROVIDER ORDERS Multi-Ingredient Ointment 1 applic 05/12/23 10:56 05/28/23 21:54 Zinc Oxide 20% Oint 30 Gm Tube TOP 1 applic PRN PRN Administration Skin Care Olanzapine 5 mg 05/25/23 21:00 05/28/23 21:53 Olanzapine Odt 5 Mg Tablet TL 5 mg QPM MANDY Administration Phenazopyridine HCl 100 mg 05/27/23 15:00 05/29/23 14:40 Phenazopyridine 100 Mg Tablet PO 100 mg TID MANDY Administration Phenytoin Sodium 300 mg 05/20/23 21:00 05/29/23 08:26 Phenytoin 100 Mg/2 Ml Vial IVP 300 mg BID MANDY Administration Sodium Chloride 10 ml 05/09/23 17:16 05/26/23 21:32 Sodium Chloride Flush 0.9% 10 Ml Syringe IVP 10 ml PRN PRN Administration NEEDED PER PROVIDER ORDERS Sodium Chloride 10 ml 05/10/23 01:00 05/29/23 08:27 Sodium Chloride Flush 0.9% 10 Ml Syringe IVP 10 ml 0100,[id number],1700 MANDY Administration - Lab Result Fish Bone Diagrams: 05/20/23 08:00 05/20/23 08:00 - Additional Planning My Orders: My Active Orders 05/29/23 Dinner Dysphagia - Puree [DIET] Subjective - Subjective Patient Reports: Other (She is waking up more and is alert andoriented. She is taking sips of fluiods, today asked to have PepsiCola. She is weak and debilitated, cannoteven lift her head off the bed.) Objective Vital Signs: Vital Signs - 24 hr 05/29/23 07:55 Temperature 37.8 C Heart Rate [ 100 Brachial] Respiratory 24 Rate Blood Pressure 135/70 H [Right Brachial artery] O2 Saturation 96 Oxygen O2 Source Room air I&O (Last 24 Hrs): Intake and Output Totals x24h 05/27/23 05/28/23 05/29/23 23:59 23:59 23:59 Intake Total 455 675 960 Output Total 150 682 2372 Balance -410 -260 -240 General: Alert, No acute distress HEENT: EOMI, Mucous membr. moist/pink Neck: Supple, No JVD Neuro: Alert, Non Focal, Other (Has lethargy and generalized weakness, turns her head side to side and moves both arems, but unable to independantly roll in bed. Speaks normally.) Cardiovascular: No murmurs Respiratory: No respiratory distress, Breath sounds nml Abdomen: Soft, No tenderness Extremities: No clubbing, Other (1+ edema) - Results Results: Laboratory Results WBC 10.0 x10^3/uL (4.8-10.8) 05/20/23 08:00 RBC 2.88 10^6/uL (4.20-5.40) L 05/20/23 08:00 Hgb 9.4 g/dL (12.0-16.0) L 05/20/23 08:00 Hct 28.6 % (37.0-47.0) L 05/20/23 08:00 MCV 99.3 fL (81.0-99.0) H 05/20/23 08:00 MCH 32.6 pg (27.0-31.0) H 05/20/23 08:00 MCHC 32.9 g/dL (32.0-36.0) 05/20/23 08:00 RDW 14.4 % (12.0-15.0) 05/20/23 08:00 Plt Count 242 10^3/uL (130-450) 05/20/23 08:00 MPV 8.9 fL (7.9-10.8) 05/20/23 08:00 Neut # (Auto) 7.1 10^3/uL (1.5-6.6) H 05/20/23 08:00 Lymph # (Auto) 2.0 10^3/uL (1.5-3.5) 05/20/23 08:00 Coal # (Auto) 0.6 10^3/uL (0.0-1.0) 05/20/23 08:00 Eos # (Auto) 0.1 10^3/uL (0.0-0.7) 05/20/23 08:00 Baso # (Auto) 0.0 10^3/uL (0.0-0.1) 05/20/23 08:00 Absolute Nucleated RBC 0.00 x10^3/uL 05/20/23 08:00 Total Counted 100 05/17/23 06:36 Band Neuts % (Manual) 7 % (0-10) 05/17/23 06:36 Abnorm Lymph % (Manual) 0 % 05/17/23 06:36 Metamyelocytes % 4 % (-0) H 05/17/23 06:36 Myelocytes % 2 % (-0) H 05/17/23 06:36 Nucleated RBC % 0.0 /100WBC 05/20/23 08:00 Neutrophils # (Manual) 22.4 10^3/uL (1.5-6.6) H 05/17/23 06:36 Lymphocytes # (Manual) 3.3 10^3/uL (1.5-3.5) 05/17/23 06:36 Monocytes # (Manual) 0.3 10^3/uL (0.0-1.0) 05/17/23 06:36 Eosinophils # (Manual) 0.0 10^3/uL (0-0.7) 05/17/23 06:36 Basophils # (Manual) 0.0 10^3/uL (0-0.1) 05/17/23 06:36 Nucleated RBCs 1 % 05/17/23 06:36 Differential Comment MANUAL DIFFERENTIAL 05/17/23 06:36 RBC Morph Micro Appear 2+ ANISOCYTOSIS (NORMAL) 3+ POLYCHROMASIA (NORMAL) 05/17/23 06:36 RBC Morph Micro Appear 2+ ANISOCYTOSIS (NORMAL) 3+ POLYCHROMASIA (NORMAL) 05/17/23 06:36 PT 14.2 secs (9.9-12.6) H 05/17/23 07:35 INR 1.3 (0.8-1.2) H 05/17/23 07:35 Bld Gas Analysis Time 1250 05/17/23 12:35 Sample Site RIGHT RADIAL 05/17/23 12:35 ABG pH 7.36 (7.35-7.45) 05/17/23 12:35 ABG pCO2 35 mmHg (34-45) 05/17/23 12:35 ABG pO2 118 mmHg (80-100) H 05/17/23 12:35 ABG HCO3 19.2 mmol/L (22.0-26.0) L 05/17/23 12:35 ABG Total CO2 20.3 MMOL/L (21.0-29.0) L 05/17/23 12:35 ABG O2 Saturation 98 % (94-98) 05/17/23 12:35 ABG Base Excess -5.5 mmol/L (-2.0-3.0) L 05/17/23 12:35 Twan Test POSITIVE 05/17/23 12:35 VBG pH 7.449 (7.31-7.41) H 05/20/23 04:15 Ionized Calcium 1.12 mmol/L (1.15-1.33) L 05/20/23 04:15 O2 Delivery Device NASAL CANNULA 05/17/23 12:35 O2 Liters/Min 4.00 LPM 05/17/23 12:35 FiO2 1.00 05/17/23 08:10 Sodium 143 mmol/L (135-145) 05/20/23 08:00 Potassium 3.4 mmol/L (3.5-4.5) L 05/20/23 08:00 Chloride 103 mmol/L (101-111) 05/20/23 08:00 Carbon Dioxide 37 mmol/L (21-32) H 05/20/23 08:00 Anion Gap 3.0 (6-13) L 05/20/23 08:00 BUN 12 mg/dL (6-20) 05/20/23 08:00 Creatinine 0.8 mg/dL (0.6-1.3) 05/20/23 08:00 Estimated GFR (MDRD) 71 (>89) L 05/20/23 08:00 Glucose 158 mg/dL (74-104) H 05/20/23 08:00 Lactic Acid 0.6 mmol/L (0.5-2.2) 05/17/23 06:36 Calcium 8.2 mg/dL (8.5-10.3) L 05/20/23 08:00 Phosphorus 1.5 mg/dL (2.5-5.0) L 05/20/23 04:15 Magnesium 1.9 mg/dL (1.7-2.3) 05/20/23 04:15 Total Bilirubin 0.4 mg/dL (0.2-1.0) 05/19/23 04:27 AST 13 IU/L (10-42) 05/19/23 04:27 ALT 15 IU/L (10-60) 05/19/23 04:27 Alkaline Phosphatase 54 IU/L (42-121) 05/19/23 04:27 B-Natriuretic Peptide 635 pg/mL (5-100) H 05/17/23 07:35 Total Protein 5.0 g/dL (6.4-8.9) L 05/19/23 04:27 Albumin 3.2 g/dL (3.2-5.5) 05/19/23 04:27 Globulin 1.8 g/dL (2.1-4.2) L 05/19/23 04:27 Albumin/Globulin Ratio 1.8 (1.0-2.2) 05/19/23 04:27 Prealbumin 10 mg/dL (17-34) L 05/19/23 04:27 Vitamin D 25-Hydroxy 24.3 ng/mL (30.0-100.0) L 05/09/23 15:15 Total Intact PTH 15 pg/mL (12-88) 05/09/23 15:15 Urine Color YELLOW 05/14/23 12:31 Urine Clarity CLOUDY (CLEAR) 05/14/23 12:31 Urine pH 6.0 PH (5.0-7.5) 05/14/23 12:31 Ur Specific [place] 1.015 (1.002-1.030) 05/14/23 12:31 Urine Protein NEGATIVE mg/dL (NEGATIVE) 05/14/23 12:31 Urine Glucose (UA) NEGATIVE mg/dL (NEGATIVE) 05/14/23 12: Urine Ketones 40 mg/dL (NEGATIVE) H 05/14/23 12:31 Urine Occult Blood SMALL (NEGATIVE) H 05/14/23 12:31 Urine Nitrite POSITIVE (NEGATIVE) H 05/14/23 12:31 Urine Bilirubin NEGATIVE (NEGATIVE) 05/14/23 12:31 Urine Urobilinogen 0.2 (NORMAL) E.U./dL (NORMAL) 05/14/23 12:31 Ur Leukocyte Esterase LARGE (NEGATIVE) H 05/14/23 12:31 Urine RBC 0-5 /HPF (0-5) 05/14/23 12:31 Urine WBC >25 /HPF (0-5) H 05/14/23 12:31 Ur Epithelial Cells RARE Transitional /HPF (<= Few) RARE Renal Tubular /HPF (<= Few) 05/14/23 12:31 Ur Epithelial Cells RARE Transitional /HPF (<= Few) RARE Renal Tubular /HPF (<= Few) 05/14/23 12:31 Ur Squamous Epith Cells RARE Squamous (<= Few) 05/14/23 12:31 Urine Bacteria Moderate /HPF (None Seen) H 05/14/23 12:31 Urine Culture Comments INDICATED 05/14/23 12:31 Nasal Screen MRSA (PCR) NEGATIVE (NEGATIVE) 05/17/23 08:20 Last Dose Date UNK 05/17/23 07:35 Last Dose Time UNK 05/17/23 07:35 Phenytoin 9.2 ug/mL 05/20/23 04:05 Lamotrigine <1.0 ug/mL (2.0-20.0) L 05/17/23 07:35 Levetiracetam 22.0 ug/mL (10.0-40.0) 05/18/23 04:26 [place] < 0.10 mmol/L 05/17/23 07:35 SARS-CoV-2 (PCR) NOT DETECTED 05/18/23 16:02 - Procedures Procedures: Procedures CATARAC PHACOEMULS/ASPIR (05/14/13) EXCISION OF DUODENUM, ENDO, DIAGN (09/19/18) EXCISION OF ESOPHAGUS, ENDO, DIAGN (09/19/18) EXCISION OF LEFT LARGE INTESTINE, ENDO, DIAGN (09/19/18) EXCISION OF RIGHT LARGE INTESTINE, ENDO, DIAGN (09/19/18) EXCISION OF STOMACH, PYLORUS, ENDO, DIAGN (09/19/18) INSERT LENS AT CATAR EXT (05/14/13) Sepsis Event Note (H) - Evaluation Current Stage of Sepsis: Ruled out
[2023-05-29] MEDS: SODIUM CHLORIDE FLUSH 0.9% 10 ML SYRINGE IVP PRN ×3 (21:17→22:06)
[2023-05-29] MEDS: OLANZapine ODT 5 MG TABLET TL SCH (21:21)
[2023-05-29] MEDS: ONDANSETRON 4 MG/2 ML VIAL IVP PRN (22:05)
[2023-05-30] MEDS: SODIUM CHLORIDE FLUSH 0.9% 10 ML SYRINGE IVP SCH ×3 (00:28→21:16)
[2023-05-30] MEDS: PHENAZOPYRIDINE 100 MG TABLET PO SCH ×3 (06:20→21:31)
[2023-05-30] MEDS: PHENYTOIN 100 MG/2 ML VIAL IVP SCH ×2 (09:18→21:31)
[2023-05-30] MEDS: LITHIUM 150 MG CAPSULE PO SCH (09:18)
[2023-05-30] MEDS: FAMOTIDINE 20 MG/2 ML VIAL IVP SCH ×2 (09:19→21:15)
[2023-05-30] MEDS: ZINC OXIDE 20% OINT 30 GM TUBE TOP PRN (09:19)
[2023-05-30] MEDS: ONDANSETRON 4 MG/2 ML VIAL IVP PRN (10:25)
--- NOTE | 2023-05-30 18:39 | PROVIDER PROGRESS NOTE ---
Assessment/Plan - Problem List (1) Seizure Assessment/Plan: The cause of her seizures appeared to be a new stroke. She was initially dosed with Keppra. But then after she developed status epilepticus the next day, and I reached out to a neurology specialist, she has been changed over to IV phenytoin. The seizure gave her an aspiration pneumonia which she has now recovered from. Plan: Continue with IV antiseizure meds since she still is not reliably taking p.o. pills. Family is aware of her comfort measures status and are now looking for long-term care for this patient, per . (2) Thalamic infarction Impression: Earlier in her stay she had left arm weakness and left gaze preference. The MRI did confirm a thalamic infarct. The infarct was felt to be the cause of her seizures and her status epilepticus GIP consultation was ordered and we asked if she would be a candidate for the GIP service. We appreciate their input and she is not a candidate for GIP service. She is not consistent with taking her meds for her seizures. There are days that she will actively spit her pills out. Plan: As per request, will have a repeat PT and OT evaluation done to see where appropriate placement for this patient would be 3) Bipolar disorder. Due to her sedated status and seizures, the patient was unable to take her bipolar medications. She was sedated and unresponsive for quite some time. 12 overnight into 05/25 am, there was an episode of alertness, emotional lability. Since about 05/26,she has become more interactive. She is having complete sentence structure and complete a conversation with me. (4) Comfort measures only status Impression: We have stopped measurement of intake and output, checking vital signs, and getting any labs. She is ordered to get a clear liquid diet, to offer her anything she would want. She is asking for water, apple juice, Ensure and Pepsi. And those are being given to her. Current medications are noted above. She is tolerating the zyprexa and is calmer. Our anticipation is this unfortunate female may stay with us until her . There is no safe disposition with ability to take care of her, since she needs iv anti-seizure meds. However, she has become more alert since 05/26 and her only request is that of getting po liquids. Those are given to her at her request. So far she has not wanted to eat anything for over a week. At times she actively refuses pills when they are put in her mouth. Family is aware of her being more awake. They are in the process of trying to find a long-term care facility, since they may get access to her savings, as per SW discussion with me today. - Current Meds Current Meds: Current Medications Generic Name Dose Route Start Last Admin Trade Name Freq PRN Reason Stop Dose Admin Carboxymethylcellulose 1 drops 05/27/23 13:53 05/27/23 13:59 Carboxymethylcellulose Ophth Drops EACHEYE 1 drops PRN PRN Administration Dry Eye Famotidine 20 mg 05/17/23 09:00 05/30/23 09:19 Famotidine 20 Mg/2 Ml Vial IVP 20 mg BID MANDY Administration Glycopyrrolate 0.2 mg 05/20/23 12:09 05/23/23 08:31 Glycopyrrolate 1 Mg/5 Ml Vial SUBQ 0.2 mg Q4H PRN Administration Excessive secretions Acetaminophen 1,000 mg in 100 mls @ 400 mls/hr 05/15/23 10:15 05/26/23 16:24 Acetaminophen IV Infused Q6HR PRN Infusion Mild Pain or Fever>38C(100.4F) [place] Carbonate 150 mg 05/25/23 09:00 05/30/23 09:18 [place] 150 Mg Capsule PO 150 mg DAILY MANDY Administration Lorazepam 2 mg 05/21/23 10:14 05/22/23 11:05 Lorazepam 2 Mg/Ml Vial IVP 2 mg Q2H PRN Administration Seizure Morphine Sulfate 2 mg 05/20/23 12:09 05/26/23 00:50 Morphine 2 Mg/Ml Carpuject IVP 2 mg Q2HR PRN Administration NEEDED PER PROVIDER ORDERS Multi-Ingredient Ointment 1 applic 05/12/23 10:56 05/30/23 09:19 Zinc Oxide 20% Oint 30 Gm Tube TOP 1 applic PRN PRN Administration Skin Care Olanzapine 5 mg 05/25/23 21:00 05/29/23 21:21 Olanzapine Odt 5 Mg Tablet TL 5 mg QPM MANDY Administration Ondansetron HCl 4 mg 05/09/23 17:16 05/30/23 10:25 Ondansetron 4 Mg/2 Ml Vial IVP 4 mg Q6HR PRN Administration Nausea / Vomiting Phenazopyridine HCl 100 mg 05/27/23 15:00 05/30/23 15:51 Phenazopyridine 100 Mg Tablet PO Not Given TID MANDY Phenytoin Sodium 300 mg 05/20/23 21:00 05/30/23 09:18 Phenytoin 100 Mg/2 Ml Vial IVP 300 mg BID MANDY Administration Sodium Chloride 10 ml 05/09/23 17:16 05/29/23 22:06 Sodium Chloride Flush 0.9% 10 Ml Syringe IVP 10 ml PRN PRN Administration NEEDED PER PROVIDER ORDERS Sodium Chloride 10 ml 05/10/23 01:00 05/30/23 09:19 Sodium Chloride Flush 0.9% 10 Ml Syringe IVP 10 ml 0100,0900,1700 MANDY Administration - Lab Result Fish Bone Diagrams: 05/20/23 08:00 05/20/23 08:00 Subjective - Subjective Patient Reports: Resting Comfortably, No Complaints Objective Vital Signs: Vital Signs - 24 hr 05/29/23 05/29/23 05/29/23 21:25 21:30 21:35 Temperature Heart Rate [ 106 H 104 H 100 Brachial] Respiratory Rate Blood Pressure 147/76 H 129/75 128/70 [Right Brachial artery] O2 Saturation 05/29/23 05/30/23 21:40 09:00 Temperature 36.9 C Heart Rate [ 101 H 102 H Brachial] Respiratory 18 Rate Blood Pressure 142/79 H 130/73 [Right Brachial artery] O2 Saturation 97 Oxygen O2 Source Room air I&O (Last 24 Hrs): Intake and Output Totals x24h 05/28/23 05/29/23 05/30/23 23:59 23:59 23:59 Intake Total 675 2240 30 Output Total 935 1675 250 Balance -260 565 -220 General: Alert, No acute distress HEENT: EOMI, Other (dry mucosa) Neck: Supple, No JVD Neuro: Alert, Disoriented, Non Focal Cardiovascular: No murmurs Respiratory: No respiratory distress, Breath sounds nml Abdomen: Soft, No tenderness, Other (Obese) Extremities: No clubbing, Other (1+ edema) - Results Results: Laboratory Results WBC 10.0 x10^3/uL (4.8-10.8) 05/20/23 08:00 RBC 2.88 10^6/uL (4.20-5.40) L 05/20/23 08:00 Hgb 9.4 g/dL (12.0-16.0) L 05/20/23 08:00 Hct 28.6 % (37.0-47.0) L 05/20/23 08:00 MCV 99.3 fL (81.0-99.0) H 05/20/23 08:00 MCH 32.6 pg (27.0-31.0) H 05/20/23 08:00 MCHC 32.9 g/dL (32.0-36.0) 05/20/23 08:00 RDW 14.4 % (12.0-15.0) 05/20/23 08:00 Plt Count 242 10^3/uL (130-450) 05/20/23 08:00 MPV 8.9 fL (7.9-10.8) 05/20/23 08:00 Neut # (Auto) 7.1 10^3/uL (1.5-6.6) H 05/20/23 08:00 Lymph # (Auto) 2.0 10^3/uL (1.5-3.5) 05/20/23 08:00 [place] # (Auto) 0.6 10^3/uL (0.0-1.0) 05/20/23 08:00 Eos # (Auto) 0.1 10^3/uL (0.0-0.7) 05/20/23 08:00 Baso # (Auto) 0.0 10^3/uL (0.0-0.1) 05/20/23 08:00 Absolute Nucleated RBC 0.00 x10^3/uL 05/20/23 08:00 Total Counted 100 05/17/23 06:36 Band Neuts % (Manual) 7 % (0-10) 05/17/23 06:36 Abnorm Lymph % (Manual) 0 % 05/17/23 06:36 Metamyelocytes % 4 % (-0) H 05/17/23 06:36 Myelocytes % 2 % (-0) H 05/17/23 06:36 Nucleated RBC % 0.0 /100WBC 05/20/23 08:00 Neutrophils # (Manual) 22.4 10^3/uL (1.5-6.6) H 05/17/23 06:36 Lymphocytes # (Manual) 3.3 10^3/uL (1.5-3.5) 05/17/23 06:36 Monocytes # (Manual) 0.3 10^3/uL (0.0-1.0) 05/17/23 06:36 Eosinophils # (Manual) 0.0 10^3/uL (0-0.7) 05/17/23 06:36 Basophils # (Manual) 0.0 10^3/uL (0-0.1) 05/17/23 06:36 Nucleated RBCs 1 % 05/17/23 06:36 Differential Comment MANUAL DIFFERENTIAL 05/17/23 06:36 RBC Morph Micro Appear 2+ ANISOCYTOSIS (NORMAL) 3+ POLYCHROMASIA (NORMAL) 05/17/23 06:36 RBC Morph Micro Appear 2+ ANISOCYTOSIS (NORMAL) 3+ POLYCHROMASIA (NORMAL) 05/17/23 06:36 PT 14.2 secs (9.9-12.6) H 05/17/23 07:35 INR 1.3 (0.8-1.2) H 05/17/23 07:35 Bld Gas Analysis Time 1250 05/17/23 12:35 Sample Site RIGHT RADIAL 05/17/23 12:35 ABG pH 7.36 (7.35-7.45) 05/17/23 12:35 ABG pCO2 35 mmHg (34-45) 05/17/23 12:35 ABG pO2 118 mmHg (80-100) H 05/17/23 12:35 ABG HCO3 19.2 mmol/L (22.0-26.0) L 05/17/23 12:35 ABG Total CO2 20.3 MMOL/L (21.0-29.0) L 05/17/23 12:35 ABG O2 Saturation 98 % (94-98) 05/17/23 12:35 ABG Base Excess -5.5 mmol/L (-2.0-3.0) L 05/17/23 12:35 Twan Test POSITIVE 05/17/23 12:35 VBG pH 7.449 (7.31-7.41) H 05/20/23 04:15 Ionized Calcium 1.12 mmol/L (1.15-1.33) L 05/20/23 04:15 O2 Delivery Device NASAL CANNULA 05/17/23 12:35 O2 Liters/Min 4.00 LPM 05/17/23 12:35 FiO2 1.00 05/17/23 08:10 Sodium 143 mmol/L (135-145) 05/20/23 08:00 Potassium 3.4 mmol/L (3.5-4.5) L 05/20/23 08:00 Chloride 103 mmol/L (101-111) 05/20/23 08:00 Carbon Dioxide 37 mmol/L (21-32) H 05/20/23 08:00 Anion Gap 3.0 (6-13) L 05/20/23 08:00 BUN 12 mg/dL (6-20) 05/20/23 08:00 Creatinine 0.8 mg/dL (0.6-1.3) 05/20/23 08:00 Estimated GFR (MDRD) 71 (>89) L 05/20/23 08:00 Glucose 158 mg/dL (74-104) H 05/20/23 08:00 Lactic Acid 0.6 mmol/L (0.5-2.2) 05/17/23 06:36 Calcium 8.2 mg/dL (8.5-10.3) L 05/20/23 08:00 Phosphorus 1.5 mg/dL (2.5-5.0) L 05/20/23 04:15 Magnesium 1.9 mg/dL (1.7-2.3) 05/20/23 04:15 Total Bilirubin 0.4 mg/dL (0.2-1.0) 05/19/23 04:27 AST 13 IU/L (10-42) 05/19/23 04:27 ALT 15 IU/L (10-60) 05/19/23 04:27 Alkaline Phosphatase 54 IU/L (42-121) 05/19/23 04:27 B-Natriuretic Peptide 635 pg/mL (5-100) H 05/17/23 07:35 Total Protein 5.0 g/dL (6.4-8.9) L 05/19/23 04:27 Albumin 3.2 g/dL (3.2-5.5) 05/19/23 04:27 Globulin 1.8 g/dL (2.1-4.2) L 05/19/23 04:27 Albumin/Globulin Ratio 1.8 (1.0-2.2) 05/19/23 04:27 Prealbumin 10 mg/dL (17-34) L 05/19/23 04:27 Vitamin D 25-Hydroxy 24.3 ng/mL (30.0-100.0) L 05/09/23 15:15 Total Intact PTH 15 pg/mL (12-88) 05/09/23 15:15 Urine Color YELLOW 05/14/23 12:31 Urine Clarity CLOUDY (CLEAR) 05/14/23 12:31 Urine pH 6.0 PH (5.0-7.5) 05/14/23 12:31 Ur Specific [place] 1.015 (1.002-1.030) 05/14/23 12:31 Urine Protein NEGATIVE mg/dL (NEGATIVE) 05/14/23 12:31 Urine Glucose (UA) NEGATIVE mg/dL (NEGATIVE) 05/14/23 12:31 Urine Ketones 40 mg/dL (NEGATIVE) H 05/14/23 12:31 Urine Occult Blood SMALL (NEGATIVE) H 05/14/23 12:31 Urine Nitrite POSITIVE (NEGATIVE) H 05/14/23 12:31 Urine Bilirubin NEGATIVE (NEGATIVE) 05/14/23 12:31 Urine Urobilinogen 0.2 (NORMAL) E.U./dL (NORMAL) 05/14/23 12:31 Ur Leukocyte Esterase LARGE (NEGATIVE) H 05/14/23 12:31 Urine RBC 0-5 /HPF (0-5) 05/14/23 12:31 Urine WBC >25 /HPF (0-5) H 05/14/23 12:31 Ur Epithelial Cells RARE Transitional /HPF (<= Few) RARE Renal Tubular /HPF (<= Few) 05/14/23 12:31 Ur Epithelial Cells RARE Transitional /HPF (<= Few) RARE Renal Tubular /HPF (<= Few) 05/14/23 12:31 Ur Squamous Epith Cells RARE Squamous (<= Few) 05/14/23 12:31 Urine Bacteria Moderate /HPF (None Seen) H 05/14/23 12:31 Urine Culture Comments INDICATED 05/14/23 12:31 Nasal Screen MRSA (PCR) NEGATIVE (NEGATIVE) 05/17/23 08:20 Last Dose Date UNK 05/17/23 07:35 Last Dose Time UNK 05/17/23 07:35 Phenytoin 9.2 ug/mL 05/20/23 04:05 Lamotrigine <1.0 ug/mL (2.0-20.0) L 05/17/23 07:35 Levetiracetam 22.0 ug/mL (10.0-40.0) 05/18/23 04:26 Abram < 0.10 mmol/L 05/17/23 07:35 SARS-CoV-2 (PCR) NOT DETECTED 05/18/23 16:02 - Procedures Procedures: Procedures CATARAC PHACOEMULS/ASPIR (05/14/13) EXCISION OF DUODENUM, ENDO, DIAGN (09/19/18) EXCISION OF ESOPHAGUS, ENDO, DIAGN (09/19/18) EXCISION OF LEFT LARGE INTESTINE, ENDO, DIAGN (09/19/18) EXCISION OF RIGHT LARGE INTESTINE, ENDO, DIAGN (09/19/18) EXCISION OF STOMACH, PYLORUS, ENDO, DIAGN (09/19/18) INSERT LENS AT CATAR EXT (05/14/13) Sepsis Event Note (H) - Evaluation Current Stage of Sepsis: Ruled out
[2023-05-30] MEDS: OLANZapine ODT 5 MG TABLET TL SCH (21:32)
[2023-05-31] MEDS: SODIUM CHLORIDE FLUSH 0.9% 10 ML SYRINGE IVP SCH ×3 (01:00→21:38)
[2023-05-31] MEDS: PHENAZOPYRIDINE 100 MG TABLET PO SCH ×3 (06:02→21:37)
[2023-05-31] MEDS: FAMOTIDINE 20 MG/2 ML VIAL IVP SCH ×2 (09:49→21:37)
[2023-05-31] MEDS: PHENYTOIN 100 MG/2 ML VIAL IVP SCH ×2 (09:49→21:37)
[2023-05-31] MEDS: LITHIUM 150 MG CAPSULE PO SCH (09:50)
[2023-05-31] MEDS: ONDANSETRON 4 MG/2 ML VIAL IVP PRN (10:51)
[2023-05-31] MEDS: ZINC OXIDE 20% OINT 30 GM TUBE TOP PRN (11:03)
[2023-05-31] MEDS: OLANZapine ODT 5 MG TABLET TL SCH (21:37)
--- NOTE | 2023-05-31 21:40 | PROVIDER PROGRESS NOTE ---
Assessment/Plan - Problem List (1) Seizure Assessment/Plan: CONTROLLED The cause of her seizures appeared to be a new stroke. She was initially dosed with Keppra. But then after she developed status epilepticus, she was changed over to IV phenytoin. The seizure gave her an aspiration pneumonia which she h as now recovered from. GIP consultation was ordered and we asked if she would be a candidate for the GIP service. We appreciate their input and she was not a candidate for GIP service. She is not consistent with taking her meds for her seizures. There are days that she will actively spit her pills out. Plan: Continue with IV antiseizure meds since she still is not reliably taking p.o. pills. Family is aware of her comfort measures status and are now looking for long-term care for this patient. (2) Thalamic infarction Impression: WEAKNESS IMPROVED Earlier in her stay she had left arm weakness and left gaze preference. The MRI did confirm a thalamic infarct. The infarct was felt to be the cause of her seizures and her status epilepticus PT and OT evaluation were done to see where appropriate placement for this patient would be. PTand OT reported that she can speak normally, moves both hands and arms, both legs and feet while in bed, but cannot roll herself in bed and cannot sit up to dangle. Plan: I spoke to brother Malik and [id number] Isa today by phone and updated them. They support her wish for comfort measures status and are looking for long-term care for this patient. 3) Bipolar disorder Impression: MENTAL HEALTH HAS IMPROVED Due to her sedated status and seizures, the patient was unable to take her bipolar medications. She was sedated and unresponsive for quite some time. 05/24 overnight into 05/25 am, there was an episode of alertness, emotional lability. Since about 05/26,she has become more interactive. She is having complete sentence structure and complete a conversation with me. She is tolerating the zyprexa and is calmer. (4) Comfort measures only status Impression: We have stopped measurement of intake and output, checking vital signs, and getting any labs. She is ordered to get a clear liquid diet, to offer her anything she would want. She is asking for water, apple juice, and Pepsi. And those are being given to her. There is no safe disposition with ability to take care of her, since she needs iv anti-seizure meds. However, she has become more alert since 05/26 and her only request is that of getting po liquids. Those are given to her at her request. So far she has not wanted to eat anything for over a week. At times she actively refuses pills when they are put in her mouth. I updated the family by phone today. Plan: Family is aware of her being more awake. They asked me about assisted suicide which we will not do and asked how long she could potentially survive. Since they have ongoing questions, I will order a consult from Palliative Care provider Kathi Cummins NP. The family are in the process of trying to find a long-term care facility, since they may get access to her savings, as per - Current Meds Current Meds: Current Medications Generic Name Dose Route Start Last Admin Trade Name Freq PRN Reason Stop Dose Admin Carboxymethylcellulose 1 drops 05/27/23 13:53 05/27/23 13:59 Carboxymethylcellulose Ophth Drops EACHEYE 1 drops PRN PRN Administration Dry Eye Famotidine 20 mg 05/17/23 09:00 05/31/23 09:49 Famotidine 20 Mg/2 Ml Vial IVP 20 mg BID MANDY Administration Glycopyrrolate 0.2 mg 05/20/23 12:09 05/23/23 08:31 Glycopyrrolate 1 Mg/5 Ml Vial SUBQ 0.2 mg Q4H PRN Administration Excessive secretions Acetaminophen 1,000 mg in 100 mls @ 400 mls/hr 05/15/23 10:15 05/26/23 16:24 Acetaminophen IV Infused Q6HR PRN Infusion Mild Pain or Fever>38C(100.4F) [place] Carbonate 150 mg 05/25/23 09:00 05/31/23 09:50 [place] 150 Mg Capsule PO 150 mg DAILY MANDY Administration Lorazepam 2 mg 05/21/23 10:14 05/22/23 11:05 Lorazepam 2 Mg/Ml Vial IVP 2 mg Q2H PRN Administration Seizure Morphine Sulfate 2 mg 05/20/23 12:09 05/26/23 00:50 Morphine 2 Mg/Ml Carpuject IVP 2 mg Q2HR PRN Administration NEEDED PER PROVIDER ORDERS Multi-Ingredient Ointment 1 applic 05/12/23 10:56 05/31/23 11:03 Zinc Oxide 20% Oint 30 Gm Tube TOP 1 applic PRN PRN Administration Skin Care Olanzapine 5 mg 05/25/23 21:00 05/30/23 21:32 Olanzapine Odt 5 Mg Tablet TL 5 mg QPM MANDY Administration Ondansetron HCl 4 mg 05/09/23 17:16 05/31/23 10:51 Ondansetron 4 Mg/2 Ml Vial IVP 4 mg Q6HR PRN Administration Nausea / Vomiting Phenazopyridine HCl 100 mg 05/27/23 15:00 05/31/23 13:27 Phenazopyridine 100 Mg Tablet PO 100 mg TID MANDY Administration Phenytoin Sodium 300 mg 05/20/23 21:00 05/31/23 09:49 Phenytoin 100 Mg/2 Ml Vial IVP 300 mg BID MANDY Administration Sodium Chloride 10 ml 05/09/23 17:16 05/29/23 22:06 Sodium Chloride Flush 0.9% 10 Ml Syringe IVP 10 ml PRN PRN Administration NEEDED PER PROVIDER ORDERS Sodium Chloride 10 ml 05/10/23 01:00 05/31/23 09:50 Sodium Chloride Flush 0.9% 10 Ml Syringe IVP 10 ml 0100,0900,1700 MANDY Administration - Lab Result Fish Bone Diagrams: 05/20/23 08:00 05/20/23 08:00 - Additional Planning My Orders: My Active Orders 05/31/23 Consult [Palliative Care Consult] [CONS] Routine 05/31/23 18:42 Miscellaenous Nursing Order [RC] QSHIFT Subjective - Subjective Patient Reports: Resting Comfortably, No Complaints Objective Vital Signs: Vital Signs - 24 hr 05/31/23 09:00 Temperature 36.9 C Heart Rate [ 96 Brachial] Respiratory 16 Rate Blood Pressure 124/68 [Right Brachial artery] O2 Saturation 98 Oxygen O2 Source Room air I&O (Last 24 Hrs): Intake and Output Totals x24h 05/29/23 05/30/23 05/31/23 23:59 23:59 23:59 Intake Total 2240 730 500 Output Total 3500 794 4244 Balance 565 180 -850 General: Alert, Oriented x3 HEENT: EOMI, Other (dry mucosa) Neck: Supple, No JVD Neuro: Alert, Non Focal Cardiovascular: No murmurs Respiratory: No respiratory distress, Breath sounds nml Abdomen: Soft, No tenderness Extremities: No clubbing, Other (1+ leg edema) - Results Results: Laboratory Results WBC 10.0 x10^3/uL (4.8-10.8) 05/20/23 08:00 RBC 2.88 10^6/uL (4.20-5.40) L 05/20/23 08:00 Hgb 9.4 g/dL (12.0-16.0) L 05/20/23 08:00 Hct 28.6 % (37.0-47.0) L 05/20/23 08:00 MCV 99.3 fL (81.0-99.0) H 05/20/23 08:00 MCH 32.6 pg (27.0-31.0) H 05/20/23 08:00 MCHC 32.9 g/dL (32.0-36.0) 05/20/23 08:00 RDW 14.4 % (12.0-15.0) 05/20/23 08:00 Plt Count 242 10^3/uL (130-450) 05/20/23 08:00 MPV 8.9 fL (7.9-10.8) 05/20/23 08:00 Neut # (Auto) 7.1 10^3/uL (1.5-6.6) H 05/20/23 08:00 Lymph # (Auto) 2.0 10^3/uL (1.5-3.5) 05/20/23 08:00 [place] # (Auto) 0.6 10^3/uL (0.0-1.0) 05/20/23 08:00 Eos # (Auto) 0.1 10^3/uL (0.0-0.7) 05/20/23 08:00 Baso # (Auto) 0.0 10^3/uL (0.0-0.1) 05/20/23 08:00 Absolute Nucleated RBC 0.00 x10^3/uL 05/20/23 08:00 Total Counted 100 05/17/23 06:36 Band Neuts % (Manual) 7 % (0-10) 05/17/23 06:36 Abnorm Lymph % (Manual) 0 % 05/17/23 06:36 Metamyelocytes % 4 % (-0) H 05/17/23 06:36 Myelocytes % 2 % (-0) H 05/17/23 06:36 Nucleated RBC % 0.0 /100WBC 05/20/23 08:00 Neutrophils # (Manual) 22.4 10^3/uL (1.5-6.6) H 05/17/23 06:36 Lymphocytes # (Manual) 3.3 10^3/uL (1.5-3.5) 05/17/23 06:36 Monocytes # (Manual) 0.3 10^3/uL (0.0-1.0) 05/17/23 06:36 Eosinophils # (Manual) 0.0 10^3/uL (0-0.7) 05/17/23 06:36 Basophils # (Manual) 0.0 10^3/uL (0-0.1) 05/17/23 06:36 Nucleated RBCs 1 % 05/17/23 06:36 Differential Comment MANUAL DIFFERENTIAL 05/17/23 06:36 RBC Morph Micro Appear 2+ ANISOCYTOSIS (NORMAL) 3+ POLYCHROMASIA (NORMAL) 05/17/23 06:36 RBC Morph Micro Appear 2+ ANISOCYTOSIS (NORMAL) 3+ POLYCHROMASIA (NORMAL) 05/17/23 06:36 PT 14.2 secs (9.9-12.6) H 05/17/23 07:35 INR 1.3 (0.8-1.2) H 05/17/23 07:35 Bld Gas Analysis Time 1250 05/17/23 12:35 Sample Site RIGHT RADIAL 05/17/23 12:35 ABG pH 7.36 (7.35-7.45) 05/17/23 12:35 ABG pCO2 35 mmHg (34-45) 05/17/23 12:35 ABG pO2 118 mmHg (80-100) H 05/17/23 12:35 ABG HCO3 19.2 mmol/L (22.0-26.0) L 05/17/23 12:35 ABG Total CO2 20.3 MMOL/L (21.0-29.0) L 05/17/23 12:35 ABG O2 Saturation 98 % (94-98) 05/17/23 12:35 ABG Base Excess -5.5 mmol/L (-2.0-3.0) L 05/17/23 12:35 Twan Test POSITIVE 05/17/23 12:35 VBG pH 7.449 (7.31-7.41) H 05/20/23 04:15 Ionized Calcium 1.12 mmol/L (1.15-1.33) L 05/20/23 04:15 O2 Delivery Device NASAL CANNULA 05/17/23 12:35 O2 Liters/Min 4.00 LPM 05/17/23 12:35 FiO2 1.00 05/17/23 08:10 Sodium 143 mmol/L (135-145) 05/20/23 08:00 Potassium 3.4 mmol/L (3.5-4.5) L 05/20/23 08:00 Chloride 103 mmol/L (101-111) 05/20/23 08:00 Carbon Dioxide 37 mmol/L (21-32) H 05/20/23 08:00 Anion Gap 3.0 (6-13) L 05/20/23 08:00 BUN 12 mg/dL (6-20) 05/20/23 08:00 Creatinine 0.8 mg/dL (0.6-1.3) 05/20/23 08:00 Estimated GFR (MDRD) 71 (>89) L 05/20/23 08:00 Glucose 158 mg/dL (74-104) H 05/20/23 08:00 Lactic Acid 0.6 mmol/L (0.5-2.2) 05/17/23 06:36 Calcium 8.2 mg/dL (8.5-10.3) L 05/20/23 08:00 Phosphorus 1.5 mg/dL (2.5-5.0) L 05/20/23 04:15 Magnesium 1.9 mg/dL (1.7-2.3) 05/20/23 04:15 Total Bilirubin 0.4 mg/dL (0.2-1.0) 05/19/23 04:27 AST 13 IU/L (10-42) 05/19/23 04:27 ALT 15 IU/L (10-60) 05/19/23 04:27 Alkaline Phosphatase 54 IU/L (42-121) 05/19/23 04:27 B-Natriuretic Peptide 635 pg/mL (5-100) H 05/17/23 07:35 Total Protein 5.0 g/dL (6.4-8.9) L 05/19/23 04:27 Albumin 3.2 g/dL (3.2-5.5) 05/19/23 04:27 Globulin 1.8 g/dL (2.1-4.2) L 05/19/23 04:27 Albumin/Globulin Ratio 1.8 (1.0-2.2) 05/19/23 04:27 Prealbumin 10 mg/dL (17-34) L 05/19/23 04:27 Vitamin D 25-Hydroxy 24.3 ng/mL (30.0-100.0) L 05/09/23 15:15 Total Intact PTH 15 pg/mL (12-88) 05/09/23 15:15 Urine Color YELLOW 05/14/23 12:31 Urine Clarity CLOUDY (CLEAR) 05/14/23 12:31 Urine pH 6.0 PH (5.0-7.5) 05/14/23 12:31 Ur Specific [place] 1.015 (1.002-1.030) 05/14/23 12:31 Urine Protein NEGATIVE mg/dL (NEGATIVE) 05/14/23 12:31 Urine Glucose (UA) NEGATIVE mg/dL (NEGATIVE) 05/14/23 12:31 Urine Ketones 40 mg/dL (NEGATIVE) H 05/14/23 12:31 Urine Occult Blood SMALL (NEGATIVE) H 05/14/23 12:31 Urine Nitrite POSITIVE (NEGATIVE) H 05/14/23 12:31 Urine Bilirubin NEGATIVE (NEGATIVE) 05/14/23 12:31 Urine Urobilinogen 0.2 (NORMAL) E.U./dL (NORMAL) 05/14/23 12:31 Ur Leukocyte Esterase LARGE (NEGATIVE) H 05/14/23 12:31 Urine RBC 0-5 /HPF (0-5) 05/14/23 12:31 Urine WBC >25 /HPF (0-5) H 05/14/23 12:31 Ur Epithelial Cells RARE Transitional /HPF (<= Few) RARE Renal Tubular /HPF (<= Few) 05/14/23 12:31 Ur Epithelial Cells RARE Transitional /HPF (<= Few) RARE Renal Tubular /HPF (<= Few) 05/14/23 12:31 Ur Squamous Epith Cells RARE Squamous (<= Few) 05/14/23 12:31 Urine Bacteria Moderate /HPF (None Seen) H 05/14/23 12:31 Urine Culture Comments INDICATED 05/14/23 12:31 Nasal Screen MRSA (PCR) NEGATIVE (NEGATIVE) 05/17/23 08:20 Last Dose Date UNK 05/17/23 07:35 Last Dose Time UNK 05/17/23 07:35 Phenytoin 9.2 ug/mL 05/20/23 04:05 Lamotrigine <1.0 ug/mL (2.0-20.0) L 05/17/23 07:35 Levetiracetam 22.0 ug/mL (10.0-40.0) 05/18/23 04:26 [place] < 0.10 mmol/L 05/17/23 07:35 SARS-CoV-2 (PCR) NOT DETECTED 05/18/23 16:02 - Procedures Procedures: Procedures CATARAC PHACOEMULS/ASPIR (05/14/13) EXCISION OF DUODENUM, ENDO, DIAGN (09/19/18) EXCISION OF ESOPHAGUS, ENDO, DIAGN (09/19/18) EXCISION OF LEFT LARGE INTESTINE, ENDO, DIAGN (09/19/18) EXCISION OF RIGHT LARGE INTESTINE, ENDO, DIAGN (09/19/18) EXCISION OF STOMACH, PYLORUS, ENDO, DIAGN (09/19/18) INSERT LENS AT CATAR EXT (05/14/13) Sepsis Event Note (H) - Evaluation Current Stage of Sepsis: Ruled out
[2023-06-01] MEDS: SODIUM CHLORIDE FLUSH 0.9% 10 ML SYRINGE IVP PRN (01:36)
[2023-06-01] MEDS: SODIUM CHLORIDE FLUSH 0.9% 10 ML SYRINGE IVP SCH ×3 (01:36→21:59)
[2023-06-01] MEDS: PHENAZOPYRIDINE 100 MG TABLET PO SCH ×3 (06:07→21:59)
[2023-06-01] MEDS: FAMOTIDINE 20 MG/2 ML VIAL IVP SCH ×2 (08:20→21:59)
[2023-06-01] MEDS: LITHIUM 150 MG CAPSULE PO SCH (08:20)
[2023-06-01] MEDS: PHENYTOIN 100 MG/2 ML VIAL IVP SCH ×2 (08:33→21:58)
--- NOTE | 2023-06-01 16:44 | PROVIDER PROGRESS NOTE ---
Assessment/Plan - Problem List (1) Seizure Assessment/Plan: CONTROLLED The cause of her seizures appeared to be a new stroke. She was initially dosed with Keppra. But then after she developed status epilepticus, she was changed over to IV phenytoin. The seizure gave her an aspiration pneumonia which she h as now recovered from. She was made a DNR and comfort care (per family request, knowing her wishes) after the status epilepticus plus aspiration PNA. She was not a candidate for the [facility] service appreciate Hospice input. She was not consistent with taking her meds for her seizures, was actively spitt ing out her pills out. Therefore she is on iv Pheytoin 300 BID Since she has been on this for over 10 days, today a phenytoin level was done and is high. Plan: Continue with IV antiseizure meds but will decrease dose to 200 mg iv BID Family is aware of her comfort measures status and are now looking for long-term care for this patient. (2) Thalamic infarction Impression: WEAKNESS IMPROVED Earlier in her stay she had left arm weakness and left gaze preference. The MRI did confirm a thalamic infarct. The infarct was felt to be the cause of her seizures and her status epilepticus. She has regaine L arm and hand function PT and OT evaluation were done to see where appropriate placement for this patient would be. PTand OT reported that she can speak normally, moves both hands and arms, both legs and feet while in bed, and could sit and dangle briefl y. Plan: Family support her wish for comfort measures status and are looking for long- term care for this patient. 3) Bipolar disorder Impression: MENTAL HEALTH HAS IMPROVED Due to her sedated status and seizures, the patient was unable to take her bipolar medications. She was sedated and unresponsive for quite some time. 05/24 overnight into 05/25 am, there was an episode of alertness, emotional lability. Since about 05/26,she has become more interactive. She is having complete sentence structure and complete a conversation with me. She is tolerating the zyprexa and is calmer. (4) Comfort measures only status Impression: We have stopped measurement of intake and output, checking vital signs, and getting any labs. She is ordered to get a clear liquid diet, to offer her anything she would want. She is asking for water, apple juice, and Pepsi. And those are being given to her. There is no safe disposition with ability to take care of her, since she needs iv anti-seizure meds. However, she has become more alert since 05/26 and her only request is that of getting po liquids. Those are given to her at her request. So far she has not wanted to eat anything for over 2 weeks. At times she actively refuses pills when they are put in her mouth. Family is aware of her being more awake. They asked me yesterday about assisted suicide which we will not do. They asked how long she could potentially survive. Plan: Since they have ongoing questions, I ordered a consult from Palliative Care provider Kathi Cummins NP and spoke with Kathi today, who will see her and speak to the brother & [id number] in [place] this afternoon The family are in the process of trying to find a long-term care facility, since they may get access to her savings, as per - Current Meds Current Meds: Current Medications Generic Name Dose Route Start Last Admin Trade Name Freq PRN Reason Stop Dose Admin Carboxymethylcellulose 1 drops 05/27/23 13:53 05/27/23 13:59 Carboxymethylcellulose Ophth Drops EACHEYE 1 drops PRN PRN Administration Dry Eye Famotidine 20 mg 05/17/23 09:00 06/01/23 08:20 Famotidine 20 Mg/2 Ml Vial IVP 20 mg BID MANDY Administration Glycopyrrolate 0.2 mg 05/20/23 12:09 05/23/23 08:31 Glycopyrrolate 1 Mg/5 Ml Vial SUBQ 0.2 mg Q4H PRN Administration Excessive secretions Acetaminophen 1,000 mg in 100 mls @ 400 mls/hr 05/15/23 10:15 05/26/23 16:24 Acetaminophen IV Infused Q6HR PRN Infusion Mild Pain or Fever>38C(100.4F) [place] Carbonate 150 mg 05/25/23 09:00 06/01/23 08:20 [place] 150 Mg Capsule PO 150 mg DAILY MANDY Administration Lorazepam 2 mg 05/21/23 10:14 05/22/23 11:05 Lorazepam 2 Mg/Ml Vial IVP 2 mg Q2H PRN Administration Seizure Morphine Sulfate 2 mg 05/20/23 12:09 05/26/23 00:50 Morphine 2 Mg/Ml Carpuject IVP 2 mg Q2HR PRN Administration NEEDED PER PROVIDER ORDERS Multi-Ingredient Ointment 1 applic 05/12/23 10:56 05/31/23 11:03 Zinc Oxide 20% Oint 30 Gm Tube TOP 1 applic PRN PRN Administration Skin Care Olanzapine 5 mg 05/25/23 21:00 05/31/23 21:37 Olanzapine Odt 5 Mg Tablet TL 5 mg QPM MANDY Administration Ondansetron HCl 4 mg 05/09/23 17:16 05/31/23 10:51 Ondansetron 4 Mg/2 Ml Vial IVP 4 mg Q6HR PRN Administration Nausea / Vomiting Phenazopyridine HCl 100 mg 05/27/23 15:00 06/01/23 14:55 Phenazopyridine 100 Mg Tablet PO 100 mg TID MANDY Administration Sodium Chloride 10 ml 05/09/23 17:16 06/01/23 01:36 Sodium Chloride Flush 0.9% 10 Ml Syringe IVP 10 ml PRN PRN Administration NEEDED PER PROVIDER ORDERS Sodium Chloride 10 ml 05/10/23 01:00 06/01/23 08:33 Sodium Chloride Flush 0.9% 10 Ml Syringe IVP 10 ml 0100,0900,1700 MANDY Administration - Lab Result Fish Bone Diagrams: 05/20/23 08:00 05/20/23 08:00 - Additional Planning My Orders: My Active Orders 05/31/23 18:42 Miscellaenous Nursing Order [RC] QSHIFT 06/01/23 21:00 Phenytoin Inj [Dilantin Inj] 200 mg IVP BID Subjective - Subjective Patient Reports: No Complaints Objective Vital Signs: Vital Signs - 24 hr 06/01/23 06:46 Temperature 36.9 C Heart Rate [ 93 Brachial] Respiratory 14 Rate Blood Pressure 132/72 H [Left Brachial artery] O2 Saturation 96 Oxygen O2 Source Room air I&O (Last 24 Hrs): Intake and Output Totals x24h 05/30/23 05/31/23 06/01/23 23:59 23:59 23:59 Intake Total 730 650 785 Output Total 550 1750 790 Balance 180 -1100 -5 General: Alert, No acute distress HEENT: Mucous membr. moist/pink Neck: Supple, No JVD Neuro: Alert, Non Focal Cardiovascular: No murmurs Respiratory: No respiratory distress Abdomen: Soft, No tenderness Extremities: No clubbing, Other (1+ leg edema) - Results Results: Laboratory Results WBC 10.0 x10^3/uL (4.8-10.8) 05/20/23 08:00 RBC 2.88 10^6/uL (4.20-5.40) L 05/20/23 08:00 Hgb 9.4 g/dL (12.0-16.0) L 05/20/23 08:00 Hct 28.6 % (37.0-47.0) L 05/20/23 08:00 MCV 99.3 fL (81.0-99.0) H 05/20/23 08:00 MCH 32.6 pg (27.0-31.0) H 05/20/23 08:00 MCHC 32.9 g/dL (32.0-36.0) 05/20/23 08:00 RDW 14.4 % (12.0-15.0) 05/20/23 08:00 Plt Count 242 10^3/uL (130-450) 05/20/23 08:00 MPV 8.9 fL (7.9-10.8) 05/20/23 08:00 Neut # (Auto) 7.1 10^3/uL (1.5-6.6) H 05/20/23 08:00 Lymph # (Auto) 2.0 10^3/uL (1.5-3.5) 05/20/23 08:00 [place] # (Auto) 0.6 10^3/uL (0.0-1.0) 05/20/23 08:00 Eos # (Auto) 0.1 10^3/uL (0.0-0.7) 05/20/23 08:00 Baso # (Auto) 0.0 10^3/uL (0.0-0.1) 05/20/23 08:00 Absolute Nucleated RBC 0.00 x10^3/uL 05/20/23 08:00 Total Counted 100 05/17/23 06:36 Band Neuts % (Manual) 7 % (0-10) 05/17/23 06:36 Abnorm Lymph % (Manual) 0 % 05/17/23 06:36 Metamyelocytes % 4 % (-0) H 05/17/23 06:36 Myelocytes % 2 % (-0) H 05/17/23 06:36 Nucleated RBC % 0.0 /100WBC 05/20/23 08:00 Neutrophils # (Manual) 22.4 10^3/uL (1.5-6.6) H 05/17/23 06:36 Lymphocytes # (Manual) 3.3 10^3/uL (1.5-3.5) 05/17/23 06:36 Monocytes # (Manual) 0.3 10^3/uL (0.0-1.0) 05/17/23 06:36 Eosinophils # (Manual) 0.0 10^3/uL (0-0.7) 05/17/23 06:36 Basophils # (Manual) 0.0 10^3/uL (0-0.1) 05/17/23 06:36 Nucleated RBCs 1 % 05/17/23 06:36 Differential Comment MANUAL DIFFERENTIAL 05/17/23 06:36 RBC Morph Micro Appear 2+ ANISOCYTOSIS (NORMAL) 3+ POLYCHROMASIA (NORMAL) 05/17/23 06:36 RBC Morph Micro Appear 2+ ANISOCYTOSIS (NORMAL) 3+ POLYCHROMASIA (NORMAL) 05/17/23 06:36 PT 14.2 secs (9.9-12.6) H 05/17/23 07:35 INR 1.3 (0.8-1.2) H 05/17/23 07:35 Bld Gas Analysis Time 1250 05/17/23 12:35 Sample Site RIGHT RADIAL 05/17/23 12:35 ABG pH 7.36 (7.35-7.45) 05/17/23 12:35 ABG pCO2 35 mmHg (34-45) 05/17/23 12:35 ABG pO2 118 mmHg (80-100) H 05/17/23 12:35 ABG HCO3 19.2 mmol/L (22.0-26.0) L 05/17/23 12:35 ABG Total CO2 20.3 MMOL/L (21.0-29.0) L 05/17/23 12:35 ABG O2 Saturation 98 % (94-98) 05/17/23 12:35 ABG Base Excess -5.5 mmol/L (-2.0-3.0) L 05/17/23 12:35 Twan Test POSITIVE 05/17/23 12:35 VBG pH 7.449 (7.31-7.41) H 05/20/23 04:15 Ionized Calcium 1.12 mmol/L (1.15-1.33) L 05/20/23 04:15 O2 Delivery Device NASAL CANNULA 05/17/23 12:35 O2 Liters/Min 4.00 LPM 05/17/23 12:35 FiO2 1.00 05/17/23 08:10 Sodium 143 mmol/L (135-145) 05/20/23 08:00 Potassium 3.4 mmol/L (3.5-4.5) L 05/20/23 08:00 Chloride 103 mmol/L (101-111) 05/20/23 08:00 Carbon Dioxide 37 mmol/L (21-32) H 05/20/23 08:00 Anion Gap 3.0 (6-13) L 05/20/23 08:00 BUN 12 mg/dL (6-20) 05/20/23 08:00 Creatinine 0.8 mg/dL (0.6-1.3) 05/20/23 08:00 Estimated GFR (MDRD) 71 (>89) L 05/20/23 08:00 Glucose 158 mg/dL (74-104) H 05/20/23 08:00 Lactic Acid 0.6 mmol/L (0.5-2.2) 05/17/23 06:36 Calcium 8.2 mg/dL (8.5-10.3) L 05/20/23 08:00 Phosphorus 1.5 mg/dL (2.5-5.0) L 05/20/23 04:15 Magnesium 1.9 mg/dL (1.7-2.3) 05/20/23 04:15 Total Bilirubin 0.4 mg/dL (0.2-1.0) 05/19/23 04:27 AST 13 IU/L (10-42) 05/19/23 04:27 ALT 15 IU/L (10-60) 05/19/23 04:27 Alkaline Phosphatase 54 IU/L (42-121) 05/19/23 04:27 B-Natriuretic Peptide 635 pg/mL (5-100) H 05/17/23 07:35 Total Protein 5.0 g/dL (6.4-8.9) L 05/19/23 04:27 Albumin 3.2 g/dL (3.2-5.5) 05/19/23 04:27 Globulin 1.8 g/dL (2.1-4.2) L 05/19/23 04:27 Albumin/Globulin Ratio 1.8 (1.0-2.2) 05/19/23 04:27 Prealbumin 10 mg/dL (17-34) L 05/19/23 04:27 Vitamin D 25-Hydroxy 24.3 ng/mL (30.0-100.0) L 05/09/23 15:15 Total Intact PTH 15 pg/mL (12-88) 05/09/23 15:15 Urine Color YELLOW 05/14/23 12:31 Urine Clarity CLOUDY (CLEAR) 05/14/23 12:31 Urine pH 6.0 PH (5.0-7.5) 05/14/23 12:31 Ur Specific [place] 1.015 (1.002-1.030) 05/14/23 12:31 Urine Protein NEGATIVE mg/dL (NEGATIVE) 05/14/23 12:31 Urine Glucose (UA) NEGATIVE mg/dL (NEGATIVE) 05/14/23 12:31 Urine Ketones 40 mg/dL (NEGATIVE) H 05/14/23 12:31 Urine Occult Blood SMALL (NEGATIVE) H 05/14/23 12:31 Urine Nitrite POSITIVE (NEGATIVE) H 05/14/23 12:31 Urine Bilirubin NEGATIVE (NEGATIVE) 05/14/23 12:31 Urine Urobilinogen 0.2 (NORMAL) E.U./dL (NORMAL) 05/14/23 12:31 Ur Leukocyte Esterase LARGE (NEGATIVE) H 05/14/23 12:31 Urine RBC 0-5 /HPF (0-5) 05/14/23 12:31 Urine WBC >25 /HPF (0-5) H 05/14/23 12:31 Ur Epithelial Cells RARE Transitional /HPF (<= Few) RARE Renal Tubular /HPF (<= Few) 05/14/23 12:31 Ur Epithelial Cells RARE Transitional /HPF (<= Few) RARE Renal Tubular /HPF (<= Few) 05/14/23 12:31 Ur Squamous Epith Cells RARE Squamous (<= Few) 05/14/23 12:31 Urine Bacteria Moderate /HPF (None Seen) H 05/14/23 12:31 Urine Culture Comments INDICATED 05/14/23 12:31 Nasal Screen MRSA (PCR) NEGATIVE (NEGATIVE) 05/17/23 08:20 Last Dose Date UNK 05/17/23 07:35 Last Dose Time UNK 05/17/23 07:35 Phenytoin 23.7 ug/mL 06/01/23 07:58 Lamotrigine <1.0 ug/mL (2.0-20.0) L 05/17/23 07:35 Levetiracetam 22.0 ug/mL (10.0-40.0) 05/18/23 04:26 Prince < 0.10 mmol/L 05/17/23 07:35 SARS-CoV-2 (PCR) NOT DETECTED 05/18/23 16:02 - Procedures Procedures: Procedures CATARAC PHACOEMULS/ASPIR (05/14/13) EXCISION OF DUODENUM, ENDO, DIAGN (09/19/18) EXCISION OF ESOPHAGUS, ENDO, DIAGN (09/19/18) EXCISION OF LEFT LARGE INTESTINE, ENDO, DIAGN (09/19/18) EXCISION OF RIGHT LARGE INTESTINE, ENDO, DIAGN (09/19/18) EXCISION OF STOMACH, PYLORUS, ENDO, DIAGN (09/19/18) INSERT LENS AT CATAR EXT (05/14/13) Sepsis Event Note (H) - Evaluation Current Stage of Sepsis: Ruled out
--- NOTE | 2023-06-01 21:23 | CONSULTATION NOTE ---
Palliative Care Consultation - Referral Referring Provider: Dr. Rhoda Finn Time of Visit: [id number] Referral setting: Hospitalized patient Referral Reason: Goals of Care - Information Sources Records reviewed: Previous records reviewed History/Review of Systems obtained from: Patient, Family (spoke with Malik and Isa; brother and TYLER) Exam limitations: Clinical condition (patient able to engage; reports has Mental issues) - History of Present Illness Brief History of Present Illness: This is a complicated 68-year-old woman who presented on 05/09/2023 with syncope, weakness and worsening neuro symptoms. Patient has been living on her own, but has significant underlying mental illness, with identified bipolar affective disorder, atrial fib, history of hypertension, fibromyalgia, is well as it appears most likely agoraphobia previous to admit. 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 Her stroke symptoms have continued to improve, she does have some weakness, but has been unable to participate in PT/OT, is dependent for bed mobility, has not been independently feeding. Though she can raise her arms and move her legs for me. Throughout her course she has been sedated, and because she was having seizures, was unable to take her bipolar medications. She did present with emotional lability, has been put back on her medications, and is participatory in the conversation. She does have insight into this, reports she has mental illness issues. This makes life quite complicated.She reports she is having scary dreams, but does feel safe here in the hospital. She denies any pain or distress, does understand she is in [facility]. She does understand she has had stroke and seizures. She does identify her brother Malik as her DPOA.She does have some perception she is improved, she very much enjoys apple juice, though is unable to feed herself. Did note she had some trouble with choking and swallowing originally with evaluation, later observed taking 8 ounces of apple juice without difficulty but needed assistance with straw and feeding.She does understand they are looking at placement, when asked about rehab and further improvement versus focus on comfort and allowing natural , patient was somewhat indecisive, given permission to think about this through the weekend, but has not been partici patory in anything that might indicate she wants to move forward with further focus. She is surprised as the healthcare team is as well, that she does improved at this time.Given patient's fluctuating status, goals of care, palliative care consulted to further explore goals of care and assist DPDEYSI Gan, her brother in further decision-making. Medical/Surgical History - Past Medical History Cardiovascular: reports: Hypertension, Atrial fibrillation (was on xaralto) Respiratory: reports: None Neuro: CVA, Seizure disorder Endocrine/Autoimmune: reports: None GI: reports: GERD MANAGER INTENSIVE CARE UNIT: reports: None : reports: None HEENT: reports: None Psych: reports: Depression, Bipolar disorder, Other Musculoskeletal: reports: Fibromyalgia Derm: reports: None MRSA Hx?: No - Past Surgical History General: reports: Cholecystectomy, Colonoscopy Ortho: reports: Knee replacement /MANAGER INTENSIVE CARE UNIT: reports: Hysterectomy - Substance History Use: Uses substance without health or social issues: NONE Social History - Living Situation Living arrangement: At home Living Situation: Alone Support System: Patient has been living at home alone, she was able to manage independently. There is some question regarding medication management, reports they found multiple supplements on her counter, concern for interactions with her medications. She had "various caregivers" assisting her, she had a service dog unfortunately who in January, brothers reports after this point she was very introverted/agoraphobic, and rarely left the home, pulled shades down. Patient had had a knee replacement previously, had a difficult time being in SNF.Reports she does not like to put out effort, and rehab most likely would not be something she would currently or have has had in the past found helpful. Family History - Family History Family History Comment/Other: Patient had a brother this last June, she has an older sister, she identifies Malik as her DPOA. She does have 2 children, but has been estranged. Medications/Allergies - Medications Active Medication List: Active Medications Carboxymethylcellulose (Carboxymethylcellulose Ophth Drops) 1 drops EACHEYE PRN PRN PRN Reason: Dry Eye Last Admin: 05/27/23 13:59 Dose: 1 drops Famotidine (Famotidine 20 Mg/2 Ml Vial) 20 mg IVP BID MANDY Last Admin: 06/01/23 08:20 Dose: 20 mg Glycopyrrolate (Glycopyrrolate 1 Mg/5 Ml Vial) 0.2 mg SUBQ Q4H PRN PRN Reason: Excessive secretions Last Admin: 05/23/23 08:31 Dose: 0.2 mg Acetaminophen (Acetaminophen) 1,000 mg in 100 mls @ 400 mls/hr IV Q6HR PRN PRN Reason: Mild Pain or Fever>38C(100.4F) Last Infusion: 05/26/23 16:24 Dose: Infused Silver Creek Carbonate ([place] 150 Mg Capsule) 150 mg PO DAILY [facility] Last Admin: 06/01/23 08:20 Dose: 150 mg Lorazepam (Lorazepam 2 Mg/Ml Vial) 2 mg IVP Q2H PRN PRN Reason: Seizure Last Admin: 05/22/23 11:05 Dose: 2 mg Morphine Sulfate (Morphine 2 Mg/Ml Carpuject) 2 mg IVP Q2HR PRN PRN Reason: NEEDED PER PROVIDER ORDERS Last Admin: 05/26/23 00:50 Dose: 2 mg Multi-Ingredient Ointment (Zinc Oxide 20% Oint 30 Gm Tube) 1 applic TOP PRN PRN PRN Reason: Skin Care Last Admin: 05/31/23 11:03 Dose: 1 applic Olanzapine (Olanzapine Odt 5 Mg Tablet) 5 mg TL QPM [facility] Last Admin: 05/31/23 21:37 Dose: 5 mg Ondansetron HCl (Ondansetron 4 Mg/2 Ml Vial) 4 mg IVP Q6HR PRN PRN Reason: Nausea / Vomiting Last Admin: 05/31/23 10:51 Dose: 4 mg Phenazopyridine HCl (Phenazopyridine 100 Mg Tablet) 100 mg PO TID [facility] Last Admin: 06/01/23 14:55 Dose: 100 mg Phenytoin Sodium (Phenytoin 100 Mg/2 Ml Vial) 200 mg IVP BID [facility] Sodium Chloride (Sodium Chloride Flush 0.9% 10 Ml Syringe) 10 ml IVP PRN PRN PRN Reason: NEEDED PER PROVIDER ORDERS Last Admin: 06/01/23 01:36 Dose: 10 ml Sodium Chloride (Sodium Chloride Flush 0.9% 10 Ml Syringe) 10 ml IVP 0100,0900,1700 [facility] Last Admin: 06/01/23 08:33 Dose: 10 ml lamoTRIgine [LaMICtal] 100 mg PO DAILY 03/02/19 lamoTRIgine [LaMICtal] 150 mg PO QPM 03/02/19 ALPRAZolam [Alprazolam] 1 mg PO TID PRN 03/03/19 Silver Creek [[place] Carbonate] 150 mg PO DAILY 05/09/23 Losartan [Cozaar] 50 mg PO DAILY 05/10/23 Metoprolol Succinate [Toprol Xl] 100 mg PO QPM 05/10/23 Mirtazapine [Remeron] 7.5 mg PO QPM 05/10/23 Rivaroxaban [Xarelto] 20 mg PO QDDINNER 05/10/23 Rosuvastatin Calcium [Crestor] 10 mg PO QPM 05/10/23 hydrOXYzine HCL [Hydroxyzine HCl] 25 - 50 mg PO QPM 05/10/23 risperiDONE [Risperdal] 0.75 mg PO QPM 05/10/23 - Allergies Allergies/Adverse Reactions: Allergies Allergy/AdvReac Type Severity Reaction Status Date / Time Sulfa (Sulfonamide Allergy Severe Edema Verified 05/09/23 15:03 Antibiotics) naproxen Allergy unknown Verified 05/09/23 15:03 Penicillins Allergy UNKNOWN Verified 05/09/23 15:03 Review of Systems - Constitutional Constitutional: reports: Weakness, Poor appetite (taking mostly fluids), Weight loss - Ears, Nose & Throat Ears, Nose & Throat: reports: Dry mouth - Respiratory Respiratory: reports: Cough (with eating). denies: SOB at rest - Genitourinary Genitourinary: reports: Other (has pure wick) - Musculoskeletal Musculoskeletal: reports: Other (bed bound) - Neurological Neurological: reports: General weakness - Psychiatric Psychiatric: reports: Depression, Anxiety, Other (reports disturbing dreams) - Other Findings Other Findings: ,imited ROs Physical Exam - Physical Exam General Appearance: positive: Alert, Other (appears calm; easily engaged; little insight to current conditon/implications) Eyes Bilateral: positive: Other (keeps eyes close most of visit) Neck: positive: No JVD, Trachea midline Cardiovascular: positive: Regular rate & rhythm Respiratory: positive: No respiratory distress Abdomen: positive: Non-tender, Soft Skin: positive: Other (has CVP in neck) Neurologic/Psychiatric: positive: Depressed mood/affect, Flat affect Palliative Care - POLST Patient has POLST: Yes POLST Status: DNR Performance Status: Patient has been bedbound, morbid anticipatory and conversations. She is not feeding herself, accepting acceptance for assisting with straw drinking. She does have some intermittent choking noted. She is a maximum assist and role. At this point has not been willing to work with PT/OT. - Palliative Care Discussion: Met with patient, asked her present understanding, she does understand she is at [facility], she is able to recount she has had seizures and a stroke. She shared that she is having scary dreams, but does feel safe with staff. She is "surprised" how much better she is doing, asked if she was feeling better enough to consider rehab or further intervention or support, or if still wanting to focus on comfort. Patient is somewhat ambivalent, given opportunity to think about this over the weekend, we did discuss though not making a decision is a decision. She is not feeling distressed or anxious, she is enjoying apple juice, is unable to really relate to me her intake or wishes regarding food and fluids. Patient does understand we are looking for placement, that she needs to be in a safe place. When asked about Malik her brother, she does report he is helping her make decisions, when asked specifically about DPOA, reports she had made that decision, had some like she had signed something but I do not see any paperwork or confirmation of this. Met with Malik and Isa on the phone, family conference for over 45 minutes, discussed the journey, reports she was severely ill when he was up here a week and a half ago, only able to squeeze her hand, does feel in the context of wishes shared before, competent that she would want DNAR and comfort measures. She has had in the meantime had his appear Isa, with conversations re garding about placement, has not done well in assisted living previously, nor with previous SNF placement with niece. Reports has had a difficult last 5 years, quality of life has continued to deteriorate on her, though she was living independently. He feels when her dog in mid January, this was a point of decline for her and withdrawal. He does identify she has a friend see you, folks from [facility] would be at home, as far as placement does not see how he would be able to bring her closer to home without "freaking out". He does report has a good relationship with her therapist Leon, reports what he understood with that she was "ready to go". He does feel like this would be consistent with previous conversations and wishes. They are concerned about placement, we did discuss in the context of this could be placed with hospice given her decreased intake, ongoing functional decline, and goals for comfort focused care. Patient actually may be a good candidate for an adult family home with hospice support. I do see they are looking at what can hospice placement, this would be a good option as well.Unfortunately this is late in the day, will follow-up with social work on Sunday.Counseling provided regarding VSED, given patient's mental illness will need to continue to offer for comfort food and fluids, despite patient's expressed wishes, cannot withhold. - Other Findings/Comments Additional Discussion: In discussion with patient, she does not want to talk about her children. In discussion with her brother Malik, reports her twins, one of her children has , she is not aware of this. He reports that he sat, is autistic, and any bad news or information he is to go through his father. He reports there is conversation about him wanting to reconcile, but this would take some coordination. He reports she has not talked to her daughter for over 30 years. Most likely this should be further explored through her therapist in the context of further support or exploration on discharge. Discussion regarding financial martinez of energy attorney, patient would be able to express at this point her wishes as far as designating Malik to be of help, I do not believe she presents with decision-making capacity for the nuances of complicated medical decisions, but in the context of being able to designate who she would want to speak for her for medical decisions as well as a sister with end-of-life planning I do believe she is able to express his wishes and has identified Malik. Results - Lab Results Fish Bones: 05/20/23 08:00 05/20/23 08:00 Lab and Imaging Results: Lab Results x24hrs 06/01/23 Range/Units 07:58 Phenytoin 23.7 ug/mL Impression and Recommendations - Palliative Care Impression: This is a 68-year-old woman who presents with acute decline, related to seizures, aspiration pneumonia which she has recovered, thalamic infarction, and fluctuating symptoms related to her bipolar disorder. Given patient's ongoing failure to thrive, with bedbound status, fluctuating cognitive status, and Expressed goals of both patient and DPOA, with comfort focused care. Palliative care recommendation would be to find a placement in the context of creating safe environment, adult family home, [facility] would be good options, and discharged with hospice referral. Recommendations/Counseling Done: 1. Seizure disorder. Would recommend transitioning to oral phenytoin, in preparation for transition to alternative setting. Patient currently taking her medications, will need to find alternative route for end-of-life, but currently is taking fluids and meds. 2. Comfort measures. Patient does recognize improved status in the context of ability to engage, more awareness of current situation, and pending discharge plan. Discussed benefits and burdens of moving forward with rehab versus comfort measures, given expressed wishes and DPOA guidance, would continue with comfort measures through weekend. Will revisit on Sunday, suspect will continue with current trends. Patient to be offered food and fluids for comfort feeding, encourage patient to ask for what she wants. She does get quite dry and thirsty, requesting apple juice more frequently particularly during nighttime hours. 3. Advance care planning. Patient expressed wishes for Malik to be her DPOA, I was under the impression this had been completed, I do not see documentation of this. Patient quite clear she wanted Malik to make her decisions for her, does feel like he knows her wishes. Malik is more than willing to participate in this.Counseling provided to Malik and Isa regarding the continuum of care, o ptions, support for end-of-life, would recommend discharge with hospice support or to a hospice facility. 75 minutes with review of chart, coordination of care with hospitalist, counseling with brother Malik and Isa, family conference. Counseling with patient evaluation management and recommendations regarding advance care planning, transition of care, and anticipatory guidance.
[2023-06-01] MEDS: OLANZapine ODT 5 MG TABLET TL SCH (21:59)
[2023-06-02] MEDS: SODIUM CHLORIDE FLUSH 0.9% 10 ML SYRINGE IVP PRN
[2023-06-02] MEDS: ZINC OXIDE 20% OINT 30 GM TUBE TOP PRN ×3 (00:16→20:57)
[2023-06-02] MEDS: PHENAZOPYRIDINE 100 MG TABLET PO SCH ×3 (05:27→21:08)
[2023-06-02] MEDS: PHENYTOIN 100 MG/2 ML VIAL IVP SCH (09:02)
[2023-06-02] MEDS: FAMOTIDINE 20 MG/2 ML VIAL IVP SCH ×2 (09:02→20:57)
[2023-06-02] MEDS: LITHIUM 150 MG CAPSULE PO SCH (09:02)
[2023-06-02] MEDS: SODIUM CHLORIDE FLUSH 0.9% 10 ML SYRINGE IVP SCH ×3 (09:03→16:09)
--- NOTE | 2023-06-02 18:59 | PROVIDER PROGRESS NOTE ---
Assessment/Plan - Problem List (1) Seizure Assessment/Plan: CONTROLLED The cause of her seizures appeared to be a new stroke. She was initially dosed with Keppra. But then after she developed status epilepticus, she was changed over to IV phenytoin. The seizure gave her an aspiration pneumonia which she h as now recovered from. She was made a DNR and comfort care (per family request, knowing her wishes) after the status epilepticus plus aspiration PNA. She was not a candidate for the GIP service then. She was not consistent with taking her po meds, was actively spitting out her pills. Therefore she is on iv Pheytoin 200 BID Plan: She was seen in consult by Palliative Care provider Kathi Cummins NP yesterday who advised changing to po Phenytoin, since she is now reliably taking po meds. I will order that to be changed to po. If she continues to take po seizure meds, I will order removel of the R IJ CVP line Family is aware of her comfort measures status and are now looking for long-term care for this patient. (2) Thalamic infarction Impression: WEAKNESS IMPROVED Earlier in her stay she had left arm weakness and left gaze preference. The MRI did confirm a thalamic infarct. The infarct was felt to be the cause of her seizures and her status epilepticus. She has regaine L arm and hand function PT and OT evaluation were done to see where appropriate placement for this patient would be. PTand OT reported that she can speak normally, moves both baxter ds and arms, both legs and feet while in bed, and could sit and dangle briefly. Plan: Family support her wish for comfort measures status and are looking for long- term care for this patient. 3) Bipolar disorder Impression: MENTAL HEALTH HAS IMPROVED Due to her sedated status and seizures, the patient was unable to take her bipolar medications. She was sedated and unresponsive for quite some time. 05/24 overnight into 05/25 am, there was an episode of alertness, emotional lability. Since about 05/26,she has become more interactive. She is having complete sentence structure and complete a conversation with me. She is tolerating the zyprexa and is calmer. (4) Comfort measures only status Impression: We have stopped measurement of intake and output, checking vital signs, and getting any labs. She is ordered to get a clear liquid diet, to offer her anything she would want. She is asking for water, apple juice, and Pepsi. And those are being given to her. There is no disposition yet until she is not on iv anti-seizure meds. Family is aware of her being more awake. Since the brother and [id number] had ongoing questions, I ordered a consult from Palliative Care provider Kathi Cummins NP who met the patient yesterday and also spoke with brother & [id number] in [place] Plan: Appreciate Palliative Care recommendations, I will change iv to po Phenytoin. Cont comfort feeding Cont to determine placement for end-of-life care for this pt - Current Meds Current Meds: Current Medications Generic Name Dose Route Start Last Admin Trade Name Freq PRN Reason Stop Dose Admin Carboxymethylcellulose 1 drops 05/27/23 13:53 05/27/23 13:59 Carboxymethylcellulose Ophth Drops EACHEYE 1 drops PRN PRN Administration Dry Eye Famotidine 20 mg 05/17/23 09:00 06/02/23 09:02 Famotidine 20 Mg/2 Ml Vial IVP 20 mg BID MANDY Administration Glycopyrrolate 0.2 mg 05/20/23 12:09 05/23/23 08:31 Glycopyrrolate 1 Mg/5 Ml Vial SUBQ 0.2 mg Q4H PRN Administration Excessive secretions Acetaminophen 1,000 mg in 100 mls @ 400 mls/hr 05/15/23 10:15 05/26/23 16:24 Acetaminophen IV Infused Q6HR PRN Infusion Mild Pain or Fever>38C(100.4F) [place] Carbonate 150 mg 05/25/23 09:00 06/02/23 09:02 [place] 150 Mg Capsule PO 150 mg DAILY MANDY Administration Lorazepam 2 mg 05/21/23 10:14 05/22/23 11:05 Lorazepam 2 Mg/Ml Vial IVP 2 mg Q2H PRN Administration Seizure Morphine Sulfate 2 mg 05/20/23 12:09 05/26/23 00:50 Morphine 2 Mg/Ml Carpuject IVP 2 mg Q2HR PRN Administration NEEDED PER PROVIDER ORDERS Multi-Ingredient Ointment 1 applic 05/12/23 10:56 06/02/23 05:39 Zinc Oxide 20% Oint 30 Gm Tube TOP 1 applic PRN PRN Administration Skin Care Olanzapine 5 mg 05/25/23 21:00 06/01/23 21:59 Olanzapine Odt 5 Mg Tablet TL 5 mg QPM MANDY Administration Ondansetron HCl 4 mg 05/09/23 17:16 05/31/23 10:51 Ondansetron 4 Mg/2 Ml Vial IVP 4 mg Q6HR PRN Administration Nausea / Vomiting Phenazopyridine HCl 100 mg 05/27/23 15:00 06/02/23 13:54 Phenazopyridine 100 Mg Tablet PO 100 mg TID MANDY Administration Sodium Chloride 10 ml 05/09/23 17:16 06/02/23 00:00 Sodium Chloride Flush 0.9% 10 Ml Syringe IVP 10 ml PRN PRN Administration NEEDED PER PROVIDER ORDERS Sodium Chloride 10 ml 05/10/23 01:00 06/02/23 16:09 Sodium Chloride Flush 0.9% 10 Ml Syringe IVP 10 ml 0100,0900,1700 MANDY Administration - Lab Result Fish Bone Diagrams: 05/20/23 08:00 05/20/23 08:00 - Additional Planning My Orders: My Active Orders 06/03/23 09:00 Phenytoin Infatab [Dilantin Infatab] 200 mg PO BID Subjective - Subjective Patient Reports: Resting Comfortably, No Complaints Objective Vital Signs: Vital Signs - 24 hr 06/02/23 09:00 Temperature 36.3 C L Heart Rate [ 92 Monitoring electrodes] Respiratory 18 Rate Blood Pressure 135/63 H [Right Brachial artery] O2 Saturation 95 Oxygen O2 Source Room air I&O (Last 24 Hrs): Intake and Output Totals x24h 05/31/23 06/01/23 06/02/23 23:59 23:59 23:59 Intake Total 650 1489 600 Output Total 1750 1340 1350 Balance -1100 149 -750 General: Alert, Oriented x3, No acute distress HEENT: EOMI, Mucous membr. moist/pink Neck: Supple, No JVD Cardiovascular: Regular rate Respiratory: No respiratory distress Abdomen: Soft, No tenderness Extremities: No clubbing, No edema - Results Results: Laboratory Results WBC 10.0 x10^3/uL (4.8-10.8) 05/20/23 08:00 RBC 2.88 10^6/uL (4.20-5.40) L 05/20/23 08:00 Hgb 9.4 g/dL (12.0-16.0) L 05/20/23 08:00 Hct 28.6 % (37.0-47.0) L 05/20/23 08:00 MCV 99.3 fL (81.0-99.0) H 05/20/23 08:00 MCH 32.6 pg (27.0-31.0) H 05/20/23 08:00 MCHC 32.9 g/dL (32.0-36.0) 05/20/23 08:00 RDW 14.4 % (12.0-15.0) 05/20/23 08:00 Plt Count 242 10^3/uL (130-450) 05/20/23 08:00 MPV 8.9 fL (7.9-10.8) 05/20/23 08:00 Neut # (Auto) 7.1 10^3/uL (1.5-6.6) H 05/20/23 08:00 Lymph # (Auto) 2.0 10^3/uL (1.5-3.5) 05/20/23 08:00 [place] # (Auto) 0.6 10^3/uL (0.0-1.0) 05/20/23 08:00 Eos # (Auto) 0.1 10^3/uL (0.0-0.7) 05/20/23 08:00 Baso # (Auto) 0.0 10^3/uL (0.0-0.1) 05/20/23 08:00 Absolute Nucleated RBC 0.00 x10^3/uL 05/20/23 08:00 Total Counted 100 05/17/23 06:36 Band Neuts % (Manual) 7 % (0-10) 05/17/23 06:36 Abnorm Lymph % (Manual) 0 % 05/17/23 06:36 Metamyelocytes % 4 % (-0) H 05/17/23 06:36 Myelocytes % 2 % (-0) H 05/17/23 06:36 Nucleated RBC % 0.0 /100WBC 05/20/23 08:00 Neutrophils # (Manual) 22.4 10^3/uL (1.5-6.6) H 05/17/23 06:36 Lymphocytes # (Manual) 3.3 10^3/uL (1.5-3.5) 05/17/23 06:36 Monocytes # (Manual) 0.3 10^3/uL (0.0-1.0) 05/17/23 06:36 Eosinophils # (Manual) 0.0 10^3/uL (0-0.7) 05/17/23 06:36 Basophils # (Manual) 0.0 10^3/uL (0-0.1) 05/17/23 06:36 Nucleated RBCs 1 % 05/17/23 06:36 Differential Comment MANUAL DIFFERENTIAL 05/17/23 06:36 RBC Morph Micro Appear 2+ ANISOCYTOSIS (NORMAL) 3+ POLYCHROMASIA (NORMAL) 05/17/23 06:36 RBC Morph Micro Appear 2+ ANISOCYTOSIS (NORMAL) 3+ POLYCHROMASIA (NORMAL) 05/17/23 06:36 PT 14.2 secs (9.9-12.6) H 05/17/23 07:35 INR 1.3 (0.8-1.2) H 05/17/23 07:35 Bld Gas Analysis Time 1250 05/17/23 12:35 Sample Site RIGHT RADIAL 05/17/23 12:35 ABG pH 7.36 (7.35-7.45) 05/17/23 12:35 ABG pCO2 35 mmHg (34-45) 05/17/23 12:35 ABG pO2 118 mmHg (80-100) H 05/17/23 12:35 ABG HCO3 19.2 mmol/L (22.0-26.0) L 05/17/23 12:35 ABG Total CO2 20.3 MMOL/L (21.0-29.0) L 05/17/23 12:35 ABG O2 Saturation 98 % (94-98) 05/17/23 12:35 ABG Base Excess -5.5 mmol/L (-2.0-3.0) L 05/17/23 12:35 Twan Test POSITIVE 05/17/23 12:35 VBG pH 7.449 (7.31-7.41) H 05/20/23 04:15 Ionized Calcium 1.12 mmol/L (1.15-1.33) L 05/20/23 04:15 O2 Delivery Device NASAL CANNULA 05/17/23 12:35 O2 Liters/Min 4.00 LPM 05/17/23 12:35 FiO2 1.00 05/17/23 08:10 Sodium 143 mmol/L (135-145) 05/20/23 08:00 Potassium 3.4 mmol/L (3.5-4.5) L 05/20/23 08:00 Chloride 103 mmol/L (101-111) 05/20/23 08:00 Carbon Dioxide 37 mmol/L (21-32) H 05/20/23 08:00 Anion Gap 3.0 (6-13) L 05/20/23 08:00 BUN 12 mg/dL (6-20) 05/20/23 08:00 Creatinine 0.8 mg/dL (0.6-1.3) 05/20/23 08:00 Estimated GFR (MDRD) 71 (>89) L 05/20/23 08:00 Glucose 158 mg/dL (74-104) H 05/20/23 08:00 Lactic Acid 0.6 mmol/L (0.5-2.2) 05/17/23 06:36 Calcium 8.2 mg/dL (8.5-10.3) L 05/20/23 08:00 Phosphorus 1.5 mg/dL (2.5-5.0) L 05/20/23 04:15 Magnesium 1.9 mg/dL (1.7-2.3) 05/20/23 04:15 Total Bilirubin 0.4 mg/dL (0.2-1.0) 05/19/23 04:27 AST 13 IU/L (10-42) 05/19/23 04:27 ALT 15 IU/L (10-60) 05/19/23 04:27 Alkaline Phosphatase 54 IU/L (42-121) 05/19/23 04:27 B-Natriuretic Peptide 635 pg/mL (5-100) H 05/17/23 07:35 Total Protein 5.0 g/dL (6.4-8.9) L 05/19/23 04:27 Albumin 3.2 g/dL (3.2-5.5) 05/19/23 04:27 Globulin 1.8 g/dL (2.1-4.2) L 05/19/23 04:27 Albumin/Globulin Ratio 1.8 (1.0-2.2) 05/19/23 04:27 Prealbumin 10 mg/dL (17-34) L 05/19/23 04:27 Vitamin D 25-Hydroxy 24.3 ng/mL (30.0-100.0) L 05/09/23 15:15 Total Intact PTH 15 pg/mL (12-88) 05/09/23 15:15 Urine Color YELLOW 05/14/23 12:31 Urine Clarity CLOUDY (CLEAR) 05/14/23 12:31 Urine pH 6.0 PH (5.0-7.5) 05/14/23 12:31 Ur Specific [place] 1.015 (1.002-1.030) 05/14/23 12:31 Urine Protein NEGATIVE mg/dL (NEGATIVE) 05/14/23 12:31 Urine Glucose (UA) NEGATIVE mg/dL (NEGATIVE) 05/14/23 12: Urine Ketones 40 mg/dL (NEGATIVE) H 05/14/23 12:31 Urine Occult Blood SMALL (NEGATIVE) H 05/14/23 12:31 Urine Nitrite POSITIVE (NEGATIVE) H 05/14/23 12:31 Urine Bilirubin NEGATIVE (NEGATIVE) 05/14/23 12:31 Urine Urobilinogen 0.2 (NORMAL) E.U./dL (NORMAL) 05/14/23 12:31 Ur Leukocyte Esterase LARGE (NEGATIVE) H 05/14/23 12:31 Urine RBC 0-5 /HPF (0-5) 05/14/23 12:31 Urine WBC >25 /HPF (0-5) H 05/14/23 12:31 Ur Epithelial Cells RARE Transitional /HPF (<= Few) RARE Renal Tubular /HPF (<= Few) 05/14/23 12:31 Ur Epithelial Cells RARE Transitional /HPF (<= Few) RARE Renal Tubular /HPF (<= Few) 05/14/23 12:31 Ur Squamous Epith Cells RARE Squamous (<= Few) 05/14/23 12:31 Urine Bacteria Moderate /HPF (None Seen) H 05/14/23 12:31 Urine Culture Comments INDICATED 05/14/23 12:31 Nasal Screen MRSA (PCR) NEGATIVE (NEGATIVE) 05/17/23 08:20 Last Dose Date UNK 05/17/23 07:35 Last Dose Time UNK 05/17/23 07:35 Phenytoin 23.7 ug/mL 06/01/23 07:58 Lamotrigine <1.0 ug/mL (2.0-20.0) L 05/17/23 07:35 Levetiracetam 22.0 ug/mL (10.0-40.0) 05/18/23 04:26 [place] < 0.10 mmol/L 05/17/23 07:35 SARS-CoV-2 (PCR) NOT DETECTED 05/18/23 16:02 - Procedures Procedures: Procedures CATARAC PHACOEMULS/ASPIR (05/14/13) EXCISION OF DUODENUM, ENDO, DIAGN (09/19/18) EXCISION OF ESOPHAGUS, ENDO, DIAGN (09/19/18) EXCISION OF LEFT LARGE INTESTINE, ENDO, DIAGN (09/19/18) EXCISION OF RIGHT LARGE INTESTINE, ENDO, DIAGN (09/19/18) EXCISION OF STOMACH, PYLORUS, ENDO, DIAGN (09/19/18) INSERT LENS AT CATAR EXT (05/14/13) Sepsis Event Note (H) - Evaluation Current Stage of Sepsis: Ruled out
[2023-06-02] MEDS: OLANZapine ODT 5 MG TABLET TL SCH (20:57)
[2023-06-03] MEDS: SODIUM CHLORIDE FLUSH 0.9% 10 ML SYRINGE IVP SCH ×3 (00:37→15:39)
[2023-06-03] MEDS: SODIUM CHLORIDE FLUSH 0.9% 10 ML SYRINGE IVP PRN (00:37)
[2023-06-03] MEDS: ZINC OXIDE 20% OINT 30 GM TUBE TOP PRN ×3 (00:42→20:54)
[2023-06-03] MEDS: PHENAZOPYRIDINE 100 MG TABLET PO SCH ×3 (05:37→21:34)
[2023-06-03] MEDS: ONDANSETRON 4 MG/2 ML VIAL IVP PRN (06:37)
[2023-06-03] MEDS: PHENYTOIN CHEW 50 MG TABLET PO SCH ×2 (08:27→20:26)
[2023-06-03] MEDS: LITHIUM 150 MG CAPSULE PO SCH (08:27)
[2023-06-03] MEDS: FAMOTIDINE 20 MG/2 ML VIAL IVP SCH ×2 (08:27→20:26)
--- NOTE | 2023-06-03 13:01 | PROVIDER PROGRESS NOTE ---
Assessment/Plan - Problem List (1) Seizure Assessment/Plan: CONTROLLED The cause of her seizures appeared to be a new stroke. She was initially dosed with Keppra. But then after she developed status epilepticus, she was changed over to IV phenytoin. The seizure gave her an aspiration pneumonia which she h as now recovered from. She was made a DNR and comfort care (per family request, knowing her wishes) after the status epilepticus plus aspiration PNA. She was not a candidate for the GIP service then. She was not consistent with taking her po meds, was actively spitting out her pills. Therefore she was on iv Pheytoin 200 BID She was seen in consult by Palliative Care provider Kathi Cummins NP who advised changing to po Phenytoin, since she is now reliably taking po meds. Plan: I ordered IV phenytoin to be changed to po. First dose this a.m. If she continues to take po seizure meds, I will order removal of the R IJ CVP line Family is aware of her comfort measures status and are now looking for long-term care for this patient. (2) Comfort measures only status Impression: We have stopped measurement of intake and output, checking vital signs, and get ting any labs. She is ordered to get a clear liquid diet, to offer her anything she would want. She is asking for water, apple juice, and Pepsi. And those are being given to her. Family is aware of her being more awake. She was seen by Palliative Care provider Kathi Cummins NP who met the patientand also spoke with brother & [id number] in [place]. Appreciate Palliative Care recommendations. There is no disposition yet until she is not on iv anti-seizure meds. Today is first day to take po Phenytoin. Plan: Cont po Phenytoin. Cont comfort feeding Cont to determine placement for end-of-life care for this pt (3) Thalamic infarction Impression: IMPROVED Earlier in her stay she had left arm weakness and left gaze preference. The MRI did confirm a thalamic infarct. The infarct was felt to be the cause of her seizures and then her status epilepticus. She has regained L arm and hand function PT and OT evaluation were done to see where appropriate placement for this patient would be. PTand OT reported that she can speak normally, moves both hands and arms, both legs and feet while in bed, and could sit and dangle briefly. Plan: Family support her wish for comfort measures status and are looking for long- term care for this patient. (4) Bipolar disorder Impression: IMPROVED Due to her sedated status and seizures, the patient was unable to take her bipolar medications. She was sedated and unresponsive for quite some time. 05/24 overnight into 05/25 am, there was an episode of alertness, emotional lability. Since about 05/26,she has become more interactive. She is having complete sentence structure and complete a conversation with me. She is tolerating the zyprexa and is calmer. Plan: Cont present meds - Current Meds Current Meds: Current Medications Generic Name Dose Route Start Last Admin Trade Name Freq PRN Reason Stop Dose Admin Carboxymethylcellulose 1 drops 05/27/23 13:53 05/27/23 13:59 Carboxymethylcellulose Ophth Drops EACHEYE 1 drops PRN PRN Administration Dry Eye Famotidine 20 mg 05/17/23 09:00 06/03/23 08:27 Famotidine 20 Mg/2 Ml Vial IVP 20 mg BID MANDY Administration Glycopyrrolate 0.2 mg 05/20/23 12:09 05/23/23 08:31 Glycopyrrolate 1 Mg/5 Ml Vial SUBQ 0.2 mg Q4H PRN Administration Excessive secretions Acetaminophen 1,000 mg in 100 mls @ 400 mls/hr 05/15/23 10:15 05/26/23 16:24 Acetaminophen IV Infused Q6HR PRN Infusion Mild Pain or Fever>38C(100.4F) [place] Carbonate 150 mg 05/25/23 09:00 06/03/23 08:27 [place] 150 Mg Capsule PO 150 mg DAILY MANDY Administration Lorazepam 2 mg 05/21/23 10:14 05/22/23 11:05 Lorazepam 2 Mg/Ml Vial IVP 2 mg Q2H PRN Administration Seizure Morphine Sulfate 2 mg 05/20/23 12:09 05/26/23 00:50 Morphine 2 Mg/Ml Carpuject IVP 2 mg Q2HR PRN Administration NEEDED PER PROVIDER ORDERS Multi-Ingredient Ointment 1 applic 05/12/23 10:56 06/03/23 06:49 Zinc Oxide 20% Oint 30 Gm Tube TOP 1 applic PRN PRN Administration Skin Care Olanzapine 5 mg 05/25/23 21:00 06/02/23 20:57 Olanzapine Odt 5 Mg Tablet TL 5 mg QPM MANDY Administration Ondansetron HCl 4 mg 05/09/23 17:16 06/03/23 06:37 Ondansetron 4 Mg/2 Ml Vial IVP 4 mg Q6HR PRN Administration Nausea / Vomiting Phenazopyridine HCl 100 mg 05/27/23 15:00 06/03/23 05:37 Phenazopyridine 100 Mg Tablet PO 100 mg TID MANDY Administration Phenytoin Sodium 200 mg 06/03/23 09:00 06/03/23 08:27 Phenytoin Chew 50 Mg Tablet PO 200 mg BID MANDY Administration Sodium Chloride 10 ml 05/09/23 17:16 06/03/23 00:37 Sodium Chloride Flush 0.9% 10 Ml Syringe IVP 10 ml PRN PRN Administration NEEDED PER PROVIDER ORDERS Sodium Chloride 10 ml 05/10/23 01:00 06/03/23 06:37 Sodium Chloride Flush 0.9% 10 Ml Syringe IVP 10 ml 0100,0900,1700 MANDY Administration - Lab Result Fish Bone Diagrams: 05/20/23 08:00 05/20/23 08:00 - Additional Planning My Orders: My Active Orders 06/03/23 09:00 Phenytoin Infatab [Dilantin Infatab] 200 mg PO BID Subjective - Subjective Patient Reports: Resting Comfortably, No Complaints Objective Vital Signs: Vital Signs - 24 hr 06/03/23 09:00 Temperature 37.1 C Heart Rate [ 93 Monitoring electrodes] Respiratory 18 Rate Blood Pressure 133/77 H [Right Brachial artery] O2 Saturation 96 Oxygen O2 Source Room air I&O (Last 24 Hrs): Intake and Output Totals x24h 06/01/23 06/02/23 06/03/23 23:59 23:59 23:59 Intake Total 1489 1000 250 Output Total 1340 2200 950 Balance 149 -1200 -700 General: Alert, No acute distress HEENT: Other (Dry mucosa) Neck: Supple, No JVD Neuro: Alert, Non Focal Cardiovascular: Regular rate Respiratory: No respiratory distress Abdomen: Soft, Other (Obese) Extremities: No clubbing, No edema, No tenderness/swelling Skin: No rashes - Results Results: Laboratory Results WBC 10.0 x10^3/uL (4.8-10.8) 05/20/23 08:00 RBC 2.88 10^6/uL (4.20-5.40) L 05/20/23 08:00 Hgb 9.4 g/dL (12.0-16.0) L 05/20/23 08:00 Hct 28.6 % (37.0-47.0) L 05/20/23 08:00 MCV 99.3 fL (81.0-99.0) H 05/20/23 08:00 MCH 32.6 pg (27.0-31.0) H 05/20/23 08:00 MCHC 32.9 g/dL (32.0-36.0) 05/20/23 08:00 RDW 14.4 % (12.0-15.0) 05/20/23 08:00 Plt Count 242 10^3/uL (130-450) 05/20/23 08:00 MPV 8.9 fL (7.9-10.8) 05/20/23 08:00 Neut # (Auto) 7.1 10^3/uL (1.5-6.6) H 05/20/23 08:00 Lymph # (Auto) 2.0 10^3/uL (1.5-3.5) 05/20/23 08:00 [place] # (Auto) 0.6 10^3/uL (0.0-1.0) 05/20/23 08:00 Eos # (Auto) 0.1 10^3/uL (0.0-0.7) 05/20/23 08:00 Baso # (Auto) 0.0 10^3/uL (0.0-0.1) 05/20/23 08:00 Absolute Nucleated RBC 0.00 x10^3/uL 05/20/23 08:00 Total Counted 100 05/17/23 06:36 Band Neuts % (Manual) 7 % (0-10) 05/17/23 06:36 Abnorm Lymph % (Manual) 0 % 05/17/23 06:36 Metamyelocytes % 4 % (-0) H 05/17/23 06:36 Myelocytes % 2 % (-0) H 05/17/23 06:36 Nucleated RBC % 0.0 /100WBC 05/20/23 08:00 Neutrophils # (Manual) 22.4 10^3/uL (1.5-6.6) H 05/17/23 06:36 Lymphocytes # (Manual) 3.3 10^3/uL (1.5-3.5) 05/17/23 06:36 Monocytes # (Manual) 0.3 10^3/uL (0.0-1.0) 05/17/23 06:36 Eosinophils # (Manual) 0.0 10^3/uL (0-0.7) 05/17/23 06:36 Basophils # (Manual) 0.0 10^3/uL (0-0.1) 05/17/23 06:36 Nucleated RBCs 1 % 05/17/23 06:36 Differential Comment MANUAL DIFFERENTIAL 05/17/23 06:36 RBC Morph Micro Appear 2+ ANISOCYTOSIS (NORMAL) 3+ POLYCHROMASIA (NORMAL) 05/17/23 06:36 RBC Morph Micro Appear 2+ ANISOCYTOSIS (NORMAL) 3+ POLYCHROMASIA (NORMAL) 05/17/23 06:36 PT 14.2 secs (9.9-12.6) H 05/17/23 07:35 INR 1.3 (0.8-1.2) H 05/17/23 07:35 Bld Gas Analysis Time 1250 05/17/23 12:35 Sample Site RIGHT RADIAL 05/17/23 12:35 ABG pH 7.36 (7.35-7.45) 05/17/23 12:35 ABG pCO2 35 mmHg (34-45) 05/17/23 12:35 ABG pO2 118 mmHg (80-100) H 05/17/23 12:35 ABG HCO3 19.2 mmol/L (22.0-26.0) L 05/17/23 12:35 ABG Total CO2 20.3 MMOL/L (21.0-29.0) L 05/17/23 12:35 ABG O2 Saturation 98 % (94-98) 05/17/23 12:35 ABG Base Excess -5.5 mmol/L (-2.0-3.0) L 05/17/23 12:35 Twan Test POSITIVE 05/17/23 12:35 VBG pH 7.449 (7.31-7.41) H 05/20/23 04:15 Ionized Calcium 1.12 mmol/L (1.15-1.33) L 05/20/23 04:15 O2 Delivery Device NASAL CANNULA 05/17/23 12:35 O2 Liters/Min 4.00 LPM 05/17/23 12:35 FiO2 1.00 05/17/23 08:10 Sodium 143 mmol/L (135-145) 05/20/23 08:00 Potassium 3.4 mmol/L (3.5-4.5) L 05/20/23 08:00 Chloride 103 mmol/L (101-111) 05/20/23 08:00 Carbon Dioxide 37 mmol/L (21-32) H 05/20/23 08:00 Anion Gap 3.0 (6-13) L 05/20/23 08:00 BUN 12 mg/dL (6-20) 05/20/23 08:00 Creatinine 0.8 mg/dL (0.6-1.3) 05/20/23 08:00 Estimated GFR (MDRD) 71 (>89) L 05/20/23 08:00 Glucose 158 mg/dL (74-104) H 05/20/23 08:00 Lactic Acid 0.6 mmol/L (0.5-2.2) 05/17/23 06:36 Calcium 8.2 mg/dL (8.5-10.3) L 05/20/23 08:00 Phosphorus 1.5 mg/dL (2.5-5.0) L 05/20/23 04:15 Magnesium 1.9 mg/dL (1.7-2.3) 05/20/23 04:15 Total Bilirubin 0.4 mg/dL (0.2-1.0) 05/19/23 04:27 AST 13 IU/L (10-42) 05/19/23 04:27 ALT 15 IU/L (10-60) 05/19/23 04:27 Alkaline Phosphatase 54 IU/L (42-121) 05/19/23 04:27 B-Natriuretic Peptide 635 pg/mL (5-100) H 05/17/23 07:35 Total Protein 5.0 g/dL (6.4-8.9) L 05/19/23 04:27 Albumin 3.2 g/dL (3.2-5.5) 05/19/23 04:27 Globulin 1.8 g/dL (2.1-4.2) L 05/19/23 04:27 Albumin/Globulin Ratio 1.8 (1.0-2.2) 05/19/23 04:27 Prealbumin 10 mg/dL (17-34) L 05/19/23 04:27 Vitamin D 25-Hydroxy 24.3 ng/mL (30.0-100.0) L 05/09/23 15:15 Total Intact PTH 15 pg/mL (12-88) 05/09/23 15:15 Urine Color YELLOW 05/14/23 12:31 Urine Clarity CLOUDY (CLEAR) 05/14/23 12:31 Urine pH 6.0 PH (5.0-7.5) 05/14/23 12:31 Ur Specific [place] 1.015 (1.002-1.030) 05/14/23 12:31 Urine Protein NEGATIVE mg/dL (NEGATIVE) 05/14/23 12:31 Urine Glucose (UA) NEGATIVE mg/dL (NEGATIVE) 05/14/23 12:31 Urine Ketones 40 mg/dL (NEGATIVE) H 05/14/23 12:31 Urine Occult Blood SMALL (NEGATIVE) H 05/14/23 12:31 Urine Nitrite POSITIVE (NEGATIVE) H 05/14/23 12:31 Urine Bilirubin NEGATIVE (NEGATIVE) 05/14/23 12:31 Urine Urobilinogen 0.2 (NORMAL) E.U./dL (NORMAL) 05/14/23 12:31 Ur Leukocyte Esterase LARGE (NEGATIVE) H 05/14/23 12:31 Urine RBC 0-5 /HPF (0-5) 05/14/23 12:31 Urine WBC >25 /HPF (0-5) H 05/14/23 12:31 Ur Epithelial Cells RARE Transitional /HPF (<= Few) RARE Renal Tubular /HPF (<= Few) 05/14/23 12:31 Ur Epithelial Cells RARE Transitional /HPF (<= Few) RARE Renal Tubular /HPF (<= Few) 05/14/23 12:31 Ur Squamous Epith Cells RARE Squamous (<= Few) 05/14/23 12:31 Urine Bacteria Moderate /HPF (None Seen) H 05/14/23 12:31 Urine Culture Comments INDICATED 05/14/23 12:31 Nasal Screen MRSA (PCR) NEGATIVE (NEGATIVE) 05/17/23 08:20 Last Dose Date UNK 05/17/23 07:35 Last Dose Time UNK 05/17/23 07:35 Phenytoin 23.7 ug/mL 06/01/23 07:58 Lamotrigine <1.0 ug/mL (2.0-20.0) L 05/17/23 07:35 Levetiracetam 22.0 ug/mL (10.0-40.0) 05/18/23 04:26 [place] < 0.10 mmol/L 05/17/23 07:35 SARS-CoV-2 (PCR) NOT DETECTED 05/18/23 16:02 - Procedures Procedures: Procedures CATARAC PHACOEMULS/ASPIR (05/14/13) EXCISION OF DUODENUM, ENDO, DIAGN (09/19/18) EXCISION OF ESOPHAGUS, ENDO, DIAGN (09/19/18) EXCISION OF LEFT LARGE INTESTINE, ENDO, DIAGN (09/19/18) EXCISION OF RIGHT LARGE INTESTINE, ENDO, DIAGN (09/19/18) EXCISION OF STOMACH, PYLORUS, ENDO, DIAGN (09/19/18) INSERT LENS AT CATAR EXT (05/14/13) Sepsis Event Note (H) - Evaluation Current Stage of Sepsis: Ruled out
[2023-06-03] MEDS: OLANZapine ODT 5 MG TABLET TL SCH (20:26)
[2023-06-04] MEDS: SODIUM CHLORIDE FLUSH 0.9% 10 ML SYRINGE IVP SCH ×4 (00:28→21:44)
[2023-06-04] MEDS: SODIUM CHLORIDE FLUSH 0.9% 10 ML SYRINGE IVP PRN ×3 (00:28→17:49)
[2023-06-04] MEDS: PHENAZOPYRIDINE 100 MG TABLET PO SCH (05:27)
[2023-06-04] MEDS: FAMOTIDINE 20 MG/2 ML VIAL IVP SCH ×2 (09:26→21:43)
[2023-06-04] MEDS: LITHIUM 150 MG CAPSULE PO SCH (09:26)
[2023-06-04] MEDS: PHENYTOIN CHEW 50 MG TABLET PO SCH ×2 (09:26→21:43)
--- NOTE | 2023-06-04 16:22 | CONSULTATION NOTE ---
Palliative Care Follow Up - Referral Referring Provider: Dr. Rhoda Finn Time of Visit: [id number] Referral setting: Hospitalized patient Referral Reason: Goals of Care - Information Sources Records reviewed: RN notes reviewed, Previous records reviewed - History of Present Illness Update Brief HPI Update: Please see HPI for PC 06/01 Complicated 68-year-old woman who I was consulted on 06/01/2023. I am returning and actually meeting with family, brother Malik, TYLER Moss, and her sister. They have flown up from [place], to help finalize plans and decisions. Patient is laying in bed, does appear comfortable, does appear to recognize family and with some interaction. We did discuss with I was meeting with them to talk about disposition of care, and confirm goals of care. Malik wanted to make sure patient was still on board for focus on comfort, and discussion started at bedside, regarding goals to find a place for her to be for end of life care, I was going to discuss options, and I introduced role of hospice to patient. She did confirm that these were her wishes, we discussed whether I should talk further in the room, or her conference room, she is fine if we are quiet to meet in her room. We will check in with her if she has any further questions, family meeting ensued. Zandra Romero with discharge planning, did participate initially, social work Ally is to join us later or follow up. Patient does close her eyes during conversation, but when asked or her spoken directly to, will make eye contact briefly. She does not seem in any distress or discomfort. She still complains of dry mouth, is taking ice water and swallowing without difficulty through appointment. She does have a Kelly catheter, that does have light yellow cloudy urine, patient denies any distress or discomfort at time of visit Social History - Living Situation Living arrangement: At home Living Situation: Alone Support System: Patient has been living at home alone, she was able to manage independently. There is some question regarding medication management, reports they found multiple supplements on her counter, concern for interactions with her medications. She had "various caregivers" assisting her, she had a service dog unfortunately who in January, brothers reports after this point she was very introverted/agoraphobic, and rarely left the home, pulled shades down. Patient does appear to understand she is not able to return home.Family reports patient does have resources to be able to pay for placement and end-of-life care. Medications/Allergies - Medications Active Medication List: Active Medications Carboxymethylcellulose (Carboxymethylcellulose Ophth Drops) 1 drops EACHEYE PRN PRN PRN Reason: Dry Eye Last Admin: 05/27/23 13:59 Dose: 1 drops Famotidine (Famotidine 20 Mg/2 Ml Vial) 20 mg IVP BID [facility] Last Admin: 06/04/23 09:26 Dose: 20 mg Glycopyrrolate (Glycopyrrolate 1 Mg/5 Ml Vial) 0.2 mg SUBQ Q4H PRN PRN Reason: Excessive secretions Last Admin: 05/23/23 08:31 Dose: 0.2 mg Acetaminophen (Acetaminophen) 1,000 mg in 100 mls @ 400 mls/hr IV Q6HR PRN PRN Reason: Mild Pain or Fever>38C(100.4F) Last Infusion: 05/26/23 16:24 Dose: Infused [place] Carbonate ([place] 150 Mg Capsule) 150 mg PO DAILY [facility] Last Admin: 06/04/23 09:26 Dose: 150 mg Lorazepam (Lorazepam 2 Mg/Ml Vial) 2 mg IVP Q2H PRN PRN Reason: Seizure Last Admin: 05/22/23 11:05 Dose: 2 mg Morphine Sulfate (Morphine 2 Mg/Ml Carpuject) 2 mg IVP Q2HR PRN PRN Reason: NEEDED PER PROVIDER ORDERS Last Admin: 05/26/23 00:50 Dose: 2 mg Multi-Ingredient Ointment (Zinc Oxide 20% Oint 30 Gm Tube) 1 applic TOP PRN PRN PRN Reason: Skin Care Last Admin: 06/03/23 20:54 Dose: 1 applic Olanzapine (Olanzapine Odt 5 Mg Tablet) 5 mg TL QPM [facility] Last Admin: 06/03/23 20:26 Dose: 5 mg Ondansetron HCl (Ondansetron 4 Mg/2 Ml Vial) 4 mg IVP Q6HR PRN PRN Reason: Nausea / Vomiting Last Admin: 06/03/23 06:37 Dose: 4 mg Phenytoin Sodium (Phenytoin Chew 50 Mg Tablet) 200 mg PO BID [facility] Last Admin: 06/04/23 09:26 Dose: 200 mg Sodium Chloride (Sodium Chloride Flush 0.9% 10 Ml Syringe) 10 ml IVP PRN PRN PRN Reason: NEEDED PER PROVIDER ORDERS Last Admin: 06/04/23 00:28 Dose: 10 ml Sodium Chloride (Sodium Chloride Flush 0.9% 10 Ml Syringe) 10 ml IVP 0100,0900,1700 MANDY Last Admin: 06/04/23 09:26 Dose: 10 ml lamoTRIgine [LaMICtal] 100 mg PO DAILY 03/02/19 lamoTRIgine [LaMICtal] 150 mg PO QPM 03/02/19 ALPRAZolam [Alprazolam] 1 mg PO TID PRN 03/03/19 [place] [[place] Carbonate] 150 mg PO DAILY 05/09/23 Losartan [Cozaar] 50 mg PO DAILY 05/10/23 Metoprolol Succinate [Toprol Xl] 100 mg PO QPM 05/10/23 Mirtazapine [Remeron] 7.5 mg PO QPM 05/10/23 Rivaroxaban [Xarelto] 20 mg PO QDDINNER 05/10/23 Rosuvastatin Calcium [Crestor] 10 mg PO QPM 05/10/23 hydrOXYzine HCL [Hydroxyzine HCl] 25 - 50 mg PO QPM 05/10/23 risperiDONE [Risperdal] 0.75 mg PO QPM 05/10/23 - Allergies Allergies/Adverse Reactions: Allergies Allergy/AdvReac Type Severity Reaction Status Date / Time Sulfa (Sulfonamide Allergy Severe Edema Verified 05/09/23 15:03 Antibiotics) naproxen Allergy unknown Verified 05/09/23 15:03 Penicillins Allergy UNKNOWN Verified 05/09/23 15:03 Review of Systems - Constitutional Constitutional: reports: Weakness, Poor appetite (taking mostly fluids), Weight loss - Ears, Nose & Throat Ears, Nose & Throat: reports: Dry mouth - Respiratory Respiratory: reports: Cough (with eating). denies: SOB at rest - Genitourinary Genitourinary: reports: Other (has pure wick) - Musculoskeletal Musculoskeletal: reports: Other (bed bound) - Neurological Neurological: reports: General weakness - Psychiatric Psychiatric: reports: Depression, Anxiety, Other (reports disturbing dreams) - Other Findings Other Findings: ,imited ROs Physical Exam - Physical Exam General Appearance: positive: Cachetic Eyes Bilateral: positive: Other (keeps eyes close most of visit) Neck: positive: No JVD, Trachea midline Respiratory: positive: No respiratory distress Abdomen: positive: Non-tender, Soft Skin: positive: Other (has dressing on right neck where CVP removed) Extremities: positive: Other (remains bedbound) Neurologic/Psychiatric: positive: Depressed mood/affect, Flat affect Palliative Care - POLST Patient has POLST: Yes POLST Status: DNR, Comfort Measures Anxiety: Comment (does seem to get overwhelmed with stimulation; loud voiced) Performance Status: Patient bedbound, needs some assist with fluids. - Palliative Care Discussion: Met briefly at bedside with brother, and [id number] and patient. Confirmed patient's wishes to focus on comfort, does understand we are looking for placement for end-of-life, brother did share regarding expectations would be 3 to 4 weeks according to the doctor. She does not seem distressed or uncomfortable with this. Met with Isa Gan, and sister regarding the continuum of care. We discussed various placement options, including [facility] which would be long-term care, also explored and recommended considering adult family home, given patient's discomfort with stimulation, and history. Suspect with hospice support she would do well in a small setting. There had been an initial conversation regarding looking at [facility] hospice, family is hoping given her little support system she has, to be able to keep her here on [facility].Counseling provided regarding adult family home, hospice benefit which does not include room and board, as well as the continuum of care and hospice services. Did complete updated POLST with new goals of care, for comfort focused care, and a comfortable respectful with hospice. Brother to be here until Sunday, they are trying to access finances and assist with end-of-life planning. They have been up. Several times, financially this is not feasible to continue. They are quite supportive of her, and her wishes. Recommendation for discharge to alternative setting, with hospice support. Patient most likely with days to weeks, with functional decline, decreased intake, and prolonged hospitalization. Introduced also [facility], in response to conversation regarding cremation. Recommended they sign up ahead of time, given resources. Results - Lab Results Fish Bones: 05/20/23 08:00 05/20/23 08:00 Impression and Recommendations - Palliative Care Impression: This is a 68-year-old woman who has significant underlying mental illness with identified bipolar affective disorder, atrial fibs, history of hypertension fibromyalgia presenting with seizures and acute/subacute right thalamic CVA. Patient has recovered in the context of being able to participate in conversation, able to express her wishes as far as comfort focused care, but is unable to meet her care needs as she is bedbound and at this time not eating, but is drinking juice and water. Palliative care meeting with family, to further define and consider placement options, with recommendation for hospice support on discharge. Recommendations/Counseling Done: 1.Seizures. Patient has transition to oral phenytoin, is taking meds currently without difficulty. No signs or symptoms of seizures at this time. Patient on supportive meds only. 2. Advance care planning. Will transition patient to comfort focused care only, with goal to discharge with hospice support. Still exploring placement options, reviewed local resources and handed off to WIG STYLIST for further placement logistics. 60 minutes with review of chart, family meeting, counseling regarding continuum of care, completing new POLST, communication with hospitalist, social work, and hospice team.
--- NOTE | 2023-06-04 16:57 | PROVIDER PROGRESS NOTE ---
Assessment/Plan - Problem List (1) Seizure Assessment/Plan: CONTROLLED The cause of her seizures appeared to be a new stroke. She was initially dosed with Keppra. But then after she developed status epilepticus, she was changed over to IV phenytoin. The seizure gave her an aspiration pneumonia which she h as now recovered from. She was made a DNR and comfort care (per family request, knowing her wishes) after the status epilepticus plus aspiration PNA. She was not a candidate for the GIP service then. She was not consistent with taking her po meds, was actively spitting out her pills. Therefore she was on iv Pheytoin 200 BID She was seen in consult by Palliative Care provider Kathi Cummins NP who advised changing to po Phenytoin, since she is now reliably taking po meds. Plan: I ordered IV phenytoin to be changed to po which she has taken reliably. Therefore I will order removal of the R IJ CVP line Family is aware of her comfort measures status and are now looking for long-term care for this patient. Today I updated the family (2) Comfort measures only status Impression: We have stopped measurement of intake and output, checking vital signs, and getting any labs. She is ordered to get a clear liquid diet, to offer her anything she would want. She is asking for water, apple juice, and Pepsi. And those are being given to her. Family is aware of her being more awake. She was seen by Palliative Care provider Kathi Cummins NP who met the patientand also spoke with brother & [id number] in [place]. Appreciate Palliative Care recommendations. Plan: Cont po Phenytoin. Cont comfort feeding Cont to determine placement for end-of-life care for this pt. Kathi Cummins is offering options to them today (3) Thalamic infarction Impression: IMPROVED Earlier in her stay she had left arm weakness and left gaze preference. The MRI did confirm a thalamic infarct. The infarct was felt to be the cause of her s eizures and then her status epilepticus. She has regained L arm and hand function PT and OT evaluation were done to see where appropriate placement for this patient would be. PTand OT reported that she can speak normally, moves both hands and arms, both legs and feet while in bed, and could sit and dangle briefly. Plan: Family support her wish for comfort measures status and are looking for long- term care for this patient. (4) Bipolar disorder Impression: IMPROVED Due to her sedated status and seizures, the patient was unable to take her bipolar medications. She was sedated and unresponsive for quite some time. 05/24 overnight into 05/25 am, there was an episode of alertness, emotional lability. Since about 05/26,she has become more interactive. She is having complete sentence structure and complete a conversation with me. She is tolerating the zyprexa and is calmer. Plan: Cont present meds - Current Meds Current Meds: Current Medications Generic Name Dose Route Start Last Admin Trade Name Freq PRN Reason Stop Dose Admin Carboxymethylcellulose 1 drops 05/27/23 13:53 05/27/23 13:59 Carboxymethylcellulose Ophth Drops EACHEYE 1 drops PRN PRN Administration Dry Eye Famotidine 20 mg 05/17/23 09:00 06/04/23 09:26 Famotidine 20 Mg/2 Ml Vial IVP 20 mg BID MANDY Administration Glycopyrrolate 0.2 mg 05/20/23 12:09 05/23/23 08:31 Glycopyrrolate 1 Mg/5 Ml Vial SUBQ 0.2 mg Q4H PRN Administration Excessive secretions Acetaminophen 1,000 mg in 100 mls @ 400 mls/hr 05/15/23 10:15 05/26/23 16:24 Acetaminophen IV Infused Q6HR PRN Infusion Mild Pain or Fever>38C(100.4F) [place] Carbonate 150 mg 05/25/23 09:00 06/04/23 09:26 [place] 150 Mg Capsule PO 150 mg DAILY MANDY Administration Lorazepam 2 mg 05/21/23 10:14 05/22/23 11:05 Lorazepam 2 Mg/Ml Vial IVP 2 mg Q2H PRN Administration Seizure Morphine Sulfate 2 mg 05/20/23 12:09 05/26/23 00:50 Morphine 2 Mg/Ml Carpuject IVP 2 mg Q2HR PRN Administration NEEDED PER PROVIDER ORDERS Multi-Ingredient Ointment 1 applic 05/12/23 10:56 06/03/23 20:54 Zinc Oxide 20% Oint 30 Gm Tube TOP 1 applic PRN PRN Administration Skin Care Olanzapine 5 mg 05/25/23 21:00 06/03/23 20:26 Olanzapine Odt 5 Mg Tablet TL 5 mg QPM MANDY Administration Ondansetron HCl 4 mg 05/09/23 17:16 06/03/23 06:37 Ondansetron 4 Mg/2 Ml Vial IVP 4 mg Q6HR PRN Administration Nausea / Vomiting Phenytoin Sodium 200 mg 06/03/23 09:00 06/04/23 09:26 Phenytoin Chew 50 Mg Tablet PO 200 mg BID MANDY Administration Sodium Chloride 10 ml 05/09/23 17:16 06/04/23 00:28 Sodium Chloride Flush 0.9% 10 Ml Syringe IVP 10 ml PRN PRN Administration NEEDED PER PROVIDER ORDERS Sodium Chloride 10 ml 05/10/23 01:00 06/04/23 16:22 Sodium Chloride Flush 0.9% 10 Ml Syringe IVP Not Given 0100,0900,1700 MANDY - Lab Result Fish Bone Diagrams: 05/20/23 08:00 05/20/23 08:00 - Additional Planning My Orders: My Active Orders 06/04/23 11:15 Central Line Discontinuation [RC] .ONCE Subjective - Subjective Patient Reports: Resting Comfortably, No Complaints Objective Vital Signs: Vital Signs - 24 hr 06/04/23 07:43 Temperature 37 C Heart Rate [ 81 Brachial] Respiratory 14 Rate Blood Pressure 120/60 [Right Brachial artery] O2 Saturation 98 Oxygen O2 Source Room air I&O (Last 24 Hrs): Intake and Output Totals x24h 06/02/23 06/03/23 06/04/23 23:59 23:59 23:59 Intake Total 1000 1607 760 Output Total 2200 1600 1730 Balance -1200 7 -970 General: No acute distress, Other (Disheveled) HEENT: Other (Dry mucosa) Neck: Supple Neuro: Non Focal, Other (Lethargic) Respiratory: No respiratory distress Abdomen: Soft Extremities: No clubbing, No edema, No tenderness/swelling - Results Results: Laboratory Results WBC 10.0 x10^3/uL (4.8-10.8) 05/20/23 08:00 RBC 2.88 10^6/uL (4.20-5.40) L 05/20/23 08:00 Hgb 9.4 g/dL (12.0-16.0) L 05/20/23 08:00 Hct 28.6 % (37.0-47.0) L 05/20/23 08:00 MCV 99.3 fL (81.0-99.0) H 05/20/23 08:00 MCH 32.6 pg (27.0-31.0) H 05/20/23 08:00 MCHC 32.9 g/dL (32.0-36.0) 05/20/23 08:00 RDW 14.4 % (12.0-15.0) 05/20/23 08:00 Plt Count 242 10^3/uL (130-450) 05/20/23 08:00 MPV 8.9 fL (7.9-10.8) 05/20/23 08:00 Neut # (Auto) 7.1 10^3/uL (1.5-6.6) H 05/20/23 08:00 Lymph # (Auto) 2.0 10^3/uL (1.5-3.5) 05/20/23 08:00 [place] # (Auto) 0.6 10^3/uL (0.0-1.0) 05/20/23 08:00 Eos # (Auto) 0.1 10^3/uL (0.0-0.7) 05/20/23 08:00 Baso # (Auto) 0.0 10^3/uL (0.0-0.1) 05/20/23 08:00 Absolute Nucleated RBC 0.00 x10^3/uL 05/20/23 08:00 Total Counted 100 05/17/23 06:36 Band Neuts % (Manual) 7 % (0-10) 05/17/23 06:36 Abnorm Lymph % (Manual) 0 % 05/17/23 06:36 Metamyelocytes % 4 % (-0) H 05/17/23 06:36 Myelocytes % 2 % (-0) H 05/17/23 06:36 Nucleated RBC % 0.0 /100WBC 05/20/23 08:00 Neutrophils # (Manual) 22.4 10^3/uL (1.5-6.6) H 05/17/23 06:36 Lymphocytes # (Manual) 3.3 10^3/uL (1.5-3.5) 05/17/23 06:36 Monocytes # (Manual) 0.3 10^3/uL (0.0-1.0) 05/17/23 06:36 Eosinophils # (Manual) 0.0 10^3/uL (0-0.7) 05/17/23 06:36 Basophils # (Manual) 0.0 10^3/uL (0-0.1) 05/17/23 06:36 Nucleated RBCs 1 % 05/17/23 06:36 Differential Comment MANUAL DIFFERENTIAL 05/17/23 06:36 RBC Morph Micro Appear 2+ ANISOCYTOSIS (NORMAL) 3+ POLYCHROMASIA (NORMAL) 05/17/23 06:36 RBC Morph Micro Appear 2+ ANISOCYTOSIS (NORMAL) 3+ POLYCHROMASIA (NORMAL) 05/17/23 06:36 PT 14.2 secs (9.9-12.6) H 05/17/23 07:35 INR 1.3 (0.8-1.2) H 05/17/23 07:35 Bld Gas Analysis Time 1250 05/17/23 12:35 Sample Site RIGHT RADIAL 05/17/23 12:35 ABG pH 7.36 (7.35-7.45) 05/17/23 12:35 ABG pCO2 35 mmHg (34-45) 05/17/23 12:35 ABG pO2 118 mmHg (80-100) H 05/17/23 12:35 ABG HCO3 19.2 mmol/L (22.0-26.0) L 05/17/23 12:35 ABG Total CO2 20.3 MMOL/L (21.0-29.0) L 05/17/23 12:35 ABG O2 Saturation 98 % (94-98) 05/17/23 12:35 ABG Base Excess -5.5 mmol/L (-2.0-3.0) L 05/17/23 12:35 Twan Test POSITIVE 05/17/23 12:35 VBG pH 7.449 (7.31-7.41) H 05/20/23 04:15 Ionized Calcium 1.12 mmol/L (1.15-1.33) L 05/20/23 04:15 O2 Delivery Device NASAL CANNULA 05/17/23 12:35 O2 Liters/Min 4.00 LPM 05/17/23 12:35 FiO2 1.00 05/17/23 08:10 Sodium 143 mmol/L (135-145) 05/20/23 08:00 Potassium 3.4 mmol/L (3.5-4.5) L 05/20/23 08:00 Chloride 103 mmol/L (101-111) 05/20/23 08:00 Carbon Dioxide 37 mmol/L (21-32) H 05/20/23 08:00 Anion Gap 3.0 (6-13) L 05/20/23 08:00 BUN 12 mg/dL (6-20) 05/20/23 08:00 Creatinine 0.8 mg/dL (0.6-1.3) 05/20/23 08:00 Estimated GFR (MDRD) 71 (>89) L 05/20/23 08:00 Glucose 158 mg/dL (74-104) H 05/20/23 08:00 Lactic Acid 0.6 mmol/L (0.5-2.2) 05/17/23 06:36 Calcium 8.2 mg/dL (8.5-10.3) L 05/20/23 08:00 Phosphorus 1.5 mg/dL (2.5-5.0) L 05/20/23 04:15 Magnesium 1.9 mg/dL (1.7-2.3) 05/20/23 04:15 Total Bilirubin 0.4 mg/dL (0.2-1.0) 05/19/23 04:27 AST 13 IU/L (10-42) 05/19/23 04:27 ALT 15 IU/L (10-60) 05/19/23 04:27 Alkaline Phosphatase 54 IU/L (42-121) 05/19/23 04:27 B-Natriuretic Peptide 635 pg/mL (5-100) H 05/17/23 07:35 Total Protein 5.0 g/dL (6.4-8.9) L 05/19/23 04:27 Albumin 3.2 g/dL (3.2-5.5) 05/19/23 04:27 Globulin 1.8 g/dL (2.1-4.2) L 05/19/23 04:27 Albumin/Globulin Ratio 1.8 (1.0-2.2) 05/19/23 04:27 Prealbumin 10 mg/dL (17-34) L 05/19/23 04:27 Vitamin D 25-Hydroxy 24.3 ng/mL (30.0-100.0) L 05/09/23 15:15 Total Intact PTH 15 pg/mL (12-88) 05/09/23 15:15 Urine Color YELLOW 05/14/23 12:31 Urine Clarity CLOUDY (CLEAR) 05/14/23 12:31 Urine pH 6.0 PH (5.0-7.5) 05/14/23 12:31 Ur Specific [place] 1.015 (1.002-1.030) 05/14/23 12:31 Urine Protein NEGATIVE mg/dL (NEGATIVE) 05/14/23 12:31 Urine Glucose (UA) NEGATIVE mg/dL (NEGATIVE) 05/14/23 12:31 Urine Ketones 40 mg/dL (NEGATIVE) H 05/14/23 12:31 Urine Occult Blood SMALL (NEGATIVE) H 05/14/23 12:31 Urine Nitrite POSITIVE (NEGATIVE) H 05/14/23 12:31 Urine Bilirubin NEGATIVE (NEGATIVE) 05/14/23 12:31 Urine Urobilinogen 0.2 (NORMAL) E.U./dL (NORMAL) 05/14/23 12:31 Ur Leukocyte Esterase LARGE (NEGATIVE) H 05/14/23 12:31 Urine RBC 0-5 /HPF (0-5) 05/14/23 12:31 Urine WBC >25 /HPF (0-5) H 05/14/23 12:31 Ur Epithelial Cells RARE Transitional /HPF (<= Few) RARE Renal Tubular /HPF (<= Few) 05/14/23 12:31 Ur Epithelial Cells RARE Transitional /HPF (<= Few) RARE Renal Tubular /HPF (<= Few) 05/14/23 12:31 Ur Squamous Epith Cells RARE Squamous (<= Few) 05/14/23 12:31 Urine Bacteria Moderate /HPF (None Seen) H 05/14/23 12:31 Urine Culture Comments INDICATED 05/14/23 12:31 Nasal Screen MRSA (PCR) NEGATIVE (NEGATIVE) 05/17/23 08:20 Last Dose Date UNK 05/17/23 07:35 Last Dose Time UNK 05/17/23 07:35 Phenytoin 23.7 ug/mL 06/01/23 07:58 Lamotrigine <1.0 ug/mL (2.0-20.0) L 05/17/23 07:35 Levetiracetam 22.0 ug/mL (10.0-40.0) 05/18/23 04:26 [place] < 0.10 mmol/L 05/17/23 07:35 SARS-CoV-2 (PCR) NOT DETECTED 05/18/23 16:02 - Procedures Procedures: Procedures CATARAC PHACOEMULS/ASPIR (05/14/13) EXCISION OF DUODENUM, ENDO, DIAGN (09/19/18) EXCISION OF ESOPHAGUS, ENDO, DIAGN (09/19/18) EXCISION OF LEFT LARGE INTESTINE, ENDO, DIAGN (09/19/18) EXCISION OF RIGHT LARGE INTESTINE, ENDO, DIAGN (09/19/18) EXCISION OF STOMACH, PYLORUS, ENDO, DIAGN (09/19/18) INSERT LENS AT CATAR EXT (05/14/13) Sepsis Event Note (H) - Evaluation Current Stage of Sepsis: Ruled out
[2023-06-04] MEDS: MORPHINE 2 MG/ML CARPUJECT IVP PRN (17:44)
[2023-06-04] MEDS: ONDANSETRON 4 MG/2 ML VIAL IVP PRN (17:49)
[2023-06-04] MEDS: OLANZapine ODT 5 MG TABLET TL SCH (21:43)
[2023-06-05] MEDS: ZINC OXIDE 20% OINT 30 GM TUBE TOP PRN ×2 (00:39→00:47)
[2023-06-05] MEDS: SODIUM CHLORIDE FLUSH 0.9% 10 ML SYRINGE IVP SCH ×2 (00:46→21:10)
[2023-06-05] MEDS: MORPHINE 2 MG/ML CARPUJECT IVP PRN (00:46)
--- NOTE | 2023-06-05 08:22 | PROVIDER PROGRESS NOTE ---
Assessment/Plan - Problem List (1) Comfort measures only status Assessment/Plan: Palliative care consult, patient and family have decided to focus on comfort drive worker is looking for any facility that can provide comfort care measures - Current Meds Current Meds: Current Medications Generic Name Dose Route Start Last Admin Trade Name Freq PRN Reason Stop Dose Admin Carboxymethylcellulose 1 drops 05/27/23 13:53 05/27/23 13:59 Carboxymethylcellulose Ophth Drops EACHEYE 1 drops PRN PRN Administration Dry Eye Famotidine 20 mg 05/17/23 09:00 06/04/23 21:43 Famotidine 20 Mg/2 Ml Vial IVP 20 mg BID MANDY Administration Glycopyrrolate 0.2 mg 05/20/23 12:09 05/23/23 08:31 Glycopyrrolate 1 Mg/5 Ml Vial SUBQ 0.2 mg Q4H PRN Administration Excessive secretions Acetaminophen 1,000 mg in 100 mls @ 400 mls/hr 05/15/23 10:15 05/26/23 16:24 Acetaminophen IV Infused Q6HR PRN Infusion Mild Pain or Fever>38C(100.4F) [place] Carbonate 150 mg 05/25/23 09:00 06/04/23 09:26 [place] 150 Mg Capsule PO 150 mg DAILY MANDY Administration Lorazepam 2 mg 05/21/23 10:14 05/22/23 11:05 Lorazepam 2 Mg/Ml Vial IVP 2 mg Q2H PRN Administration Seizure Morphine Sulfate 2 mg 05/20/23 12:09 06/05/23 00:46 Morphine 2 Mg/Ml Carpuject IVP 2 mg Q2HR PRN Administration NEEDED PER PROVIDER ORDERS Multi-Ingredient Ointment 1 applic 05/12/23 10:56 06/05/23 00:47 Zinc Oxide 20% Oint 30 Gm Tube TOP 1 applic PRN PRN Administration Skin Care Olanzapine 5 mg 05/25/23 21:00 06/04/23 21:43 Olanzapine Odt 5 Mg Tablet TL 5 mg QPM MANDY Administration Ondansetron HCl 4 mg 05/09/23 17:16 06/04/23 17:49 Ondansetron 4 Mg/2 Ml Vial IVP 4 mg Q6HR PRN Administration Nausea / Vomiting Phenytoin Sodium 200 mg 06/03/23 09:00 06/04/23 21:43 Phenytoin Chew 50 Mg Tablet PO 200 mg BID MANDY Administration Sodium Chloride 10 ml 05/09/23 17:16 06/04/23 17:49 Sodium Chloride Flush 0.9% 10 Ml Syringe IVP 10 ml PRN PRN Administration NEEDED PER PROVIDER ORDERS Sodium Chloride 10 ml 05/10/23 01:00 06/05/23 00:46 Sodium Chloride Flush 0.9% 10 Ml Syringe IVP 10 ml 0100,0900,1700 MANDY Administration - Lab Result Fish Bone Diagrams: 05/20/23 08:00 05/20/23 08:00 Subjective - Subjective Patient Reports: Other (Patient is awake alert, states she feels fine) Objective Vital Signs: Oxygen O2 Source Room air I&O (Last 24 Hrs): Intake and Output Totals x24h 06/03/23 06/04/23 06/05/23 23:59 23:59 23:59 Intake Total 1607 1210 Output Total 1600 2280 700 Balance 7 -1070 -700 General: Alert HEENT: PERRLA, EOMI Neck: Supple, No JVD Neuro: Alert, CN 2-12 Grossly Intact Cardiovascular: Regular rate Extremities: No clubbing, No edema - Results Results: Laboratory Results WBC 10.0 x10^3/uL (4.8-10.8) 05/20/23 08:00 RBC 2.88 10^6/uL (4.20-5.40) L 05/20/23 08:00 Hgb 9.4 g/dL (12.0-16.0) L 05/20/23 08:00 Hct 28.6 % (37.0-47.0) L 05/20/23 08:00 MCV 99.3 fL (81.0-99.0) H 05/20/23 08:00 MCH 32.6 pg (27.0-31.0) H 05/20/23 08:00 MCHC 32.9 g/dL (32.0-36.0) 05/20/23 08:00 RDW 14.4 % (12.0-15.0) 05/20/23 08:00 Plt Count 242 10^3/uL (130-450) 05/20/23 08:00 MPV 8.9 fL (7.9-10.8) 05/20/23 08:00 Neut # (Auto) 7.1 10^3/uL (1.5-6.6) H 05/20/23 08:00 Lymph # (Auto) 2.0 10^3/uL (1.5-3.5) 05/20/23 08:00 [place] # (Auto) 0.6 10^3/uL (0.0-1.0) 05/20/23 08:00 Eos # (Auto) 0.1 10^3/uL (0.0-0.7) 05/20/23 08:00 Baso # (Auto) 0.0 10^3/uL (0.0-0.1) 05/20/23 08:00 Absolute Nucleated RBC 0.00 x10^3/uL 05/20/23 08:00 Total Counted 100 05/17/23 06:36 Band Neuts % (Manual) 7 % (0-10) 05/17/23 06:36 Abnorm Lymph % (Manual) 0 % 05/17/23 06:36 Metamyelocytes % 4 % (-0) H 05/17/23 06:36 Myelocytes % 2 % (-0) H 05/17/23 06:36 Nucleated RBC % 0.0 /100WBC 05/20/23 08:00 Neutrophils # (Manual) 22.4 10^3/uL (1.5-6.6) H 05/17/23 06:36 Lymphocytes # (Manual) 3.3 10^3/uL (1.5-3.5) 05/17/23 06:36 Monocytes # (Manual) 0.3 10^3/uL (0.0-1.0) 05/17/23 06:36 Eosinophils # (Manual) 0.0 10^3/uL (0-0.7) 05/17/23 06:36 Basophils # (Manual) 0.0 10^3/uL (0-0.1) 05/17/23 06:36 Nucleated RBCs 1 % 05/17/23 06:36 Differential Comment MANUAL DIFFERENTIAL 05/17/23 06:36 RBC Morph Micro Appear 2+ ANISOCYTOSIS (NORMAL) 3+ POLYCHROMASIA (NORMAL) 05/17/23 06:36 RBC Morph Micro Appear 2+ ANISOCYTOSIS (NORMAL) 3+ POLYCHROMASIA (NORMAL) 05/17/23 06:36 PT 14.2 secs (9.9-12.6) H 05/17/23 07:35 INR 1.3 (0.8-1.2) H 05/17/23 07:35 Bld Gas Analysis Time 1250 05/17/23 12:35 Sample Site RIGHT RADIAL 05/17/23 12:35 ABG pH 7.36 (7.35-7.45) 05/17/23 12:35 ABG pCO2 35 mmHg (34-45) 05/17/23 12:35 ABG pO2 118 mmHg (80-100) H 05/17/23 12:35 ABG HCO3 19.2 mmol/L (22.0-26.0) L 05/17/23 12:35 ABG Total CO2 20.3 MMOL/L (21.0-29.0) L 05/17/23 12:35 ABG O2 Saturation 98 % (94-98) 05/17/23 12:35 ABG Base Excess -5.5 mmol/L (-2.0-3.0) L 05/17/23 12:35 Twan Test POSITIVE 05/17/23 12:35 VBG pH 7.449 (7.31-7.41) H 05/20/23 04:15 Ionized Calcium 1.12 mmol/L (1.15-1.33) L 05/20/23 04:15 O2 Delivery Device NASAL CANNULA 05/17/23 12:35 O2 Liters/Min 4.00 LPM 05/17/23 12:35 FiO2 1.00 05/17/23 08:10 Sodium 143 mmol/L (135-145) 05/20/23 08:00 Potassium 3.4 mmol/L (3.5-4.5) L 05/20/23 08:00 Chloride 103 mmol/L (101-111) 05/20/23 08:00 Carbon Dioxide 37 mmol/L (21-32) H 05/20/23 08:00 Anion Gap 3.0 (6-13) L 05/20/23 08:00 BUN 12 mg/dL (6-20) 05/20/23 08:00 Creatinine 0.8 mg/dL (0.6-1.3) 05/20/23 08:00 Estimated GFR (MDRD) 71 (>89) L 05/20/23 08:00 Glucose 158 mg/dL (74-104) H 05/20/23 08:00 Lactic Acid 0.6 mmol/L (0.5-2.2) 05/17/23 06:36 Calcium 8.2 mg/dL (8.5-10.3) L 05/20/23 08:00 Phosphorus 1.5 mg/dL (2.5-5.0) L 05/20/23 04:15 Magnesium 1.9 mg/dL (1.7-2.3) 05/20/23 04:15 Total Bilirubin 0.4 mg/dL (0.2-1.0) 05/19/23 04:27 AST 13 IU/L (10-42) 05/19/23 04:27 ALT 15 IU/L (10-60) 05/19/23 04:27 Alkaline Phosphatase 54 IU/L (42-121) 05/19/23 04:27 B-Natriuretic Peptide 635 pg/mL (5-100) H 05/17/23 07:35 Total Protein 5.0 g/dL (6.4-8.9) L 05/19/23 04:27 Albumin 3.2 g/dL (3.2-5.5) 05/19/23 04:27 Globulin 1.8 g/dL (2.1-4.2) L 05/19/23 04:27 Albumin/Globulin Ratio 1.8 (1.0-2.2) 05/19/23 04:27 Prealbumin 10 mg/dL (17-34) L 05/19/23 04:27 Vitamin D 25-Hydroxy 24.3 ng/mL (30.0-100.0) L 05/09/23 15:15 Total Intact PTH 15 pg/mL (12-88) 05/09/23 15:15 Urine Color YELLOW 05/14/23 12:31 Urine Clarity CLOUDY (CLEAR) 05/14/23 12:31 Urine pH 6.0 PH (5.0-7.5) 05/14/23 12:31 Ur Specific [place] 1.015 (1.002-1.030) 05/14/23 12:31 Urine Protein NEGATIVE mg/dL (NEGATIVE) 05/14/23 12:31 Urine Glucose (UA) NEGATIVE mg/dL (NEGATIVE) 05/14/23 12:31 Urine Ketones 40 mg/dL (NEGATIVE) H 05/14/23 12:31 Urine Occult Blood SMALL (NEGATIVE) H 05/14/23 12:31 Urine Nitrite POSITIVE (NEGATIVE) H 05/14/23 12:31 Urine Bilirubin NEGATIVE (NEGATIVE) 05/14/23 12:31 Urine Urobilinogen 0.2 (NORMAL) E.U./dL (NORMAL) 05/14/23 12:31 Ur Leukocyte Esterase LARGE (NEGATIVE) H 05/14/23 12:31 Urine RBC 0-5 /HPF (0-5) 05/14/23 12:31 Urine WBC >25 /HPF (0-5) H 05/14/23 12:31 Ur Epithelial Cells RARE Transitional /HPF (<= Few) RARE Renal Tubular /HPF (<= Few) 05/14/23 12:31 Ur Epithelial Cells RARE Transitional /HPF (<= Few) RARE Renal Tubular /HPF (<= Few) 05/14/23 12:31 Ur Squamous Epith Cells RARE Squamous (<= Few) 05/14/23 12:31 Urine Bacteria Moderate /HPF (None Seen) H 05/14/23 12:31 Urine Culture Comments INDICATED 05/14/23 12:31 Nasal Screen MRSA (PCR) NEGATIVE (NEGATIVE) 05/17/23 08:20 Last Dose Date UNK 05/17/23 07:35 Last Dose Time UNK 05/17/23 07:35 Phenytoin 23.7 ug/mL 06/01/23 07:58 Lamotrigine <1.0 ug/mL (2.0-20.0) L 05/17/23 07:35 Levetiracetam 22.0 ug/mL (10.0-40.0) 05/18/23 04:26 [place] < 0.10 mmol/L 05/17/23 07:35 SARS-CoV-2 (PCR) NOT DETECTED 05/18/23 16:02 - Procedures Procedures: Procedures CATARAC PHACOEMULS/ASPIR (05/14/13) EXCISION OF DUODENUM, ENDO, DIAGN (09/19/18) EXCISION OF ESOPHAGUS, ENDO, DIAGN (09/19/18) EXCISION OF LEFT LARGE INTESTINE, ENDO, DIAGN (09/19/18) EXCISION OF RIGHT LARGE INTESTINE, ENDO, DIAGN (09/19/18) EXCISION OF STOMACH, PYLORUS, ENDO, DIAGN (09/19/18) INSERT LENS AT CATAR EXT (05/14/13) Sepsis Event Note (H) - Evaluation Current Stage of Sepsis: Ruled out ABX Reporting Has patient been on IV antibiotics over the past 48 hours?: No Current Medications - Current Medications Current Medications: Active Medications Carboxymethylcellulose (Carboxymethylcellulose Ophth Drops) 1 drops EACHEYE PRN PRN PRN Reason: Dry Eye Last Admin: 05/27/23 13:59 Dose: 1 drops Famotidine (Famotidine 20 Mg/2 Ml Vial) 20 mg IVP BID [facility] Last Admin: 06/05/23 09:28 Dose: 20 mg Glycopyrrolate (Glycopyrrolate 1 Mg/5 Ml Vial) 0.2 mg SUBQ Q4H PRN PRN Reason: Excessive secretions Last Admin: 05/23/23 08:31 Dose: 0.2 mg Acetaminophen (Acetaminophen) 1,000 mg in 100 mls @ 400 mls/hr IV Q6HR PRN PRN Reason: Mild Pain or Fever>38C(100.4F) Last Infusion: 05/26/23 16:24 Dose: Infused [place] Carbonate ([place] 150 Mg Capsule) 150 mg PO DAILY [facility] Last Admin: 06/05/23 09:28 Dose: 150 mg Lorazepam (Lorazepam 2 Mg/Ml Vial) 2 mg IVP Q2H PRN PRN Reason: Seizure Last Admin: 05/22/23 11:05 Dose: 2 mg Morphine Sulfate (Morphine 2 Mg/Ml Carpuject) 2 mg IVP Q2HR PRN PRN Reason: NEEDED PER PROVIDER ORDERS Last Admin: 06/05/23 00:46 Dose: 2 mg Multi-Ingredient Ointment (Zinc Oxide 20% Oint 30 Gm Tube) 1 applic TOP PRN PRN PRN Reason: Skin Care Last Admin: 06/05/23 00:47 Dose: 1 applic Olanzapine (Olanzapine Odt 5 Mg Tablet) 5 mg TL QPM MANDY Last Admin: 06/04/23 21:43 Dose: 5 mg Ondansetron HCl (Ondansetron 4 Mg/2 Ml Vial) 4 mg IVP Q6HR PRN PRN Reason: Nausea / Vomiting Last Admin: 06/04/23 17:49 Dose: 4 mg Phenytoin Sodium (Phenytoin Chew 50 Mg Tablet) 200 mg PO BID [facility] Last Admin: 06/05/23 09:28 Dose: 200 mg Sodium Chloride (Sodium Chloride Flush 0.9% 10 Ml Syringe) 10 ml IVP PRN PRN PRN Reason: NEEDED PER PROVIDER ORDERS Last Admin: 06/04/23 17:49 Dose: 10 ml Sodium Chloride (Sodium Chloride Flush 0.9% 10 Ml Syringe) 10 ml IVP 0100,0900,1700 MANDY Last Admin: 06/05/23 00:46 Dose: 10 ml lamoTRIgine [LaMICtal] 100 mg PO DAILY 03/02/19 lamoTRIgine [LaMICtal] 150 mg PO QPM 03/02/19 ALPRAZolam [Alprazolam] 1 mg PO TID PRN 03/03/19 [place] [[place] Carbonate] 150 mg PO DAILY 05/09/23 Losartan [Cozaar] 50 mg PO DAILY 05/10/23 Metoprolol Succinate [Toprol Xl] 100 mg PO QPM 05/10/23 Mirtazapine [Remeron] 7.5 mg PO QPM 05/10/23 Rivaroxaban [Xarelto] 20 mg PO QDDINNER 05/10/23 Rosuvastatin Calcium [Crestor] 10 mg PO QPM 05/10/23 hydrOXYzine HCL [Hydroxyzine HCl] 25 - 50 mg PO QPM 05/10/23 risperiDONE [Risperdal] 0.75 mg PO QPM 05/10/23
[2023-06-05] MEDS: PHENYTOIN CHEW 50 MG TABLET PO SCH ×2 (09:28→21:10)
[2023-06-05] MEDS: FAMOTIDINE 20 MG/2 ML VIAL IVP SCH ×2 (09:28→21:10)
[2023-06-05] MEDS: LITHIUM 150 MG CAPSULE PO SCH (09:28)
[2023-06-05] MEDS: OLANZapine ODT 5 MG TABLET TL SCH (21:10)
[2023-06-06] MEDS: ZINC OXIDE 20% OINT 30 GM TUBE TOP PRN (01:08)
[2023-06-06] MEDS: SODIUM CHLORIDE FLUSH 0.9% 10 ML SYRINGE IVP SCH ×3 (01:10→21:31)
--- NOTE | 2023-06-06 08:27 | PROVIDER PROGRESS NOTE ---
Assessment/Plan - Problem List (1) Comfort measures only status Assessment/Plan: Patient is accepted by adult family home Scheduled discharge tomorrow a.m. at 10 Per hospice Keep Kelly in place - Current Meds Current Meds: Current Medications Generic Name Dose Route Start Last Admin Trade Name Freq PRN Reason Stop Dose Admin Carboxymethylcellulose 1 drops 05/27/23 13:53 05/27/23 13:59 Carboxymethylcellulose Ophth Drops EACHEYE 1 drops PRN PRN Administration Dry Eye Famotidine 20 mg 05/17/23 09:00 06/05/23 21:10 Famotidine 20 Mg/2 Ml Vial IVP 20 mg BID MANDY Administration Glycopyrrolate 0.2 mg 05/20/23 12:09 05/23/23 08:31 Glycopyrrolate 1 Mg/5 Ml Vial SUBQ 0.2 mg Q4H PRN Administration Excessive secretions Acetaminophen 1,000 mg in 100 mls @ 400 mls/hr 05/15/23 10:15 05/26/23 16:24 Acetaminophen IV Infused Q6HR PRN Infusion Mild Pain or Fever>38C(100.4F) [place] Carbonate 150 mg 05/25/23 09:00 06/05/23 09:28 [place] 150 Mg Capsule PO 150 mg DAILY MANDY Administration Lorazepam 2 mg 05/21/23 10:14 05/22/23 11:05 Lorazepam 2 Mg/Ml Vial IVP 2 mg Q2H PRN Administration Seizure Morphine Sulfate 2 mg 05/20/23 12:09 06/05/23 00:46 Morphine 2 Mg/Ml Carpuject IVP 2 mg Q2HR PRN Administration NEEDED PER PROVIDER ORDERS Multi-Ingredient Ointment 1 applic 05/12/23 10:56 06/06/23 01:08 Zinc Oxide 20% Oint 30 Gm Tube TOP 1 applic PRN PRN Administration Skin Care Olanzapine 5 mg 05/25/23 21:00 06/05/23 21:10 Olanzapine Odt 5 Mg Tablet TL 5 mg QPM MANDY Administration Ondansetron HCl 4 mg 05/09/23 17:16 06/04/23 17:49 Ondansetron 4 Mg/2 Ml Vial IVP 4 mg Q6HR PRN Administration Nausea / Vomiting Phenytoin Sodium 200 mg 06/03/23 09:00 06/05/23 21:10 Phenytoin Chew 50 Mg Tablet PO 200 mg BID MANDY Administration Sodium Chloride 10 ml 05/09/23 17:16 06/04/23 17:49 Sodium Chloride Flush 0.9% 10 Ml Syringe IVP 10 ml PRN PRN Administration NEEDED PER PROVIDER ORDERS Sodium Chloride 10 ml 05/10/23 01:00 06/06/23 01:10 Sodium Chloride Flush 0.9% 10 Ml Syringe IVP 10 ml 0100,0900,1700 MANDY Administration - Lab Result Fish Bone Diagrams: 05/20/23 08:00 05/20/23 08:00 Objective Vital Signs: Vital Signs - 24 hr 06/05/23 06/06/23 09:00 08:19 Temperature 36.5 C 37.2 C Heart Rate [ 82 Brachial] Heart Rate [ 92 Monitoring electrodes] Respiratory 16 16 Rate Blood Pressure 133/74 H 122/56 L [Right Brachial artery] O2 Saturation 97 95 Oxygen O2 Source Room air I&O (Last 24 Hrs): Intake and Output Totals x24h 06/04/23 06/05/23 06/06/23 23:59 23:59 23:59 Intake Total 1210 320 740 Output Total 2280 1550 925 Balance -1070 -1230 -185 - Results Results: Laboratory Results WBC 10.0 x10^3/uL (4.8-10.8) 05/20/23 08:00 RBC 2.88 10^6/uL (4.20-5.40) L 05/20/23 08:00 Hgb 9.4 g/dL (12.0-16.0) L 05/20/23 08:00 Hct 28.6 % (37.0-47.0) L 05/20/23 08:00 MCV 99.3 fL (81.0-99.0) H 05/20/23 08:00 MCH 32.6 pg (27.0-31.0) H 05/20/23 08:00 MCHC 32.9 g/dL (32.0-36.0) 05/20/23 08:00 RDW 14.4 % (12.0-15.0) 05/20/23 08:00 Plt Count 242 10^3/uL (130-450) 05/20/23 08:00 MPV 8.9 fL (7.9-10.8) 05/20/23 08:00 Neut # (Auto) 7.1 10^3/uL (1.5-6.6) H 05/20/23 08:00 Lymph # (Auto) 2.0 10^3/uL (1.5-3.5) 05/20/23 08:00 [place] # (Auto) 0.6 10^3/uL (0.0-1.0) 05/20/23 08:00 Eos # (Auto) 0.1 10^3/uL (0.0-0.7) 05/20/23 08:00 Baso # (Auto) 0.0 10^3/uL (0.0-0.1) 05/20/23 08:00 Absolute Nucleated RBC 0.00 x10^3/uL 05/20/23 08:00 Total Counted 100 05/17/23 06:36 Band Neuts % (Manual) 7 % (0-10) 05/17/23 06:36 Abnorm Lymph % (Manual) 0 % 05/17/23 06:36 Metamyelocytes % 4 % (-0) H 05/17/23 06:36 Myelocytes % 2 % (-0) H 05/17/23 06:36 Nucleated RBC % 0.0 /100WBC 05/20/23 08:00 Neutrophils # (Manual) 22.4 10^3/uL (1.5-6.6) H 05/17/23 06:36 Lymphocytes # (Manual) 3.3 10^3/uL (1.5-3.5) 05/17/23 06:36 Monocytes # (Manual) 0.3 10^3/uL (0.0-1.0) 05/17/23 06:36 Eosinophils # (Manual) 0.0 10^3/uL (0-0.7) 05/17/23 06:36 Basophils # (Manual) 0.0 10^3/uL (0-0.1) 05/17/23 06:36 Nucleated RBCs 1 % 05/17/23 06:36 Differential Comment MANUAL DIFFERENTIAL 05/17/23 06:36 RBC Morph Micro Appear 2+ ANISOCYTOSIS (NORMAL) 3+ POLYCHROMASIA (NORMAL) 05/17/23 06:36 RBC Morph Micro Appear 2+ ANISOCYTOSIS (NORMAL) 3+ POLYCHROMASIA (NORMAL) 05/17/23 06:36 PT 14.2 secs (9.9-12.6) H 05/17/23 07:35 INR 1.3 (0.8-1.2) H 05/17/23 07:35 Bld Gas Analysis Time 1250 05/17/23 12:35 Sample Site RIGHT RADIAL 05/17/23 12:35 ABG pH 7.36 (7.35-7.45) 05/17/23 12:35 ABG pCO2 35 mmHg (34-45) 05/17/23 12:35 ABG pO2 118 mmHg (80-100) H 05/17/23 12:35 ABG HCO3 19.2 mmol/L (22.0-26.0) L 05/17/23 12:35 ABG Total CO2 20.3 MMOL/L (21.0-29.0) L 05/17/23 12:35 ABG O2 Saturation 98 % (94-98) 05/17/23 12:35 ABG Base Excess -5.5 mmol/L (-2.0-3.0) L 05/17/23 12:35 Twan Test POSITIVE 05/17/23 12:35 VBG pH 7.449 (7.31-7.41) H 05/20/23 04:15 Ionized Calcium 1.12 mmol/L (1.15-1.33) L 05/20/23 04:15 O2 Delivery Device NASAL CANNULA 05/17/23 12:35 O2 Liters/Min 4.00 LPM 05/17/23 12:35 FiO2 1.00 05/17/23 08:10 Sodium 143 mmol/L (135-145) 05/20/23 08:00 Potassium 3.4 mmol/L (3.5-4.5) L 05/20/23 08:00 Chloride 103 mmol/L (101-111) 05/20/23 08:00 Carbon Dioxide 37 mmol/L (21-32) H 05/20/23 08:00 Anion Gap 3.0 (6-13) L 05/20/23 08:00 BUN 12 mg/dL (6-20) 05/20/23 08:00 Creatinine 0.8 mg/dL (0.6-1.3) 05/20/23 08:00 Estimated GFR (MDRD) 71 (>89) L 05/20/23 08:00 Glucose 158 mg/dL (74-104) H 05/20/23 08:00 Lactic Acid 0.6 mmol/L (0.5-2.2) 05/17/23 06:36 Calcium 8.2 mg/dL (8.5-10.3) L 05/20/23 08:00 Phosphorus 1.5 mg/dL (2.5-5.0) L 05/20/23 04:15 Magnesium 1.9 mg/dL (1.7-2.3) 05/20/23 04:15 Total Bilirubin 0.4 mg/dL (0.2-1.0) 05/19/23 04:27 AST 13 IU/L (10-42) 05/19/23 04:27 ALT 15 IU/L (10-60) 05/19/23 04:27 Alkaline Phosphatase 54 IU/L (42-121) 05/19/23 04:27 B-Natriuretic Peptide 635 pg/mL (5-100) H 05/17/23 07:35 Total Protein 5.0 g/dL (6.4-8.9) L 05/19/23 04:27 Albumin 3.2 g/dL (3.2-5.5) 05/19/23 04:27 Globulin 1.8 g/dL (2.1-4.2) L 05/19/23 04:27 Albumin/Globulin Ratio 1.8 (1.0-2.2) 05/19/23 04:27 Prealbumin 10 mg/dL (17-34) L 05/19/23 04:27 Vitamin D 25-Hydroxy 24.3 ng/mL (30.0-100.0) L 05/09/23 15:15 Total Intact PTH 15 pg/mL (12-88) 05/09/23 15:15 Urine Color YELLOW 05/14/23 12:31 Urine Clarity CLOUDY (CLEAR) 05/14/23 12:31 Urine pH 6.0 PH (5.0-7.5) 05/14/23 12:31 Ur Specific [place] 1.015 (1.002-1.030) 05/14/23 12:31 Urine Protein NEGATIVE mg/dL (NEGATIVE) 05/14/23 12:31 Urine Glucose (UA) NEGATIVE mg/dL (NEGATIVE) 05/14/23 12:31 Urine Ketones 40 mg/dL (NEGATIVE) H 05/14/23 12:31 Urine Occult Blood SMALL (NEGATIVE) H 05/14/23 12:31 Urine Nitrite POSITIVE (NEGATIVE) H 05/14/23 12:31 Urine Bilirubin NEGATIVE (NEGATIVE) 05/14/23 12:31 Urine Urobilinogen 0.2 (NORMAL) E.U./dL (NORMAL) 05/14/23 12:31 Ur Leukocyte Esterase LARGE (NEGATIVE) H 05/14/23 12:31 Urine RBC 0-5 /HPF (0-5) 05/14/23 12:31 Urine WBC >25 /HPF (0-5) H 05/14/23 12:31 Ur Epithelial Cells RARE Transitional /HPF (<= Few) RARE Renal Tubular /HPF (<= Few) 05/14/23 12:31 Ur Epithelial Cells RARE Transitional /HPF (<= Few) RARE Renal Tubular /HPF (<= Few) 05/14/23 12:31 Ur Squamous Epith Cells RARE Squamous (<= Few) 05/14/23 12:31 Urine Bacteria Moderate /HPF (None Seen) H 05/14/23 12:31 Urine Culture Comments INDICATED 05/14/23 12:31 Nasal Screen MRSA (PCR) NEGATIVE (NEGATIVE) 05/17/23 08:20 Last Dose Date UNK 05/17/23 07:35 Last Dose Time UNK 05/17/23 07:35 Phenytoin 23.7 ug/mL 06/01/23 07:58 Lamotrigine <1.0 ug/mL (2.0-20.0) L 05/17/23 07:35 Levetiracetam 22.0 ug/mL (10.0-40.0) 05/18/23 04:26 [place] < 0.10 mmol/L 05/17/23 07:35 SARS-CoV-2 (PCR) NOT DETECTED 05/18/23 16:02 - Procedures Procedures: Procedures CATARAC PHACOEMULS/ASPIR (05/14/13) EXCISION OF DUODENUM, ENDO, DIAGN (09/19/18) EXCISION OF ESOPHAGUS, ENDO, DIAGN (09/19/18) EXCISION OF LEFT LARGE INTESTINE, ENDO, DIAGN (09/19/18) EXCISION OF RIGHT LARGE INTESTINE, ENDO, DIAGN (09/19/18) EXCISION OF STOMACH, PYLORUS, ENDO, DIAGN (09/19/18) INSERT LENS AT CATAR EXT (05/14/13) Sepsis Event Note (H) - Evaluation Current Stage of Sepsis: Ruled out ABX Reporting Has patient been on IV antibiotics over the past 48 hours?: No
[2023-06-06] MEDS: PHENYTOIN CHEW 50 MG TABLET PO SCH ×2 (11:00→21:41)
[2023-06-06] MEDS: LITHIUM 150 MG CAPSULE PO SCH (11:00)
[2023-06-06] MEDS: FAMOTIDINE 20 MG/2 ML VIAL IVP SCH ×2 (11:00→21:31)
[2023-06-06] MEDS: ONDANSETRON 4 MG/2 ML VIAL IVP PRN (12:19)
[2023-06-06] MEDS: OLANZapine ODT 5 MG TABLET TL SCH (21:31)
[2023-06-07] MEDS: ZINC OXIDE 20% OINT 30 GM TUBE TOP PRN ×3 (00:19→09:26)
[2023-06-07] MEDS: SODIUM CHLORIDE FLUSH 0.9% 10 ML SYRINGE IVP SCH ×3 (00:19→06:01)
[2023-06-07] MEDS: MORPHINE 2 MG/ML CARPUJECT IVP PRN ×3 (00:21→08:50)
--- NOTE | 2023-06-07 07:58 | Discharge Plan ---
Discharge Plan Problem Reviewed?: Yes Disposition: 06 Home Health Service Condition: Stable Diet: Regular Activity Restrictions: Activity as Tolerated Shower Restrictions: No Driving Restrictions: Yes Assistance Devices: Other (comfort care status) Weight Bearing: Full Weight (if tolerate) Instruction Topics: Hospice Plan of Treatment: Hospice care will take over the care for comfort measure status Care Goals: comfort care Assessment: stable Follow-Up Care: Hospice No Smoking: If you smoke, Please STOP! Call for help.
--- NOTE | 2023-06-07 08:00 | DISCHARGE SUMMARY ---
"Discharge Summary Admit Date: 06/07/23 Discharging Provider: Konrad Desai Condition at Discharge: Stable Discharge Disposition: 50 Hospice/Home DC/Xfer - DIAGNOSES Admission Diagnoses: Extrapyramidal and movement disorder Hypercalcemia GENESIS Discharge Diagnoses with Status of Each Condition: Comfort care status Seizure Urinary retention Hypercalcemia, resolved GENESIS resolved - HPI History of Present Illness: 68 years old female with history of paroxysmal A-fib hypertension, hyperlipidemia bipolar on long-term lamotrigine and lithium use, was brought in by EMS due to fall at home unable to walk. Patient reports she started to have tremor shaking and anxiety about 2 weeks ago. Patient did not seek medical attention, started using a cane. And a few days ago she had a fall after a short episode of large loss of consciousness. She reports she recovered quickl y. However on the day of the admission she had a fall in her bathroom with loss of consciousness also with hitting her head so she called EMS per EMS report patient right facial droop was suspected. In the ER patient vitals within normal limits Labs significant with WBC 13.8 calcium 15, PTH normal limits. [place] therapeutic range. Patient was given IV fluid given Ativan which did not help with her tremor, patient is admitted for further management. - CONSULTS | PROCEDURES Consultations: Telepsych, Hospice - HOSPITAL COURSE Hospital Course: After admission patient was received IV fluid, monitoring calcium level, which shows improvement over 2 to 3 days, completely resolved on the first days. GENESIS resolved as well. However with tremors, EPS was considered check lithium and lamotrigine levels consulted with telepsych. Patient had a few days of not talking, not eating, paranoid with audio hallucination. 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 Also acute urinary retention needs straight cath, UTI evidenced UA positive with LE and nitrate, patient was treated with Augmentin. On 05/17/2023 patient had multiple grand mall seizure, patient was given Ativan was transferred to ICU. Patient developed acute respiratory failure with hypoxia, was gurgling and needs deep suction during the seizure episode. Flagyl was started to cover aspiration pneumonitis. 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 It was considered to be free thoughts or a cause of the seizure disorder. Please Long discussion with patient next of Kin which is his brother and his best friend Mary at bedside. Goal of care ch anged to comfort only Patient is discharged to adult family home on 06/07/2023 in stable condition. - ALLERGIES Allergies/Adverse Reactions: Allergies Allergy/AdvReac Type Severity Reaction Status Date / Time Sulfa (Sulfonamide Allergy Severe Edema Verified 05/09/23 15:03 Antibiotics) naproxen Allergy unknown Verified 05/09/23 15:03 Penicillins Allergy UNKNOWN Verified 05/09/23 15:03 - MEDICATIONS Home Medications: Ambulatory Orders Medication Instructions Recorded Confirmed ALPRAZolam [Alprazolam] 1 mg PO TID PRN 03/03/19 05/09/23 [place] [[place] Carbonate] 150 mg PO DAILY 05/09/23 05/09/23 Losartan [Cozaar] 50 mg PO DAILY 05/10/23 05/10/23 Metoprolol Succinate [Toprol Xl] 100 mg PO QPM 05/10/23 05/10/23 Rosuvastatin Calcium [Crestor] 10 mg PO QPM 05/10/23 05/10/23 hydrOXYzine HCL [Hydroxyzine HCl] 25 - 50 mg PO QPM 05/10/23 05/10/23 risperiDONE [Risperdal] 0.75 mg PO QPM 05/10/23 05/10/23 - PHYSICAL EXAM AT DISCHARGE General Appearance: positive: No acute distress, Alert, Other (No insight of her condition, unable to process any information) Eyes Bilateral: positive: PERRL, EOMI ENT: positive: Pharynx nml Neck: positive: Nml inspection Respiratory: positive: No respiratory distress Abdomen: positive: Non-tender Skin: positive: Dry Physical Exam Other/Comments: On Kelly catheter - LABS Result Diagrams: 05/20/23 08:00 05/20/23 08:00 - DIAGNOSTIC IMAGING Diagnostic Imaging Results: Final report reviewed - SEPSIS Current Stage of Sepsis: Ruled out"
[2023-06-07] MEDS: ACETAMINOPHEN 1,000 MG/100 ML 1,000 MG/100 ML BAG IV PRN (08:50)
[2023-06-07] MEDS: LITHIUM 150 MG CAPSULE PO SCH (08:50)
[2023-06-07] MEDS: PHENYTOIN CHEW 50 MG TABLET PO SCH (08:52)
[2023-06-07 08:57] VITALS: BP 109/59; O2SAT 96
--- NOTE | 2023-06-07 09:52 | Discharge Plan ---
Discharge Plan Problem Reviewed?: Yes Disposition: 50 Hospice/Home DC/Xfer Condition: Stable Activity Restrictions: Activity as Tolerated Shower Restrictions: No Driving Restrictions: Yes Weight Bearing: Full Weight (if tolerate) Instruction Topics: Hospice Plan of Treatment: Hospice care will take over the care for comfort measure status Care Goals: comfort care Assessment: stable No Smoking: If you smoke, Please STOP! Call for help.
== END 2023-06-07 10:30 | disposition hospice, home (50) | DRG 640 ==
LOC: EDUNIT# → ED 14:57 → MS2 17:16 → ICU 05-17 07:58 → MS2 05-20 18:10
PROVIDERS: ADMIT Internal Medicine; ATTEND Internal Medicine
PROC: 02HV33Z Insertion of Infusion Device into Superior Vena Cava, Percutaneous Approach (ICD-10-PCS; principal; 2023-05-19)
DX: E83.52 Hypercalcemia (principal); G93.41 Metabolic encephalopathy; I63.9 Cerebral infarction, unspecified; J69.0 Pneumonitis due to inhalation of food and vomit; J96.01 Acute respiratory failure with hypoxia; R42 Dizziness and giddiness; D72.829 Elevated white blood cell count, unspecified; S06.9X9A Unspecified intracranial injury with loss of consciousness of unspecified duration, initial encounter; R53.1 Weakness; F23 Brief psychotic disorder; N17.9 Acute kidney failure, unspecified; J90 Pleural effusion, not elsewhere classified; J98.11 Atelectasis; F13.231 Sedative, hypnotic or anxiolytic dependence with withdrawal delirium; F31.89 Other bipolar disorder; R47.01 Aphasia; N30.00 Acute cystitis without hematuria; E87.0 Hyperosmolality and hypernatremia; G25.89 Other specified extrapyramidal and movement disorders; E86.0 Dehydration; I10 Essential (primary) hypertension; R33.9 Retention of urine, unspecified; I48.0 Paroxysmal atrial fibrillation; F41.9 Anxiety disorder, unspecified; Z66 Do not resuscitate; E87.6 Hypokalemia; R13.10 Dysphagia, unspecified; T42.6X5A Adverse effect of other antiepileptic and sedative-hypnotic drugs, initial encounter; Y92.230 Patient room in hospital as the place of occurrence of the external cause; R62.7 Adult failure to thrive; R00.0 Tachycardia, unspecified; G40.901 Epilepsy, unspecified, not intractable, with status epilepticus; R60.1 Generalized edema; Z53.20 Procedure and treatment not carried out because of patient's decision for unspecified reasons; G83.24 Monoplegia of upper limb affecting left nondominant side; E66.01 Morbid (severe) obesity due to excess calories; Z68.34 Body mass index [BMI] 34.0-34.9, adult; Z51.5 Encounter for palliative care; Z79.01 Long term (current) use of anticoagulants; Z79.899 Other long term (current) drug therapy; Z91.81 History of falling; W19.XXXA Unspecified fall, initial encounter; Y92.002 Bathroom of unspecified non-institutional (private) residence as the place of occurrence of the external cause
CPT/HCPCS: 36415; 36600; 70450; 70552; 71045; 80048; 80053; 80175; 80177; 80178; 80185; 81001; 82306; 82330; 82803; 83605; 83735; 83880; 83970; 84100; 84132; 84134; 85025; 85610; 87040; 87070; 87077; 87086; 87150; 87181; 87205; 87635; 93005; 93306; 97112; 97162; 97166; 99285; A9270; A9575; J0131; J1200; J1650; J2060; J7040; Q3014

== ENCOUNTER 2023-06-07 10:30 | Outpatient (CLI) | payer MEDICARE, OTHER | END 2023-06-07 10:31 | disposition home or self-care (01) | LOC: EMS 10:30 | PROVIDERS: ATTEND Internal Medicine | DX: Z51.5 Encounter for palliative care (principal); I63.81 Other cerebral infarction due to occlusion or stenosis of small artery | CPT/HCPCS: A0425; A0428 ==